=== PATIENT | female | born 1945 | race Caucasian/White ===

== ENCOUNTER → 2016-11-30 | Outpatient (REF) | payer MEDICARE, BC ==
[~2016-11-30] MED LIST: /WARF25TA PO; AMITIZA PO; CHLORPROMAZINE PO; COLA50CA3 PO; FLUPHENAZINE PO; FOLI1TAB86 PO; MULTTAB4 PO; OMEP40CA2 PO; PERC7.5T12 PO; PRAVASTATIN PO; REST15CA PO; THIA50CA PO; [UNRECOGNIZED DRUG - OTHER] PO
== END ==
LOC: M LAB REF 12:44
PROVIDERS: ATTEND Internal Medicine Medical Oncology
DX: C50.919 Malignant neoplasm of unspecified site of unspecified female breast (principal)

== ENCOUNTER → 2017-02-20 | Day surgery (SDC) | payer MEDICARE, BC ==
[~2017-02-20] VITALS: Ht 182.9 cm; Wt 59.0 kg
[~2017-02-20] MED LIST changes: +ACETAMINOPHEN 325 MG TAB PO PRN; +ASPI81CH32 PO; +AZIT500T2; +AcetaZOLAMIDE 500 MG ER CAP PO ONE; +BSS with VANC/TOB/EPI for EYE CASES IR ONE; +CALCTAB7 PO; +CYCLOPENTOLATE 2% OPHTH SOLN 2ML BTL As Ordered ONE; +CYCLOPENTOLATE 2% OPHTH SOLN 2ML BTL OD ONE; +D5W/0.2% SODIUM CHLORIDE 1,000 ML ONE; +D5W/0.2% SODIUM CHLORIDE 250 ML IV ONE; +FISH1000 PO; +FOSA70TA PO; +HEALON DUET (HEALON 10MG/ML 0.55ML & HEALON ENDOCOAT 30MG/ML 0.85ML) As Ordered ONE; +KETOROLAC 0.5% OPHTH SOLN OD ONE; +LIDOCAINE 1% SDV 5 ML VIAL As Ordered ONE; +LIDOCAINE 4% INJ 5 ML AMP OU ONE; +LISI10TA4; +LOVA20TA2; +MIDAZOLAM INJ 2 MG/2 ML VIAL (J2250) As Ordered ONE; +MOXIFLOXACIN IN BSS 0.25MG/0.25ML INTRACAMERAL INJ (OR EYE ONLY)(J2280) As Ordered ONE; +MULTCAP9 PO; +OFLOXACIN 0.3 % (OCUFLOX) OPTH SOL 5ML As Ordered ONE; +OFLOXACIN 0.3 % (OCUFLOX) OPTH SOL 5ML OD ONE; +PHENYLEPHRINE 2.5% OPHTH SOL 2ML As Ordered ONE; +PHENYLEPHRINE 2.5% OPHTH SOL 2ML OD ONE; +POVIDONE-IODINE 5% OPHTH PREP SOL 30ML As Ordered ONE; +PROPARACAINE 0.5% OPHTH SOL 15ML OD PRN; +RISP1TAB3 PO; +RISP1TAB41; +RISP2TAB3 PO; +RISP4TAB2; +RISP4TAB33; +TAMO20TA4; +TAMO20TA4 PO; +TRIAMCINOLONE PRES FR 40 MG/ML 1ML(TRIESENCE)(OR EYE ONLY)(J3300 PER 1MG) As Ordered ONE; +TRIMETHOBENZAMIDE 300 MG CAP PO PRN; +TROPICAMIDE 1% OPHTH SOLN 2ML As Ordered ONE; +TROPICAMIDE 1% OPHTH SOLN 2ML OD ONE; +VITA-130 PO; +VITA100066 PO; +VITMTA PO; +fentaNYL 100 MCG/2 ML INJECTION (J3010) As Ordered ONE
[2017-02-20 10:35] VITALS: BP 160/74
== END | disposition home or self-care (01) ==
LOC: M SDC 06:57
PROVIDERS: ATTEND Ophthalmology
DX: H26.9 Unspecified cataract (principal); I10 Essential (primary) hypertension; J44.9 Chronic obstructive pulmonary disease, unspecified; E78.5 Hyperlipidemia, unspecified; F33.1 Major depressive disorder, recurrent, moderate; F20.9 Schizophrenia, unspecified; M81.0 Age-related osteoporosis without current pathological fracture; L40.9 Psoriasis, unspecified; K58.9 Irritable bowel syndrome, unspecified; R01.1 Cardiac murmur, unspecified; K59.00 Constipation, unspecified; Z79.899 Other long term (current) drug therapy; Z85.3 Personal history of malignant neoplasm of breast; Z92.21 Personal history of antineoplastic chemotherapy; Z92.3 Personal history of irradiation
CPT/HCPCS: 66984; J2250; J2280; J3010; J3300; V2632

== ENCOUNTER → 2017-03-12 | Day surgery (SDC) | payer MEDICARE, BC ==
[~2017-03-12] VITALS: Ht 182.9 cm; Wt 59.0 kg
[~2017-03-12] MED LIST changes: -CYCLOPENTOLATE 2% OPHTH SOLN 2ML BTL As Ordered ONE; -CYCLOPENTOLATE 2% OPHTH SOLN 2ML BTL OD ONE; +CYCLOPENTOLATE 2% OPHTH SOLN 2ML BTL OS ONE; -D5W/0.2% SODIUM CHLORIDE 1,000 ML ONE; -D5W/0.2% SODIUM CHLORIDE 250 ML IV ONE; -KETOROLAC 0.5% OPHTH SOLN OD ONE; +KETOROLAC 0.5% OPHTH SOLN OS ONE; +LR 1,000 ML IV SCH; -OFLOXACIN 0.3 % (OCUFLOX) OPTH SOL 5ML As Ordered ONE; -OFLOXACIN 0.3 % (OCUFLOX) OPTH SOL 5ML OD ONE; +OFLOXACIN 0.3 % (OCUFLOX) OPTH SOL 5ML OS ONE; -PHENYLEPHRINE 2.5% OPHTH SOL 2ML As Ordered ONE; -PHENYLEPHRINE 2.5% OPHTH SOL 2ML OD ONE; +PHENYLEPHRINE 2.5% OPHTH SOL 2ML OS ONE; -PROPARACAINE 0.5% OPHTH SOL 15ML OD PRN; +PROPARACAINE 0.5% OPHTH SOL 15ML OS PRN; -TROPICAMIDE 1% OPHTH SOLN 2ML As Ordered ONE; -TROPICAMIDE 1% OPHTH SOLN 2ML OD ONE; +TROPICAMIDE 1% OPHTH SOLN 2ML OS ONE
[2017-03-12 13:35] VITALS: BP 169/77
== END | disposition home or self-care (01) ==
LOC: M SDC 10:14
PROVIDERS: ATTEND Ophthalmology
DX: H26.9 Unspecified cataract (principal); I10 Essential (primary) hypertension; F20.9 Schizophrenia, unspecified; F32.9 Major depressive disorder, single episode, unspecified; R01.1 Cardiac murmur, unspecified; E83.51 Hypocalcemia; D72.819 Decreased white blood cell count, unspecified; K59.00 Constipation, unspecified; K58.9 Irritable bowel syndrome, unspecified; L40.9 Psoriasis, unspecified; M81.8 Other osteoporosis without current pathological fracture; E78.5 Hyperlipidemia, unspecified; J44.9 Chronic obstructive pulmonary disease, unspecified; Z79.899 Other long term (current) drug therapy; Z92.21 Personal history of antineoplastic chemotherapy; Z92.3 Personal history of irradiation; Z96.641 Presence of right artificial hip joint; Z87.891 Personal history of nicotine dependence; Z85.3 Personal history of malignant neoplasm of breast
CPT/HCPCS: 66984; J2250; J2280; J3010; J3300; V2632

== ENCOUNTER → 2017-04-16 | Outpatient (CLI) | payer MEDICARE, BC ==
[~2017-04-16] MED LIST changes: -ACETAMINOPHEN 325 MG TAB PO PRN; -AcetaZOLAMIDE 500 MG ER CAP PO ONE; -BSS with VANC/TOB/EPI for EYE CASES IR ONE; -CYCLOPENTOLATE 2% OPHTH SOLN 2ML BTL OS ONE; -HEALON DUET (HEALON 10MG/ML 0.55ML & HEALON ENDOCOAT 30MG/ML 0.85ML) As Ordered ONE; -KETOROLAC 0.5% OPHTH SOLN OS ONE; -LIDOCAINE 1% SDV 5 ML VIAL As Ordered ONE; -LIDOCAINE 4% INJ 5 ML AMP OU ONE; -LR 1,000 ML IV SCH; -MIDAZOLAM INJ 2 MG/2 ML VIAL (J2250) As Ordered ONE; -MOXIFLOXACIN IN BSS 0.25MG/0.25ML INTRACAMERAL INJ (OR EYE ONLY)(J2280) As Ordered ONE; -OFLOXACIN 0.3 % (OCUFLOX) OPTH SOL 5ML OS ONE; -PHENYLEPHRINE 2.5% OPHTH SOL 2ML OS ONE; -POVIDONE-IODINE 5% OPHTH PREP SOL 30ML As Ordered ONE; -PROPARACAINE 0.5% OPHTH SOL 15ML OS PRN; -RISP1TAB41; +RISP1TAB42; -TRIAMCINOLONE PRES FR 40 MG/ML 1ML(TRIESENCE)(OR EYE ONLY)(J3300 PER 1MG) As Ordered ONE; -TRIMETHOBENZAMIDE 300 MG CAP PO PRN; -TROPICAMIDE 1% OPHTH SOLN 2ML OS ONE; -VITA-130 PO; +VITA500T PO; -fentaNYL 100 MCG/2 ML INJECTION (J3010) As Ordered ONE
--- NOTE | 2017-04-16 16:19 | REPMRS ---
Patient History The patient states she had a clinical breast exam in 11/2016. Patient is postmenopausal, has history of cancer in the left breast at age 64, and is nulliparous. Family history of breast cancer in mother at age 62, breast cancer in maternal aunt at age 60, breast cancer in maternal cousin at age 40, and prostate cancer in brother at age 50 or over. Radiation therapy of the left breast. Took hormonal contraceptives for 2 years. Taking tamoxifen for 5 years 6 months. Digital Woman Screen Mammo: April 16, 2017 - Exam #: [id number] Bilateral CC and MLO view(s) were taken. Technologist: Lorena Scherer Technologist Prior study comparison: April 12, 2016, digital woman screen mammo performed at [facility]. March 23, 2015, digital woman screen mammo performed at [facility]. FINDINGS: There are scattered fibroglandular densities. There is a fairly symmetric fibroglandular pattern in both breasts. There has been no interval development of masses, areas of architectural distortion or clusters of microcalcifications typical of malignancy. ASSESSMENT: BI-RADS/ACR category 2 mammogram. Benign finding(s). Recommendation Routine screening mammogram of both breasts in 1 year (for women over age 40). This mammogram was interpreted with the aid of an FDA-approved computer-aided dectection system. Electronically Signed By: Shaheen Keith MD 04/16/17 1105
== END ==
LOC: M WHC 14:12
PROVIDERS: ATTEND Nurse Practitioner Family
DX: Z12.31 Encounter for screening mammogram for malignant neoplasm of breast (principal); Z85.3 Personal history of malignant neoplasm of breast

== ENCOUNTER → 2017-06-04 | Outpatient (REF) | payer MEDICARE, BC ==
[2017-06-04 15:18] LABS: PERCENT SATURATION 37.3 % (13.2-45.0)
== END ==
LOC: M LAB REF 12:48
PROVIDERS: ATTEND Internal Medicine Medical Oncology
DX: C50.412 Malignant neoplasm of upper-outer quadrant of left female breast (principal); D64.9 Anemia, unspecified; Z79.810 Long term (current) use of selective estrogen receptor modulators (SERMs)

== ENCOUNTER → 2017-08-07 | Outpatient (REF) | payer MEDICARE, BC ==
[2017-08-07 16:05] LABS: RETIC HEMOGLOBIN EQUIVALENT 35.9 pg (24-36); RETICULOCYTE % 1.2 % (0.5-1.5)
[2017-08-07 16:32] LABS: PERCENT SATURATION 27.6 % (13.2-45.0)
== END ==
LOC: M LAB REF 15:54
PROVIDERS: ATTEND Internal Medicine Medical Oncology
DX: C50.919 Malignant neoplasm of unspecified site of unspecified female breast (principal)

== ENCOUNTER → 2017-12-12 | Outpatient (REF) | payer MEDICARE, BC ==
[2017-12-12 13:41] LABS: FERRITIN 40 NG/ML (8-252); IRON (FE) 127 UG/DL (50-170); PERCENT SATURATION 39.9 % (13.2-45.0); TOTAL IRON BINDING CAPACITY 318 UG/DL (250-450)
== END ==
LOC: M LAB REF 13:04
DX: C50.412 Malignant neoplasm of upper-outer quadrant of left female breast (principal); Z17.0 Estrogen receptor positive status [ER+]; Z79.810 Long term (current) use of selective estrogen receptor modulators (SERMs); D50.0 Iron deficiency anemia secondary to blood loss (chronic)
CPT/HCPCS: 83550

== ENCOUNTER 2018-01-09 07:05 | Emergency (ER) | payer MEDICARE, BC ==
[2018-01-09] MEDS ORDERED: LISINOPRIL 10 MG TAB PO ×2 (09:00)
[2018-01-09] MEDS ORDERED: SIMVASTATIN 20 MG TAB PO ×2 (09:00)
[2018-01-09] MEDS ORDERED: OMEGA-3 1050MG CAPSULE PO ×2 (09:00)
[2018-01-09] MEDS ORDERED: ASCORBIC ACID 500 MG TAB PO ×2 (09:00)
[2018-01-09] MEDS ORDERED: TAMOXIFEN CITRATE 10 MG TAB PO ×2 (09:00)
[2018-01-09] MEDS ORDERED: MULTIVITAMINS/MINERALS THERAP 1 TAB PO ×2 (09:00)
[2018-01-09] MEDS ORDERED: VITAMIN D 1,000 INTERNATIONAL UNITS TABLET PO ×2 (09:00)
[2018-01-09 11:30] LABS: HEMATOCRIT 34.6 % (36.0-47.0); HEMOGLOBIN 11.5 g/dl (12.0-15.5); MEAN CORPUSCULAR HEMOGLOBIN 29.8 pg (27.0-33.0); MEAN CORPUSCULAR HGB CONC 33.2 g/dl (32.0-36.5); MEAN CORPUSCULAR VOLUME 89.6 fl (80.0-96.0); PLATELET COUNT, AUTOMATED 131 10^3/uL (150-450); RED BLOOD COUNT 3.86 10^6/uL (4.00-5.40); RED CELL DISTRIBUTION WIDTH 13.8 % (11.5-14.5); WHITE BLOOD COUNT 4.4 10^3/uL (4.0-10.0)
[2018-01-09] MEDS: NORCO, ANEXSIA 5/325MG TABLET (HYDROcodone/ACETAMINOPHEN) PO ×2 (11:44)
[2018-01-09 11:51] LABS: ANION GAP 8 MEQ/L (8-16); BLOOD UREA NITROGEN 7 MG/DL (7-18); CARBON DIOXIDE LEVEL 24 MEQ/L (21-32); CHLORIDE LEVEL 110 MEQ/L (98-107); CREATININE FOR GFR 0.48 MG/DL (0.55-1.30); GLOMERULAR FILTRATION RATE > 60.0 (>39); GLUCOSE, FASTING 96 MG/DL (70-100); POTASSIUM SERUM 3.7 MEQ/L (3.5-5.1); SODIUM LEVEL 142 MEQ/L (136-145)
[2018-01-09] MEDS ORDERED: ACETAMINOPHEN TAB 650MG DOSE (2X325MG) PO ×2 (13:30)
[2018-01-09] MEDS ORDERED: ONDANSETRON 4MG/2ML VIAL (J2405) IV ×2 (13:30)
[2018-01-09] MEDS ORDERED: PERCOCET 5MG/325MG TAB PO ×2 (13:30)
[2018-01-09] MEDS ORDERED: HEPARIN SOD (PORCINE) 5000 UNITS/ML VIAL SC ×2 (14:00)
[2018-01-09] MEDS ORDERED: ASPIRIN 81 MG CHEW TABLET PO ×2 (21:00)
[2018-01-09] MEDS ORDERED: SENOKOT S TAB PO ×2 (21:00)
[2018-01-09] MEDS ORDERED: risperiDONE 3 MG TAB PO ×2 (21:00)
[2018-01-12] MEDS ORDERED: ALENDRONATE 35MG TABLET PO ×2 (07:00)
== END 2018-01-09 15:20 | disposition home or self-care (01) ==
LOC: M ED 07:05
DX: M17.12 Unilateral primary osteoarthritis, left knee (principal); F20.9 Schizophrenia, unspecified; J44.9 Chronic obstructive pulmonary disease, unspecified; K58.9 Irritable bowel syndrome, unspecified; I10 Essential (primary) hypertension; M19.90 Unspecified osteoarthritis, unspecified site; Z85.3 Personal history of malignant neoplasm of breast; Z87.891 Personal history of nicotine dependence; Z79.82 Long term (current) use of aspirin; Z79.899 Other long term (current) drug therapy
CPT/HCPCS: 73564

== ENCOUNTER 2018-01-15 10:12 | Inpatient (IN) | payer MEDICARE, BC ==
[2018-01-15 11:33] LABS: BASO % 0.1 % (0.0-1.0); HEMATOCRIT 31.5 % (36.0-47.0); HEMOGLOBIN 10.3 g/dl (12.0-15.5); IMMATURE GRANULOCYTE % 0.5 % (0-3.0); LYMPH # 0.6 10^3/uL (1.5-4.5); MEAN CORPUSCULAR HEMOGLOBIN 28.9 pg (27.0-33.0); MEAN CORPUSCULAR HGB CONC 32.7 g/dl (32.0-36.5); MEAN CORPUSCULAR VOLUME 88.2 fl (80.0-96.0); MONO # 0.6 10^3/uL (0.0-0.8); MONO % 6.8 % (0.0-5.0); NEUTROPHILS # 6.8 10^3/uL (1.8-7.7); NEUTROPHILS % 84.6 % (36.0-66.0); PLATELET COUNT, AUTOMATED 272 10^3/uL (150-450); RED BLOOD COUNT 3.57 10^6/uL (4.00-5.40); RED CELL DISTRIBUTION WIDTH 13.9 % (11.5-14.5); WHITE BLOOD COUNT 8.1 10^3/uL (4.0-10.0)
[2018-01-15 12:00] LABS: ANION GAP 5 MEQ/L (8-16); BLOOD UREA NITROGEN 26 MG/DL (7-18); CALCIUM LEVEL 9.4 MG/DL (8.8-10.2); CARBON DIOXIDE LEVEL 30 MEQ/L (21-32); CHLORIDE LEVEL 108 MEQ/L (98-107); CREATININE FOR GFR 0.61 MG/DL (0.55-1.30); GLOMERULAR FILTRATION RATE > 60.0 (>39); GLUCOSE, FASTING 127 MG/DL (70-100); POTASSIUM SERUM 3.7 MEQ/L (3.5-5.1); SODIUM LEVEL 143 MEQ/L (136-145); URIC ACID 4.1 MG/DL (2.6-6.0)
[2018-01-15 12:05] LABS: ERYTHROCYTE SEDIMENTATION RATE 81 mm/hr (0-30)
[2018-01-15] MEDS ORDERED: LIDOCAINE 1% MDV 20ML VIAL As Ordered (14:51)
[2018-01-15] MEDS: LIDOCAINE 1% MDV 20ML VIAL SC (15:07)
[2018-01-15] MEDS: NS 1,000 ML IV (15:45)
[2018-01-15 16:04] LABS: SOURCE, BODY FLUID LFT KNEE
[2018-01-15 16:05] LABS: APPEARANCE, BODY FLUID TURBID (CLEAR)
[2018-01-15 16:06] LABS: RBC BODY FLUID 172 10^3/uL (<2); WBC BODY FLUID 251232 /uL (0-10)
[2018-01-15 16:07] LABS: BF MONONUCLEAR CELL % 31.6 % (0-0); BF POLYMORPHONUCLEAR CELL % 68.4 % (0-0)
[2018-01-15 16:18] LABS: BF DIFF IF INDICATED? YES (NO); CRYSTALS, BODY FLUID NONE SEEN (NONE SEEN); SOURCE, BODY FLUID CRYSTALS LFT KNEE
[2018-01-15] MEDS: VANCOMYCIN HCL 1,000 MG, VIAL MATE ADAPTER 1 EACH in D5W 250 ML IV (17:00)
[2018-01-15] MEDS: ACETAMINOPHEN 650 MG SUPP PR (18:00)
[2018-01-15] MEDS: PIPERACILLIN/TAZOBACTAM SOD 3.375 GM in D5W MINI-BAG PLUS 50 ML IV (18:42)
[2018-01-15] MEDS ORDERED: MORPHINE 4 MG/ML 1ML VIAL/SYRINGE (J2270) IV (20:15)
[2018-01-15] MEDS ORDERED: NORCO, ANEXSIA 5/325MG TABLET (HYDROcodone/ACETAMINOPHEN) PO (20:15)
[2018-01-15] MEDS: PIPERACILLIN/TAZOBACTAM SOD 2.25 GM in D5W MINI-BAG PLUS 50 ML IV (22:36)
[2018-01-15] MEDS: SENOKOT S TAB PO (22:36)
[2018-01-15] MEDS ORDERED: LIDOCAINE 2% INJ 100 MG/5 ML SDV (FOR ANES.) As Ordered (22:52)
[2018-01-15] MEDS ORDERED: ONDANSETRON 4MG/2ML VIAL (J2405) As Ordered (22:52)
[2018-01-15] MEDS ORDERED: MIDAZOLAM INJ 2 MG/2 ML VIAL (J2250) As Ordered (22:52)
[2018-01-15] MEDS ORDERED: PROPOFOL 200 MG/20 ML VIAL As Ordered (22:52)
[2018-01-15] MEDS ORDERED: fentaNYL 100 MCG/2 ML INJECTION (J3010) As Ordered (22:52)
[2018-01-15] MEDS ORDERED: dexameTHASONE 4 MG/ML 1ML VIAL (J1100) As Ordered (22:52)
[2018-01-16] MEDS ORDERED: PROPOFOL 200 MG/20 ML VIAL As Ordered (00:13)
[2018-01-16] MEDS ORDERED: fentaNYL 100 MCG/2 ML INJECTION (J3010) IV (01:00)
[2018-01-16] MEDS ORDERED: ONDANSETRON 4MG/2ML VIAL (J2405) IV (01:00)
[2018-01-16] MEDS: PIPERACILLIN/TAZOBACTAM SOD 2.25 GM in D5W MINI-BAG PLUS 50 ML IV ×4 (03:18→21:24)
[2018-01-16] MEDS: VANCOMYCIN HCL 1,000 MG, VIAL MATE ADAPTER 1 EACH in D5W 250 ML IV ×2 (06:27→18:23)
[2018-01-16] MEDS: NS 1,000 ML IV ×2 (06:28→18:22)
[2018-01-16] MEDS: HEPARIN SOD (PORCINE) 5000 UNITS/ML VIAL SC ×3 (06:29→21:24)
[2018-01-16 07:33] LABS: HEMATOCRIT 29.4 % (36.0-47.0); HEMOGLOBIN 9.6 g/dl (12.0-15.5); MEAN CORPUSCULAR HEMOGLOBIN 28.7 pg (27.0-33.0); MEAN CORPUSCULAR HGB CONC 32.7 g/dl (32.0-36.5); MEAN CORPUSCULAR VOLUME 87.8 fl (80.0-96.0); PLATELET COUNT, AUTOMATED 274 10^3/uL (150-450); RED BLOOD COUNT 3.35 10^6/uL (4.00-5.40); RED CELL DISTRIBUTION WIDTH 13.9 % (11.5-14.5); WHITE BLOOD COUNT 7.7 10^3/uL (4.0-10.0)
[2018-01-16 07:44] LABS: INR 1.44; PROTHROMBIN TIME 17.9 SECONDS (12.4-14.5)
[2018-01-16 08:03] LABS: ALBUMIN 1.8 GM/DL (3.2-5.2); ALBUMIN/GLOBULIN RATIO 0.47 (1.00-1.93); ALKALINE PHOSPHATASE 51 U/L (45-117); ALT/SGPT 29 U/L (12-78); ANION GAP 8 MEQ/L (8-16); AST/SGOT 23 U/L (7-37); BILIRUBIN,TOTAL 0.3 MG/DL (0.2-1.0); BLOOD UREA NITROGEN 22 MG/DL (7-18); CALCIUM LEVEL 8.2 MG/DL (8.8-10.2); CARBON DIOXIDE LEVEL 25 MEQ/L (21-32); CHLORIDE LEVEL 112 MEQ/L (98-107); CREATININE FOR GFR 0.44 MG/DL (0.55-1.30); GLOMERULAR FILTRATION RATE > 60.0 (>39); GLUCOSE, FASTING 156 MG/DL (70-100); MAGNESIUM LEVEL 2.2 MG/DL (1.8-2.4); POTASSIUM SERUM 3.4 MEQ/L (3.5-5.1); SODIUM LEVEL 145 MEQ/L (136-145); TOTAL PROTEIN 5.6 GM/DL (6.4-8.2)
[2018-01-16] MEDS: MULTIVITAMINS/MINERALS THERAP 1 TAB PO (08:22)
[2018-01-16] MEDS: ASCORBIC ACID 500 MG TAB PO (08:23)
[2018-01-16] MEDS: SENOKOT S TAB PO ×2 (08:23→21:24)
[2018-01-16] MEDS: SIMVASTATIN 20 MG TAB PO (08:23)
[2018-01-16] MEDS: PERCOCET 5MG/325MG TAB PO ×2 (08:23→15:32)
[2018-01-16] MEDS: VITAMIN D 1,000 INTERNATIONAL UNITS TABLET PO (08:23)
[2018-01-16] MEDS: LISINOPRIL 10 MG TAB PO (08:23)
[2018-01-16] MEDS: LR 1,000 ML IV (08:24)
[2018-01-16] MEDS ORDERED: SENOKOT S TAB PO (09:00)
[2018-01-16] MEDS: risperiDONE 3 MG TAB PO ×2 (11:47→21:24)
[2018-01-16] MEDS: MOM 30ML SUSPENSION UDC PO (11:47)
[2018-01-16] MEDS: TAMOXIFEN CITRATE 10 MG TAB PO (11:47)
[2018-01-16] MEDS: MIRALAX *UNIT DOSE* 17GM PACKET PO (11:47)
[2018-01-16] MEDS: POTASSIUM CHLORIDE 10 MEQ SR TABLET PO (15:31)
[2018-01-16 17:27] LABS: VANCOMYCIN LEVEL TROUGH 9.1 UG/ML (10.0-20.0)
[2018-01-17] MEDS: VANCOMYCIN HCL 1,000 MG, VIAL MATE ADAPTER 1 EACH in D5W 250 ML IV ×2 (00:58→12:42)
[2018-01-17] MEDS: PERCOCET 5MG/325MG TAB PO ×3 (00:59→14:40)
[2018-01-17] MEDS: NS 1,000 ML IV ×2 (01:01→18:57)
[2018-01-17] MEDS: PIPERACILLIN/TAZOBACTAM SOD 2.25 GM in D5W MINI-BAG PLUS 50 ML IV ×4 (03:26→20:16)
[2018-01-17] MEDS: HEPARIN SOD (PORCINE) 5000 UNITS/ML VIAL SC ×3 (05:54→20:16)
[2018-01-17 06:21] LABS: HEMATOCRIT 28.9 % (36.0-47.0); HEMOGLOBIN 9.4 g/dl (12.0-15.5); MEAN CORPUSCULAR HGB CONC 32.5 g/dl (32.0-36.5); MEAN CORPUSCULAR VOLUME 89.2 fl (80.0-96.0); PLATELET COUNT, AUTOMATED 296 10^3/uL (150-450); RED BLOOD COUNT 3.24 10^6/uL (4.00-5.40); WHITE BLOOD COUNT 7.2 10^3/uL (4.0-10.0)
[2018-01-17 06:32] LABS: ESTIMATED AVERAGE GLUCOSE 88 MG/DL (60-110); HEMOGLOBIN A1c 4.7 %
[2018-01-17 06:47] LABS: ALBUMIN 1.6 GM/DL (3.2-5.2); ALBUMIN/GLOBULIN RATIO 0.43 (1.00-1.93); ALKALINE PHOSPHATASE 46 U/L (45-117); ALT/SGPT 33 U/L (12-78); ANION GAP 8 MEQ/L (8-16); AST/SGOT 30 U/L (7-37); BILIRUBIN,TOTAL 0.2 MG/DL (0.2-1.0); BLOOD UREA NITROGEN 18 MG/DL (7-18); CALCIUM LEVEL 7.3 MG/DL (8.8-10.2); CARBON DIOXIDE LEVEL 24 MEQ/L (21-32); CHLORIDE LEVEL 107 MEQ/L (98-107); CREATININE FOR GFR 0.49 MG/DL (0.55-1.30); GLOMERULAR FILTRATION RATE > 60.0 (>39); GLUCOSE, FASTING 113 MG/DL (70-100); POTASSIUM SERUM 3.3 MEQ/L (3.5-5.1); SODIUM LEVEL 139 MEQ/L (136-145); TOTAL PROTEIN 5.3 GM/DL (6.4-8.2)
[2018-01-17] MEDS: risperiDONE 3 MG TAB PO ×2 (08:12→20:15)
[2018-01-17] MEDS: SIMVASTATIN 20 MG TAB PO (08:12)
[2018-01-17] MEDS: MULTIVITAMINS/MINERALS THERAP 1 TAB PO (08:12)
[2018-01-17] MEDS: VITAMIN D 1,000 INTERNATIONAL UNITS TABLET PO (08:13)
[2018-01-17] MEDS: ASCORBIC ACID 500 MG TAB PO (08:13)
[2018-01-17] MEDS: TAMOXIFEN CITRATE 10 MG TAB PO (08:13)
[2018-01-17] MEDS: MIRALAX *UNIT DOSE* 17GM PACKET PO (08:14)
[2018-01-17] MEDS: MOM 30ML SUSPENSION UDC PO (08:14)
[2018-01-17] MEDS: SENOKOT S TAB PO ×2 (08:15→20:15)
[2018-01-17] MEDS: LISINOPRIL 10 MG TAB PO (10:48)
[2018-01-17] MEDS: POTASSIUM CHLORIDE 10 MEQ SR TABLET PO (12:42)
[2018-01-18] MEDS: VANCOMYCIN HCL 1,000 MG, VIAL MATE ADAPTER 1 EACH in D5W 250 ML IV (00:34)
[2018-01-18] MEDS: PIPERACILLIN/TAZOBACTAM SOD 2.25 GM in D5W MINI-BAG PLUS 50 ML IV (04:08)
[2018-01-18] MEDS: HEPARIN SOD (PORCINE) 5000 UNITS/ML VIAL SC ×3 (05:18→21:52)
[2018-01-18 06:03] LABS: HEMOGLOBIN 8.9 g/dl (12.0-15.5); MEAN CORPUSCULAR VOLUME 87.9 fl (80.0-96.0); PLATELET COUNT, AUTOMATED 301 10^3/uL (150-450); RED BLOOD COUNT 3.07 10^6/uL (4.00-5.40); WHITE BLOOD COUNT 6.7 10^3/uL (4.0-10.0)
[2018-01-18 06:26] LABS: ALBUMIN 1.5 GM/DL (3.2-5.2); ALBUMIN/GLOBULIN RATIO 0.44 (1.00-1.93); ALKALINE PHOSPHATASE 44 U/L (45-117); ALT/SGPT 34 U/L (12-78); ANION GAP 6 MEQ/L (8-16); AST/SGOT 34 U/L (7-37); BILIRUBIN,TOTAL 0.3 MG/DL (0.2-1.0); BLOOD UREA NITROGEN 13 MG/DL (7-18); C REACTIVE PROTEIN QUANTITATIV 6.21 MG/DL (0.00-0.30); CALCIUM LEVEL 7.5 MG/DL (8.8-10.2); CARBON DIOXIDE LEVEL 26 MEQ/L (21-32); CHLORIDE LEVEL 108 MEQ/L (98-107); CREATININE FOR GFR 0.42 MG/DL (0.55-1.30); GLOMERULAR FILTRATION RATE > 60.0 (>39); GLUCOSE, FASTING 109 MG/DL (70-100); POTASSIUM SERUM 3.2 MEQ/L (3.5-5.1); SODIUM LEVEL 140 MEQ/L (136-145); TOTAL PROTEIN 4.9 GM/DL (6.4-8.2)
[2018-01-18] MEDS ORDERED: CEFTAROLINE FOSAMIL 600 MG in D5W MINI-BAG PLUS 50 ML IV (09:00)
[2018-01-18] MEDS: NS 1,000 ML IV (09:43)
[2018-01-18] MEDS: KCL 10MEQ/100ML SWI (KRUN) 10 MEQ in APPROPRIATE DILUENT 1 EA IV (10:08)
[2018-01-18] MEDS: POTASSIUM CHLORIDE 10 MEQ SR TABLET PO (10:08)
[2018-01-18] MEDS: MOM 30ML SUSPENSION UDC PO (10:09)
[2018-01-18] MEDS: MIRALAX *UNIT DOSE* 17GM PACKET PO (10:09)
[2018-01-18] MEDS: ASCORBIC ACID 500 MG TAB PO (10:10)
[2018-01-18] MEDS: PERCOCET 5MG/325MG TAB PO ×2 (10:10→16:36)
[2018-01-18] MEDS: TAMOXIFEN CITRATE 10 MG TAB PO (10:11)
[2018-01-18] MEDS: MULTIVITAMINS/MINERALS THERAP 1 TAB PO (10:11)
[2018-01-18] MEDS: risperiDONE 3 MG TAB PO ×2 (10:11→21:52)
[2018-01-18] MEDS: VITAMIN D 1,000 INTERNATIONAL UNITS TABLET PO (10:11)
[2018-01-18] MEDS: SIMVASTATIN 20 MG TAB PO (10:12)
[2018-01-18] MEDS: SENOKOT S TAB PO ×2 (10:12→21:00)
[2018-01-18] MEDS: LISINOPRIL 10 MG TAB PO (10:12)
[2018-01-18] MEDS: cefTRIAXone SOD 2 GM in D5W MINI-BAG PLUS 50 ML IV (11:20)
[2018-01-18] MEDS ORDERED: FUROSEMIDE 40 MG/4 ML VIAL (J1940) IV ×2 (16:30→19:30)
[2018-01-18] MEDS: SODIUM CHLORIDE 0.9% INJ 10 ML SYR IV (18:15)
[2018-01-18] MEDS ORDERED: HEPARIN SOD (PORCINE) 5000 UNITS/ML VIAL As Ordered (21:48)
[2018-01-19] MEDS: SODIUM CHLORIDE 0.9% INJ 10 ML SYR IV ×3 (05:21→17:36)
[2018-01-19] MEDS: HEPARIN SOD (PORCINE) 5000 UNITS/ML VIAL SC ×3 (05:22→21:07)
[2018-01-19 05:35] LABS: HEMATOCRIT 26.4 % (36.0-47.0); HEMOGLOBIN 8.7 g/dl (12.0-15.5); MEAN CORPUSCULAR HEMOGLOBIN 29.1 pg (27.0-33.0); MEAN CORPUSCULAR VOLUME 88.3 fl (80.0-96.0); PLATELET COUNT, AUTOMATED 309 10^3/uL (150-450); RED BLOOD COUNT 2.99 10^6/uL (4.00-5.40); RED CELL DISTRIBUTION WIDTH 13.8 % (11.5-14.5); WHITE BLOOD COUNT 6.7 10^3/uL (4.0-10.0)
[2018-01-19 05:57] LABS: POTASSIUM SERUM 3.8 MEQ/L (3.5-5.1)
[2018-01-19 06:34] LABS: ALBUMIN 1.6 GM/DL (3.2-5.2); ALBUMIN/GLOBULIN RATIO 0.55 (1.00-1.93); ALKALINE PHOSPHATASE 50 U/L (45-117); ALT/SGPT 45 U/L (12-78); ANION GAP 7 MEQ/L (8-16); AST/SGOT 42 U/L (7-37); BILIRUBIN,TOTAL 0.2 MG/DL (0.2-1.0); BLOOD UREA NITROGEN 12 MG/DL (7-18); CALCIUM LEVEL 7.2 MG/DL (8.8-10.2); CARBON DIOXIDE LEVEL 26 MEQ/L (21-32); CHLORIDE LEVEL 110 MEQ/L (98-107); GLOMERULAR FILTRATION RATE > 60.0 (>39); GLUCOSE, FASTING 105 MG/DL (70-100); SODIUM LEVEL 143 MEQ/L (136-145); TOTAL PROTEIN 4.5 GM/DL (6.4-8.2)
[2018-01-19] MEDS ORDERED: CEFAZOLIN SOD 2 GM in APPROPRIATE DILUENT 1 EA IV (07:45)
[2018-01-19] MEDS: MULTIVITAMINS/MINERALS THERAP 1 TAB PO (08:45)
[2018-01-19] MEDS: VITAMIN D 1,000 INTERNATIONAL UNITS TABLET PO (08:45)
[2018-01-19] MEDS: ASCORBIC ACID 500 MG TAB PO (08:46)
[2018-01-19] MEDS: SIMVASTATIN 20 MG TAB PO (08:46)
[2018-01-19] MEDS: risperiDONE 3 MG TAB PO ×2 (08:46→21:08)
[2018-01-19] MEDS: TAMOXIFEN CITRATE 10 MG TAB PO (08:47)
[2018-01-19] MEDS: LISINOPRIL 10 MG TAB PO (08:48)
[2018-01-19] MEDS: PERCOCET 5MG/325MG TAB PO ×2 (08:56→21:08)
[2018-01-19] MEDS: SENOKOT S TAB PO ×2 (09:00→21:00)
[2018-01-19] MEDS: MOM 30ML SUSPENSION UDC PO (09:00)
[2018-01-19] MEDS: MIRALAX *UNIT DOSE* 17GM PACKET PO (09:00)
[2018-01-20] MEDS: SODIUM CHLORIDE 0.9% INJ 10 ML SYR IV ×4 (00:27→17:30)
[2018-01-20] MEDS: HEPARIN SOD (PORCINE) 5000 UNITS/ML VIAL SC ×3 (05:02→21:08)
[2018-01-20 05:20] LABS: HEMATOCRIT 26.8 % (36.0-47.0); HEMOGLOBIN 8.8 g/dl (12.0-15.5); MEAN CORPUSCULAR HEMOGLOBIN 28.9 pg (27.0-33.0); MEAN CORPUSCULAR HGB CONC 32.8 g/dl (32.0-36.5); MEAN CORPUSCULAR VOLUME 87.9 fl (80.0-96.0); PLATELET COUNT, AUTOMATED 348 10^3/uL (150-450); RED BLOOD COUNT 3.05 10^6/uL (4.00-5.40); RED CELL DISTRIBUTION WIDTH 13.9 % (11.5-14.5); WHITE BLOOD COUNT 6.6 10^3/uL (4.0-10.0)
[2018-01-20 05:51] LABS: ALBUMIN 1.6 GM/DL (3.2-5.2); ALBUMIN/GLOBULIN RATIO 0.53 (1.00-1.93); ALKALINE PHOSPHATASE 50 U/L (45-117); ALT/SGPT 53 U/L (12-78); ANION GAP 5 MEQ/L (8-16); AST/SGOT 53 U/L (7-37); BILIRUBIN,TOTAL 0.2 MG/DL (0.2-1.0); BLOOD UREA NITROGEN 13 MG/DL (7-18); CALCIUM LEVEL 7.3 MG/DL (8.8-10.2); CARBON DIOXIDE LEVEL 27 MEQ/L (21-32); CHLORIDE LEVEL 108 MEQ/L (98-107); CREATININE FOR GFR 0.41 MG/DL (0.55-1.30); GLOMERULAR FILTRATION RATE > 60.0 (>39); GLUCOSE, FASTING 111 MG/DL (70-100); POTASSIUM SERUM 3.7 MEQ/L (3.5-5.1); SODIUM LEVEL 140 MEQ/L (136-145); TOTAL PROTEIN 4.6 GM/DL (6.4-8.2)
[2018-01-20] MEDS: risperiDONE 3 MG TAB PO ×2 (08:41→21:07)
[2018-01-20] MEDS: TAMOXIFEN CITRATE 10 MG TAB PO (08:42)
[2018-01-20] MEDS: VITAMIN D 1,000 INTERNATIONAL UNITS TABLET PO (08:43)
[2018-01-20] MEDS: PERCOCET 5MG/325MG TAB PO ×2 (08:43→21:08)
[2018-01-20] MEDS: ASCORBIC ACID 500 MG TAB PO (08:43)
[2018-01-20] MEDS: SIMVASTATIN 20 MG TAB PO (08:44)
[2018-01-20] MEDS: MULTIVITAMINS/MINERALS THERAP 1 TAB PO (08:44)
[2018-01-20] MEDS: LISINOPRIL 10 MG TAB PO (08:45)
[2018-01-20] MEDS: MIRALAX *UNIT DOSE* 17GM PACKET PO (09:00)
[2018-01-20] MEDS: SENOKOT S TAB PO ×2 (09:00→21:00)
[2018-01-20] MEDS: MOM 30ML SUSPENSION UDC PO (09:00)
[2018-01-20] MEDS: LACTOBACILLUS ACIDOPHILUS CAP (BACID) PO ×2 (12:56→17:30)
[2018-01-20] MEDS ORDERED: HEPARIN SOD (PORCINE) 5000 UNITS/ML VIAL As Ordered (20:57)
[2018-01-21] MEDS: SODIUM CHLORIDE 0.9% INJ 10 ML SYR IV ×2 (00:02→18:18)
[2018-01-21] MEDS: HEPARIN SOD (PORCINE) 5000 UNITS/ML VIAL SC ×3 (05:06→20:18)
[2018-01-21 05:14] LABS: HEMATOCRIT 25.7 % (36.0-47.0); HEMOGLOBIN 8.6 g/dl (12.0-15.5); MEAN CORPUSCULAR HEMOGLOBIN 29.4 pg (27.0-33.0); MEAN CORPUSCULAR HGB CONC 33.5 g/dl (32.0-36.5); MEAN CORPUSCULAR VOLUME 87.7 fl (80.0-96.0); PLATELET COUNT, AUTOMATED 343 10^3/uL (150-450); RED BLOOD COUNT 2.93 10^6/uL (4.00-5.40); RED CELL DISTRIBUTION WIDTH 13.8 % (11.5-14.5); WHITE BLOOD COUNT 6.2 10^3/uL (4.0-10.0)
[2018-01-21 05:45] LABS: ALBUMIN 1.7 GM/DL (3.2-5.2); ALBUMIN/GLOBULIN RATIO 0.59 (1.00-1.93); ALKALINE PHOSPHATASE 51 U/L (45-117); ALT/SGPT 57 U/L (12-78); ANION GAP 6 MEQ/L (8-16); AST/SGOT 59 U/L (7-37); BILIRUBIN,TOTAL 0.3 MG/DL (0.2-1.0); BLOOD UREA NITROGEN 10 MG/DL (7-18); CALCIUM LEVEL 7.3 MG/DL (8.8-10.2); CARBON DIOXIDE LEVEL 27 MEQ/L (21-32); CHLORIDE LEVEL 107 MEQ/L (98-107); CREATININE FOR GFR 0.39 MG/DL (0.55-1.30); GLOMERULAR FILTRATION RATE > 60.0 (>39); GLUCOSE, FASTING 102 MG/DL (70-100); MAGNESIUM LEVEL 2.1 MG/DL (1.8-2.4); POTASSIUM SERUM 3.7 MEQ/L (3.5-5.1); SODIUM LEVEL 140 MEQ/L (136-145); TOTAL PROTEIN 4.6 GM/DL (6.4-8.2)
[2018-01-21] MEDS: risperiDONE 3 MG TAB PO ×2 (08:09→20:18)
[2018-01-21] MEDS: MOM 30ML SUSPENSION UDC PO (08:10)
[2018-01-21] MEDS: MIRALAX *UNIT DOSE* 17GM PACKET PO (08:10)
[2018-01-21] MEDS: LACTOBACILLUS ACIDOPHILUS CAP (BACID) PO ×3 (08:10→18:18)
[2018-01-21] MEDS: TAMOXIFEN CITRATE 10 MG TAB PO (08:10)
[2018-01-21] MEDS: SENOKOT S TAB PO ×2 (08:10→20:25)
[2018-01-21] MEDS: SIMVASTATIN 20 MG TAB PO (08:11)
[2018-01-21] MEDS: VITAMIN D 1,000 INTERNATIONAL UNITS TABLET PO (08:11)
[2018-01-21] MEDS: MULTIVITAMINS/MINERALS THERAP 1 TAB PO (08:11)
[2018-01-21] MEDS: ASCORBIC ACID 500 MG TAB PO (08:11)
[2018-01-21] MEDS: LISINOPRIL 10 MG TAB PO (08:11)
[2018-01-21] MEDS: PERCOCET 5MG/325MG TAB PO (08:12)
[2018-01-22] MEDS: SODIUM CHLORIDE 0.9% INJ 10 ML SYR IV ×2 (06:09→17:41)
[2018-01-22] MEDS: HEPARIN SOD (PORCINE) 5000 UNITS/ML VIAL SC ×3 (06:10→20:09)
[2018-01-22 06:25] LABS: HEMATOCRIT 25.2 % (36.0-47.0); HEMOGLOBIN 8.4 g/dl (12.0-15.5); MEAN CORPUSCULAR HEMOGLOBIN 29.1 pg (27.0-33.0); MEAN CORPUSCULAR HGB CONC 33.3 g/dl (32.0-36.5); MEAN CORPUSCULAR VOLUME 87.2 fl (80.0-96.0); PLATELET COUNT, AUTOMATED 354 10^3/uL (150-450); RED BLOOD COUNT 2.89 10^6/uL (4.00-5.40); RED CELL DISTRIBUTION WIDTH 13.7 % (11.5-14.5)
[2018-01-22 06:43] LABS: ALBUMIN 1.6 GM/DL (3.2-5.2); ALBUMIN/GLOBULIN RATIO 0.57 (1.00-1.93); ALKALINE PHOSPHATASE 50 U/L (45-117); ALT/SGPT 43 U/L (12-78); ANION GAP 8 MEQ/L (8-16); AST/SGOT 43 U/L (7-37); BILIRUBIN,TOTAL 0.3 MG/DL (0.2-1.0); BLOOD UREA NITROGEN 8 MG/DL (7-18); CALCIUM LEVEL 7.2 MG/DL (8.8-10.2); CARBON DIOXIDE LEVEL 25 MEQ/L (21-32); CHLORIDE LEVEL 106 MEQ/L (98-107); CREATININE FOR GFR 0.36 MG/DL (0.55-1.30); GLOMERULAR FILTRATION RATE > 60.0 (>39); GLUCOSE, FASTING 103 MG/DL (70-100); MAGNESIUM LEVEL 2.2 MG/DL (1.8-2.4); POTASSIUM SERUM 3.5 MEQ/L (3.5-5.1); SODIUM LEVEL 139 MEQ/L (136-145); TOTAL PROTEIN 4.4 GM/DL (6.4-8.2)
[2018-01-22 07:01] LABS: ERYTHROCYTE SEDIMENTATION RATE 73 mm/hr (0-30)
[2018-01-22] MEDS: VITAMIN D 1,000 INTERNATIONAL UNITS TABLET PO (08:43)
[2018-01-22] MEDS: LACTOBACILLUS ACIDOPHILUS CAP (BACID) PO ×3 (08:43→17:41)
[2018-01-22] MEDS: PERCOCET 5MG/325MG TAB PO ×3 (08:43→20:09)
[2018-01-22] MEDS: MULTIVITAMINS/MINERALS THERAP 1 TAB PO (08:49)
[2018-01-22] MEDS: TAMOXIFEN CITRATE 10 MG TAB PO (08:49)
[2018-01-22] MEDS: SIMVASTATIN 20 MG TAB PO (08:50)
[2018-01-22] MEDS: LISINOPRIL 10 MG TAB PO (08:50)
[2018-01-22] MEDS: ASCORBIC ACID 500 MG TAB PO (08:50)
[2018-01-22] MEDS: SENOKOT S TAB PO ×2 (08:51→21:00)
[2018-01-22] MEDS: risperiDONE 3 MG TAB PO ×2 (08:51→20:08)
[2018-01-23] MEDS: SODIUM CHLORIDE 0.9% INJ 10 ML SYR IV (05:11)
[2018-01-23] MEDS: HEPARIN SOD (PORCINE) 5000 UNITS/ML VIAL SC (05:11)
[2018-01-23 05:46] LABS: ERYTHROCYTE SEDIMENTATION RATE 75 mm/hr (0-30)
[2018-01-23 05:53] LABS: C REACTIVE PROTEIN QUANTITATIV 3.53 MG/DL (0.00-0.30)
[2018-01-23] MEDS: ASCORBIC ACID 500 MG TAB PO (08:25)
[2018-01-23] MEDS: MULTIVITAMINS/MINERALS THERAP 1 TAB PO (08:25)
[2018-01-23] MEDS: SIMVASTATIN 20 MG TAB PO (08:25)
[2018-01-23] MEDS: LACTOBACILLUS ACIDOPHILUS CAP (BACID) PO (08:25)
[2018-01-23] MEDS: VITAMIN D 1,000 INTERNATIONAL UNITS TABLET PO (08:25)
[2018-01-23] MEDS: LISINOPRIL 10 MG TAB PO (08:25)
[2018-01-23] MEDS: risperiDONE 3 MG TAB PO (08:25)
[2018-01-23] MEDS: PERCOCET 5MG/325MG TAB PO (08:26)
[2018-01-23] MEDS: SENOKOT S TAB PO (08:26)
[2018-01-23] MEDS: TAMOXIFEN CITRATE 10 MG TAB PO (08:26)
== END 2018-01-23 11:05 | DRG 550 ==
LOC: M MS5PR 01-17 18:47 → M ED 10:12 → M ED INP 17:10 → M MSPAV 21:17
PROC: 0S9D30Z Drainage of Left Knee Joint with Drainage Device, Percutaneous Approach (ICD-10-PCS; 2018-01-15 15:58)
PROC: 0S9D3ZZ Drainage of Left Knee Joint, Percutaneous Approach (ICD-10-PCS; principal; 2018-01-15 23:52)
PROC: 02HV33Z Insertion of Infusion Device into Superior Vena Cava, Percutaneous Approach (ICD-10-PCS; 2018-01-15 23:52)
DX: M00.862 Arthritis due to other bacteria, left knee (principal); F20.9 Schizophrenia, unspecified; E78.5 Hyperlipidemia, unspecified; M71.22 Synovial cyst of popliteal space [Baker], left knee; M25.462 Effusion, left knee; B95.61 Methicillin susceptible Staphylococcus aureus infection as the cause of diseases classified elsewhere; M17.0 Bilateral primary osteoarthritis of knee; D64.9 Anemia, unspecified; G24.01 Drug induced subacute dyskinesia; Z79.82 Long term (current) use of aspirin; Z85.3 Personal history of malignant neoplasm of breast; Z92.21 Personal history of antineoplastic chemotherapy; Z92.3 Personal history of irradiation; Z79.899 Other long term (current) drug therapy; Z96.641 Presence of right artificial hip joint

== ENCOUNTER → 2018-01-25 | Outpatient (REF) ==
[2018-01-25 10:06] LABS: HEMATOCRIT 24.1 % (36.0-47.0); HEMOGLOBIN 7.8 g/dl (12.0-15.5); MEAN CORPUSCULAR HEMOGLOBIN 28.8 pg (27.0-33.0); MEAN CORPUSCULAR HGB CONC 32.4 g/dl (32.0-36.5); MEAN CORPUSCULAR VOLUME 88.9 fl (80.0-96.0); PLATELET COUNT, AUTOMATED 336 10^3/uL (150-450); RED BLOOD COUNT 2.71 10^6/uL (4.00-5.40); RED CELL DISTRIBUTION WIDTH 14.1 % (11.5-14.5); RETIC HEMOGLOBIN EQUIVALENT 28.9 pg (24-36); RETICULOCYTE # 51.5 10^9/L (17-77); RETICULOCYTE % 1.9 % (0.5-1.5)
[2018-01-25 10:22] LABS: C REACTIVE PROTEIN QUANTITATIV 3.05 MG/DL (0.00-0.30); ERYTHROCYTE SEDIMENTATION RATE 69 mm/hr (0-30); FERRITIN 210 NG/ML (8-252); IRON (FE) 11 UG/DL (50-170); PERCENT SATURATION 7.2 % (13.2-45.0); TOTAL IRON BINDING CAPACITY 152 UG/DL (250-450); TOTAL PROTEIN 4.4 GM/DL (6.4-8.2)
[2018-01-25 10:26] LABS: VITAMIN B12 LEVEL 673 PG/ML (247-911)
[2018-01-25 10:27] LABS: FOLATE 13.5 NG/ML (>5.4)
[2018-01-28 13:01] LABS: ALPHA-1-GLOBULIN % 14.3 % (2.9-4.9); ALPHA-2-GLOBULINS % 20.2 % (7.1-11.8); BETA-1-GLOBULINS % 6.7 % (4.7-7.2); BETA-2-GLOBULINS % 6.6 % (3.2-6.5); GAMMA GLOBULIN % 10.2 % (11.1-18.8)
[2018-01-28 13:02] LABS: ALBUMIN 1.85 GM/DL (3.29-5.55); ALPHA-1-GLOBULINS 0.63 GM/DL (0.17-0.41); ALPHA-2-GLOBULINS 0.89 GM/DL (0.42-0.99); BETA-1-GLOBULINS 0.29 GM/DL (0.28-0.60); BETA-2-GLOBULINS 0.29 GM/DL (0.19-0.55); GAMMA GLOBULINS 0.45 GM/DL (0.65-1.58)
== END ==
DX: D64.9 Anemia, unspecified (principal)

== ENCOUNTER → 2018-01-25 | Outpatient (CLI) | payer BC, MEDICARE | LOC: M RAD 09:55 | DX: M79.89 Other specified soft tissue disorders (principal); M25.462 Effusion, left knee | CPT/HCPCS: 93971 ==

== ENCOUNTER → 2018-01-25 | Outpatient (REF) | DX: M00.869 Arthritis due to other bacteria, unspecified knee (principal) ==

== ENCOUNTER → 2018-01-29 | Outpatient (REF) ==
[2018-01-29 06:39] LABS: HEMATOCRIT 23.9 % (36.0-47.0); HEMOGLOBIN 7.8 g/dl (12.0-15.5); MEAN CORPUSCULAR HEMOGLOBIN 28.9 pg (27.0-33.0); MEAN CORPUSCULAR HGB CONC 32.6 g/dl (32.0-36.5); MEAN CORPUSCULAR VOLUME 88.5 fl (80.0-96.0); PLATELET COUNT, AUTOMATED 282 10^3/uL (150-450); RED CELL DISTRIBUTION WIDTH 14.2 % (11.5-14.5); WHITE BLOOD COUNT 3.9 10^3/uL (4.0-10.0)
[2018-01-29 06:56] LABS: ANION GAP 4 MEQ/L (8-16); BLOOD UREA NITROGEN 8 MG/DL (7-18); CALCIUM LEVEL 7.5 MG/DL (8.8-10.2); CARBON DIOXIDE LEVEL 30 MEQ/L (21-32); CHLORIDE LEVEL 107 MEQ/L (98-107); CREATININE FOR GFR 0.33 MG/DL (0.55-1.30); GLOMERULAR FILTRATION RATE > 60.0 (>39); GLUCOSE, FASTING 88 MG/DL (70-100); POTASSIUM SERUM 3.6 MEQ/L (3.5-5.1); SODIUM LEVEL 141 MEQ/L (136-145)
[2018-01-29 07:11] LABS: ERYTHROCYTE SEDIMENTATION RATE 75 mm/hr (0-30)
== END ==
DX: D64.9 Anemia, unspecified (principal); B95.61 Methicillin susceptible Staphylococcus aureus infection as the cause of diseases classified elsewhere

== ENCOUNTER 2018-02-01 10:48 | Outpatient (CLI) | payer SELFPAY, MEDICARE ==
[2018-02-01] MEDS: ACETAMINOPHEN TAB 650MG DOSE (2X325MG) PO (12:36)
[2018-02-01] MEDS: diphenhydrAMINE 25 MG CAP PO (12:36)
== END 2018-02-01 18:39 ==
LOC: M OPCLI4PV 10:48 → M MSPAV 10:48 → M OPCLI4PV 18:39
DX: D64.9 Anemia, unspecified (principal)

== ENCOUNTER → 2018-02-05 | Outpatient (REF) ==
[2018-02-05 08:12] LABS: HEMATOCRIT 29.6 % (36.0-47.0); HEMOGLOBIN 9.5 g/dl (12.0-15.5); MEAN CORPUSCULAR HEMOGLOBIN 28.4 pg (27.0-33.0); MEAN CORPUSCULAR HGB CONC 32.1 g/dl (32.0-36.5); MEAN CORPUSCULAR VOLUME 88.4 fl (80.0-96.0); PLATELET COUNT, AUTOMATED 262 10^3/uL (150-450); RED BLOOD COUNT 3.35 10^6/uL (4.00-5.40); RED CELL DISTRIBUTION WIDTH 14.4 % (11.5-14.5); WHITE BLOOD COUNT 4.7 10^3/uL (4.0-10.0)
[2018-02-05 08:31] LABS: ANION GAP 4 MEQ/L (8-16); BLOOD UREA NITROGEN 8 MG/DL (7-18); C REACTIVE PROTEIN QUANTITATIV 1.57 MG/DL (0.00-0.30); CALCIUM LEVEL 7.6 MG/DL (8.8-10.2); CARBON DIOXIDE LEVEL 29 MEQ/L (21-32); CHLORIDE LEVEL 106 MEQ/L (98-107); CREATININE FOR GFR 0.28 MG/DL (0.55-1.30); GLOMERULAR FILTRATION RATE > 60.0 (>39); GLUCOSE, FASTING 90 MG/DL (70-100); SODIUM LEVEL 139 MEQ/L (136-145)
[2018-02-05 08:32] LABS: ERYTHROCYTE SEDIMENTATION RATE 63 mm/hr (0-30)
== END ==
DX: D64.9 Anemia, unspecified (principal)

== ENCOUNTER → 2018-02-12 | Outpatient (REF) ==
[2018-02-12 05:50] LABS: HEMATOCRIT 31.2 % (36.0-47.0); HEMOGLOBIN 9.9 g/dl (12.0-15.5); MEAN CORPUSCULAR HEMOGLOBIN 27.7 pg (27.0-33.0); MEAN CORPUSCULAR HGB CONC 31.7 g/dl (32.0-36.5); MEAN CORPUSCULAR VOLUME 87.4 fl (80.0-96.0); PLATELET COUNT, AUTOMATED 290 10^3/uL (150-450); RED BLOOD COUNT 3.57 10^6/uL (4.00-5.40); RED CELL DISTRIBUTION WIDTH 14.4 % (11.5-14.5); WHITE BLOOD COUNT 6.6 10^3/uL (4.0-10.0)
[2018-02-12 12:11] LABS: ERYTHROCYTE SEDIMENTATION RATE 54 mm/hr (0-30)
[2018-02-12 12:30] LABS: ANION GAP 9 MEQ/L (8-16); BLOOD UREA NITROGEN 11 MG/DL (7-18); C REACTIVE PROTEIN QUANTITATIV 2.56 MG/DL (0.00-0.30); CALCIUM LEVEL 7.5 MG/DL (8.8-10.2); CARBON DIOXIDE LEVEL 27 MEQ/L (21-32); CHLORIDE LEVEL 100 MEQ/L (98-107); CREATININE FOR GFR 0.48 MG/DL (0.55-1.30); GLOMERULAR FILTRATION RATE > 60.0 (>39); GLUCOSE, FASTING 145 MG/DL (70-100); POTASSIUM SERUM 3.8 MEQ/L (3.5-5.1); SODIUM LEVEL 136 MEQ/L (136-145)
== END ==
DX: D64.9 Anemia, unspecified (principal)

== ENCOUNTER → 2018-02-12 | Outpatient (REF) | payer MEDICARE | DX: D64.9 Anemia, unspecified (principal) ==

== ENCOUNTER → 2018-02-15 | Outpatient (REF) | payer MEDICARE | LOC: M LAB REF 16:50 | DX: M25.462 Effusion, left knee (principal) | CPT/HCPCS: 87205 ==

== ENCOUNTER → 2018-02-19 | Outpatient (REF) ==
[2018-02-19 10:22] LABS: HEMATOCRIT 30.5 % (36.0-47.0); HEMOGLOBIN 9.7 g/dl (12.0-15.5); MEAN CORPUSCULAR HEMOGLOBIN 27.7 pg (27.0-33.0); MEAN CORPUSCULAR HGB CONC 31.8 g/dl (32.0-36.5); MEAN CORPUSCULAR VOLUME 87.1 fl (80.0-96.0); PLATELET COUNT, AUTOMATED 241 10^3/uL (150-450); RED CELL DISTRIBUTION WIDTH 14.6 % (11.5-14.5); WHITE BLOOD COUNT 3.6 10^3/uL (4.0-10.0)
[2018-02-19 10:50] LABS: ANION GAP 8 MEQ/L (8-16); BLOOD UREA NITROGEN 16 MG/DL (7-18); CARBON DIOXIDE LEVEL 26 MEQ/L (21-32); CHLORIDE LEVEL 98 MEQ/L (98-107); CREATININE FOR GFR 0.54 MG/DL (0.55-1.30); GLOMERULAR FILTRATION RATE > 60.0 (>39); GLUCOSE, FASTING 123 MG/DL (70-100); POTASSIUM SERUM 4.5 MEQ/L (3.5-5.1); SODIUM LEVEL 132 MEQ/L (136-145)
[2018-02-19 11:05] LABS: ERYTHROCYTE SEDIMENTATION RATE 52 mm/hr (0-30)
== END ==
DX: A49.01 Methicillin susceptible Staphylococcus aureus infection, unspecified site (principal)

== ENCOUNTER → 2018-02-20 | Outpatient (CLI) | payer MEDICARE | LOC: M RAD 12:24 | DX: R33.9 Retention of urine, unspecified (principal) | CPT/HCPCS: 76775 ==

== ENCOUNTER → 2018-02-26 | Outpatient (REF) ==
[2018-02-26 10:24] LABS: HEMATOCRIT 30.9 % (36.0-47.0); HEMOGLOBIN 9.8 g/dl (12.0-15.5); MEAN CORPUSCULAR HEMOGLOBIN 27.8 pg (27.0-33.0); MEAN CORPUSCULAR HGB CONC 31.7 g/dl (32.0-36.5); MEAN CORPUSCULAR VOLUME 87.8 fl (80.0-96.0); PLATELET COUNT, AUTOMATED 246 10^3/uL (150-450); RED BLOOD COUNT 3.52 10^6/uL (4.00-5.40); RED CELL DISTRIBUTION WIDTH 15.4 % (11.5-14.5)
[2018-02-26 10:55] LABS: ANION GAP 9 MEQ/L (8-16); BLOOD UREA NITROGEN 13 MG/DL (7-18); C REACTIVE PROTEIN QUANTITATIV 0.79 MG/DL (0.00-0.30); CARBON DIOXIDE LEVEL 28 MEQ/L (21-32); CHLORIDE LEVEL 103 MEQ/L (98-107); GLOMERULAR FILTRATION RATE > 60.0 (>39); GLUCOSE, FASTING 124 MG/DL (70-100); POTASSIUM SERUM 3.6 MEQ/L (3.5-5.1); SODIUM LEVEL 140 MEQ/L (136-145)
[2018-02-26 10:58] LABS: ERYTHROCYTE SEDIMENTATION RATE 50 mm/hr (0-30)
== END ==
DX: Z11.2 Encounter for screening for other bacterial diseases (principal)

== ENCOUNTER → 2018-03-05 | Outpatient (REF) ==
[2018-03-05 09:46] LABS: HEMATOCRIT 30.1 % (36.0-47.0); HEMOGLOBIN 9.4 g/dl (12.0-15.5); MEAN CORPUSCULAR HGB CONC 31.2 g/dl (32.0-36.5); MEAN CORPUSCULAR VOLUME 86.5 fl (80.0-96.0); PLATELET COUNT, AUTOMATED 266 10^3/uL (150-450); RED BLOOD COUNT 3.48 10^6/uL (4.00-5.40); RED CELL DISTRIBUTION WIDTH 14.8 % (11.5-14.5)
[2018-03-05 10:11] LABS: ANION GAP 9 MEQ/L (8-16); BLOOD UREA NITROGEN 16 MG/DL (7-18); C REACTIVE PROTEIN QUANTITATIV 4.14 MG/DL (0.00-0.30); CALCIUM LEVEL 7.8 MG/DL (8.8-10.2); CARBON DIOXIDE LEVEL 27 MEQ/L (21-32); CHLORIDE LEVEL 100 MEQ/L (98-107); CHOLESTEROL LEVEL 123 MG/DL (<200); CHOLESTEROL RISK RATIO 1.708 (<5); CREATININE FOR GFR 0.45 MG/DL (0.55-1.30); GLOMERULAR FILTRATION RATE > 60.0 (>39); GLUCOSE, FASTING 131 MG/DL (70-100); HDL CHOLESTEROL 72 MG/DL (>40); LDL CHOLESTEROL 36.4 MG/DL (<100); NON-HDL-C 51 MG/DL; POTASSIUM SERUM 3.5 MEQ/L (3.5-5.1); SODIUM LEVEL 136 MEQ/L (136-145); TRIGLYCERIDES LEVEL 73 MG/DL (<150)
[2018-03-05 10:41] LABS: ERYTHROCYTE SEDIMENTATION RATE 56 mm/hr (0-30)
== END ==
DX: M17.12 Unilateral primary osteoarthritis, left knee (principal); D64.9 Anemia, unspecified

== ENCOUNTER → 2018-03-06 | Outpatient (REF) | payer MEDICARE, BC ==
[2018-03-06 20:52] LABS: APPEARANCE, BODY FLUID TURBID (CLEAR); CRYSTALS, BODY FLUID CA PYROPHOSPHATE (NONE SEEN); SOURCE, BODY FLUID OTHER; SYNOVIAL FLUID COLOR RED (YELLOW)
[2018-03-06 21:14] LABS: WBC BODY FLUID 52860 /uL (0-10)
[2018-03-06 21:15] LABS: BF DIFF IF INDICATED? YES (NO); RBC BODY FLUID 440 10^3/uL (<2); URIC ACID, BODY FLUID 3.3 MG/DL (NOT ESTABLISHED)
[2018-03-07 09:01] LABS: BODY FLUID RHEUMATOID SCREEN NEGATIVE (NEGATIVE)
[2018-03-07 09:02] LABS: MUCIN CLOT TEST 4+ (4+)
== END ==
LOC: M LAB REF 17:36
DX: Z11.2 Encounter for screening for other bacterial diseases (principal)
CPT/HCPCS: 82945

== ENCOUNTER 2018-03-08 14:41 | Inpatient (IN) | payer MEDICARE, BC ==
[2018-03-08] MEDS ORDERED: ACETAMINOPHEN TAB 650MG DOSE (2X325MG) PO (15:45)
[2018-03-08 15:55] LABS: BASO % 0.2 % (0.0-1.0); EOS % 0.8 % (0.0-3.0); HEMATOCRIT 29.1 % (36.0-47.0); HEMOGLOBIN 9.1 g/dl (12.0-15.5); IMMATURE GRANULOCYTE % 0.2 % (0-3.0); LYMPH # 0.7 10^3/uL (1.5-4.5); LYMPH % 15.4 % (24.0-44.0); MEAN CORPUSCULAR HEMOGLOBIN 27.3 pg (27.0-33.0); MEAN CORPUSCULAR HGB CONC 31.3 g/dl (32.0-36.5); MEAN CORPUSCULAR VOLUME 87.4 fl (80.0-96.0); MONO # 0.4 10^3/uL (0.0-0.8); MONO % 8.9 % (0.0-5.0); NEUTROPHILS # 3.6 10^3/uL (1.8-7.7); NEUTROPHILS % 74.5 % (36.0-66.0); PLATELET COUNT, AUTOMATED 285 10^3/uL (150-450); RED BLOOD COUNT 3.33 10^6/uL (4.00-5.40); RED CELL DISTRIBUTION WIDTH 14.7 % (11.5-14.5); WHITE BLOOD COUNT 4.8 10^3/uL (4.0-10.0)
[2018-03-08] MEDS ORDERED: NORCO, ANEXSIA 5/325MG TABLET (HYDROcodone/ACETAMINOPHEN) PO (16:00)
[2018-03-08 16:16] LABS: ALBUMIN 2.4 GM/DL (3.2-5.2); ALBUMIN/GLOBULIN RATIO 0.77 (1.00-1.93); ALKALINE PHOSPHATASE 41 U/L (45-117); ALT/SGPT 15 U/L (12-78); ANION GAP 6 MEQ/L (8-16); AST/SGOT 13 U/L (7-37); BILIRUBIN,TOTAL 0.2 MG/DL (0.2-1.0); BLOOD UREA NITROGEN 17 MG/DL (7-18); C REACTIVE PROTEIN QUANTITATIV 2.51 MG/DL (0.00-0.30); CALCIUM LEVEL 8.1 MG/DL (8.8-10.2); CARBON DIOXIDE LEVEL 30 MEQ/L (21-32); CHLORIDE LEVEL 103 MEQ/L (98-107); CREATININE FOR GFR 0.43 MG/DL (0.55-1.30); GLOMERULAR FILTRATION RATE > 60.0 (>39); GLUCOSE, FASTING 98 MG/DL (70-100); POTASSIUM SERUM 3.9 MEQ/L (3.5-5.1); SODIUM LEVEL 139 MEQ/L (136-145); TOTAL PROTEIN 5.5 GM/DL (6.4-8.2)
[2018-03-08 16:29] LABS: ERYTHROCYTE SEDIMENTATION RATE 54 mm/hr (0-30)
[2018-03-08] MEDS: VANCOMYCIN HCL 1,000 MG, VIAL MATE ADAPTER 1 EACH in D5W 250 ML IV ×2 (16:32→17:44)
[2018-03-08] MEDS: LACTOBACILLUS ACIDOPHILUS CAP (BACID) PO (17:49)
[2018-03-08 18:36] LABS: INR 1.23; PROTHROMBIN TIME 15.7 SECONDS (12.4-14.5)
[2018-03-08 18:37] LABS: PARTIAL THROMBOPLASTIN TIME 38.4 SECONDS (26.8-37.9)
[2018-03-08] MEDS: SIMVASTATIN 20 MG TAB PO (21:34)
[2018-03-08] MEDS: risperiDONE 3 MG TAB PO (21:34)
[2018-03-09 04:36] LABS: HEMATOCRIT 26.2 % (36.0-47.0); HEMOGLOBIN 8.4 g/dl (12.0-15.5); MEAN CORPUSCULAR HGB CONC 32.1 g/dl (32.0-36.5); MEAN CORPUSCULAR VOLUME 84.2 fl (80.0-96.0); PLATELET COUNT, AUTOMATED 262 10^3/uL (150-450); RED BLOOD COUNT 3.11 10^6/uL (4.00-5.40); RED CELL DISTRIBUTION WIDTH 14.8 % (11.5-14.5); WHITE BLOOD COUNT 3.5 10^3/uL (4.0-10.0)
[2018-03-09 04:55] LABS: ALBUMIN 2.2 GM/DL (3.2-5.2); ALBUMIN/GLOBULIN RATIO 0.65 (1.00-1.93); ALKALINE PHOSPHATASE 36 U/L (45-117); ALT/SGPT 15 U/L (12-78); ANION GAP 8 MEQ/L (8-16); AST/SGOT 11 U/L (7-37); BILIRUBIN,TOTAL 0.3 MG/DL (0.2-1.0); BLOOD UREA NITROGEN 12 MG/DL (7-18); C REACTIVE PROTEIN QUANTITATIV 2.18 MG/DL (0.00-0.30); CALCIUM LEVEL 7.7 MG/DL (8.8-10.2); CARBON DIOXIDE LEVEL 26 MEQ/L (21-32); CHLORIDE LEVEL 104 MEQ/L (98-107); CREATININE FOR GFR 0.32 MG/DL (0.55-1.30); GLOMERULAR FILTRATION RATE > 60.0 (>39); GLUCOSE, FASTING 100 MG/DL (70-100); MAGNESIUM LEVEL 1.7 MG/DL (1.8-2.4); POTASSIUM SERUM 3.3 MEQ/L (3.5-5.1); SODIUM LEVEL 138 MEQ/L (136-145); TOTAL PROTEIN 5.6 GM/DL (6.4-8.2)
[2018-03-09] MEDS: VANCOMYCIN HCL 1,000 MG, VIAL MATE ADAPTER 1 EACH in D5W 250 ML IV ×2 (05:23→17:50)
[2018-03-09] MEDS ORDERED: PROPOFOL 200 MG/20 ML VIAL As Ordered (08:36)
[2018-03-09] MEDS ORDERED: LIDOCAINE 2% INJ 100 MG/5 ML SDV (FOR ANES.) As Ordered (08:36)
[2018-03-09] MEDS ORDERED: METOCLOPRAMIDE INJ 10MG/2ML VIAL (J2765) As Ordered (08:36)
[2018-03-09] MEDS ORDERED: fentaNYL 100 MCG/2 ML INJECTION (J3010) As Ordered ×2 (08:36→10:25)
[2018-03-09] MEDS ORDERED: MIDAZOLAM INJ 2 MG/2 ML VIAL (J2250) As Ordered (08:36)
[2018-03-09] MEDS ORDERED: ONDANSETRON 4MG/2ML VIAL (J2405) As Ordered (08:37)
[2018-03-09] MEDS ORDERED: LACTOBACILLUS RHAMNOSUS POWDER PACKET(CULTURELLE) PO (09:00)
[2018-03-09] MEDS ORDERED: KETOROLAC 60 MG/2 ML VIAL (J1885) As Ordered (09:33)
[2018-03-09 10:31] LABS: CRYSTALS, BODY FLUID URIC ACID (NONE SEEN); SOURCE, BODY FLUID CRYSTALS LFT KNEE
[2018-03-09] MEDS ORDERED: HYDROMORPHONE HCL 0.5 MG/ 0.5 ML SYRINGE (J1170 PER 1) IV (10:45)
[2018-03-09] MEDS ORDERED: ONDANSETRON 4MG/2ML VIAL (J2405) IV (10:45)
[2018-03-09] MEDS ORDERED: PERCOCET 5MG/325MG TAB PO (10:45)
[2018-03-09] MEDS ORDERED: fentaNYL 100 MCG/2 ML INJECTION (J3010) IV (10:45)
[2018-03-09 10:48] LABS: SOURCE, BODY FLUID GLUCOSE LFT KNEE; SOURCE, BODY FLUID URIC ACID LFT KNEE; URIC ACID, BODY FLUID 3.2 MG/DL (NOT ESTABLISHED)
[2018-03-09 10:56] LABS: BODY FLUID RHEUMATOID SCREEN NEGATIVE (NEGATIVE)
[2018-03-09] MEDS ORDERED: MORPHINE 4 MG/ML 1ML VIAL/SYRINGE (J2270) IV (11:00)
[2018-03-09 11:04] LABS: MUCIN CLOT TEST 4+ (4+)
[2018-03-09] MEDS: MAG SULF 1GM/100ML (MAG RUN) 1 GM in APPROPRIATE DILUENT 1 EA IV (11:05)
[2018-03-09] MEDS: ONDANSETRON 4MG/2ML VIAL (J2405) IV (11:05)
[2018-03-09] MEDS: VITAMIN D 1,000 INTERNATIONAL UNITS TABLET PO (11:06)
[2018-03-09] MEDS: risperiDONE 3 MG TAB PO ×2 (11:06→21:25)
[2018-03-09] MEDS: MULTIVITAMINS/MINERALS THERAP 1 TAB PO (11:06)
[2018-03-09] MEDS: LACTOBACILLUS ACIDOPHILUS CAP (BACID) PO (11:06)
[2018-03-09] MEDS: ASCORBIC ACID 500 MG TAB PO (11:06)
[2018-03-09] MEDS: POTASSIUM CHLORIDE 10 MEQ SR TABLET PO (11:06)
[2018-03-09] MEDS: LR 1,000 ML IV (11:07)
[2018-03-09 11:25] LABS: APPEARANCE, BODY FLUID CLOUDY (CLEAR); SOURCE, BODY FLUID LFT KNEE; SYNOVIAL FLUID COLOR RED (YELLOW); WBC BODY FLUID 36280 /uL (0-10)
[2018-03-09 11:26] LABS: BF DIFF IF INDICATED? YES (NO); RBC BODY FLUID 80 10^3/uL (<2)
[2018-03-09] MEDS: SIMVASTATIN 20 MG TAB PO (21:25)
[2018-03-10 05:13] LABS: HEMATOCRIT 24.2 % (36.0-47.0); HEMOGLOBIN 7.7 g/dl (12.0-15.5); MEAN CORPUSCULAR HGB CONC 31.8 g/dl (32.0-36.5); MEAN CORPUSCULAR VOLUME 84.9 fl (80.0-96.0); PLATELET COUNT, AUTOMATED 247 10^3/uL (150-450); RED BLOOD COUNT 2.85 10^6/uL (4.00-5.40); RED CELL DISTRIBUTION WIDTH 14.7 % (11.5-14.5); WHITE BLOOD COUNT 2.8 10^3/uL (4.0-10.0)
[2018-03-10 05:31] LABS: ALBUMIN 2.1 GM/DL (3.2-5.2); ALBUMIN/GLOBULIN RATIO 0.68 (1.00-1.93); ALKALINE PHOSPHATASE 32 U/L (45-117); ALT/SGPT 12 U/L (12-78); ANION GAP 8 MEQ/L (8-16); AST/SGOT 10 U/L (7-37); BILIRUBIN,TOTAL 0.2 MG/DL (0.2-1.0); BLOOD UREA NITROGEN 10 MG/DL (7-18); C REACTIVE PROTEIN QUANTITATIV 1.42 MG/DL (0.00-0.30); CALCIUM LEVEL 7.4 MG/DL (8.8-10.2); CARBON DIOXIDE LEVEL 26 MEQ/L (21-32); CHLORIDE LEVEL 106 MEQ/L (98-107); CREATININE FOR GFR 0.23 MG/DL (0.55-1.30); GLOMERULAR FILTRATION RATE > 60.0 (>39); GLUCOSE, FASTING 100 MG/DL (70-100); MAGNESIUM LEVEL 1.9 MG/DL (1.8-2.4); POTASSIUM SERUM 3.7 MEQ/L (3.5-5.1); SODIUM LEVEL 140 MEQ/L (136-145); TOTAL PROTEIN 5.2 GM/DL (6.4-8.2)
[2018-03-10 05:35] LABS: VANCOMYCIN LEVEL TROUGH 9.3 UG/ML (10.0-20.0)
[2018-03-10] MEDS: VANCOMYCIN HCL 1,000 MG, VIAL MATE ADAPTER 1 EACH in D5W 250 ML IV ×3 (06:12→21:25)
[2018-03-10] MEDS: LACTOBACILLUS ACIDOPHILUS CAP (BACID) PO (09:28)
[2018-03-10] MEDS: risperiDONE 3 MG TAB PO ×2 (09:28→21:24)
[2018-03-10] MEDS: FERROUS GLUCONATE 324 MG TAB PO ×2 (09:28→21:24)
[2018-03-10] MEDS: MULTIVITAMINS/MINERALS THERAP 1 TAB PO (09:28)
[2018-03-10] MEDS: ASCORBIC ACID 500 MG TAB PO (09:28)
[2018-03-10] MEDS: TAMOXIFEN CITRATE 10 MG TAB PO (09:28)
[2018-03-10] MEDS: VITAMIN D 1,000 INTERNATIONAL UNITS TABLET PO (09:28)
[2018-03-10] MEDS: FUROSEMIDE 20 MG/2 ML VIAL (J1940) IV (09:29)
[2018-03-10] MEDS: SIMVASTATIN 20 MG TAB PO (21:24)
[2018-03-11 04:58] LABS: HEMATOCRIT 24.7 % (36.0-47.0); HEMOGLOBIN 7.7 g/dl (12.0-15.5); MEAN CORPUSCULAR HEMOGLOBIN 26.5 pg (27.0-33.0); MEAN CORPUSCULAR HGB CONC 31.2 g/dl (32.0-36.5); MEAN CORPUSCULAR VOLUME 84.9 fl (80.0-96.0); PLATELET COUNT, AUTOMATED 256 10^3/uL (150-450); RED BLOOD COUNT 2.91 10^6/uL (4.00-5.40); RED CELL DISTRIBUTION WIDTH 14.8 % (11.5-14.5); WHITE BLOOD COUNT 3.2 10^3/uL (4.0-10.0)
[2018-03-11 05:18] LABS: ALBUMIN 2.1 GM/DL (3.2-5.2); ALBUMIN/GLOBULIN RATIO 0.66 (1.00-1.93); ALKALINE PHOSPHATASE 34 U/L (45-117); ALT/SGPT 12 U/L (12-78); ANION GAP 5 MEQ/L (8-16); AST/SGOT 9 U/L (7-37); BILIRUBIN,TOTAL 0.2 MG/DL (0.2-1.0); BLOOD UREA NITROGEN 10 MG/DL (7-18); C REACTIVE PROTEIN QUANTITATIV 0.86 MG/DL (0.00-0.30); CALCIUM LEVEL 7.6 MG/DL (8.8-10.2); CARBON DIOXIDE LEVEL 28 MEQ/L (21-32); CHLORIDE LEVEL 106 MEQ/L (98-107); CREATININE FOR GFR 0.25 MG/DL (0.55-1.30); GLOMERULAR FILTRATION RATE > 60.0 (>39); GLUCOSE, FASTING 99 MG/DL (70-100); MAGNESIUM LEVEL 1.8 MG/DL (1.8-2.4); POTASSIUM SERUM 3.1 MEQ/L (3.5-5.1); SODIUM LEVEL 139 MEQ/L (136-145); TOTAL PROTEIN 5.3 GM/DL (6.4-8.2)
[2018-03-11] MEDS: VANCOMYCIN HCL 1,000 MG, VIAL MATE ADAPTER 1 EACH in D5W 250 ML IV ×2 (05:29→14:35)
[2018-03-11] MEDS: MULTIVITAMINS/MINERALS THERAP 1 TAB PO (08:29)
[2018-03-11] MEDS: VITAMIN D 1,000 INTERNATIONAL UNITS TABLET PO (08:29)
[2018-03-11] MEDS: ASCORBIC ACID 500 MG TAB PO (08:29)
[2018-03-11] MEDS: risperiDONE 3 MG TAB PO (08:29)
[2018-03-11] MEDS: LACTOBACILLUS ACIDOPHILUS CAP (BACID) PO (08:29)
[2018-03-11] MEDS: POTASSIUM CHLORIDE 10 MEQ SR TABLET PO (08:29)
[2018-03-11] MEDS: TAMOXIFEN CITRATE 10 MG TAB PO (08:29)
[2018-03-11] MEDS: FERROUS GLUCONATE 324 MG TAB PO (08:29)
[2018-03-11] MEDS: FUROSEMIDE 20 MG/2 ML VIAL (J1940) IV ×2 (08:30→13:00)
[2018-03-11 10:00] LABS: IMMEDIATE SPIN CROSSMATCH 1 1
[2018-03-11 13:50] LABS: HEMATOCRIT 28.6 % (36.0-47.0)
[2018-03-11 14:11] LABS: VANCOMYCIN LEVEL TROUGH 11.5 UG/ML (10.0-20.0)
[2018-03-11] MEDS ORDERED: SODIUM CHLORIDE 0.9% INJ 10 ML SYR IV (14:15)
[2018-03-11] MEDS: SODIUM CHLORIDE 0.9% INJ 10 ML SYR IV (17:13)
== END 2018-03-11 19:11 | DRG 486 ==
LOC: M PCU 03-10 20:26 → M ED 14:41 → M ED INP 15:31 → M PCU 17:12
PROC: 0SB Lower Joints, Excision (ICD-10-PCS; principal; 2018-03-09 08:28)
PROC: 0S9D30Z Drainage of Left Knee Joint with Drainage Device, Percutaneous Approach (ICD-10-PCS; 2018-03-09 08:28)
PROC: 30233N1 Transfusion of Nonautologous Red Blood Cells into Peripheral Vein, Percutaneous Approach (ICD-10-PCS; 2018-03-09 08:28)
PROC: 02HV33Z Insertion of Infusion Device into Superior Vena Cava, Percutaneous Approach (ICD-10-PCS; 2018-03-09 08:28)
DX: M00.062 Staphylococcal arthritis, left knee (principal); I50.32 Chronic diastolic (congestive) heart failure; I11.0 Hypertensive heart disease with heart failure; E78.5 Hyperlipidemia, unspecified; F20.9 Schizophrenia, unspecified; M17.0 Bilateral primary osteoarthritis of knee; R33.9 Retention of urine, unspecified; R19.7 Diarrhea, unspecified; R01.1 Cardiac murmur, unspecified; L97.529 Non-pressure chronic ulcer of other part of left foot with unspecified severity; M94.262 Chondromalacia, left knee; D63.8 Anemia in other chronic diseases classified elsewhere; Z85.3 Personal history of malignant neoplasm of breast; Z92.21 Personal history of antineoplastic chemotherapy; Z92.3 Personal history of irradiation; Z79.899 Other long term (current) drug therapy

== ENCOUNTER → 2018-03-12 | Outpatient (REF) ==
[2018-03-12 10:28] LABS: VANCOMYCIN LEVEL TROUGH 13.8 UG/ML (10.0-20.0)
== END ==
DX: Z51.81 Encounter for therapeutic drug level monitoring (principal); Z79.899 Other long term (current) drug therapy

== ENCOUNTER → 2018-03-13 | Outpatient (REF) ==
[2018-03-13 10:19] LABS: VANCOMYCIN LEVEL TROUGH 15.7 UG/ML (10.0-20.0)
== END ==
DX: Z51.81 Encounter for therapeutic drug level monitoring (principal); Z79.899 Other long term (current) drug therapy

== ENCOUNTER 2018-03-15 13:56 | Outpatient (REF) | payer BC, MEDICARE ==
[2018-03-18 08:47] LABS: HEMATOCRIT 28.8 % (36.0-47.0); HEMOGLOBIN 9.3 g/dl (12.0-15.5); MEAN CORPUSCULAR HEMOGLOBIN 27.6 pg (27.0-33.0); MEAN CORPUSCULAR HGB CONC 32.3 g/dl (32.0-36.5); MEAN CORPUSCULAR VOLUME 85.5 fl (80.0-96.0); PLATELET COUNT, AUTOMATED 234 10^3/uL (150-450); RED BLOOD COUNT 3.37 10^6/uL (4.00-5.40); RED CELL DISTRIBUTION WIDTH 15.9 % (11.5-14.5); WHITE BLOOD COUNT 3.9 10^3/uL (4.0-10.0)
[2018-03-18 10:02] LABS: ERYTHROCYTE SEDIMENTATION RATE 18 mm/hr (0-30)
[2018-03-18 15:38] LABS: ANION GAP 7 MEQ/L (8-16); BLOOD UREA NITROGEN 11 MG/DL (7-18); C REACTIVE PROTEIN QUANTITATIV 0.34 MG/DL (0.00-0.30); CALCIUM LEVEL 8.1 MG/DL (8.8-10.2); CARBON DIOXIDE LEVEL 30 MEQ/L (21-32); CHLORIDE LEVEL 104 MEQ/L (98-107); CREATININE FOR GFR 0.35 MG/DL (0.55-1.30); GLOMERULAR FILTRATION RATE > 60.0 (>39); GLUCOSE, FASTING 99 MG/DL (70-100); POTASSIUM SERUM 3.2 MEQ/L (3.5-5.1); SODIUM LEVEL 141 MEQ/L (136-145)
== END 2018-03-18 ==
DX: M00.80 Arthritis due to other bacteria, unspecified joint (principal)

== ENCOUNTER → 2018-03-21 | Outpatient (REF) ==
[2018-03-21 11:18] LABS: ANION GAP 8 MEQ/L (8-16); BLOOD UREA NITROGEN 9 MG/DL (7-18); CALCIUM LEVEL 7.6 MG/DL (8.8-10.2); CARBON DIOXIDE LEVEL 29 MEQ/L (21-32); CHLORIDE LEVEL 106 MEQ/L (98-107); CREATININE FOR GFR 0.36 MG/DL (0.55-1.30); GLOMERULAR FILTRATION RATE > 60.0 (>39); GLUCOSE, FASTING 138 MG/DL (70-100); POTASSIUM SERUM 3.3 MEQ/L (3.5-5.1); SODIUM LEVEL 143 MEQ/L (136-145)
== END ==
DX: E87.6 Hypokalemia (principal)

== ENCOUNTER → 2018-03-25 | Outpatient (REF) ==
[2018-03-25 06:26] LABS: MEAN CORPUSCULAR HEMOGLOBIN 27.2 pg (27.0-33.0); MEAN CORPUSCULAR VOLUME 87.6 fl (80.0-96.0); PLATELET COUNT, AUTOMATED 184 10^3/uL (150-450); RED BLOOD COUNT 3.31 10^6/uL (4.00-5.40); RED CELL DISTRIBUTION WIDTH 16.1 % (11.5-14.5); WHITE BLOOD COUNT 3.3 10^3/uL (4.0-10.0)
[2018-03-25 06:43] LABS: ANION GAP 6 MEQ/L (8-16); BLOOD UREA NITROGEN 9 MG/DL (7-18); C REACTIVE PROTEIN QUANTITATIV < 0.30 MG/DL (0.00-0.30); CALCIUM LEVEL 7.9 MG/DL (8.8-10.2); CARBON DIOXIDE LEVEL 31 MEQ/L (21-32); CHLORIDE LEVEL 109 MEQ/L (98-107); CREATININE FOR GFR 0.31 MG/DL (0.55-1.30); GLOMERULAR FILTRATION RATE > 60.0 (>39); GLUCOSE, FASTING 80 MG/DL (70-100); POTASSIUM SERUM 3.6 MEQ/L (3.5-5.1); SODIUM LEVEL 146 MEQ/L (136-145); VANCOMYCIN LEVEL TROUGH 11.7 UG/ML (10.0-20.0)
[2018-03-25 07:14] LABS: ERYTHROCYTE SEDIMENTATION RATE 17 mm/hr (0-30)
== END ==
DX: M00.80 Arthritis due to other bacteria, unspecified joint (principal)

== ENCOUNTER → 2018-03-28 | Outpatient (REF) ==
[2018-03-28 12:45] LABS: ANION GAP 7 MEQ/L (8-16); BLOOD UREA NITROGEN 13 MG/DL (7-18); CALCIUM LEVEL 8.2 MG/DL (8.8-10.2); CARBON DIOXIDE LEVEL 29 MEQ/L (21-32); CHLORIDE LEVEL 104 MEQ/L (98-107); CREATININE FOR GFR 0.33 MG/DL (0.55-1.30); GLOMERULAR FILTRATION RATE > 60.0 (>39); GLUCOSE, FASTING 87 MG/DL (70-100); POTASSIUM SERUM 4.1 MEQ/L (3.5-5.1); SODIUM LEVEL 140 MEQ/L (136-145)
== END ==
DX: E87.1 Hypo-osmolality and hyponatremia (principal)

== ENCOUNTER → 2018-04-01 | Outpatient (REF) ==
[2018-04-01 06:59] LABS: HEMOGLOBIN 9.2 g/dl (12.0-15.5); MEAN CORPUSCULAR HEMOGLOBIN 26.7 pg (27.0-33.0); MEAN CORPUSCULAR HGB CONC 30.7 g/dl (32.0-36.5); MEAN CORPUSCULAR VOLUME 87.2 fl (80.0-96.0); PLATELET COUNT, AUTOMATED 178 10^3/uL (150-450); RED BLOOD COUNT 3.44 10^6/uL (4.00-5.40); RED CELL DISTRIBUTION WIDTH 16.3 % (11.5-14.5); WHITE BLOOD COUNT 2.9 10^3/uL (4.0-10.0)
[2018-04-01 07:31] LABS: ERYTHROCYTE SEDIMENTATION RATE 22 mm/hr (0-30)
[2018-04-01 07:33] LABS: VANCOMYCIN LEVEL TROUGH 11.5 UG/ML (10.0-20.0)
[2018-04-01 07:33] LABS: C REACTIVE PROTEIN QUANTITATIV < 0.30 MG/DL (0.00-0.30)
== END ==
DX: M00.80 Arthritis due to other bacteria, unspecified joint (principal)

== ENCOUNTER → 2018-04-03 | Outpatient (REF) | DX: M25.551 Pain in right hip (principal); Z96.641 Presence of right artificial hip joint ==

== ENCOUNTER → 2018-04-08 | Outpatient (REF) ==
[2018-04-08 17:27] LABS: AMMONIA 25 uMOL/L (<32)
[2018-04-08 17:32] LABS: ALBUMIN 2.9 GM/DL (3.2-5.2); ALBUMIN/GLOBULIN RATIO 0.94 (1.00-1.93); ALKALINE PHOSPHATASE 38 U/L (45-117); ALT/SGPT 14 U/L (12-78); ANION GAP 9 MEQ/L (8-16); AST/SGOT 6 U/L (7-37); BILIRUBIN,TOTAL 0.3 MG/DL (0.2-1.0); BLOOD UREA NITROGEN 25 MG/DL (7-18); C REACTIVE PROTEIN QUANTITATIV 1.71 MG/DL (0.00-0.30); CALCIUM LEVEL 8.6 MG/DL (8.8-10.2); CARBON DIOXIDE LEVEL 28 MEQ/L (21-32); CHLORIDE LEVEL 100 MEQ/L (98-107); CREATININE FOR GFR 0.77 MG/DL (0.55-1.30); GLOMERULAR FILTRATION RATE > 60.0 (>39); GLUCOSE, FASTING 123 MG/DL (70-100); POTASSIUM SERUM 4.8 MEQ/L (3.5-5.1); SODIUM LEVEL 137 MEQ/L (136-145)
[2018-04-08 17:37] LABS: HEMATOCRIT 30.6 % (36.0-47.0); HEMOGLOBIN 9.5 g/dl (12.0-15.5); MEAN CORPUSCULAR HEMOGLOBIN 26.8 pg (27.0-33.0); MEAN CORPUSCULAR VOLUME 86.2 fl (80.0-96.0); PLATELET COUNT, AUTOMATED 216 10^3/uL (150-450); RED BLOOD COUNT 3.55 10^6/uL (4.00-5.40); RED CELL DISTRIBUTION WIDTH 15.9 % (11.5-14.5); WHITE BLOOD COUNT 6.8 10^3/uL (4.0-10.0)
[2018-04-08 18:03] LABS: ERYTHROCYTE SEDIMENTATION RATE 43 mm/hr (0-30)
== END ==
DX: M25.551 Pain in right hip (principal)

== ENCOUNTER → 2018-04-11 | Outpatient (REF) ==
[2018-04-11 13:43] LABS: HEMATOCRIT 30.8 % (36.0-47.0); HEMOGLOBIN 9.5 g/dl (12.0-15.5); MEAN CORPUSCULAR HEMOGLOBIN 26.9 pg (27.0-33.0); MEAN CORPUSCULAR HGB CONC 30.8 g/dl (32.0-36.5); MEAN CORPUSCULAR VOLUME 87.3 fl (80.0-96.0); PLATELET COUNT, AUTOMATED 202 10^3/uL (150-450); RED BLOOD COUNT 3.53 10^6/uL (4.00-5.40); RED CELL DISTRIBUTION WIDTH 15.5 % (11.5-14.5)
[2018-04-11 14:02] LABS: ANION GAP 10 MEQ/L (8-16); BLOOD UREA NITROGEN 16 MG/DL (7-18); C REACTIVE PROTEIN QUANTITATIV 1.11 MG/DL (0.00-0.30); CALCIUM LEVEL 8.2 MG/DL (8.8-10.2); CARBON DIOXIDE LEVEL 25 MEQ/L (21-32); CHLORIDE LEVEL 104 MEQ/L (98-107); CREATININE FOR GFR 0.53 MG/DL (0.55-1.30); GLOMERULAR FILTRATION RATE > 60.0 (>39); GLUCOSE, FASTING 152 MG/DL (70-100); POTASSIUM SERUM 3.9 MEQ/L (3.5-5.1); SODIUM LEVEL 139 MEQ/L (136-145)
[2018-04-11 14:07] LABS: ERYTHROCYTE SEDIMENTATION RATE 37 mm/hr (0-30)
== END ==
DX: M00.9 Pyogenic arthritis, unspecified (principal)

== ENCOUNTER → 2018-04-16 | Outpatient (REF) ==
[2018-04-16 11:14] LABS: HEMATOCRIT 33.8 % (36.0-47.0); HEMOGLOBIN 10.2 g/dl (12.0-15.5); MEAN CORPUSCULAR HEMOGLOBIN 26.3 pg (27.0-33.0); MEAN CORPUSCULAR HGB CONC 30.2 g/dl (32.0-36.5); MEAN CORPUSCULAR VOLUME 87.1 fl (80.0-96.0); PLATELET COUNT, AUTOMATED 220 10^3/uL (150-450); RED BLOOD COUNT 3.88 10^6/uL (4.00-5.40); WHITE BLOOD COUNT 4.1 10^3/uL (4.0-10.0)
[2018-04-16 11:44] LABS: ANION GAP 8 MEQ/L (8-16); BLOOD UREA NITROGEN 20 MG/DL (7-18); CALCIUM LEVEL 8.8 MG/DL (8.8-10.2); CARBON DIOXIDE LEVEL 28 MEQ/L (21-32); CHLORIDE LEVEL 102 MEQ/L (98-107); GLOMERULAR FILTRATION RATE > 60.0 (>39); GLUCOSE, FASTING 149 MG/DL (70-100); POTASSIUM SERUM 3.8 MEQ/L (3.5-5.1); SODIUM LEVEL 138 MEQ/L (136-145)
[2018-04-16 11:56] LABS: ERYTHROCYTE SEDIMENTATION RATE 43 mm/hr (0-30)
== END ==
DX: M00.9 Pyogenic arthritis, unspecified (principal)

== ENCOUNTER → 2018-04-23 | Outpatient (REF) ==
[2018-04-23 10:11] LABS: HEMATOCRIT 34.6 % (36.0-47.0); HEMOGLOBIN 10.8 g/dl (12.0-15.5); MEAN CORPUSCULAR HEMOGLOBIN 26.5 pg (27.0-33.0); MEAN CORPUSCULAR HGB CONC 31.2 g/dl (32.0-36.5); PLATELET COUNT, AUTOMATED 244 10^3/uL (150-450); RED BLOOD COUNT 4.07 10^6/uL (4.00-5.40); RED CELL DISTRIBUTION WIDTH 14.8 % (11.5-14.5)
[2018-04-23 10:33] LABS: ANION GAP 8 MEQ/L (8-16); BLOOD UREA NITROGEN 21 MG/DL (7-18); C REACTIVE PROTEIN QUANTITATIV 0.42 MG/DL (0.00-0.30); CALCIUM LEVEL 8.7 MG/DL (8.8-10.2); CARBON DIOXIDE LEVEL 29 MEQ/L (21-32); CHLORIDE LEVEL 100 MEQ/L (98-107); GLOMERULAR FILTRATION RATE > 60.0 (>39); GLUCOSE, FASTING 133 MG/DL (70-100); POTASSIUM SERUM 4.4 MEQ/L (3.5-5.1); SODIUM LEVEL 137 MEQ/L (136-145)
[2018-04-23 10:35] LABS: ERYTHROCYTE SEDIMENTATION RATE 44 mm/hr (0-30)
== END ==
DX: I10 Essential (primary) hypertension (principal)

== ENCOUNTER 2018-04-30 18:46 | Inpatient (IN) | payer MEDICARE, BC ==
[2018-04-30] MEDS ORDERED: NS 250 ML IV (21:30)
[2018-04-30] MEDS: SODIUM CHLORIDE 0.9% 1000 ML IV (21:30)
[2018-04-30] MEDS ORDERED: MOM 30ML SUSPENSION UDC PO (22:00)
[2018-04-30] MEDS ORDERED: BISACODYL 10 MG SUPP PR (22:00)
[2018-04-30] MEDS: LACTOBACILLUS ACIDOPHILUS CAP (BACID) PO (22:44)
[2018-04-30] MEDS: FERROUS GLUCONATE 324 MG TAB PO (22:44)
[2018-04-30] MEDS: SIMVASTATIN 20 MG TAB PO (22:44)
[2018-04-30] MEDS: risperiDONE 3 MG TAB PO (22:45)
[2018-04-30] MEDS: NORCO, ANEXSIA 5/325MG TABLET (HYDROcodone/ACETAMINOPHEN) PO (22:45)
[2018-04-30] MEDS: D5W/0.45% SODIUM CHLORIDE 1,000 ML IV (23:56)
[2018-05-01] MEDS: VANCOMYCIN HCL 1,000 MG, VIAL MATE ADAPTER 1 EACH in D5W 250 ML IV ×3 (00:52→20:00)
[2018-05-01] MEDS: VANCOMYCIN HCL 500 MG in D5W MINI-BAG PLUS 100 ML IV (02:15)
[2018-05-01] MEDS: risperiDONE 3 MG TAB PO ×2 (08:39→21:28)
[2018-05-01] MEDS: VITAMIN D 1,000 INTERNATIONAL UNITS TABLET PO (08:39)
[2018-05-01] MEDS: TAMOXIFEN CITRATE 10 MG TAB PO (08:39)
[2018-05-01] MEDS: FERROUS GLUCONATE 324 MG TAB PO ×2 (08:39→23:12)
[2018-05-01] MEDS: LACTOBACILLUS ACIDOPHILUS CAP (BACID) PO ×2 (08:39→23:12)
[2018-05-01] MEDS: POTASSIUM CHLORIDE 10 MEQ SR TABLET PO (08:39)
[2018-05-01] MEDS: ASCORBIC ACID 500 MG TAB PO (08:40)
[2018-05-01] MEDS: MULTIVITAMINS/MINERALS THERAP 1 TAB PO (08:40)
[2018-05-01] MEDS: LISINOPRIL 10 MG TAB PO (08:41)
[2018-05-01] MEDS: NORCO, ANEXSIA 5/325MG TABLET (HYDROcodone/ACETAMINOPHEN) PO ×2 (08:44→23:12)
[2018-05-01] MEDS: FUROSEMIDE 20 MG TAB PO (13:55)
[2018-05-01] MEDS: D5W/0.45% SODIUM CHLORIDE 1,000 ML IV ×2 (16:34→21:33)
[2018-05-01] MEDS ORDERED: PROPOFOL 200 MG/20 ML VIAL As Ordered (17:54)
[2018-05-01] MEDS ORDERED: KETOROLAC 60 MG/2 ML VIAL (J1885) As Ordered (17:54)
[2018-05-01] MEDS ORDERED: ONDANSETRON 4MG/2ML VIAL (J2405) As Ordered (17:54)
[2018-05-01] MEDS ORDERED: dexameTHASONE 4 MG/ML 1ML VIAL (J1100) As Ordered (17:54)
[2018-05-01] MEDS ORDERED: LIDOCAINE 2% INJ 100 MG/5 ML SDV (FOR ANES.) As Ordered (17:54)
[2018-05-01] MEDS ORDERED: MIDAZOLAM INJ 2 MG/2 ML VIAL (J2250) As Ordered (17:55)
[2018-05-01] MEDS ORDERED: fentaNYL 100 MCG/2 ML INJECTION (J3010) As Ordered ×2 (17:55→19:22)
[2018-05-01] MEDS: VANCOMYCIN 1000 MG/20 ML VIAL (J3370) As Ordered (19:09)
[2018-05-01] MEDS ORDERED: ePHEDrine SULFATE 25 MG/5 ML(5MG/ML) SYRINGE As Ordered (19:09)
[2018-05-01] MEDS: TOBRAMYCIN SULF 1.2 GM VIAL As Ordered (19:09)
[2018-05-01] MEDS ORDERED: fentaNYL 100 MCG/2 ML INJECTION (J3010) IV (21:45)
[2018-05-01] MEDS ORDERED: ONDANSETRON 4MG/2ML VIAL (J2405) IV (21:45)
[2018-05-01] MEDS ORDERED: MORPHINE 4 MG/ML 1ML VIAL/SYRINGE (J2270) IV (21:45)
[2018-05-01] MEDS ORDERED: NORCO, ANEXSIA 5/325MG TABLET (HYDROcodone/ACETAMINOPHEN) PO ×2 (21:45)
[2018-05-01] MEDS: SIMVASTATIN 20 MG TAB PO (23:12)
[2018-05-02 06:22] LABS: HEMATOCRIT 28.2 % (36.0-47.0); HEMOGLOBIN 9.1 g/dl (12.0-15.5); MEAN CORPUSCULAR HEMOGLOBIN 27.2 pg (27.0-33.0); MEAN CORPUSCULAR HGB CONC 32.3 g/dl (32.0-36.5); MEAN CORPUSCULAR VOLUME 84.2 fl (80.0-96.0); PLATELET COUNT, AUTOMATED 190 10^3/uL (150-450); RED BLOOD COUNT 3.35 10^6/uL (4.00-5.40); RED CELL DISTRIBUTION WIDTH 14.1 % (11.5-14.5); WHITE BLOOD COUNT 3.1 10^3/uL (4.0-10.0)
[2018-05-02 06:44] LABS: ERYTHROCYTE SEDIMENTATION RATE 67 mm/hr (0-30)
[2018-05-02 06:48] LABS: ANION GAP 7 MEQ/L (8-16); BLOOD UREA NITROGEN 15 MG/DL (7-18); CALCIUM LEVEL 8.3 MG/DL (8.8-10.2); CARBON DIOXIDE LEVEL 26 MEQ/L (21-32); CHLORIDE LEVEL 102 MEQ/L (98-107); CREATININE FOR GFR 0.47 MG/DL (0.55-1.30); GLOMERULAR FILTRATION RATE > 60.0 (>39); GLUCOSE, FASTING 158 MG/DL (70-100); POTASSIUM SERUM 4.8 MEQ/L (3.5-5.1); SODIUM LEVEL 135 MEQ/L (136-145); VANCOMYCIN LEVEL TROUGH 9.1 UG/ML (10.0-20.0)
[2018-05-02] MEDS: LACTOBACILLUS ACIDOPHILUS CAP (BACID) PO ×2 (08:18→20:14)
[2018-05-02] MEDS: VANCOMYCIN HCL 1,000 MG, VIAL MATE ADAPTER 1 EACH in D5W 250 ML IV ×3 (08:18→20:13)
[2018-05-02] MEDS: POTASSIUM CHLORIDE 10 MEQ SR TABLET PO (08:19)
[2018-05-02] MEDS: FERROUS GLUCONATE 324 MG TAB PO ×2 (08:19→20:14)
[2018-05-02] MEDS: ASCORBIC ACID 500 MG TAB PO (08:19)
[2018-05-02] MEDS: TAMOXIFEN CITRATE 10 MG TAB PO (08:19)
[2018-05-02] MEDS: LISINOPRIL 10 MG TAB PO (08:20)
[2018-05-02] MEDS: MULTIVITAMINS/MINERALS THERAP 1 TAB PO (08:20)
[2018-05-02] MEDS: risperiDONE 3 MG TAB PO ×2 (08:20→20:14)
[2018-05-02] MEDS: NORCO, ANEXSIA 5/325MG TABLET (HYDROcodone/ACETAMINOPHEN) PO ×2 (08:21→20:14)
[2018-05-02] MEDS: MIRALAX *UNIT DOSE* 17GM PACKET PO (08:21)
[2018-05-02] MEDS: VITAMIN D 1,000 INTERNATIONAL UNITS TABLET PO (08:30)
[2018-05-02] MEDS: VANCOMYCIN HCL 500 MG in D5W MINI-BAG PLUS 100 ML IV (10:01)
[2018-05-02] MEDS: FUROSEMIDE 20 MG TAB PO (14:56)
[2018-05-02] MEDS ORDERED: SODIUM CHLORIDE 0.9% INJ 10 ML SYR IV (16:45)
[2018-05-02] MEDS: SODIUM CHLORIDE 0.9% INJ 10 ML SYR IV (16:53)
[2018-05-02] MEDS: SIMVASTATIN 20 MG TAB PO (20:14)
[2018-05-03] MEDS: SODIUM CHLORIDE 0.9% INJ 10 ML SYR IV (05:41)
[2018-05-03 05:50] LABS: HEMATOCRIT 26.5 % (36.0-47.0); HEMOGLOBIN 8.4 g/dl (12.0-15.5); MEAN CORPUSCULAR HGB CONC 31.7 g/dl (32.0-36.5); MEAN CORPUSCULAR VOLUME 85.2 fl (80.0-96.0); PLATELET COUNT, AUTOMATED 204 10^3/uL (150-450); RED BLOOD COUNT 3.11 10^6/uL (4.00-5.40); RED CELL DISTRIBUTION WIDTH 14.3 % (11.5-14.5); WHITE BLOOD COUNT 3.8 10^3/uL (4.0-10.0)
[2018-05-03 06:12] LABS: ANION GAP 7 MEQ/L (8-16); BLOOD UREA NITROGEN 21 MG/DL (7-18); C REACTIVE PROTEIN QUANTITATIV 1.18 MG/DL (0.00-0.30); CALCIUM LEVEL 8.6 MG/DL (8.8-10.2); CARBON DIOXIDE LEVEL 29 MEQ/L (21-32); CHLORIDE LEVEL 103 MEQ/L (98-107); CREATININE FOR GFR 0.51 MG/DL (0.55-1.30); GLOMERULAR FILTRATION RATE > 60.0 (>39); GLUCOSE, FASTING 95 MG/DL (70-100); POTASSIUM SERUM 4.6 MEQ/L (3.5-5.1); SODIUM LEVEL 139 MEQ/L (136-145)
[2018-05-03 06:19] LABS: ERYTHROCYTE SEDIMENTATION RATE 68 mm/hr (0-30)
[2018-05-03] MEDS: VITAMIN D 1,000 INTERNATIONAL UNITS TABLET PO (09:10)
[2018-05-03] MEDS: MIRALAX *UNIT DOSE* 17GM PACKET PO (09:10)
[2018-05-03] MEDS: VANCOMYCIN HCL 1,000 MG, VIAL MATE ADAPTER 1 EACH in D5W 250 ML IV (09:10)
[2018-05-03] MEDS: MULTIVITAMINS/MINERALS THERAP 1 TAB PO (09:11)
[2018-05-03] MEDS: TAMOXIFEN CITRATE 10 MG TAB PO (09:11)
[2018-05-03] MEDS: FERROUS GLUCONATE 324 MG TAB PO (09:11)
[2018-05-03] MEDS: LACTOBACILLUS ACIDOPHILUS CAP (BACID) PO (09:11)
[2018-05-03] MEDS: ASCORBIC ACID 500 MG TAB PO (09:11)
[2018-05-03] MEDS: POTASSIUM CHLORIDE 10 MEQ SR TABLET PO (09:11)
[2018-05-03] MEDS: LISINOPRIL 10 MG TAB PO (09:12)
[2018-05-03] MEDS: NORCO, ANEXSIA 5/325MG TABLET (HYDROcodone/ACETAMINOPHEN) PO (09:12)
[2018-05-03] MEDS: risperiDONE 3 MG TAB PO (09:12)
== END 2018-05-03 13:38 | DRG 486 ==
LOC: M PCU 05-02 13:58 → M MSPAV 18:46 → M ICU 05-01 21:58
PROC: 0SBD4ZZ Excision of Left Knee Joint, Percutaneous Endoscopic Approach (ICD-10-PCS; principal; 2018-05-01 17:00)
PROC: 0S9D0ZZ Drainage of Left Knee Joint, Open Approach (ICD-10-PCS; 2018-05-01 17:00)
PROC: 3E0U33Z Introduction of Anti-inflammatory into Joints, Percutaneous Approach (ICD-10-PCS; 2018-05-01 17:00)
DX: M00.062 Staphylococcal arthritis, left knee (principal); I50.32 Chronic diastolic (congestive) heart failure; M65.162 Other infective (teno)synovitis, left knee; I11.0 Hypertensive heart disease with heart failure; M81.0 Age-related osteoporosis without current pathological fracture; M17.12 Unilateral primary osteoarthritis, left knee; Z85.3 Personal history of malignant neoplasm of breast; D50.9 Iron deficiency anemia, unspecified; R32 Unspecified urinary incontinence; Z79.891 Long term (current) use of opiate analgesic; Z79.899 Other long term (current) drug therapy

== ENCOUNTER → 2018-04-30 | Outpatient (REF) | payer MEDICARE, BC ==
[2018-04-30 13:09] LABS: CRYSTALS, BODY FLUID NONE SEEN (NONE SEEN)
[2018-04-30 14:17] LABS: APPEARANCE, BODY FLUID CLOUDY (CLEAR); RBC BODY FLUID 160 10^3/uL (<2); SOURCE, BODY FLUID OTHER; SYNOVIAL FLUID COLOR RED (YELLOW); WBC BODY FLUID 85070 /uL (0-10)
[2018-04-30 14:50] LABS: BODY FLUID RHEUMATOID SCREEN NEGATIVE (NEGATIVE); MUCIN CLOT TEST 4+ (4+)
[2018-04-30 15:20] LABS: BF DIFF IF INDICATED? YES (NO); BF MONONUCLEAR CELL % 3.2 % (0-0); BF POLYMORPHONUCLEAR CELL % 96.8 % (0-0)
== END ==
LOC: M LAB REF 12:36
DX: M00.862 Arthritis due to other bacteria, left knee (principal)

== ENCOUNTER → 2018-04-30 | Outpatient (REF) ==
[2018-04-30 18:59] LABS: ANION GAP 6 MEQ/L (8-16); BLOOD UREA NITROGEN 31 MG/DL (7-18); C REACTIVE PROTEIN QUANTITATIV 4.61 MG/DL (0.00-0.30); CALCIUM LEVEL 9.1 MG/DL (8.8-10.2); CARBON DIOXIDE LEVEL 31 MEQ/L (21-32); CHLORIDE LEVEL 95 MEQ/L (98-107); CREATININE FOR GFR 0.93 MG/DL (0.55-1.30); GLOMERULAR FILTRATION RATE > 60.0 (>39); GLUCOSE, FASTING 104 MG/DL (70-100); POTASSIUM SERUM 4.8 MEQ/L (3.5-5.1); SODIUM LEVEL 132 MEQ/L (136-145)
[2018-04-30 19:09] LABS: BASO % 0.2 % (0.0-1.0); EOS % 0.5 % (0.0-3.0); HEMATOCRIT 33.4 % (36.0-47.0); HEMOGLOBIN 10.4 g/dl (12.0-15.5); IMMATURE GRANULOCYTE % 0.2 % (0-3.0); LYMPH # 1.1 10^3/uL (1.5-4.5); LYMPH % 17.1 % (24.0-44.0); MEAN CORPUSCULAR HEMOGLOBIN 26.7 pg (27.0-33.0); MEAN CORPUSCULAR HGB CONC 31.1 g/dl (32.0-36.5); MEAN CORPUSCULAR VOLUME 85.6 fl (80.0-96.0); MONO # 0.5 10^3/uL (0.0-0.8); MONO % 6.8 % (0.0-5.0); NEUTROPHILS % 75.2 % (36.0-66.0); PLATELET COUNT, AUTOMATED 267 10^3/uL (150-450); RED CELL DISTRIBUTION WIDTH 14.6 % (11.5-14.5); WHITE BLOOD COUNT 6.7 10^3/uL (4.0-10.0)
[2018-04-30 20:19] LABS: ERYTHROCYTE SEDIMENTATION RATE 77 mm/hr (0-30)
== END ==
DX: I10 Essential (primary) hypertension (principal)

== ENCOUNTER → 2018-05-04 | Outpatient (REF) | payer MEDICARE, BC, MEDICAID ==
[2018-05-04 13:30] LABS: HEMOGLOBIN 8.2 g/dl (12.0-15.5); MEAN CORPUSCULAR HEMOGLOBIN 26.6 pg (27.0-33.0); MEAN CORPUSCULAR HGB CONC 31.5 g/dl (32.0-36.5); MEAN CORPUSCULAR VOLUME 84.4 fl (80.0-96.0); PLATELET COUNT, AUTOMATED 223 10^3/uL (150-450); RED BLOOD COUNT 3.08 10^6/uL (4.00-5.40); RED CELL DISTRIBUTION WIDTH 14.6 % (11.5-14.5); WHITE BLOOD COUNT 4.5 10^3/uL (4.0-10.0)
[2018-05-04 13:39] LABS: ANION GAP 11 MEQ/L (8-16); BLOOD UREA NITROGEN 16 MG/DL (7-18); CALCIUM LEVEL 9.2 MG/DL (8.8-10.2); CARBON DIOXIDE LEVEL 26 MEQ/L (21-32); CHLORIDE LEVEL 102 MEQ/L (98-107); CREATININE FOR GFR 0.53 MG/DL (0.55-1.30); GLOMERULAR FILTRATION RATE > 60.0 (>39); GLUCOSE, FASTING 169 MG/DL (70-100); POTASSIUM SERUM 4.1 MEQ/L (3.5-5.1); SODIUM LEVEL 139 MEQ/L (136-145)
[2018-05-04 14:41] LABS: VANCOMYCIN LEVEL TROUGH 14.6 UG/ML (10.0-20.0)
== END ==
LOC: M LAB REF 11:14
DX: M00.80 Arthritis due to other bacteria, unspecified joint (principal); Z79.899 Other long term (current) drug therapy; Z51.81 Encounter for therapeutic drug level monitoring
CPT/HCPCS: 80202

== ENCOUNTER → 2018-05-05 | Outpatient (REF) | payer MEDICARE, BC ==
[2018-05-05 06:53] LABS: HEMATOCRIT 26.6 % (36.0-47.0); HEMOGLOBIN 8.3 g/dl (12.0-15.5); MEAN CORPUSCULAR HEMOGLOBIN 26.3 pg (27.0-33.0); MEAN CORPUSCULAR HGB CONC 31.2 g/dl (32.0-36.5); MEAN CORPUSCULAR VOLUME 84.2 fl (80.0-96.0); PLATELET COUNT, AUTOMATED 211 10^3/uL (150-450); RED BLOOD COUNT 3.16 10^6/uL (4.00-5.40); RED CELL DISTRIBUTION WIDTH 14.2 % (11.5-14.5); WHITE BLOOD COUNT 3.7 10^3/uL (4.0-10.0)
[2018-05-05 07:13] LABS: ANION GAP 8 MEQ/L (8-16); BLOOD UREA NITROGEN 14 MG/DL (7-18); CALCIUM LEVEL 9.5 MG/DL (8.8-10.2); CARBON DIOXIDE LEVEL 28 MEQ/L (21-32); CHLORIDE LEVEL 104 MEQ/L (98-107); CREATININE FOR GFR 0.36 MG/DL (0.55-1.30); GLOMERULAR FILTRATION RATE > 60.0 (>39); GLUCOSE, FASTING 90 MG/DL (70-100); SODIUM LEVEL 140 MEQ/L (136-145)
== END ==
DX: D64.9 Anemia, unspecified (principal)
CPT/HCPCS: 80048

== ENCOUNTER 2018-05-06 14:05 | Outpatient (CLI) | payer MEDICARE, BC ==
[2018-05-06] MEDS ORDERED: SODIUM CHLORIDE 0.9% INJ 10 ML SYR IV (14:45)
[2018-05-06] MEDS: diphenhydrAMINE 25 MG CAP PO (16:18)
[2018-05-06] MEDS: ACETAMINOPHEN TAB 650MG DOSE (2X325MG) PO (16:18)
[2018-05-06] MEDS: VANCOMYCIN HCL 1,000 MG, VIAL MATE ADAPTER 1 EACH in D5W 250 ML IV (19:07)
[2018-05-06 20:38] LABS: IMMEDIATE SPIN CROSSMATCH 1 2
== END 2018-05-07 00:15 ==
LOC: M OPCLI4PV 05-07 00:15 → M MSPAV 14:27
DX: D64.9 Anemia, unspecified (principal); M00.80 Arthritis due to other bacteria, unspecified joint; Z79.899 Other long term (current) drug therapy
CPT/HCPCS: 36430

== ENCOUNTER → 2018-05-06 | Outpatient (REF) | payer MEDICARE, BC ==
[2018-05-06 09:37] LABS: HEMATOCRIT 25.2 % (36.0-47.0); MEAN CORPUSCULAR HEMOGLOBIN 26.1 pg (27.0-33.0); MEAN CORPUSCULAR HGB CONC 31.7 g/dl (32.0-36.5); MEAN CORPUSCULAR VOLUME 82.4 fl (80.0-96.0); PLATELET COUNT, AUTOMATED 206 10^3/uL (150-450); RED BLOOD COUNT 3.06 10^6/uL (4.00-5.40); RED CELL DISTRIBUTION WIDTH 14.3 % (11.5-14.5); WHITE BLOOD COUNT 3.9 10^3/uL (4.0-10.0)
[2018-05-06 09:55] LABS: ERYTHROCYTE SEDIMENTATION RATE 82 mm/hr (0-30)
[2018-05-06 10:00] LABS: ANION GAP 7 MEQ/L (8-16); BLOOD UREA NITROGEN 12 MG/DL (7-18); C REACTIVE PROTEIN QUANTITATIV 1.75 MG/DL (0.00-0.30); CALCIUM LEVEL 9.5 MG/DL (8.8-10.2); CARBON DIOXIDE LEVEL 30 MEQ/L (21-32); CHLORIDE LEVEL 104 MEQ/L (98-107); CREATININE FOR GFR 0.37 MG/DL (0.55-1.30); GLOMERULAR FILTRATION RATE > 60.0 (>39); GLUCOSE, FASTING 96 MG/DL (70-100); POTASSIUM SERUM 4.1 MEQ/L (3.5-5.1); SODIUM LEVEL 141 MEQ/L (136-145)
[2018-05-06 12:41] LABS: VANCOMYCIN LEVEL TROUGH 16.9 UG/ML (10.0-20.0)
== END ==
DX: M00.80 Arthritis due to other bacteria, unspecified joint (principal)

== ENCOUNTER → 2018-05-07 | Outpatient (REF) | payer MEDICARE, BC, MEDICAID ==
[2018-05-07 09:54] LABS: HEMATOCRIT 33.1 % (36.0-47.0); HEMOGLOBIN 10.8 g/dl (12.0-15.5); MEAN CORPUSCULAR HEMOGLOBIN 27.2 pg (27.0-33.0); MEAN CORPUSCULAR HGB CONC 32.6 g/dl (32.0-36.5); MEAN CORPUSCULAR VOLUME 83.4 fl (80.0-96.0); PLATELET COUNT, AUTOMATED 213 10^3/uL (150-450); RED BLOOD COUNT 3.97 10^6/uL (4.00-5.40); RED CELL DISTRIBUTION WIDTH 14.4 % (11.5-14.5); WHITE BLOOD COUNT 3.6 10^3/uL (4.0-10.0)
[2018-05-07 10:19] LABS: ANION GAP 11 MEQ/L (8-16); BLOOD UREA NITROGEN 15 MG/DL (7-18); CARBON DIOXIDE LEVEL 26 MEQ/L (21-32); CHLORIDE LEVEL 103 MEQ/L (98-107); GLOMERULAR FILTRATION RATE > 60.0 (>39); GLUCOSE, FASTING 90 MG/DL (70-100); SODIUM LEVEL 140 MEQ/L (136-145)
== END ==
DX: M00.80 Arthritis due to other bacteria, unspecified joint (principal)
CPT/HCPCS: 80048

== ENCOUNTER → 2018-05-08 | Outpatient (REF) | payer MEDICARE, BC ==
[2018-05-08 09:44] LABS: HEMATOCRIT 29.9 % (36.0-47.0); HEMOGLOBIN 9.6 g/dl (12.0-15.5); MEAN CORPUSCULAR HEMOGLOBIN 27.7 pg (27.0-33.0); MEAN CORPUSCULAR HGB CONC 32.1 g/dl (32.0-36.5); MEAN CORPUSCULAR VOLUME 86.2 fl (80.0-96.0); PLATELET COUNT, AUTOMATED 204 10^3/uL (150-450); RED BLOOD COUNT 3.47 10^6/uL (4.00-5.40); RED CELL DISTRIBUTION WIDTH 14.8 % (11.5-14.5); WHITE BLOOD COUNT 3.5 10^3/uL (4.0-10.0)
[2018-05-08 10:07] LABS: ANION GAP 9 MEQ/L (8-16); BLOOD UREA NITROGEN 16 MG/DL (7-18); C REACTIVE PROTEIN QUANTITATIV 0.96 MG/DL (0.00-0.30); CALCIUM LEVEL 8.4 MG/DL (8.8-10.2); CARBON DIOXIDE LEVEL 26 MEQ/L (21-32); CHLORIDE LEVEL 107 MEQ/L (98-107); CREATININE FOR GFR 0.43 MG/DL (0.55-1.30); GLOMERULAR FILTRATION RATE > 60.0 (>39); GLUCOSE, FASTING 79 MG/DL (70-100); POTASSIUM SERUM 4.3 MEQ/L (3.5-5.1); SODIUM LEVEL 142 MEQ/L (136-145)
[2018-05-08 10:19] LABS: ERYTHROCYTE SEDIMENTATION RATE 37 mm/hr (0-30)
[2018-05-08 13:30] LABS: VANCOMYCIN LEVEL TROUGH 17.6 UG/ML (10.0-20.0)
== END ==
DX: D64.9 Anemia, unspecified (principal); M19.90 Unspecified osteoarthritis, unspecified site
CPT/HCPCS: 80202

== ENCOUNTER → 2018-05-09 | Outpatient (REF) ==
[2018-05-09 10:59] LABS: HEMATOCRIT 32.9 % (36.0-47.0); HEMOGLOBIN 10.5 g/dl (12.0-15.5); MEAN CORPUSCULAR HEMOGLOBIN 27.3 pg (27.0-33.0); MEAN CORPUSCULAR HGB CONC 31.9 g/dl (32.0-36.5); MEAN CORPUSCULAR VOLUME 85.7 fl (80.0-96.0); PLATELET COUNT, AUTOMATED 214 10^3/uL (150-450); RED BLOOD COUNT 3.84 10^6/uL (4.00-5.40); RED CELL DISTRIBUTION WIDTH 15.1 % (11.5-14.5)
== END ==
DX: D64.9 Anemia, unspecified (principal)

== ENCOUNTER → 2018-05-10 | Outpatient (REF) ==
[2018-05-10 05:56] LABS: HEMATOCRIT 29.6 % (36.0-47.0); HEMOGLOBIN 9.5 g/dl (12.0-15.5); MEAN CORPUSCULAR HEMOGLOBIN 27.8 pg (27.0-33.0); MEAN CORPUSCULAR HGB CONC 32.1 g/dl (32.0-36.5); MEAN CORPUSCULAR VOLUME 86.5 fl (80.0-96.0); PLATELET COUNT, AUTOMATED 195 10^3/uL (150-450); RED BLOOD COUNT 3.42 10^6/uL (4.00-5.40); RED CELL DISTRIBUTION WIDTH 15.4 % (11.5-14.5); WHITE BLOOD COUNT 3.7 10^3/uL (4.0-10.0)
== END ==
DX: D64.9 Anemia, unspecified (principal)

== ENCOUNTER → 2018-05-14 | Outpatient (REF) ==
[2018-05-14 06:42] LABS: HEMATOCRIT 29.9 % (36.0-47.0); HEMOGLOBIN 9.6 g/dl (12.0-15.5); MEAN CORPUSCULAR HEMOGLOBIN 27.8 pg (27.0-33.0); MEAN CORPUSCULAR HGB CONC 32.1 g/dl (32.0-36.5); MEAN CORPUSCULAR VOLUME 86.7 fl (80.0-96.0); PLATELET COUNT, AUTOMATED 187 10^3/uL (150-450); RED BLOOD COUNT 3.45 10^6/uL (4.00-5.40); WHITE BLOOD COUNT 3.9 10^3/uL (4.0-10.0)
[2018-05-14 07:00] LABS: ERYTHROCYTE SEDIMENTATION RATE 39 mm/hr (0-30)
[2018-05-14 07:02] LABS: C REACTIVE PROTEIN QUANTITATIV 0.43 MG/DL (0.00-0.30)
[2018-05-14 10:08] LABS: VANCOMYCIN LEVEL TROUGH 16.1 UG/ML (10.0-20.0)
== END ==
DX: M00.862 Arthritis due to other bacteria, left knee (principal)

== ENCOUNTER → 2018-05-21 | Outpatient (REF) | payer MEDICARE, BC ==
[2018-05-21 06:27] LABS: HEMATOCRIT 29.4 % (36.0-47.0); HEMOGLOBIN 9.4 g/dl (12.0-15.5); MEAN CORPUSCULAR VOLUME 87.5 fl (80.0-96.0); PLATELET COUNT, AUTOMATED 175 10^3/uL (150-450); RED BLOOD COUNT 3.36 10^6/uL (4.00-5.40); RED CELL DISTRIBUTION WIDTH 16.3 % (11.5-14.5)
[2018-05-21 06:50] LABS: C REACTIVE PROTEIN QUANTITATIV < 0.30 MG/DL (0.00-0.30); ERYTHROCYTE SEDIMENTATION RATE 45 mm/hr (0-30)
[2018-05-21 06:50] LABS: VANCOMYCIN LEVEL TROUGH 19.9 UG/ML (10.0-20.0)
== END ==
DX: M00.80 Arthritis due to other bacteria, unspecified joint (principal)
CPT/HCPCS: 80202

== ENCOUNTER → 2018-05-22 | Outpatient (REF) | payer MEDICARE, BC | DX: K62.5 Hemorrhage of anus and rectum (principal) | CPT/HCPCS: 82270 ==

== ENCOUNTER 2018-05-27 06:30 | Outpatient (REF) | payer MEDICARE, BC ==
[2018-05-28 11:12] LABS: HEMOGLOBIN 10.6 g/dl (12.0-15.5); MEAN CORPUSCULAR HEMOGLOBIN 27.5 pg (27.0-33.0); MEAN CORPUSCULAR HGB CONC 31.2 g/dl (32.0-36.5); MEAN CORPUSCULAR VOLUME 88.3 fl (80.0-96.0); PLATELET COUNT, AUTOMATED 211 10^3/uL (150-450); RED BLOOD COUNT 3.85 10^6/uL (4.00-5.40); RED CELL DISTRIBUTION WIDTH 16.4 % (11.5-14.5); WHITE BLOOD COUNT 3.4 10^3/uL (4.0-10.0)
[2018-05-28 11:53] LABS: ERYTHROCYTE SEDIMENTATION RATE 39 mm/hr (0-30)
[2018-05-28 14:10] LABS: C REACTIVE PROTEIN QUANTITATIV < 0.30 MG/DL (0.00-0.30); LDH LACTATE DEHYDROGENASE 154 U/L (84-246); VANCOMYCIN LEVEL TROUGH 23.3 UG/ML (10.0-20.0)
[2018-05-28 14:43] LABS: ANION GAP 10 MEQ/L (8-16); BLOOD UREA NITROGEN 16 MG/DL (7-18); CALCIUM LEVEL 8.7 MG/DL (8.8-10.2); CARBON DIOXIDE LEVEL 26 MEQ/L (21-32); CHLORIDE LEVEL 105 MEQ/L (98-107); CREATININE FOR GFR 0.49 MG/DL (0.55-1.30); GLOMERULAR FILTRATION RATE > 60.0 (>39); GLUCOSE, FASTING 108 MG/DL (70-100); POTASSIUM SERUM 4.3 MEQ/L (3.5-5.1); SODIUM LEVEL 141 MEQ/L (136-145)
[2018-05-29 08:07] LABS: HAPTOGLOBIN 186 mg/dL (34-200)
== END 2018-05-28 ==
DX: M00.80 Arthritis due to other bacteria, unspecified joint (principal)
CPT/HCPCS: 83010

== ENCOUNTER → 2018-05-27 | Outpatient (REF) | payer MEDICARE, BC | DX: M00.062 Staphylococcal arthritis, left knee (principal); A49.01 Methicillin susceptible Staphylococcus aureus infection, unspecified site; K92.1 Melena | CPT/HCPCS: 82270 ==

== ENCOUNTER → 2018-05-30 | Outpatient (REF) | payer MEDICARE, BC ==
[2018-05-30 06:47] LABS: VANCOMYCIN LEVEL TROUGH 11.5 UG/ML (10.0-20.0)
== END ==
DX: M00.80 Arthritis due to other bacteria, unspecified joint (principal); Z51.81 Encounter for therapeutic drug level monitoring
CPT/HCPCS: 80202

== ENCOUNTER → 2018-06-11 | Outpatient (REF) | payer MEDICARE, BC ==
[2018-06-11 11:01] LABS: HEMOGLOBIN 10.3 g/dl (12.0-15.5); MEAN CORPUSCULAR HEMOGLOBIN 27.8 pg (27.0-33.0); MEAN CORPUSCULAR HGB CONC 31.2 g/dl (32.0-36.5); MEAN CORPUSCULAR VOLUME 89.2 fl (80.0-96.0); PLATELET COUNT, AUTOMATED 192 10^3/uL (150-450); RED CELL DISTRIBUTION WIDTH 16.3 % (11.5-14.5); WHITE BLOOD COUNT 4.6 10^3/uL (4.0-10.0)
[2018-06-11 11:17] LABS: ANION GAP 9 MEQ/L (8-16); BLOOD UREA NITROGEN 28 MG/DL (7-18); C REACTIVE PROTEIN QUANTITATIV < 0.30 MG/DL (0.00-0.30); CALCIUM LEVEL 8.7 MG/DL (8.8-10.2); CARBON DIOXIDE LEVEL 26 MEQ/L (21-32); CHLORIDE LEVEL 105 MEQ/L (98-107); CREATININE FOR GFR 0.66 MG/DL (0.55-1.30); GLOMERULAR FILTRATION RATE > 60.0 (>39); GLUCOSE, FASTING 111 MG/DL (70-100); SODIUM LEVEL 140 MEQ/L (136-145)
[2018-06-11 11:29] LABS: ERYTHROCYTE SEDIMENTATION RATE 25 mm/hr (0-30)
== END ==
DX: M00.062 Staphylococcal arthritis, left knee (principal); A49.01 Methicillin susceptible Staphylococcus aureus infection, unspecified site; F43.23 Adjustment disorder with mixed anxiety and depressed mood; F41.1 Generalized anxiety disorder; F39 Unspecified mood [affective] disorder
CPT/HCPCS: 80048

== ENCOUNTER → 2018-06-25 | Outpatient (REF) | payer MEDICARE, BC, MEDICAID ==
[2018-06-25 10:24] LABS: HEMATOCRIT 27.4 % (36.0-47.0); HEMOGLOBIN 8.7 g/dl (12.0-15.5); MEAN CORPUSCULAR HEMOGLOBIN 28.2 pg (27.0-33.0); MEAN CORPUSCULAR HGB CONC 31.8 g/dl (32.0-36.5); PLATELET COUNT, AUTOMATED 174 10^3/uL (150-450); RED BLOOD COUNT 3.08 10^6/uL (4.00-5.40); RED CELL DISTRIBUTION WIDTH 15.5 % (11.5-14.5); WHITE BLOOD COUNT 3.6 10^3/uL (4.0-10.0)
[2018-06-25 11:16] LABS: ANION GAP 13 MEQ/L (8-16); BLOOD UREA NITROGEN 24 MG/DL (7-18); C REACTIVE PROTEIN QUANTITATIV < 0.30 MG/DL (0.00-0.30); CALCIUM LEVEL 8.1 MG/DL (8.8-10.2); CARBON DIOXIDE LEVEL 21 MEQ/L (21-32); CHLORIDE LEVEL 101 MEQ/L (98-107); CREATININE FOR GFR 0.86 MG/DL (0.55-1.30); GLOMERULAR FILTRATION RATE > 60.0 (>39); GLUCOSE, FASTING 131 MG/DL (70-100); POTASSIUM SERUM 4.3 MEQ/L (3.5-5.1); SODIUM LEVEL 135 MEQ/L (136-145)
[2018-06-25 11:39] LABS: ERYTHROCYTE SEDIMENTATION RATE 34 mm/hr (0-30)
== END ==
DX: M00.80 Arthritis due to other bacteria, unspecified joint (principal)
CPT/HCPCS: 80048

== ENCOUNTER → 2018-07-02 | Outpatient (REF) | payer MEDICARE, BC, MEDICAID ==
[2018-07-02 10:33] LABS: HEMATOCRIT 29.1 % (36.0-47.0); HEMOGLOBIN 9.2 g/dl (12.0-15.5); MEAN CORPUSCULAR HEMOGLOBIN 27.8 pg (27.0-33.0); MEAN CORPUSCULAR HGB CONC 31.6 g/dl (32.0-36.5); MEAN CORPUSCULAR VOLUME 87.9 fl (80.0-96.0); PLATELET COUNT, AUTOMATED 186 10^3/uL (150-450); RED BLOOD COUNT 3.31 10^6/uL (4.00-5.40); RED CELL DISTRIBUTION WIDTH 15.1 % (11.5-14.5); WHITE BLOOD COUNT 4.2 10^3/uL (4.0-10.0)
== END ==
DX: D50.9 Iron deficiency anemia, unspecified (principal)
CPT/HCPCS: 85027

== ENCOUNTER → 2018-07-09 | Outpatient (REF) | payer MEDICARE, BC, MEDICAID ==
[2018-07-09 09:58] LABS: HEMATOCRIT 30.7 % (36.0-47.0); HEMOGLOBIN 9.6 g/dl (12.0-15.5); MEAN CORPUSCULAR HEMOGLOBIN 28.4 pg (27.0-33.0); MEAN CORPUSCULAR HGB CONC 31.3 g/dl (32.0-36.5); MEAN CORPUSCULAR VOLUME 90.8 fl (80.0-96.0); PLATELET COUNT, AUTOMATED 194 10^3/uL (150-450); RED BLOOD COUNT 3.38 10^6/uL (4.00-5.40); WHITE BLOOD COUNT 3.5 10^3/uL (4.0-10.0)
[2018-07-09 10:21] LABS: ERYTHROCYTE SEDIMENTATION RATE 45 mm/hr (0-30)
[2018-07-09 10:23] LABS: ANION GAP 6 MEQ/L (8-16); BLOOD UREA NITROGEN 12 MG/DL (7-18); C REACTIVE PROTEIN QUANTITATIV 0.32 MG/DL (0.00-0.30); CALCIUM LEVEL 9.1 MG/DL (8.8-10.2); CARBON DIOXIDE LEVEL 26 MEQ/L (21-32); CHLORIDE LEVEL 105 MEQ/L (98-107); CREATININE FOR GFR 0.69 MG/DL (0.55-1.30); GLOMERULAR FILTRATION RATE > 60.0 (>39); GLUCOSE, FASTING 108 MG/DL (70-100); POTASSIUM SERUM 3.8 MEQ/L (3.5-5.1); SODIUM LEVEL 137 MEQ/L (136-145)
== END ==
DX: M00.80 Arthritis due to other bacteria, unspecified joint (principal)
CPT/HCPCS: 80048

== ENCOUNTER → 2018-07-16 | Outpatient (REF) | payer MEDICARE, BC, MEDICAID ==
[2018-07-16 10:23] LABS: HEMATOCRIT 27.8 % (36.0-47.0); HEMOGLOBIN 8.9 g/dl (12.0-15.5); MEAN CORPUSCULAR HEMOGLOBIN 28.7 pg (27.0-33.0); MEAN CORPUSCULAR VOLUME 89.7 fl (80.0-96.0); PLATELET COUNT, AUTOMATED 212 10^3/uL (150-450); RED CELL DISTRIBUTION WIDTH 15.2 % (11.5-14.5)
[2018-07-16 10:43] LABS: C REACTIVE PROTEIN QUANTITATIV < 0.30 MG/DL (0.00-0.30)
[2018-07-16 10:45] LABS: ANION GAP 9 MEQ/L (8-16); BLOOD UREA NITROGEN 13 MG/DL (7-18); CALCIUM LEVEL 8.6 MG/DL (8.8-10.2); CARBON DIOXIDE LEVEL 26 MEQ/L (21-32); CHLORIDE LEVEL 104 MEQ/L (98-107); CREATININE FOR GFR 0.75 MG/DL (0.55-1.30); GLOMERULAR FILTRATION RATE > 60.0 (>39); GLUCOSE, FASTING 107 MG/DL (70-100); POTASSIUM SERUM 4.4 MEQ/L (3.5-5.1); SODIUM LEVEL 139 MEQ/L (136-145)
[2018-07-16 11:12] LABS: ERYTHROCYTE SEDIMENTATION RATE 43 mm/hr (0-30)
== END ==
DX: M00.80 Arthritis due to other bacteria, unspecified joint (principal)
CPT/HCPCS: 80048

== ENCOUNTER → 2018-07-18 | Outpatient (REF) | payer MEDICARE, BC, MEDICAID ==
[2018-07-18 09:30] LABS: HEMATOCRIT 25.7 % (36.0-47.0); HEMOGLOBIN 8.1 g/dl (12.0-15.5); MEAN CORPUSCULAR HEMOGLOBIN 28.6 pg (27.0-33.0); MEAN CORPUSCULAR HGB CONC 31.5 g/dl (32.0-36.5); MEAN CORPUSCULAR VOLUME 90.8 fl (80.0-96.0); PLATELET COUNT, AUTOMATED 202 10^3/uL (150-450); RED BLOOD COUNT 2.83 10^6/uL (4.00-5.40); RED CELL DISTRIBUTION WIDTH 15.1 % (11.5-14.5); WHITE BLOOD COUNT 2.9 10^3/uL (4.0-10.0)
[2018-07-18 09:46] LABS: TOTAL PROTEIN 5.5 GM/DL (6.4-8.2)
[2018-07-18 11:25] LABS: ALBUMIN 3.16 GM/DL (3.29-5.55); ALBUMIN % 57.5 % (55.8-66.1); ALPHA-1-GLOBULIN % 7.1 % (2.9-4.9); ALPHA-1-GLOBULINS 0.39 GM/DL (0.17-0.41); ALPHA-2-GLOBULINS 0.68 GM/DL (0.42-0.99); ALPHA-2-GLOBULINS % 12.3 % (7.1-11.8); BETA-1-GLOBULINS 0.32 GM/DL (0.28-0.60); BETA-1-GLOBULINS % 5.9 % (4.7-7.2); BETA-2-GLOBULINS 0.31 GM/DL (0.19-0.55); BETA-2-GLOBULINS % 5.6 % (3.2-6.5); GAMMA GLOBULIN % 11.6 % (11.1-18.8); GAMMA GLOBULINS 0.64 GM/DL (0.65-1.58)
[2018-07-19 09:44] LABS: IMMEDIATE SPIN CROSSMATCH 1 2
== END ==
DX: D64.9 Anemia, unspecified (principal)
CPT/HCPCS: 84165

== ENCOUNTER 2018-07-19 08:51 | Outpatient (CLI) | payer MEDICARE, BC, MEDICAID ==
[2018-07-19] MEDS: ACETAMINOPHEN TAB 650MG DOSE (2X325MG) PO (08:45)
[2018-07-19] MEDS: diphenhydrAMINE 25 MG CAP PO (09:15)
== END 2018-07-19 14:00 | disposition home or self-care (01) ==
LOC: M INFU 08:51
DX: D64.9 Anemia, unspecified (principal); Z79.891 Long term (current) use of opiate analgesic; Z79.899 Other long term (current) drug therapy
CPT/HCPCS: 36430

== ENCOUNTER → 2018-07-20 | Outpatient (REF) | payer MEDICARE, BC, MEDICAID ==
[2018-07-20 13:08] LABS: HEMATOCRIT 33.5 % (36.0-47.0); HEMOGLOBIN 10.7 g/dl (12.0-15.5); MEAN CORPUSCULAR HEMOGLOBIN 28.8 pg (27.0-33.0); MEAN CORPUSCULAR HGB CONC 31.9 g/dl (32.0-36.5); MEAN CORPUSCULAR VOLUME 90.3 fl (80.0-96.0); PLATELET COUNT, AUTOMATED 209 10^3/uL (150-450); RED BLOOD COUNT 3.71 10^6/uL (4.00-5.40); RED CELL DISTRIBUTION WIDTH 15.4 % (11.5-14.5); WHITE BLOOD COUNT 4.4 10^3/uL (4.0-10.0)
== END ==
DX: D64.9 Anemia, unspecified (principal)
CPT/HCPCS: 85027

== ENCOUNTER → 2018-07-23 | Outpatient (REF) | payer MEDICARE, BC, MEDICAID ==
[2018-07-23 10:44] LABS: HEMATOCRIT 35.6 % (36.0-47.0); MEAN CORPUSCULAR HEMOGLOBIN 28.6 pg (27.0-33.0); MEAN CORPUSCULAR HGB CONC 30.9 g/dl (32.0-36.5); MEAN CORPUSCULAR VOLUME 92.5 fl (80.0-96.0); PLATELET COUNT, AUTOMATED 215 10^3/uL (150-450); RED BLOOD COUNT 3.85 10^6/uL (4.00-5.40); RED CELL DISTRIBUTION WIDTH 14.7 % (11.5-14.5); WHITE BLOOD COUNT 4.2 10^3/uL (4.0-10.0)
[2018-07-23 11:02] LABS: ANION GAP 8 MEQ/L (8-16); BLOOD UREA NITROGEN 20 MG/DL (7-18); C REACTIVE PROTEIN QUANTITATIV < 0.30 MG/DL (0.00-0.30); CALCIUM LEVEL 9.2 MG/DL (8.8-10.2); CARBON DIOXIDE LEVEL 26 MEQ/L (21-32); CHLORIDE LEVEL 103 MEQ/L (98-107); CREATININE FOR GFR 0.92 MG/DL (0.55-1.30); GLOMERULAR FILTRATION RATE > 60.0 (>39); GLUCOSE, FASTING 109 MG/DL (70-100); POTASSIUM SERUM 4.1 MEQ/L (3.5-5.1); SODIUM LEVEL 137 MEQ/L (136-145)
[2018-07-23 11:41] LABS: ERYTHROCYTE SEDIMENTATION RATE 24 mm/hr (0-30)
== END ==
DX: D64.9 Anemia, unspecified (principal)
CPT/HCPCS: 80048

== ENCOUNTER → 2018-08-13 | Outpatient (REF) | payer MEDICARE, BC, MEDICAID ==
[2018-08-13 10:52] LABS: HEMATOCRIT 33.1 % (36.0-47.0); HEMOGLOBIN 10.2 g/dl (12.0-15.5); MEAN CORPUSCULAR HEMOGLOBIN 28.8 pg (27.0-33.0); MEAN CORPUSCULAR HGB CONC 30.8 g/dl (32.0-36.5); MEAN CORPUSCULAR VOLUME 93.5 fl (80.0-96.0); PLATELET COUNT, AUTOMATED 233 10^3/uL (150-450); RED BLOOD COUNT 3.54 10^6/uL (4.00-5.40); RED CELL DISTRIBUTION WIDTH 13.3 % (11.5-14.5); WHITE BLOOD COUNT 4.4 10^3/uL (4.0-10.0)
[2018-08-13 10:58] LABS: ANION GAP 6 MEQ/L (8-16); BLOOD UREA NITROGEN 28 MG/DL (7-18); C REACTIVE PROTEIN QUANTITATIV < 0.30 MG/DL (0.00-0.30); CALCIUM LEVEL 9.1 MG/DL (8.8-10.2); CARBON DIOXIDE LEVEL 26 MEQ/L (21-32); CHLORIDE LEVEL 107 MEQ/L (98-107); CREATININE FOR GFR 0.86 MG/DL (0.55-1.30); GLOMERULAR FILTRATION RATE > 60.0 (>39); GLUCOSE, FASTING 119 MG/DL (70-100); POTASSIUM SERUM 4.8 MEQ/L (3.5-5.1); SODIUM LEVEL 139 MEQ/L (136-145)
[2018-08-13 11:12] LABS: ERYTHROCYTE SEDIMENTATION RATE 39 mm/hr (0-30)
== END ==
DX: M00.80 Arthritis due to other bacteria, unspecified joint (principal)
CPT/HCPCS: 80048

== ENCOUNTER → 2018-08-20 | Outpatient (REF) | payer MEDICARE, BC, MEDICAID ==
[2018-08-20 09:40] LABS: HEMATOCRIT 30.9 % (36.0-47.0); HEMOGLOBIN 9.7 g/dl (12.0-15.5); MEAN CORPUSCULAR HEMOGLOBIN 28.7 pg (27.0-33.0); MEAN CORPUSCULAR HGB CONC 31.4 g/dl (32.0-36.5); MEAN CORPUSCULAR VOLUME 91.4 fl (80.0-96.0); PLATELET COUNT, AUTOMATED 213 10^3/uL (150-450); RED BLOOD COUNT 3.38 10^6/uL (4.00-5.40); RED CELL DISTRIBUTION WIDTH 13.5 % (11.5-14.5); WHITE BLOOD COUNT 4.2 10^3/uL (4.0-10.0)
[2018-08-20 09:58] LABS: ANION GAP 7 MEQ/L (8-16); BLOOD UREA NITROGEN 22 MG/DL (7-18); C REACTIVE PROTEIN QUANTITATIV < 0.30 MG/DL (0.00-0.30); CALCIUM LEVEL 8.6 MG/DL (8.8-10.2); CARBON DIOXIDE LEVEL 26 MEQ/L (21-32); CHLORIDE LEVEL 106 MEQ/L (98-107); GLOMERULAR FILTRATION RATE > 60.0 (>39); GLUCOSE, FASTING 151 MG/DL (70-100); POTASSIUM SERUM 4.2 MEQ/L (3.5-5.1); SODIUM LEVEL 139 MEQ/L (136-145)
[2018-08-20 10:19] LABS: ERYTHROCYTE SEDIMENTATION RATE 35 mm/hr (0-30)
== END ==
DX: M08.00 Unspecified juvenile rheumatoid arthritis of unspecified site (principal)
CPT/HCPCS: 80048

== ENCOUNTER → 2018-08-27 | Outpatient (REF) | payer MEDICARE, BC, MEDICAID ==
[2018-08-27 13:48] LABS: HEMATOCRIT 32.8 % (36.0-47.0); HEMOGLOBIN 10.2 g/dl (12.0-15.5); MEAN CORPUSCULAR HEMOGLOBIN 28.8 pg (27.0-33.0); MEAN CORPUSCULAR HGB CONC 31.1 g/dl (32.0-36.5); MEAN CORPUSCULAR VOLUME 92.7 fl (80.0-96.0); PLATELET COUNT, AUTOMATED 190 10^3/uL (150-450); RED BLOOD COUNT 3.54 10^6/uL (4.00-5.40); RED CELL DISTRIBUTION WIDTH 13.3 % (11.5-14.5); WHITE BLOOD COUNT 4.1 10^3/uL (4.0-10.0)
[2018-08-27 14:14] LABS: ANION GAP 10 MEQ/L (8-16); BLOOD UREA NITROGEN 19 MG/DL (7-18); CALCIUM LEVEL 8.3 MG/DL (8.8-10.2); CARBON DIOXIDE LEVEL 25 MEQ/L (21-32); CHLORIDE LEVEL 104 MEQ/L (98-107); CREATININE FOR GFR 0.76 MG/DL (0.55-1.30); GLOMERULAR FILTRATION RATE > 60.0 (>39); GLUCOSE, FASTING 111 MG/DL (70-100); SODIUM LEVEL 139 MEQ/L (136-145)
== END ==
DX: D64.9 Anemia, unspecified (principal)
CPT/HCPCS: 80048

== ENCOUNTER 2018-09-01 08:40 | Inpatient (IN) | payer MEDICARE, BC, MEDICAID ==
[2018-09-01 09:48] LABS: BASO % 0.2 % (0.0-1.0); EOS % 0.9 % (0.0-3.0); HEMATOCRIT 27.7 % (36.0-47.0); HEMOGLOBIN 8.7 g/dl (12.0-15.5); IMMATURE GRANULOCYTE % 0.2 % (0-3.0); LYMPH # 1.1 10^3/uL (1.5-4.5); MEAN CORPUSCULAR HEMOGLOBIN 28.7 pg (27.0-33.0); MEAN CORPUSCULAR HGB CONC 31.4 g/dl (32.0-36.5); MEAN CORPUSCULAR VOLUME 91.4 fl (80.0-96.0); MONO # 0.4 10^3/uL (0.0-0.8); NEUTROPHILS # 3.1 10^3/uL (1.8-7.7); NEUTROPHILS % 66.7 % (36.0-66.0); PLATELET COUNT, AUTOMATED 175 10^3/uL (150-450); RED BLOOD COUNT 3.03 10^6/uL (4.00-5.40); RED CELL DISTRIBUTION WIDTH 13.7 % (11.5-14.5); WHITE BLOOD COUNT 4.7 10^3/uL (4.0-10.0)
[2018-09-01 09:59] LABS: INR 1.22; PROTHROMBIN TIME 15.6 SECONDS (12.1-14.4)
[2018-09-01 10:10] LABS: LACTIC ACID SEPSIS PROTOCOL 0.8 MMOL/L (0.4-2.0)
[2018-09-01 10:11] LABS: ALBUMIN 3.1 GM/DL (3.2-5.2); ALBUMIN/GLOBULIN RATIO 1.03 (1.00-1.93); ALKALINE PHOSPHATASE 38 U/L (45-117); ALT/SGPT 13 U/L (12-78); ANION GAP 7 MEQ/L (8-16); AST/SGOT 13 U/L (7-37); BILIRUBIN,DIRECT < 0.1 MG/DL (0.0-0.2); BILIRUBIN,TOTAL 0.2 MG/DL (0.2-1.0); BLOOD UREA NITROGEN 30 MG/DL (7-18); C REACTIVE PROTEIN QUANTITATIV < 0.30 MG/DL (0.00-0.30); CARBON DIOXIDE LEVEL 23 MEQ/L (21-32); CHLORIDE LEVEL 118 MEQ/L (98-107); CREATININE FOR GFR 1.28 MG/DL (0.55-1.30); ERYTHROCYTE SEDIMENTATION RATE 33 mm/hr (0-30); GLOMERULAR FILTRATION RATE 43.4 (>39); GLUCOSE, FASTING 95 MG/DL (70-100); POTASSIUM SERUM 3.9 MEQ/L (3.5-5.1); SODIUM LEVEL 148 MEQ/L (136-145); TOTAL PROTEIN 6.1 GM/DL (6.4-8.2)
[2018-09-01 11:06] LABS: PARTIAL THROMBOPLASTIN TIME 35.9 SECONDS (25.4-37.6)
[2018-09-01 11:15] LABS: NT-PRO BNP 382 PG/ML (<125); TROPONIN I < 0.02 NG/ML (< 0.10)
[2018-09-01] MEDS ORDERED: ACETAMINOPHEN TAB 650MG DOSE (2X325MG) PO (12:30)
[2018-09-01 12:38] LABS: FERRITIN 404 NG/ML (8-252); IRON (FE) 45 UG/DL (50-170); PERCENT SATURATION 20.9 % (13.2-45.0); TOTAL IRON BINDING CAPACITY 215 UG/DL (250-450)
[2018-09-01 13:13] LABS: RETIC HEMOGLOBIN EQUIVALENT 32.2 pg (24-36)
[2018-09-01] MEDS: SIMVASTATIN 20 MG TAB PO (18:35)
[2018-09-01] MEDS: FERROUS GLUCONATE 324 MG TAB PO (18:35)
[2018-09-01] MEDS: LISINOPRIL 10 MG TAB PO (18:35)
[2018-09-01] MEDS: FUROSEMIDE 20 MG TAB PO (18:35)
[2018-09-01] MEDS: BACTRIM 160MG/800MG DS TAB PO (20:22)
[2018-09-01] MEDS: SENOKOT S TAB PO (20:22)
[2018-09-01] MEDS: risperiDONE 3 MG TAB PO (20:22)
[2018-09-01] MEDS: traMADol 50 MG TAB PO (22:38)
[2018-09-02 05:24] LABS: HEMATOCRIT 27.8 % (36.0-47.0); HEMOGLOBIN 8.6 g/dl (12.0-15.5); MEAN CORPUSCULAR HEMOGLOBIN 28.3 pg (27.0-33.0); MEAN CORPUSCULAR HGB CONC 30.9 g/dl (32.0-36.5); MEAN CORPUSCULAR VOLUME 91.4 fl (80.0-96.0); PLATELET COUNT, AUTOMATED 147 10^3/uL (150-450); RED BLOOD COUNT 3.04 10^6/uL (4.00-5.40); RED CELL DISTRIBUTION WIDTH 13.8 % (11.5-14.5); WHITE BLOOD COUNT 3.4 10^3/uL (4.0-10.0)
[2018-09-02 05:54] LABS: ALBUMIN 2.9 GM/DL (3.2-5.2); ALKALINE PHOSPHATASE 29 U/L (45-117); ALT/SGPT 11 U/L (12-78); ANION GAP 7 MEQ/L (8-16); AST/SGOT 10 U/L (7-37); BILIRUBIN,TOTAL 0.2 MG/DL (0.2-1.0); BLOOD UREA NITROGEN 19 MG/DL (7-18); C REACTIVE PROTEIN QUANTITATIV < 0.30 MG/DL (0.00-0.30); CALCIUM LEVEL 7.8 MG/DL (8.8-10.2); CARBON DIOXIDE LEVEL 23 MEQ/L (21-32); CHLORIDE LEVEL 113 MEQ/L (98-107); CREATININE FOR GFR 0.63 MG/DL (0.55-1.30); GLOMERULAR FILTRATION RATE > 60.0 (>39); GLUCOSE, FASTING 103 MG/DL (70-100); MAGNESIUM LEVEL 1.7 MG/DL (1.8-2.4); POTASSIUM SERUM 3.6 MEQ/L (3.5-5.1); SODIUM LEVEL 143 MEQ/L (136-145); TOTAL PROTEIN 5.8 GM/DL (6.4-8.2)
[2018-09-02] MEDS: FERROUS GLUCONATE 324 MG TAB PO ×2 (08:00→15:02)
[2018-09-02] MEDS ORDERED: LIDOCAINE 2% MDV 20 ML VIAL As Ordered (09:37)
[2018-09-02] MEDS ORDERED: ISOVUE-300 61% 50ML VIAL (Q9967) As Ordered (09:37)
[2018-09-02 10:25] LABS: FOLATE 13.2 NG/ML (>5.4); VITAMIN B12 LEVEL 429 PG/ML (247-911)
[2018-09-02] MEDS: LISINOPRIL 10 MG TAB PO (12:00)
[2018-09-02] MEDS: TAMOXIFEN CITRATE 10 MG TAB PO (12:05)
[2018-09-02] MEDS: BACTRIM 160MG/800MG DS TAB PO ×2 (12:05→20:58)
[2018-09-02] MEDS: SIMVASTATIN 20 MG TAB PO (12:05)
[2018-09-02] MEDS: SENOKOT S TAB PO ×2 (12:05→20:58)
[2018-09-02] MEDS: ASCORBIC ACID 500 MG TAB PO (12:06)
[2018-09-02] MEDS: MULTIVITAMINS/MINERALS THERAP 1 TAB PO (12:06)
[2018-09-02] MEDS: VITAMIN D 1,000 INTERNATIONAL UNITS TABLET PO (12:07)
[2018-09-02] MEDS: PREVNAR 13 VACCINE SYRINGE (CPT CODE:90670) IM (12:08)
[2018-09-02] MEDS ORDERED: PILL CRUSHER/CUTTER 1 EACH XX (12:15)
[2018-09-02] MEDS: risperiDONE 3 MG TAB PO ×2 (12:17→20:58)
[2018-09-02] MEDS: ACETAMINOPHEN 650MG ER TAB (TYLENOL ARTHRITIS) PO ×2 (14:00→21:00)
[2018-09-02] MEDS: FUROSEMIDE 20 MG TAB PO (15:02)
[2018-09-02] MEDS: traMADol 50 MG TAB PO (21:00)
[2018-09-03] MEDS: ACETAMINOPHEN 650MG ER TAB (TYLENOL ARTHRITIS) PO ×3 (05:30→21:18)
[2018-09-03 05:34] LABS: HEMATOCRIT 28.3 % (36.0-47.0); HEMOGLOBIN 8.8 g/dl (12.0-15.5); MEAN CORPUSCULAR HEMOGLOBIN 28.3 pg (27.0-33.0); MEAN CORPUSCULAR HGB CONC 31.1 g/dl (32.0-36.5); PLATELET COUNT, AUTOMATED 148 10^3/uL (150-450); RED BLOOD COUNT 3.11 10^6/uL (4.00-5.40); RED CELL DISTRIBUTION WIDTH 13.4 % (11.5-14.5); WHITE BLOOD COUNT 3.6 10^3/uL (4.0-10.0)
[2018-09-03 05:56] LABS: ALBUMIN 2.7 GM/DL (3.2-5.2); ALBUMIN/GLOBULIN RATIO 0.96 (1.00-1.93); ALKALINE PHOSPHATASE 31 U/L (45-117); ALT/SGPT 14 U/L (12-78); ANION GAP 6 MEQ/L (8-16); AST/SGOT 8 U/L (7-37); BILIRUBIN,TOTAL 0.2 MG/DL (0.2-1.0); BLOOD UREA NITROGEN 12 MG/DL (7-18); C REACTIVE PROTEIN QUANTITATIV < 0.30 MG/DL (0.00-0.30); CALCIUM LEVEL 7.8 MG/DL (8.8-10.2); CARBON DIOXIDE LEVEL 24 MEQ/L (21-32); CHLORIDE LEVEL 110 MEQ/L (98-107); CREATININE FOR GFR 0.55 MG/DL (0.55-1.30); GLOMERULAR FILTRATION RATE > 60.0 (>39); GLUCOSE, FASTING 97 MG/DL (70-100); MAGNESIUM LEVEL 1.6 MG/DL (1.8-2.4); POTASSIUM SERUM 3.9 MEQ/L (3.5-5.1); SODIUM LEVEL 140 MEQ/L (136-145); TOTAL PROTEIN 5.5 GM/DL (6.4-8.2)
[2018-09-03] MEDS: MAG SULF 1GM/100ML (MAG RUN) 1 GM in APPROPRIATE DILUENT 1 EA IV (06:42)
[2018-09-03] MEDS: MULTIVITAMINS/MINERALS THERAP 1 TAB PO (08:52)
[2018-09-03] MEDS: ASCORBIC ACID 500 MG TAB PO (08:52)
[2018-09-03] MEDS: traMADol 50 MG TAB PO ×2 (08:52→21:22)
[2018-09-03] MEDS: risperiDONE 3 MG TAB PO ×2 (08:52→21:16)
[2018-09-03] MEDS: FERROUS GLUCONATE 324 MG TAB PO ×2 (08:52→14:23)
[2018-09-03] MEDS: MAGNESIUM OXIDE 400 MG TAB (MAG-OX) PO ×2 (08:53→21:16)
[2018-09-03] MEDS: SENOKOT S TAB PO ×2 (08:53→21:16)
[2018-09-03] MEDS: VITAMIN D 1,000 INTERNATIONAL UNITS TABLET PO (08:53)
[2018-09-03] MEDS: GOLYTELY SOLN 4000 ML BTL PO (10:04)
[2018-09-03 11:47] LABS: PTT LUPUS TYPE ANTICOAG SCREEN 1.3 (0-1.2)
[2018-09-03 11:57] LABS: DRVV CONFIRM 38.2 SEC
[2018-09-03] MEDS: LISINOPRIL 10 MG TAB PO (12:00)
[2018-09-03] MEDS: BACTRIM 160MG/800MG DS TAB PO ×2 (12:54→21:16)
[2018-09-03] MEDS: SIMVASTATIN 20 MG TAB PO (12:54)
[2018-09-03] MEDS: TAMOXIFEN CITRATE 10 MG TAB PO (12:54)
[2018-09-03] MEDS: FUROSEMIDE 20 MG TAB PO (14:23)
[2018-09-04 05:25] LABS: HEMATOCRIT 25.9 % (36.0-47.0); HEMOGLOBIN 8.3 g/dl (12.0-15.5); MEAN CORPUSCULAR HEMOGLOBIN 28.5 pg (27.0-33.0); PLATELET COUNT, AUTOMATED 155 10^3/uL (150-450); RED BLOOD COUNT 2.91 10^6/uL (4.00-5.40); RED CELL DISTRIBUTION WIDTH 13.2 % (11.5-14.5); WHITE BLOOD COUNT 3.1 10^3/uL (4.0-10.0)
[2018-09-04] MEDS: ACETAMINOPHEN 650MG ER TAB (TYLENOL ARTHRITIS) PO ×3 (05:28→22:00)
[2018-09-04] MEDS: ONDANSETRON 4MG/2ML VIAL (J2405) IV (05:38)
[2018-09-04 05:49] LABS: ALBUMIN 2.6 GM/DL (3.2-5.2); ALBUMIN/GLOBULIN RATIO 0.96 (1.00-1.93); ALKALINE PHOSPHATASE 30 U/L (45-117); ALT/SGPT 10 U/L (12-78); ANION GAP 5 MEQ/L (8-16); AST/SGOT 11 U/L (7-37); BILIRUBIN,TOTAL 0.2 MG/DL (0.2-1.0); BLOOD UREA NITROGEN 6 MG/DL (7-18); C REACTIVE PROTEIN QUANTITATIV < 0.30 MG/DL (0.00-0.30); CALCIUM LEVEL 7.4 MG/DL (8.8-10.2); CARBON DIOXIDE LEVEL 27 MEQ/L (21-32); CHLORIDE LEVEL 109 MEQ/L (98-107); CREATININE FOR GFR 0.43 MG/DL (0.55-1.30); GLOMERULAR FILTRATION RATE > 60.0 (>39); GLUCOSE, FASTING 98 MG/DL (70-100); MAGNESIUM LEVEL 1.9 MG/DL (1.8-2.4); POTASSIUM SERUM 3.5 MEQ/L (3.5-5.1); SODIUM LEVEL 141 MEQ/L (136-145); TOTAL PROTEIN 5.3 GM/DL (6.4-8.2)
[2018-09-04] MEDS: MULTIVITAMINS/MINERALS THERAP 1 TAB PO (10:22)
[2018-09-04] MEDS: ASCORBIC ACID 500 MG TAB PO (10:22)
[2018-09-04] MEDS: MAGNESIUM OXIDE 400 MG TAB (MAG-OX) PO ×2 (10:23→20:00)
[2018-09-04] MEDS: FERROUS GLUCONATE 324 MG TAB PO ×2 (10:23→13:31)
[2018-09-04] MEDS: risperiDONE 3 MG TAB PO ×2 (10:23→20:00)
[2018-09-04] MEDS: VITAMIN D 1,000 INTERNATIONAL UNITS TABLET PO (10:23)
[2018-09-04] MEDS: SENOKOT S TAB PO ×2 (10:23→19:59)
[2018-09-04] MEDS: traMADol 50 MG TAB PO ×2 (10:24→22:54)
[2018-09-04] MEDS ORDERED: SLF 3 ML SYR IV (11:45)
[2018-09-04] MEDS: BACTRIM 160MG/800MG DS TAB PO ×2 (12:33→20:01)
[2018-09-04] MEDS: TAMOXIFEN CITRATE 10 MG TAB PO (12:33)
[2018-09-04] MEDS: SIMVASTATIN 20 MG TAB PO (12:33)
[2018-09-04] MEDS: LISINOPRIL 10 MG TAB PO (12:34)
[2018-09-04] MEDS: SLF 3 ML SYR IV ×2 (13:31→22:00)
[2018-09-04] MEDS: FUROSEMIDE 20 MG TAB PO (13:31)
[2018-09-05] MEDS: ONDANSETRON 4MG/2ML VIAL (J2405) IV (05:20)
[2018-09-05] MEDS: ACETAMINOPHEN 650MG ER TAB (TYLENOL ARTHRITIS) PO ×3 (05:24→19:52)
[2018-09-05] MEDS: SLF 3 ML SYR IV ×3 (05:24→19:53)
[2018-09-05 05:32] LABS: HEMATOCRIT 28.1 % (36.0-47.0); HEMOGLOBIN 8.8 g/dl (12.0-15.5); MEAN CORPUSCULAR HEMOGLOBIN 28.8 pg (27.0-33.0); MEAN CORPUSCULAR HGB CONC 31.3 g/dl (32.0-36.5); MEAN CORPUSCULAR VOLUME 91.8 fl (80.0-96.0); PLATELET COUNT, AUTOMATED 144 10^3/uL (150-450); RED BLOOD COUNT 3.06 10^6/uL (4.00-5.40); RED CELL DISTRIBUTION WIDTH 13.5 % (11.5-14.5); WHITE BLOOD COUNT 2.9 10^3/uL (4.0-10.0)
[2018-09-05 05:54] LABS: ALBUMIN 2.6 GM/DL (3.2-5.2); ALBUMIN/GLOBULIN RATIO 0.96 (1.00-1.93); ALKALINE PHOSPHATASE 33 U/L (45-117); ALT/SGPT 12 U/L (12-78); ANION GAP 4 MEQ/L (8-16); AST/SGOT 10 U/L (7-37); BILIRUBIN,TOTAL 0.2 MG/DL (0.2-1.0); BLOOD UREA NITROGEN 4 MG/DL (7-18); CALCIUM LEVEL 7.6 MG/DL (8.8-10.2); CARBON DIOXIDE LEVEL 28 MEQ/L (21-32); CHLORIDE LEVEL 107 MEQ/L (98-107); CREATININE FOR GFR 0.43 MG/DL (0.55-1.30); GLOMERULAR FILTRATION RATE > 60.0 (>39); GLUCOSE, FASTING 101 MG/DL (70-100); MAGNESIUM LEVEL 2.1 MG/DL (1.8-2.4); SODIUM LEVEL 139 MEQ/L (136-145); TOTAL PROTEIN 5.3 GM/DL (6.4-8.2)
[2018-09-05] MEDS: FERROUS GLUCONATE 324 MG TAB PO ×2 (08:54→13:25)
[2018-09-05] MEDS: VITAMIN D 1,000 INTERNATIONAL UNITS TABLET PO (08:54)
[2018-09-05] MEDS: MULTIVITAMINS/MINERALS THERAP 1 TAB PO (08:54)
[2018-09-05] MEDS: SENOKOT S TAB PO ×2 (08:54→19:50)
[2018-09-05] MEDS: risperiDONE 3 MG TAB PO ×2 (08:54→19:52)
[2018-09-05] MEDS: ASCORBIC ACID 500 MG TAB PO (08:54)
[2018-09-05] MEDS: MAGNESIUM OXIDE 400 MG TAB (MAG-OX) PO ×2 (08:55→19:51)
[2018-09-05] MEDS: GOLYTELY SOLN 4000 ML BTL PO (10:30)
[2018-09-05] MEDS: traMADol 50 MG TAB PO (10:31)
[2018-09-05] MEDS: FUROSEMIDE 20 MG TAB PO (13:22)
[2018-09-05] MEDS: BACTRIM 160MG/800MG DS TAB PO ×2 (13:22→19:51)
[2018-09-05] MEDS: SIMVASTATIN 20 MG TAB PO (13:22)
[2018-09-05] MEDS: TAMOXIFEN CITRATE 10 MG TAB PO (13:22)
[2018-09-05] MEDS: LISINOPRIL 10 MG TAB PO (13:23)
[2018-09-06 05:20] LABS: HEMATOCRIT 27.1 % (36.0-47.0); HEMOGLOBIN 8.6 g/dl (12.0-15.5); MEAN CORPUSCULAR HEMOGLOBIN 28.6 pg (27.0-33.0); MEAN CORPUSCULAR HGB CONC 31.7 g/dl (32.0-36.5); PLATELET COUNT, AUTOMATED 149 10^3/uL (150-450); RED BLOOD COUNT 3.01 10^6/uL (4.00-5.40); RED CELL DISTRIBUTION WIDTH 13.5 % (11.5-14.5); WHITE BLOOD COUNT 2.6 10^3/uL (4.0-10.0)
[2018-09-06] MEDS: ACETAMINOPHEN 650MG ER TAB (TYLENOL ARTHRITIS) PO ×3 (05:36→21:01)
[2018-09-06] MEDS: SLF 3 ML SYR IV ×3 (05:36→21:01)
[2018-09-06 05:45] LABS: ALBUMIN 2.7 GM/DL (3.2-5.2); ALKALINE PHOSPHATASE 34 U/L (45-117); ALT/SGPT 13 U/L (12-78); ANION GAP 5 MEQ/L (8-16); AST/SGOT 13 U/L (7-37); BILIRUBIN,TOTAL 0.2 MG/DL (0.2-1.0); BLOOD UREA NITROGEN 3 MG/DL (7-18); CARBON DIOXIDE LEVEL 30 MEQ/L (21-32); CHLORIDE LEVEL 104 MEQ/L (98-107); CREATININE FOR GFR 0.43 MG/DL (0.55-1.30); GLOMERULAR FILTRATION RATE > 60.0 (>39); GLUCOSE, FASTING 100 MG/DL (70-100); MAGNESIUM LEVEL 2.2 MG/DL (1.8-2.4); POTASSIUM SERUM 3.8 MEQ/L (3.5-5.1); SODIUM LEVEL 139 MEQ/L (136-145); TOTAL PROTEIN 5.4 GM/DL (6.4-8.2)
[2018-09-06 08:06] LABS: HEXAGONAL PHASE PHOSPHOLIPID 42 sec (0-11)
[2018-09-06] MEDS: FERROUS GLUCONATE 324 MG TAB PO ×2 (08:24→14:43)
[2018-09-06] MEDS: risperiDONE 3 MG TAB PO ×2 (08:24→20:11)
[2018-09-06] MEDS: VITAMIN D 1,000 INTERNATIONAL UNITS TABLET PO (08:24)
[2018-09-06] MEDS: SENOKOT S TAB PO ×2 (08:24→20:11)
[2018-09-06] MEDS: MAGNESIUM OXIDE 400 MG TAB (MAG-OX) PO ×2 (08:24→20:12)
[2018-09-06] MEDS: MULTIVITAMINS/MINERALS THERAP 1 TAB PO (08:24)
[2018-09-06] MEDS: ASCORBIC ACID 500 MG TAB PO (08:24)
[2018-09-06] MEDS: BACTRIM 160MG/800MG DS TAB PO ×2 (14:42→20:11)
[2018-09-06] MEDS: TAMOXIFEN CITRATE 10 MG TAB PO (14:42)
[2018-09-06] MEDS: FUROSEMIDE 20 MG TAB PO (14:43)
[2018-09-06] MEDS: LISINOPRIL 10 MG TAB PO (14:43)
[2018-09-06] MEDS: SIMVASTATIN 20 MG TAB PO (14:43)
[2018-09-06] MEDS: traMADol 50 MG TAB PO (20:11)
[2018-09-06] MEDS: ENOXAPARIN 80 MG/0.8 ML SYRINGE (J1650) SC (20:12)
[2018-09-07 05:22] LABS: HEMATOCRIT 26.3 % (36.0-47.0); HEMOGLOBIN 8.4 g/dl (12.0-15.5); MEAN CORPUSCULAR HEMOGLOBIN 28.6 pg (27.0-33.0); MEAN CORPUSCULAR HGB CONC 31.9 g/dl (32.0-36.5); MEAN CORPUSCULAR VOLUME 89.5 fl (80.0-96.0); PLATELET COUNT, AUTOMATED 158 10^3/uL (150-450); RED BLOOD COUNT 2.94 10^6/uL (4.00-5.40); RED CELL DISTRIBUTION WIDTH 13.5 % (11.5-14.5); WHITE BLOOD COUNT 3.2 10^3/uL (4.0-10.0)
[2018-09-07] MEDS: SLF 3 ML SYR IV ×4 (05:31→20:36)
[2018-09-07] MEDS: ACETAMINOPHEN 650MG ER TAB (TYLENOL ARTHRITIS) PO ×3 (05:31→20:36)
[2018-09-07 05:49] LABS: ALBUMIN 2.5 GM/DL (3.2-5.2); ALBUMIN/GLOBULIN RATIO 0.89 (1.00-1.93); ALKALINE PHOSPHATASE 34 U/L (45-117); ALT/SGPT 13 U/L (12-78); ANION GAP 6 MEQ/L (8-16); AST/SGOT 11 U/L (7-37); BILIRUBIN,TOTAL 0.2 MG/DL (0.2-1.0); BLOOD UREA NITROGEN 7 MG/DL (7-18); CALCIUM LEVEL 7.6 MG/DL (8.8-10.2); CARBON DIOXIDE LEVEL 28 MEQ/L (21-32); CHLORIDE LEVEL 104 MEQ/L (98-107); CREATININE FOR GFR 0.51 MG/DL (0.55-1.30); GLOMERULAR FILTRATION RATE > 60.0 (>39); GLUCOSE, FASTING 109 MG/DL (70-100); MAGNESIUM LEVEL 2.2 MG/DL (1.8-2.4); SODIUM LEVEL 138 MEQ/L (136-145); TOTAL PROTEIN 5.3 GM/DL (6.4-8.2)
[2018-09-07] MEDS: ENOXAPARIN 80 MG/0.8 ML SYRINGE (J1650) SC ×2 (08:13→20:36)
[2018-09-07] MEDS: MAGNESIUM OXIDE 400 MG TAB (MAG-OX) PO ×2 (08:14→20:35)
[2018-09-07] MEDS: FERROUS GLUCONATE 324 MG TAB PO ×2 (08:14→14:27)
[2018-09-07] MEDS: VITAMIN D 1,000 INTERNATIONAL UNITS TABLET PO (08:14)
[2018-09-07] MEDS: ASCORBIC ACID 500 MG TAB PO (08:14)
[2018-09-07] MEDS: MULTIVITAMINS/MINERALS THERAP 1 TAB PO (08:15)
[2018-09-07] MEDS: risperiDONE 3 MG TAB PO ×2 (08:15→20:38)
[2018-09-07] MEDS: SENOKOT S TAB PO ×2 (08:16→20:35)
[2018-09-07] MEDS: traMADol 50 MG TAB PO ×2 (08:16→20:37)
[2018-09-07] MEDS: TAMOXIFEN CITRATE 10 MG TAB PO (12:09)
[2018-09-07] MEDS: LISINOPRIL 10 MG TAB PO (12:10)
[2018-09-07] MEDS: SIMVASTATIN 20 MG TAB PO (12:10)
[2018-09-07] MEDS: BACTRIM 160MG/800MG DS TAB PO ×2 (12:10→20:35)
[2018-09-07] MEDS: FUROSEMIDE 20 MG TAB PO (14:27)
[2018-09-07] MEDS ORDERED: WARFARIN SOD 5 MG TAB PO (17:00)
[2018-09-08] MEDS: SLF 3 ML SYR IV ×3 (05:00→21:09)
[2018-09-08] MEDS: ACETAMINOPHEN 650MG ER TAB (TYLENOL ARTHRITIS) PO ×3 (05:00→21:10)
[2018-09-08 06:19] LABS: HEMATOCRIT 26.6 % (36.0-47.0); HEMOGLOBIN 8.5 g/dl (12.0-15.5); MEAN CORPUSCULAR HEMOGLOBIN 28.6 pg (27.0-33.0); MEAN CORPUSCULAR VOLUME 89.6 fl (80.0-96.0); PLATELET COUNT, AUTOMATED 160 10^3/uL (150-450); RED BLOOD COUNT 2.97 10^6/uL (4.00-5.40); RED CELL DISTRIBUTION WIDTH 13.8 % (11.5-14.5); WHITE BLOOD COUNT 2.8 10^3/uL (4.0-10.0)
[2018-09-08 06:51] LABS: ALBUMIN 2.5 GM/DL (3.2-5.2); ALBUMIN/GLOBULIN RATIO 0.93 (1.00-1.93); ALKALINE PHOSPHATASE 32 U/L (45-117); ALT/SGPT 14 U/L (12-78); ANION GAP 8 MEQ/L (8-16); AST/SGOT 12 U/L (7-37); BILIRUBIN,TOTAL 0.3 MG/DL (0.2-1.0); BLOOD UREA NITROGEN 7 MG/DL (7-18); CALCIUM LEVEL 7.9 MG/DL (8.8-10.2); CARBON DIOXIDE LEVEL 27 MEQ/L (21-32); CHLORIDE LEVEL 107 MEQ/L (98-107); CREATININE FOR GFR 0.52 MG/DL (0.55-1.30); GLOMERULAR FILTRATION RATE > 60.0 (>39); GLUCOSE, FASTING 95 MG/DL (70-100); MAGNESIUM LEVEL 2.1 MG/DL (1.8-2.4); POTASSIUM SERUM 3.9 MEQ/L (3.5-5.1); SODIUM LEVEL 142 MEQ/L (136-145); TOTAL PROTEIN 5.2 GM/DL (6.4-8.2)
[2018-09-08] MEDS: ENOXAPARIN 80 MG/0.8 ML SYRINGE (J1650) SC (08:07)
[2018-09-08] MEDS: FERROUS GLUCONATE 324 MG TAB PO ×2 (08:08→14:33)
[2018-09-08] MEDS: VITAMIN D 1,000 INTERNATIONAL UNITS TABLET PO (08:08)
[2018-09-08] MEDS: MULTIVITAMINS/MINERALS THERAP 1 TAB PO (08:08)
[2018-09-08] MEDS: risperiDONE 3 MG TAB PO ×2 (08:08→21:10)
[2018-09-08] MEDS: SENOKOT S TAB PO ×2 (08:08→21:10)
[2018-09-08] MEDS: ASCORBIC ACID 500 MG TAB PO (08:08)
[2018-09-08] MEDS: traMADol 50 MG TAB PO ×2 (08:44→21:10)
[2018-09-08] MEDS: SIMVASTATIN 20 MG TAB PO (12:01)
[2018-09-08] MEDS: LISINOPRIL 10 MG TAB PO (12:01)
[2018-09-08] MEDS: BACTRIM 160MG/800MG DS TAB PO ×2 (12:01→21:10)
[2018-09-08] MEDS: FUROSEMIDE 20 MG TAB PO (14:33)
[2018-09-08] MEDS: APIXABAN 5 MG TAB (ELIQUIS) PO (21:10)
[2018-09-09] MEDS: ACETAMINOPHEN 650MG ER TAB (TYLENOL ARTHRITIS) PO (05:35)
[2018-09-09] MEDS: SLF 3 ML SYR IV (05:35)
[2018-09-09 08:32] LABS: HEMATOCRIT 28.4 % (36.0-47.0); HEMOGLOBIN 8.9 g/dl (12.0-15.5); MEAN CORPUSCULAR HEMOGLOBIN 28.2 pg (27.0-33.0); MEAN CORPUSCULAR HGB CONC 31.3 g/dl (32.0-36.5); MEAN CORPUSCULAR VOLUME 89.9 fl (80.0-96.0); PLATELET COUNT, AUTOMATED 164 10^3/uL (150-450); RED BLOOD COUNT 3.16 10^6/uL (4.00-5.40); RED CELL DISTRIBUTION WIDTH 13.9 % (11.5-14.5); WHITE BLOOD COUNT 2.4 10^3/uL (4.0-10.0)
[2018-09-09] MEDS: ASCORBIC ACID 500 MG TAB PO (09:40)
[2018-09-09] MEDS: FERROUS GLUCONATE 324 MG TAB PO (09:40)
[2018-09-09] MEDS: APIXABAN 5 MG TAB (ELIQUIS) PO (09:40)
[2018-09-09] MEDS: risperiDONE 3 MG TAB PO (09:40)
[2018-09-09] MEDS: MULTIVITAMINS/MINERALS THERAP 1 TAB PO (09:40)
[2018-09-09] MEDS: VITAMIN D 1,000 INTERNATIONAL UNITS TABLET PO (09:40)
[2018-09-09] MEDS: SENOKOT S TAB PO (09:40)
[2018-09-09] MEDS: traMADol 50 MG TAB PO (09:40)
[2018-09-09] MEDS: LISINOPRIL 10 MG TAB PO (12:14)
[2018-09-09] MEDS: SIMVASTATIN 20 MG TAB PO (12:14)
[2018-09-09] MEDS: BACTRIM 160MG/800MG DS TAB PO (12:14)
[2018-09-09 14:12] LABS: PHOSPHOLIPIDS LEVEL 210 mg/dL (150-250)
[2018-09-09 14:12] LABS: ANTI THROMBIN 3 ANTIGEN IMMUNO 80 % (72-124); ANTI THROMBIN 3 FUNCT ACTIVITY 97 % (75-135); CARDIOLIPIN IGA ANTIBODY <9 APL U/mL (0-11); CARDIOLIPIN IGG ANTIBODY <9 GPL U/mL (0-14); CARDIOLIPIN IGM ANTIBODY 13 MPL U/mL (0-12); PROTEIN C FUNCTIONAL ACTIVITY 110 % (73-180); PROTEIN S FUNCTIONAL ACTIVITY 74 % (63-140)
== END 2018-09-09 12:52 | disposition home or self-care (01) | DRG 253 ==
LOC: M MSPAV 09-07 19:07 → M ED 08:40 → M ED INP 12:19 → M PCU 14:20
PROC: 0DJ08ZZ Inspection of Upper Intestinal Tract, Via Natural or Artificial Opening Endoscopic (ICD-10-PCS; principal; 2018-09-06 11:33)
PROC: 0DJD8ZZ Inspection of Lower Intestinal Tract, Via Natural or Artificial Opening Endoscopic (ICD-10-PCS; 2018-09-06 11:33)
PROC: 06H04DZ Insertion of Intraluminal Device into Inferior Vena Cava, Percutaneous Endoscopic Approach (ICD-10-PCS; 2018-09-06 11:33)
DX: I82.412 Acute embolism and thrombosis of left femoral vein (principal); I50.32 Chronic diastolic (congestive) heart failure; D68.62 Lupus anticoagulant syndrome; E78.5 Hyperlipidemia, unspecified; I11.0 Hypertensive heart disease with heart failure; D50.9 Iron deficiency anemia, unspecified; M17.12 Unilateral primary osteoarthritis, left knee; F20.9 Schizophrenia, unspecified; K29.70 Gastritis, unspecified, without bleeding; K64.0 First degree hemorrhoids; D72.819 Decreased white blood cell count, unspecified; Z85.3 Personal history of malignant neoplasm of breast; Z92.21 Personal history of antineoplastic chemotherapy; Z92.3 Personal history of irradiation; Z79.899 Other long term (current) drug therapy

== ENCOUNTER 2018-09-14 12:16 | Inpatient (IN) | payer MEDICARE, BC, MEDICAID ==
[~2018-09-14] VITALS: Ht 182.9 cm; Wt 59.5 kg
[~2018-09-14 12:16] MED LIST changes: +ALEN35TA37 PO; +ALEV220C2 PO; +BACI1CAP PO; +BACITAB PO; +BACT800T5 PO; +BISA10SU4 PR; +CALC600T31 PO; +CALC600T60 PO; +CEFA2IV2 IV; +CLEO300C2 PO; +ELIQ5TAB PO; +ENEMENE16 PR; +FERR325T16 PO; +HEPA50VL SC; +HYDR-3713 PO; +ICY1CRE TOP; +ICY2.5GE TOP; +LASI20TA PO; -LISI10TA4; +LISI10TA4 PO; -LOVA20TA2; +LOVA20TA2 PO; +MELA5TAB17 PO; +MILK12002 PO; +NORCOTAB PO; +POTA20TA6 PO; +RISATAB3 PO; +RISP3TAB3 PO; +SENN8.6T54 PO; -TAMO20TA4; -TAMO20TA4 PO; +TAMO20TA8; +TAMO20TA8 PO; +TRAM50TA2 PO; +TYLE325T5 PO; +TYLE650T35 PO
[2018-09-14] MEDS ORDERED: MORPHINE 2 MG/ML 1ML SYRINGE (J2270) IV ONE (12:45)
[2018-09-14 13:14] LABS: BASO % 0.3 % (0.0-1.0); EOS % 0.9 % (0.0-3.0); HEMATOCRIT 29.1 % (36.0-47.0); HEMOGLOBIN 9.3 g/dl (12.0-15.5); LYMPH # 0.9 10^3/uL (1.5-4.5); MEAN CORPUSCULAR HEMOGLOBIN 29.1 pg (27.0-33.0); MEAN CORPUSCULAR VOLUME 90.9 fl (80.0-96.0); MONO # 0.3 10^3/uL (0.0-0.8); MONO % 8.6 % (0.0-5.0); NEUTROPHILS # 2.2 10^3/uL (1.8-7.7); NEUTROPHILS % 63.2 % (36.0-66.0); PLATELET COUNT, AUTOMATED 196 10^3/uL (150-450); WHITE BLOOD COUNT 3.5 10^3/uL (4.0-10.0)
[2018-09-14 13:28] LABS: INR 1.35; PROTHROMBIN TIME 16.9 SECONDS (12.1-14.4)
[2018-09-14 13:29] LABS: PARTIAL THROMBOPLASTIN TIME 31.7 SECONDS (25.4-37.6)
--- NOTE | 2018-09-14 13:42 | REP ---
Clinical: Bilateral knee pain. Technique: AP, lateral, bilateral oblique views of the right and left knee. Findings: Advanced tricompartmental osteoarthritic degenerative changes are noted bilaterally which significantly limit evaluation for subtle injury. Right suprapatellar effusion identified. Impression: Advanced tricompartmental osteoarthritic degenerative changes to the bilateral knees with right knee swelling and suprapatellar effusion. Correlation is recommended as subtle injuries cannot be excluded. Electronically Signed by Eliecer Mcwilliams MD 09/14/2018 01:33 P
--- NOTE | 2018-09-14 13:43 | REP ---
Clinical: Right hip pain. Technique: Frontal view of the pelvis with neutral and frog lateral views of the right hip. Findings: Age-related osteopenia and degenerative changes are appreciated. Evidence for prior right hip arthroplasty. No acute fracture or dislocation. Impression: Osteopenia and degenerative changes. No acute fracture or dislocation. Electronically Signed by Eliecer Mcwilliams MD 09/14/2018 01:34 P
[2018-09-14 13:48] LABS: BLOOD UREA NITROGEN 14 MG/DL (7-18); CALCIUM LEVEL 8.8 MG/DL (8.8-10.2); CARBON DIOXIDE LEVEL 27 MEQ/L (21-32); CHLORIDE LEVEL 106 MEQ/L (98-107); CREATININE FOR GFR 0.83 MG/DL (0.55-1.30); GLOMERULAR FILTRATION RATE > 60.0 (>39); GLUCOSE, FASTING 111 MG/DL (70-100); POTASSIUM SERUM 4.2 MEQ/L (3.5-5.1); SODIUM LEVEL 140 MEQ/L (136-145); TROPONIN I < 0.02 NG/ML (< 0.10)
[2018-09-14] MEDS ORDERED: ELIQ5TAB PO (14:44)
[2018-09-14] MEDS ORDERED: AMIT8CAP4 PO (14:44)
[2018-09-14] MEDS ORDERED: TRAM50TA2 PO (14:44)
[2018-09-14] MEDS ORDERED: ACETAMINOPHEN TAB 650MG DOSE (2X325MG) PO PRN (14:45)
[2018-09-14] MEDS ORDERED: ONDANSETRON 4 MG TAB (S0181) PO PRN (14:45)
--- NOTE | 2018-09-14 15:53 | HPEPDOC ---
[facility] Medical History & Physical Date of Admission Sep 14, 2018 Primary Care Physician: PHONG LOYA CRNA Attending Physician: ROSE HARDY MD History and Physical CHIEF COMPLAINT: Bilateral knee pain and right hip pain HISTORY OF PRESENT ILLNESS: Patient is a 74-year-old elderly female with a past medical history of hypertension, hyperlipidemia, diastolic heart failure, breast cancer status post right sided lumpectomy, iron deficiency anemia, osteoarthritis and chronic left knee pain, complicated by recurrent septic arthritis, MRSA, status post treatment. She was recently hospitalized on and discharged on September 04 for GI bleed, and DVT. During Previous hospital stay she had an IVC filter placed by vascular surgery. She was also evaluated with an EGD and colonoscopy, both of which were normal. She was also found to lupus anticoagulant body positive during hypercoagulable workup, as well as evaluated by her virtual reality specialist/oncologist Dr. Mina for leukopenia and anemia possibly related to myelodysplasia. Dr. Mina had planned an outpatient bone marrow biopsy in 2-4 weeks. Patient also requested physical therapy and was discharged home on eliqu. Today patient presents with extreme bilateral knee and right hip pain. She states that the pain is limiting her ability to move around. She is unable to perform her activities of daily living. And she states that her cannot take care of her. Patient would like to be admitted and transferred to the [facility]. Her pain is 10 out of 10. Moving exacerbates it. . She states that taking her home. Tramadol helps the pain a little bit. In the ED, patient received morphine. Lab work unremarkable, imaging of the showed advanced tricompartmental osteal arthritic degenerative changes to Bilateral knee, with right knee swelling and suprapatellar effusion. Hip x-ray showed osteopenia and degenerative changes. No acute fractures Hospitalist team was consulted for admission. Based on extreme bilateral knee, hip pain and difficulty walking. PAST MEDICAL HISTORY: Hypertension Dyslipidemia. Diastolic congestive heart failure. Breast cancer, status post lobectomy. Chemotherapy Radiation Iron deficiency anemia. Osteoarthritic with chronic knee pain, complicated by septic arthritis. MRSA s/p treatment and currently on suppressive therapy with Bactrim Per ID. Dr. Cooper DVT PAST SURGICAL HISTORY: IVC filter , status post remote ARTHROSCOPIC LUMPECTOMY 2009 LEFT KNEE I AND D 02/2018 LEFT KNEE ARTHROSCOPIC COMPLETE SYNOVECTOMY IRRIGATION DEBRIDEMENT PLACEMENT OF ANTIBIOTIC BEADS AND J-VAC DRAIN LEFT KNEE, drainage FOR SEPTIC ARTHRITIS JOINT FLUID SOCIAL HISTORY: Lives at home with , who reports he can no longer take her. Denies smoking, denies alcohol. Denies IV drug use FAMILY HISTORY: Noncontributory ALLERGIES: Please see below. HOME MEDICATIONS: Please see below. ROS CONSTITUTIONAL: No fevers, denies chills, denies weight loss, denies lethargy HEENT: No rhinorrhea, no itchy eyes, no congesion, No tonsilor exudates CARDIOVASCULAR: No murmurs no palpitations and arrhythmias RESPIRATORY: Not cough, No SOB, no issues to report GASTROINTESTINAL: No nausea, no vomiting, no difficulty swallowing, no pain with eating, no diarrhea HEMATOLOGICAL: No bleeding MUSCULOSKELETAL: Admits to bilateral knee pain, admits to hip pain denies pain anywhere. GENITOURINARY:No Issues HEMATOLOGIC/LYMPHATIC: No swelling NEURO: Admits to weakness, admits to walking difficulty PE GENERAL APPEARANCE: Alert female, thin in appearance, SKIN: Warm, well perfused. ENT: Palate intact, masterson tympanic membrane no bulging, no erythema, Neck supple, no thyromegaly THORAX: Symmetrical. LUNGS: Clear to auscultation bilaterally. HEART: Normal S1, S2. No murmurs, no rubs, no gallops ABDOMEN: Soft. No masses. Bowel sounds are present. TRUNK/SPINE:Straight. EXTREMITIES: Patient complains of pain from moving bilateral lower extremity, strength testing could not be elicited due to lack of effort on patient's part. Both knees are tender to palpate. Left knee is slightly edematous, no bruising, surgical scar noted on left knee. No patellar laxity PULSES: 2+ upper and lower extremity . LABORATORY DATA: See below. IMAGING: Hip and pelvis x-ray: Osteopenia and degenerative changes. No acute fracture or dislocation. Bilateral knee x-ray: Advanced tricompartmental osteoarthritic degenerative thurston ges to the bilateral knees with right knee swelling and suprapatellar effusion. Correlation is recommended as subtle injuries cannot be excluded. MICROBIOLOGY: Please see below. ASSESSMENT: 73-year-old female with multiple comorbidities, as listed above in HPI. Presenting with extreme hip and bilateral knee pain. PLAN: Bilateral knee pain: Secondary to osteoarthritis, patient will be admitted for pain control. Physical therapy on board. Knee unlikely to be septic, base of physical examination. Last also unremarkable. Social service on board for placement counseling. --Pain control with home medication of tramadol Hip pain . Osteoarthritis, no fractures detected, no signs of septic joint based on labs and physical examination. Physical therapy on board, pain control with Tramadol. Hypertension --Continue home meds Dyslipidemia --Continue home med Diastolic congestive heart failure --Continue home meds, monitor for fluid overload status MRSA s/p treatment and currently on suppressive therapy with Bactrim Per ID. Dr. Cooper --Continue Bactrim Iron deficiency anemia --Today currently stable, continue to monitor DVT --Continue Eliquis Further management will be per patient's clinical course. Vital Signs Vital Signs Date Time Temp Pulse Resp B/P (MAP) Pulse Ox O2 Delivery O2 Flow Rate FiO2 09/14/18 13:29 16 09/14/18 12:38 108/60 (76) 09/14/18 12:29 97.9 89 100 Room Air Laboratory Data Labs 24H Laboratory Tests 2 09/14/18 13:01: Immature Granulocyte % (Auto) 0.0, White Blood Count 3.5L, Red Blood Count 3.20L, Hemoglobin 9.3L, Hematocrit 29.1L, Mean Corpuscular Volume 90.9, Mean Corpuscular Hemoglobin 29.1, Mean Corpuscular Hemoglobin Concent 32.0, Red Cell Distribution Width 14.0, Platelet Count 196, Neutrophils (%) (Auto) 63.2, Lymphocytes (%) (Auto) 27.0, Monocytes (%) (Auto) 8.6H, Eosinophils (%) (Auto) 0.9, Basophils (%) (Auto) 0.3, Neutrophils # (Auto) 2.2, Lymphocytes # (Auto) 0.9L, Monocytes # (Auto) 0.3, Eosinophils # (Auto) 0.0, Basophils # (Auto) 0.0, Nucleated Red Blood Cells % (auto) 0.0, Prothrombin Time 16.9H, Prothromb Time International Ratio 1.35, Activated Partial Thromboplast Time 31.7, Anion Gap 7L, Glomerular Filtration Rate > 60.0, Blood Urea Nitrogen 14, Creatinine 0.83, Sodium Level 140, Potassium Level 4.2, Chloride Level 106, Carbon Dioxide Level 27, Calcium Level 8.8, Troponin I < 0.02 CBC/BMP Laboratory Tests 09/14/18 13:01 Red Blood Count 3.20 L, Mean Corpuscular Volume 90.9, Mean Corpuscular Hemoglobin 29.1, Mean Corpuscular Hemoglobin Concent 32.0, Red Cell Distribution Width 14.0, Neutrophils (%) (Auto) 63.2, Lymphocytes (%) (Auto) 27.0, Monocytes (%) (Auto) 8.6 H, Eosinophils (%) (Auto) 0.9, Basophils (%) (Auto) 0.3, Neutrophils # (Auto) 2.2, Lymphocytes # (Auto) 0.9 L, Monocytes # (Auto) 0.3, Eosinophils # (Auto) 0.0, Basophils # (Auto) 0.0, Calcium Level 8.8 Home Medications Scheduled (Risperidone) 3 Mg Tab, 3 MG PO BID TAKES AT 0800/2000 (Icy Hot Advanced Relief 16-11 %) 1 Cre Cre, 1 DOSE TOP TID APPLY TO LEFT KNEES Alendronate Sodium (Alendronate Sodium) 35 Mg Tab, 35 MG PO QWEEK SATURDAYS Apixaban Base (Eliquis) 5 Mg Tab, 10 MG PO BID X 2 DAYS THEN 5MG BID. Ascorbic Acid (Vitamin C) 500 Mg Tab, 500 MG PO DAILY Bacillus Coagulans (Bacid) 1 Cap Cap, 1 CAP PO BID Calcium Carbonate (Calcium) 600 Mg Tab, 1 TAB PO DAILY Cholecalciferol (Vitamin D) 1,000 Unit Tab, 1,000 UNIT PO DAILY Docusate Sod/Senna (Senna-Plus 8.6-50 mg) 1 Tab Tab, 2 TAB PO BID Ferrous Gluconate (Ferrous Gluconate) 324 Mg Tab, 324 MG PO BID TAKES 0800/1400 Furosemide (Lasix) 20 Mg Tab, 20 MG PO DAILY TAKES AT 1400 Lisinopril (Lisinopril) 10 Mg Tab, 10 MG PO DAILY TAKES AT NOON Lovastatin (Lovastatin) 20 Mg Tab, 20 MG PO DAILY TAKES AT NOON Lubiprostone (Amitiza) 8 Mcg Cap, 8 MCG PO BID Melatonin (Melatonin) 5 Mg Tab, 5 MG PO QHS Multivitamins *[facility] STOCKED* (Thera M Plus *[facility] STOCKED*) 1 Tab Tab, 1 TAB PO DAILY Trimethoprim/Sulfamethoxazole (Bactrim Ds 800-160 mg) 1 Tab Tab, 1 TAB PO BID TAKES AT NOON/2000 Scheduled PRN Acetaminophen (Tylenol 8 Hour Arthritis) 650 Mg Tab, 650 MG PO Q8H PRN for PAIN Tramadol HCl (Tramadol HCl) 50 Mg Tab, 50 MG PO BID PRN for PAIN Allergies Coded Allergies: No Known Drug Allergy (Verified Allergy, Unknown, 02/20/17) GME ATTESTATION GME ATTESTATION My faculty preceptor for this patient encounter was physically present during the encounter and was fully available. All aspects of the patient interview, examination, medical decision making process, and medical care plan development were reviewed and approved by the faculty preceptor. The faculty preceptor is aware and concurs with the plan as stated in the body of this note and will attest to such by his/her cosignature. ATTENDING NOTE Attestation: I have supervised the medical records library professor and discussed patients evaluation and medical management. I agree with the outlined management plan as documented in the residents note. MINERVA FLEMING DO Sep 14, 2018 15:53 ROSE HARDY MD Sep 14, 2018 21:33
[2018-09-14 16:00] VITALS: BP 118/57
[2018-09-14] MEDS ORDERED: ACETAMINOPHEN 650MG ER TAB (TYLENOL ARTHRITIS) PO PRN (16:00)
[2018-09-14] MEDS: FERROUS GLUCONATE 324 MG TAB PO SCH (18:25)
[2018-09-14] MEDS: FUROSEMIDE 20 MG TAB PO SCH (18:26)
[2018-09-14] MEDS: SENOKOT S TAB PO SCH (20:28)
[2018-09-14] MEDS: risperiDONE 3 MG TAB PO SCH (20:28)
[2018-09-14] MEDS: APIXABAN 5 MG TAB (ELIQUIS) PO SCH (20:29)
[2018-09-14] MEDS: BACTRIM 160MG/800MG DS TAB PO SCH (20:29)
[2018-09-14] MEDS: traMADol 50 MG TAB PO PRN (20:30)
[2018-09-14 22:00] VITALS: BP 96/50
[2018-09-14] MEDS: PERCOCET 5MG/325MG TAB PO PRN (22:30)
[2018-09-15 06:00] VITALS: BP 117/57
[2018-09-15] MEDS: PERCOCET 5MG/325MG TAB PO PRN ×2 (06:14→13:19)
--- NOTE | 2018-09-15 07:47 | ECGEPIP ---
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
[2018-09-15] MEDS: APIXABAN 5 MG TAB (ELIQUIS) PO SCH ×2 (09:01→20:41)
[2018-09-15] MEDS: MULTIVITAMINS/MINERALS THERAP 1 TAB PO SCH (09:01)
[2018-09-15] MEDS: SENOKOT S TAB PO SCH ×2 (09:01→20:42)
[2018-09-15] MEDS: LISINOPRIL 10 MG TAB PO SCH (09:01)
[2018-09-15] MEDS: traMADol 50 MG TAB PO PRN ×2 (09:01→20:41)
[2018-09-15] MEDS: ASCORBIC ACID 500 MG TAB PO SCH (09:01)
[2018-09-15] MEDS: SIMVASTATIN 20 MG TAB PO SCH (09:01)
[2018-09-15] MEDS: FERROUS GLUCONATE 324 MG TAB PO SCH ×2 (09:01→13:18)
[2018-09-15] MEDS: VITAMIN D 1,000 INTERNATIONAL UNITS TABLET PO SCH (09:02)
[2018-09-15] MEDS: risperiDONE 3 MG TAB PO SCH ×2 (09:02→20:41)
--- NOTE | 2018-09-15 10:41 | IPNPDOC ---
Text Note Date of Service The patient was seen on 09/15/18. NOTE SUBJECTIVE: Continues to have bilateral knee and hip pain. No fever or chills, no chest pain or SOB , no abdominal pain, nausea or vomiting. She was discharged from [facility] 2 weeks ago but she says she cannot manage at home any more. PHYSICAL EXAM: VITALS: below. GENERAL APPEARANCE: Alert female, thin in appearance, SKIN: Warm, well perfused. HEENT: Normocephalic, atraumatic, moist mucus membranes, anicteric eyes. Neck supple, no thyromegaly THORAX: Symmetrical. LUNGS: Clear to auscultation bilaterally. HEART: Normal S1, S2. No murmurs, no rubs, no gallops ABDOMEN: Soft. No masses. Bowel sounds are present. TRUNK/SPINE:Straight. EXTREMITIES: Patient complains of pain from moving bilateral lower extremity, strength testing could not be elicited due to lack of effort on patient's part. Both knees are tender to palpate. Left knee is slightly edematous, no bruising, surgical scar noted on left knee. No patellar laxity, No edema. PULSES: 2+ upper and lower extremity . ASSESSMENT AND PLAN: Patient is a 74-year-old elderly female with a past medical history of hypertension, hyperlipidemia, diastolic heart failure, breast cancer status post right sided lumpectomy, CT and RT, iron deficiency anemia, osteoarthritis and chronic left knee pain, complicated by recurrent MRSA septic arthritis with multiple surgical interventions now on chronic suppressive treatm ent with bactrim , DVT s/p IVC filter in aug 2018, GIB in aug 2018 with normal EGD and colonoscopy, chronic anemia and leucopenia ? MDS being worked up by hem/onc, presents to the ED with extreme bilateral knee and right hip pain. She states that the pain is limiting her ability to move around. She is unable to perform her activities of daily living. And she states that her cannot take care of her. Patient would like to be admitted and transferred to the [facility]. Her pain is 10 out of 10. Moving exacerbates it. . She states that taking her home. Tramadol helps the pain a little bit. In the ED, patient received morphine. Lab work unremarkable, imaging of the showed advanced tricompartmental osteal arthritic degenerative changes to Bilateral knee, with right knee swelling and suprapatellar effusion. Hip x-ray showed osteopenia and degenerative changes. No acute fractures. Hospitalist team was consulted for admission. Based on extreme bilateral knee, hip pain and difficulty walking. Bilateral knee pain: Secondary to osteoarthritis, patient will be admitted for pain control. Physical therapy on board. Knee unlikely to be septic, base of physical examination. Labs also unremarkable. Social service on board for placement counseling. Pain control with home medication of tramadol Hip pain . Osteoarthritis, no fractures detected, no signs of septic joint based on labs and physical examination. Physical therapy on board, pain control with Tramadol. Hypertension Continue home meds Dyslipidemia Continue home med Diastolic congestive heart failure Continue home meds, monitor for fluid overload status Recurrent MRSA infection of left knee s/p treatment and currently on suppr essive therapy with Bactrim Per ID. Dr. Cooper Continue Bactrim Iron deficiency anemia Today currently stable, continue to monitor DVT Continue Eliquis VS,Fishbone, I+O VS, Fishbone, I+O Laboratory Tests 09/14/18 13:01 Red Blood Count 3.20 L, Mean Corpuscular Volume 90.9, Mean Corpuscular Hemoglobin 29.1, Mean Corpuscular Hemoglobin Concent 32.0, Red Cell Distribution Width 14.0, Neutrophils (%) (Auto) 63.2, Lymphocytes (%) (Auto) 27.0, Monocytes (%) (Auto) 8.6 H, Eosinophils (%) (Auto) 0.9, Basophils (%) (Auto) 0.3, Neutrophils # (Auto) 2.2, Lymphocytes # (Auto) 0.9 L, Monocytes # (Auto) 0.3, Eosinophils # (Auto) 0.0, Basophils # (Auto) 0.0, Calcium Level 8.8 Vital Signs Date Time Temp Pulse Resp B/P (MAP) Pulse Ox O2 Delivery O2 Flow Rate FiO2 09/15/18 06:14 17 Room Air 09/15/18 06:00 98.6 79 117/57 (35) 96 I&O- Last 24 Hours up to 6 AM 09/15/18 06:00 Intake Total 540 ml Output Total 400 ml Balance 140 ml ASHLI SHAH MD Sep 15, 2018 07:00
[2018-09-15] MEDS: BACTRIM 160MG/800MG DS TAB PO SCH ×2 (13:18→20:40)
[2018-09-15] MEDS: FUROSEMIDE 20 MG TAB PO SCH (13:18)
[2018-09-15 14:00] VITALS: BP 110/53
[2018-09-15] MEDS: BISACODYL 5 MG TAB PO PRN (20:42)
[2018-09-15] MEDS ORDERED: NS 500 ML IV ONE (20:45)
[2018-09-15 22:00] VITALS: BP 82/42
[2018-09-16 06:00] VITALS: BP 121/56
[2018-09-16] MEDS: ASCORBIC ACID 500 MG TAB PO SCH (08:08)
[2018-09-16] MEDS: risperiDONE 3 MG TAB PO SCH ×2 (08:08→20:24)
[2018-09-16] MEDS: FERROUS GLUCONATE 324 MG TAB PO SCH ×2 (08:08→13:55)
[2018-09-16] MEDS: SIMVASTATIN 20 MG TAB PO SCH (08:08)
[2018-09-16] MEDS: SENOKOT S TAB PO SCH ×2 (08:08→20:23)
[2018-09-16] MEDS: LISINOPRIL 10 MG TAB PO SCH (08:08)
[2018-09-16] MEDS: APIXABAN 5 MG TAB (ELIQUIS) PO SCH ×2 (08:08→20:24)
[2018-09-16] MEDS: VITAMIN D 1,000 INTERNATIONAL UNITS TABLET PO SCH (08:08)
[2018-09-16] MEDS: PERCOCET 5MG/325MG TAB PO PRN ×3 (08:08→21:53)
[2018-09-16] MEDS: MULTIVITAMINS/MINERALS THERAP 1 TAB PO SCH (08:09)
--- NOTE | 2018-09-16 11:02 | IPNPDOC ---
Text Note Date of Service The patient was seen on 09/16/18. NOTE SUBJECTIVE: Continues to have bilateral knee and hip pain. No fever or chills, no chest pain or SOB , no abdominal pain, nausea or vomiting. She was discharged from [facility] 2 weeks ago but she says she cannot manage at home any more. PHYSICAL EXAM: VITALS: below. GENERAL APPEARANCE: Alert female, thin in appearance, SKIN: Warm, well perfused. HEENT: Normocephalic, atraumatic, moist mucus membranes, anicteric eyes. Neck supple, no thyromegaly THORAX: Symmetrical. LUNGS: Clear to auscultation bilaterally. HEART: Normal S1, S2. No murmurs, no rubs, no gallops ABDOMEN: Soft. No masses. Bowel sounds are present. TRUNK/SPINE:Straight. EXTREMITIES: Patient complains of pain from moving bilateral lower extremity, strength testing could not be elicited due to lack of effort on patient's part. Both knees are tender to palpate. Left knee is slightly edematous, no bruising, surgical scar noted on left knee. No patellar laxity, No edema. PULSES: 2+ upper and lower extremity . ASSESSMENT AND PLAN: Patient is a 74-year-old elderly female with a past medical history of hypertension, hyperlipidemia, diastolic heart failure, breast cancer status post right sided lumpectomy, CT and RT, iron deficiency anemia, osteoarthritis and chronic left knee pain, complicated by recurrent MRSA septic arthritis with multiple surgical interventions now on chronic suppressive treatment with bactrim , DVT s/p IVC filter in aug 2018, GIB in aug 2018 with normal EGD and colonoscopy, chronic anemia and leucopenia ? MDS being worked up by hem/onc, presents to the ED with extreme bilateral knee and right hip pain. She states that the pain is limiting her ability to move around. She is unable to perform her activities of daily living. And she states that her cannot take care of her. Patient would like to be admitted and transferred to the [facility]. Her pain is 10 out of 10. Moving exacerbates it. . She states that taking her home. Tramadol helps the pain a little bit. In the ED, patient received morphine. Lab work unremarkable, imaging of the showed advanced tricompartmental osteal arthritic degenerative changes to Bilateral knee, with right knee swelling and suprapatellar effusion. Hip x-ray showed osteopenia and degenerative changes. No acute fractures. Hospitalist team was consulted for admission. Based on extreme bilateral knee, hip pain and difficulty walking. Bilateral knee pain: Secondary to osteoarthritis, patient will be admitted for pain control. Physical therapy on board. Knee unlikely to be septic, base of physical examination. Labs also unremarkable. Social service on board for placement counseling. Pain control with home medication of tramadol Hip pain . Osteoarthritis, no fractures detected, no signs of septic joint based on labs and physical examination. Physical therapy on board, pain control with Tramadol. Hypertension Continue home meds Dyslipidemia Continue home med Diastolic congestive heart failure Continue home meds, monitor for fluid overload status Recurrent MRSA infection of left knee s/p treatment and currently on suppr essive therapy with Bactrim Per ID. Dr. Cooper Continue Bactrim Iron deficiency anemia Today currently stable, continue to monitor DVT Continue Eliquis VS,Fishbone, I+O VS, Fishbone, I+O Vital Signs Date Time Temp Pulse Resp B/P (MAP) Pulse Ox O2 Delivery O2 Flow Rate FiO2 09/16/18 09:14 5 09/16/18 08:08 121/56 09/16/18 06:00 98.7 78 97 09/15/18 22:00 Room Air I&O- Last 24 Hours up to 6 AM 09/16/18 06:00 Intake Total 1980 ml Output Total 900 ml Balance 1080 ml ASHLI SHAH MD Sep 16, 2018 11:02
[2018-09-16] MEDS: BACTRIM 160MG/800MG DS TAB PO SCH ×2 (11:38→20:23)
[2018-09-16] MEDS: FUROSEMIDE 20 MG TAB PO SCH (13:55)
[2018-09-16 14:00] VITALS: BP 107/51
[2018-09-16] MEDS: traMADol 50 MG TAB PO PRN (20:23)
[2018-09-16] MEDS: BISACODYL 5 MG TAB PO PRN (20:24)
[2018-09-16 22:00] VITALS: BP 99/55
[2018-09-17 06:00] VITALS: BP 128/59
[2018-09-17] MEDS: PERCOCET 5MG/325MG TAB PO PRN (06:31)
[2018-09-17] MEDS: FERROUS GLUCONATE 324 MG TAB PO SCH ×2 (08:16→13:06)
[2018-09-17] MEDS: SIMVASTATIN 20 MG TAB PO SCH (08:17)
[2018-09-17] MEDS: SENOKOT S TAB PO SCH ×2 (08:17→20:19)
[2018-09-17] MEDS: risperiDONE 3 MG TAB PO SCH ×2 (08:17→20:19)
[2018-09-17] MEDS: traMADol 50 MG TAB PO PRN ×2 (08:17→20:19)
[2018-09-17] MEDS: VITAMIN D 1,000 INTERNATIONAL UNITS TABLET PO SCH (08:17)
[2018-09-17] MEDS: LISINOPRIL 10 MG TAB PO SCH (08:17)
[2018-09-17] MEDS: APIXABAN 5 MG TAB (ELIQUIS) PO SCH ×2 (08:17→20:19)
[2018-09-17] MEDS: ASCORBIC ACID 500 MG TAB PO SCH (08:17)
[2018-09-17] MEDS: MULTIVITAMINS/MINERALS THERAP 1 TAB PO SCH (08:17)
[2018-09-17 08:40] LABS: HEMATOCRIT 27.9 % (36.0-47.0); HEMOGLOBIN 8.7 g/dl (12.0-15.5); MEAN CORPUSCULAR HEMOGLOBIN 28.5 pg (27.0-33.0); MEAN CORPUSCULAR HGB CONC 31.2 g/dl (32.0-36.5); MEAN CORPUSCULAR VOLUME 91.5 fl (80.0-96.0); PLATELET COUNT, AUTOMATED 190 10^3/uL (150-450); RED BLOOD COUNT 3.05 10^6/uL (4.00-5.40); WHITE BLOOD COUNT 2.8 10^3/uL (4.0-10.0)
[2018-09-17 09:04] LABS: ALBUMIN 2.9 GM/DL (3.2-5.2); ALT/SGPT 13 U/L (12-78); BILIRUBIN,TOTAL 0.2 MG/DL (0.2-1.0); BLOOD UREA NITROGEN 12 MG/DL (7-18); CALCIUM LEVEL 8.2 MG/DL (8.8-10.2); CARBON DIOXIDE LEVEL 27 MEQ/L (21-32); CHLORIDE LEVEL 106 MEQ/L (98-107); CREATININE FOR GFR 0.76 MG/DL (0.55-1.30); GLOMERULAR FILTRATION RATE > 60.0 (>39); GLUCOSE, FASTING 127 MG/DL (70-100); POTASSIUM SERUM 4.1 MEQ/L (3.5-5.1); SODIUM LEVEL 139 MEQ/L (136-145)
[2018-09-17] MEDS: BACTRIM 160MG/800MG DS TAB PO SCH ×2 (11:07→20:19)
[2018-09-17] MEDS: FUROSEMIDE 20 MG TAB PO SCH (13:06)
[2018-09-17 14:00] VITALS: BP 105/49
--- NOTE | 2018-09-17 14:15 | IPNPDOC ---
Text Note Date of Service The patient was seen on 09/17/18. NOTE Subjective: Patient states her knee pain significantly improved and she is w orking with physical therapy. She is excited that her pain is better controlled, and she is more mobile. Physical therapy has evaluated the patient yesterday and recommends rehabilitation. Objective: Vitals: (see below) General: No acute distress, laying comfortably in bed HEENT: Moist mucous membranes Neck: No JVD or lymphadenopathy Cardiac: RRR, No murmurs Pulm: Clear to auscultation bilaterally. No wheezing, rhonchi Abd: NT. + BS. Abdomen mildly distended however nontender. Ext: No edema or cyanosis. b/l knees - no significant warmth, erythema, pain. Full range of motion noted. Distal pulses intact. Labs (See below) Hip/pelvic x-ray on 09/14/18 Impression: Osteopenia and degenerative changes. No acute fracture or dislocation. Bilateral knee x-ray on 09/14/18 Impression: Advanced tricompartmental osteoarthritic degenerative changes to the bilateral knees with right knee swelling and suprapatellar effusion. Correlation is recommended as subtle injuries cannot be excluded. A/P 1. Bilateral knee pain secondary to osteoarthritis. Pain is better controlled, and patient is participating with physical therapy.. No alarming signs for septic arthritis on physical exam. Patient is afebrile. Continue physical therapy. Will likely need rehabilitation. 2. Hypertension controlled continue current meds 3. History of diastolic heart failure compensated. 4. History of MRSA infection of the left knee status post treatment and currently on suppressive therapy on Bactrim per Dr. Amanda [email or web address]. Follow-up close outpatient. 5. History of deficiency anemia - will need outpatient follow-up. 6. Chronic anemia and leukopenia- outpatient follow-up with hematology. 7. History of DVT status post IVC filter in August 2018. History of GI bleed in August 2018. On eliquis DVT prophy: On eliquis VS,Fishbone, I+O VS, Fishbone, I+O Laboratory Tests 09/17/18 08:25 Red Blood Count 3.05 L, Mean Corpuscular Volume 91.5, Mean Corpuscular Hemogl obin 28.5, Mean Corpuscular Hemoglobin Concent 31.2 L, Red Cell Distribution Width 13.4, Calcium Level 8.2 L, Aspartate Amino Transf (AST/SGOT) 15, Alanine Aminotransferase (ALT/SGPT) 13, Alkaline Phosphatase 35 L, Total Bilirubin 0.2, Total Protein 6.0 L, Albumin 2.9 L Vital Signs Date Time Temp Pulse Resp B/P (MAP) Pulse Ox O2 Delivery O2 Flow Rate FiO2 09/17/18 09:16 16 09/17/18 08:17 128/59 09/17/18 06:31 Room Air 09/17/18 06:00 98.9 75 98 I&O- Last 24 Hours up to 6 AM 09/17/18 06:00 Intake Total 840 ml Output Total 1750 ml Balance -910 ml NICKIE POTTS MD Sep 17, 2018 14:15
[2018-09-17 22:00] VITALS: BP 98/48
[2018-09-18 06:00] VITALS: BP 100/54
[2018-09-18 06:34] LABS: HEMATOCRIT 27.2 % (36.0-47.0); HEMOGLOBIN 8.6 g/dl (12.0-15.5); MEAN CORPUSCULAR HEMOGLOBIN 28.4 pg (27.0-33.0); MEAN CORPUSCULAR HGB CONC 31.6 g/dl (32.0-36.5); MEAN CORPUSCULAR VOLUME 89.8 fl (80.0-96.0); PLATELET COUNT, AUTOMATED 195 10^3/uL (150-450); RED BLOOD COUNT 3.03 10^6/uL (4.00-5.40); WHITE BLOOD COUNT 2.5 10^3/uL (4.0-10.0)
[2018-09-18 06:51] LABS: BLOOD UREA NITROGEN 15 MG/DL (7-18); CALCIUM LEVEL 8.3 MG/DL (8.8-10.2); CARBON DIOXIDE LEVEL 26 MEQ/L (21-32); CHLORIDE LEVEL 106 MEQ/L (98-107); CREATININE FOR GFR 0.87 MG/DL (0.55-1.30); GLOMERULAR FILTRATION RATE > 60.0 (>39); GLUCOSE, FASTING 100 MG/DL (70-100); MAGNESIUM LEVEL 1.9 MG/DL (1.8-2.4); POTASSIUM SERUM 4.1 MEQ/L (3.5-5.1); SODIUM LEVEL 138 MEQ/L (136-145)
[2018-09-18] MEDS: FERROUS GLUCONATE 324 MG TAB PO SCH ×2 (08:10→13:09)
[2018-09-18] MEDS: VITAMIN D 1,000 INTERNATIONAL UNITS TABLET PO SCH (08:11)
[2018-09-18] MEDS: SENOKOT S TAB PO SCH ×2 (08:11→20:41)
[2018-09-18 08:13] VITALS: BP 97/48
[2018-09-18] MEDS: LISINOPRIL 10 MG TAB PO SCH (08:13)
[2018-09-18] MEDS: APIXABAN 5 MG TAB (ELIQUIS) PO SCH ×2 (08:14→20:42)
[2018-09-18] MEDS: MULTIVITAMINS/MINERALS THERAP 1 TAB PO SCH (08:14)
[2018-09-18] MEDS: ASCORBIC ACID 500 MG TAB PO SCH (08:14)
[2018-09-18] MEDS: risperiDONE 3 MG TAB PO SCH ×2 (08:14→20:42)
[2018-09-18] MEDS: SIMVASTATIN 20 MG TAB PO SCH (08:14)
[2018-09-18] MEDS: traMADol 50 MG TAB PO PRN ×2 (08:17→20:42)
--- NOTE | 2018-09-18 10:50 | IPNPDOC ---
Text Note Date of Service The patient was seen on 09/18/18. NOTE Subjective: States she is feeling well. Looking forward to subacute rehab. D enies any knee/hip pain. Objective: Vitals: (see below) General: No acute distress, laying comfortably in bed HEENT: Moist mucous membranes Neck: No JVD or lymphadenopathy Cardiac: RRR, No murmurs Pulm: Clear to auscultation bilaterally. No wheezing, rhonchi Abd: NT + BS. Abdomen mildly distended however nontender. Ext: No edema or cyanosis. b/l knees - no significant warmth, erythema, pain. F ull range of motion noted. Distal pulses intact. Labs (See below) Hip/pelvic x-ray on 09/14/18 Impression: Osteopenia and degenerative changes. No acute fracture or dislocation. Bilateral knee x-ray on 09/14/18 Impression: Advanced tricompartmental osteoarthritic degenerative changes to the bilateral knees with right knee swelling and suprapatellar effusion. Correlation is recommended as subtle injuries cannot be excluded. A/P 1. Bilateral knee pain secondary to osteoarthritis. Pain is better controlled, and patient is participating with physical therapy.. No alarming signs for septic arthritis on physical exam. Patient is afebrile. Continue physical therapy. Will likely need rehabilitation. 2. Hypertension controlled continue current meds 3. History of diastolic heart failure compensated. 4. History of MRSA infection of the left knee status post treatment and currently on suppressive therapy on Bactrim per Dr. Amanda fitch. Follow-up close outpatient. 5. History of deficiency anemia - will need outpatient follow-up. 6. Chronic anemia and leukopenia- outpatient follow-up with hematology. Peripheral smear sent. 7. History of DVT status post IVC filter in August 2018. History of GI bleed in August 2018. On eliquis DVT prophy: On eliquis Will need subacute rehab as per PT. CM on board. VS,Fishbone, I+O VS, Fishbone, I+O Laboratory Tests 09/18/18 06:16 Red Blood Count 3.03 L, Mean Corpuscular Volume 89.8, Mean Corpuscular Hemoglobin 28.4, Mean Corpuscular Hemoglobin Concent 31.6 L, Red Cell Distribution Width 13.2, Calcium Level 8.3 L Vital Signs Date Time Temp Pulse Resp B/P (MAP) Pulse Ox O2 Delivery O2 Flow Rate FiO2 09/18/18 08:47 18 09/18/18 08:13 97/48 09/18/18 06:00 97.9 78 92 Room Air I&O- Last 24 Hours up to 6 AM 09/18/18 06:00 Intake Total 1040 ml Output Total 1020 ml Balance 20 ml NICKIE POTTS MD Sep 18, 2018 10:50
[2018-09-18] MEDS: BACTRIM 160MG/800MG DS TAB PO SCH ×2 (13:08→20:42)
[2018-09-18] MEDS: FUROSEMIDE 20 MG TAB PO SCH (13:09)
[2018-09-18 14:00] VITALS: BP 108/54
[2018-09-18 22:00] VITALS: BP 104/56
[2018-09-19 06:00] VITALS: BP 108/51
[2018-09-19 06:51] LABS: HEMATOCRIT 27.8 % (36.0-47.0); HEMOGLOBIN 8.7 g/dl (12.0-15.5); MEAN CORPUSCULAR HEMOGLOBIN 28.7 pg (27.0-33.0); MEAN CORPUSCULAR HGB CONC 31.3 g/dl (32.0-36.5); MEAN CORPUSCULAR VOLUME 91.7 fl (80.0-96.0); PLATELET COUNT, AUTOMATED 192 10^3/uL (150-450); RED BLOOD COUNT 3.03 10^6/uL (4.00-5.40); WHITE BLOOD COUNT 2.6 10^3/uL (4.0-10.0)
[2018-09-19 07:26] LABS: BLOOD UREA NITROGEN 12 MG/DL (7-18); CARBON DIOXIDE LEVEL 25 MEQ/L (21-32); CHLORIDE LEVEL 107 MEQ/L (98-107); CREATININE FOR GFR 0.54 MG/DL (0.55-1.30); GLOMERULAR FILTRATION RATE > 60.0 (>39); GLUCOSE, FASTING 93 MG/DL (70-100); MAGNESIUM LEVEL 1.9 MG/DL (1.8-2.4); POTASSIUM SERUM 3.8 MEQ/L (3.5-5.1); SODIUM LEVEL 138 MEQ/L (136-145)
[2018-09-19] MEDS: traMADol 50 MG TAB PO PRN ×2 (08:36→20:45)
[2018-09-19] MEDS: ASCORBIC ACID 500 MG TAB PO SCH (08:36)
[2018-09-19] MEDS: risperiDONE 3 MG TAB PO SCH ×2 (08:36→20:44)
[2018-09-19] MEDS: FERROUS GLUCONATE 324 MG TAB PO SCH ×2 (08:36→13:02)
[2018-09-19] MEDS: VITAMIN D 1,000 INTERNATIONAL UNITS TABLET PO SCH (08:36)
[2018-09-19] MEDS: MULTIVITAMINS/MINERALS THERAP 1 TAB PO SCH (08:36)
[2018-09-19] MEDS: APIXABAN 5 MG TAB (ELIQUIS) PO SCH ×2 (08:36→20:45)
[2018-09-19] MEDS: SIMVASTATIN 20 MG TAB PO SCH (08:36)
[2018-09-19] MEDS: SENOKOT S TAB PO SCH ×2 (08:36→20:45)
[2018-09-19] MEDS: LISINOPRIL 10 MG TAB PO SCH (12:26)
[2018-09-19] MEDS ORDERED: ISOVUE-370 76% 100ML VIAL (Q9967) As Ordered ONE (12:30)
[2018-09-19] MEDS: FUROSEMIDE 20 MG TAB PO SCH (13:01)
[2018-09-19] MEDS: BACTRIM 160MG/800MG DS TAB PO SCH ×2 (13:02→20:44)
--- NOTE | 2018-09-19 13:03 | REP ---
Clinical: Abdominal distension. History of breast cancer. Technique: Axial contrast enhanced images from the lung bases to the pubic symphysis using 100 ml Isovue 370 intravenous contrast material with coronal and sagittal re-formations. Findings: Diffuse distension of large bowel with air and fecal material along with relatively normal appearance to the small bowel suggests ileus. No free air. No free fluid or drainable collection. Liver, spleen, pancreas, gallbladder, bilateral adrenal glands and kidneys are relatively normal. IVC filter identified. Pelvis is limited due to metallic streak artifact from right hip prosthesis. However, the uterus is significantly enlarged with distended endometrial canal containing heterogeneous material as well as irregular appearance to the cervical region. These findings are concerning for the possibility of hematometrocolpos and possible underlying pathology. No ascites. No free air. No obvious adenopathy. Atherosclerotic changes to the aorta and vasculature noted without aneurysm. Skeletal structures demonstrate extensive degenerative changes without focal osseous abnormality. Lung bases are clear. Impression: 1. Distended colon with air and fecal material most likely representing ileus. 2. Irregular enlarged uterus with heterogeneous material distending the endocervical canal suspicious for hematometrocolpos and possible underlying pathology. Pelvic ultrasound is recommended. 3. No ascites. No free air. No obvious adenopathy. Electronically Signed by Eliecer Mcwilliams MD 09/19/2018 12:54 P
[2018-09-19 14:00] VITALS: BP 106/57
--- NOTE | 2018-09-19 15:37 | REP ---
Pelvic sonography: History: Question uterine mass. Comparison is made with today's CT study. Findings: Transabdominal scanning is performed. Visualized bladder cheatham are smooth. The uterus is less than optimally seen but appears to be enlarged. Its dimensions overall are 11.6 x 5.4 x 6.1 cm. Endometrial echo is thickened at 3.0 cm with multiple tiny cysts distributed throughout the thickened endometrium. No free fluid is seen. Neither ovary could be identified transabdominally or transvaginally. Impression: Enlarged uterus with 3.0 cm thickened endometrium. Endometrial tissue contains multiple tiny cystic spaces. Endometrial hyperplasia versus neoplasia must be suspected. Neither ovary could be directly visualized. No free fluid. Electronically Signed by Gabriel Lopez MD 09/19/2018 06:19 P
--- NOTE | 2018-09-19 16:12 | IPNPDOC ---
Text Note Date of Service The patient was seen on 09/19/18. NOTE Subjective: States she is feeling well. Denies any knee/hip pain. No abdominal pain. Objective: Vitals: (see below) General: No acute distress, laying comfortably in bed HEENT: Moist mucous membranes Neck: No JVD or lymphadenopathy Cardiac: RRR, No murmurs Pulm: Clear to auscultation bilaterally. No wheezing, rhonchi Abd: NT + BS. Abdomen mildly distended however nontender. Ext: No edema or cyanosis. b/l knees - no significant warmth, erythema, pain. Full range of motion noted. Distal pulses intact. Labs (See below) Hip/pelvic x-ray on 09/14/18 Impression: Osteopenia and degenerative changes. No acute fracture or dislocation. Bilateral knee x-ray on 09/14/18 Impression: Advanced tricompartmental osteoarthritic degenerative changes to the bilateral knees with right knee swelling and suprapatellar effusion. Correlation is recommended as subtle injuries cannot be excluded. CT abdomen and pelvis on 09/19/18 Impression: 1. Distended colon with air and fecal material most likely representing ileus. 2. Irregular enlarged uterus with heterogeneous material distending the endocervical canal suspicious for hematometrocolpos and possible underlying pathology. Pelvic ultrasound is recommended. 3. No ascites. No free air. No obvious adenopathy. Pelvic ultrasound 09/19/18 Impression: Enlarged uterus with 3.0 cm thickened endometrium. Endometrial tissue contains multiple tiny cystic spaces. Endometrial hyperplasia versus neoplasia must be suspected. Neither ovary could be directly visualized. No free fluid. A/P 1. Bilateral knee pain secondary to osteoarthritis. Pain is better controlled, and patient is participating with physical therapy.. No alarming signs for septic arthritis on physical exam. Patient is afebrile. Continue physical t herapy. Will likely need rehabilitation. 2. Hypertension controlled continue current meds 3. History of diastolic heart failure compensated. 4. History of MRSA infection of the left knee status post treatment and currently on suppressive therapy on Bactrim per Dr. Amanda fitch. Follow-up close outpatient. 5. History of deficiency anemia - will need outpatient follow-up. 6. Chronic anemia and leukopenia- outpatient follow-up with hematology. Peripheral smear sent. 7. History of DVT status post IVC filter in August 2018. History of GI bleed in August 2018. On eliquis 8. Given abdominal distention patient had a CT of the abdomen and pelvis, with abnormal thickening of her uterus. A subsequent pelvic ultrasound, noted thickening endometrium 3 cm. Have discussed with the patient as well as the , who notes that the patient had endometrial biopsy in 2013 which was negative. The patient will need to follow-up with oncology, as well as gynecology for further workup, of a possible repeat biopsy. Patient understand and agree. 9. Constipation - bowel regimen optimized. No N/V/Abd pain. Tolerating meals. DVT prophy: On qu Will need subacute rehab as per PT. CM on board. VS,Fishbone, I+O VS, Fishbone, I+O Laboratory Tests 09/19/18 06:26 Red Blood Count 3.03 L, Mean Corpuscular Volume 91.7, Mean Corpuscular Hemoglobin 28.7, Mean Corpuscular Hemoglobin Concent 31.3 L, Red Cell Distribution Width 13.2, Calcium Level 8.0 L Vital Signs Date Time Temp Pulse Resp B/P (MAP) Pulse Ox O2 Delivery O2 Flow Rate FiO2 09/19/18 09:06 16 09/19/18 06:00 98.1 69 108/51 (70) 94 Room Air 09/18/18 22:00 95 I&O- Last 24 Hours up to 6 AM 09/19/18 05:59 Intake Total 1080 ml Output Total 800 ml Balance 280 ml NICKIE POTTS MD Sep 19, 2018 16:12
[2018-09-19] MEDS ORDERED: MOM 30ML SUSPENSION UDC PO ONE (16:15)
[2018-09-19] MEDS: MIRALAX *UNIT DOSE* 17GM PACKET PO SCH (20:45)
[2018-09-19 22:00] VITALS: BP 120/56
[2018-09-20 06:00] VITALS: BP 102/52
[2018-09-20 06:31] LABS: HEMATOCRIT 28.3 % (36.0-47.0); MEAN CORPUSCULAR HEMOGLOBIN 28.5 pg (27.0-33.0); MEAN CORPUSCULAR HGB CONC 31.8 g/dl (32.0-36.5); MEAN CORPUSCULAR VOLUME 89.6 fl (80.0-96.0); PLATELET COUNT, AUTOMATED 200 10^3/uL (150-450); RED BLOOD COUNT 3.16 10^6/uL (4.00-5.40); WHITE BLOOD COUNT 2.5 10^3/uL (4.0-10.0)
[2018-09-20 06:51] LABS: BLOOD UREA NITROGEN 10 MG/DL (7-18); CALCIUM LEVEL 8.3 MG/DL (8.8-10.2); CARBON DIOXIDE LEVEL 24 MEQ/L (21-32); CHLORIDE LEVEL 105 MEQ/L (98-107); CREATININE FOR GFR 0.49 MG/DL (0.55-1.30); GLOMERULAR FILTRATION RATE > 60.0 (>39); GLUCOSE, FASTING 96 MG/DL (70-100); MAGNESIUM LEVEL 2.1 MG/DL (1.8-2.4); POTASSIUM SERUM 3.9 MEQ/L (3.5-5.1); SODIUM LEVEL 139 MEQ/L (136-145)
[2018-09-20] MEDS: VITAMIN D 1,000 INTERNATIONAL UNITS TABLET PO SCH (08:13)
[2018-09-20] MEDS: MULTIVITAMINS/MINERALS THERAP 1 TAB PO SCH (08:13)
[2018-09-20] MEDS: ASCORBIC ACID 500 MG TAB PO SCH (08:13)
[2018-09-20] MEDS: SENOKOT S TAB PO SCH ×2 (08:13→20:25)
[2018-09-20] MEDS: APIXABAN 5 MG TAB (ELIQUIS) PO SCH ×2 (08:13→20:24)
[2018-09-20] MEDS: SIMVASTATIN 20 MG TAB PO SCH (08:13)
[2018-09-20] MEDS: FERROUS GLUCONATE 324 MG TAB PO SCH ×2 (08:13→14:41)
[2018-09-20] MEDS: risperiDONE 3 MG TAB PO SCH ×2 (08:13→20:24)
[2018-09-20] MEDS: MIRALAX *UNIT DOSE* 17GM PACKET PO SCH ×2 (08:13→20:24)
[2018-09-20] MEDS: traMADol 50 MG TAB PO PRN ×2 (08:15→20:26)
--- NOTE | 2018-09-20 11:21 | IPNPDOC ---
Text Note Date of Service The patient was seen on 09/20/18. NOTE Subjective: Denies any complaints at this time. No chest pain shortness of b reath or palpitations. No nausea or vomiting or abdominal pain. Objective: Vitals: (see below) General: No acute distress, laying comfortably in bed HEENT: Moist mucous membranes Neck: No JVD or lymphadenopathy Cardiac: RRR, No murmurs Pulm: Clear to auscultation bilaterally. No wheezing, rhonchi Abd: NT + BS. Abdomen mildly distended however nontender. Ext: No edema or cyanosis. b/l knees - no significant warmth, erythema, pain. Full range of motion noted. Distal pulses intact. Labs (See below) Hip/pelvic x-ray on 09/14/18 Impression: Osteopenia and degenerative changes. No acute fracture or dislocation. Bilateral knee x-ray on 09/14/18 Impression: Advanced tricompartmental osteoarthritic degenerative changes to the bilateral knees with right knee swelling and suprapatellar effusion. Correlation is recommended as subtle injuries cannot be excluded. CT abdomen and pelvis on 09/19/18 Impression: 1. Distended colon with air and fecal material most likely representing ileus. 2. Irregular enlarged uterus with heterogeneous material distending the endocervical canal suspicious for hematometrocolpos and possible underlying pathology. Pelvic ultrasound is recommended. 3. No ascites. No free air. No obvious adenopathy. Pelvic ultrasound 09/19/18 Impression: Enlarged uterus with 3.0 cm thickened endometrium. Endometrial tissue contains multiple tiny cystic spaces. Endometrial hyperplasia versus neoplasia must be suspected. Neither ovary could be directly visualized. No free fluid. A/P 1. Bilateral knee pain secondary to osteoarthritis. Pain is better controlled, and patient is participating with physical therapy.. No alarming signs for septic arthritis on physical exam. Patient is afebrile. Continue physical therapy. Will likely need rehabilitation. 2. Hypertension controlled continue current meds 3. History of diastolic heart failure compensated. 4. History of MRSA infection of the left knee status post treatment and currently on suppressive therapy on Bactrim per Dr. Amanda fitch. Follow-up close outpatient. 5. History of deficiency anemia - will need outpatient follow-up. 6. Chronic anemia and leukopenia- outpatient follow-up with hematology. Pe ripheral smear sent. 7. History of DVT status post IVC filter in August 2018. History of GI bleed in August 2018. On eliquis 8. Given abdominal distention patient had a CT of the abdomen and pelvis, with abnormal thickening of her uterus. A subsequent pelvic ultrasound, noted thickening endometrium 3 cm. Have discussed with the patient as well as the , who notes that the patient had endometrial biopsy in 2013 which was negative. The patient will need to follow-up with oncology, as well as gynecology for further workup, of a possible repeat biopsy. Patient understand and agree. 9. Constipation - bowel regimen optimized. No N/V/Abd pain. Tolerating meals. DVT prophy: On eliqu Will need subacute rehab as per PT. CM on board. Pending bed placement. VS,Fishbone, I+O VS, Fishbone, I+O Laboratory Tests 09/20/18 05:52 Red Blood Count 3.16 L, Mean Corpuscular Volume 89.6, Mean Corpuscular Hemoglobin 28.5, Mean Corpuscular Hemoglobin Concent 31.8 L, Red Cell Distribution Width 13.0, Calcium Level 8.3 L Vital Signs Date Time Temp Pulse Resp B/P (MAP) Pulse Ox O2 Delivery O2 Flow Rate FiO2 09/20/18 08:45 16 09/20/18 08:15 Room Air 09/20/18 06:00 98.3 72 102/52 (69) 99 09/18/18 22:00 95 I&O- Last 24 Hours up to 6 AM 09/20/18 05:59 Intake Total 0 ml Output Total 575 ml Balance -575 ml NICKIE POTTS MD Sep 20, 2018 11:21
[2018-09-20] MEDS: BACTRIM 160MG/800MG DS TAB PO SCH ×2 (12:21→20:24)
[2018-09-20 14:00] VITALS: BP 103/58
[2018-09-20] MEDS: FUROSEMIDE 20 MG TAB PO SCH (14:41)
[2018-09-20 22:00] VITALS: BP 97/55
[2018-09-21 05:47] LABS: HEMATOCRIT 27.3 % (36.0-47.0); HEMOGLOBIN 8.8 g/dl (12.0-15.5); MEAN CORPUSCULAR HEMOGLOBIN 28.9 pg (27.0-33.0); MEAN CORPUSCULAR HGB CONC 32.2 g/dl (32.0-36.5); MEAN CORPUSCULAR VOLUME 89.8 fl (80.0-96.0); PLATELET COUNT, AUTOMATED 188 10^3/uL (150-450); RED BLOOD COUNT 3.04 10^6/uL (4.00-5.40); WHITE BLOOD COUNT 2.7 10^3/uL (4.0-10.0)
[2018-09-21 06:00] VITALS: BP 107/50
[2018-09-21 07:00] LABS: BLOOD UREA NITROGEN 9 MG/DL (7-18); CARBON DIOXIDE LEVEL 26 MEQ/L (21-32); CHLORIDE LEVEL 106 MEQ/L (98-107); CREATININE FOR GFR 0.42 MG/DL (0.55-1.30); GLOMERULAR FILTRATION RATE > 60.0 (>39); GLUCOSE, FASTING 89 MG/DL (70-100); MAGNESIUM LEVEL 1.9 MG/DL (1.8-2.4); SODIUM LEVEL 136 MEQ/L (136-145)
[2018-09-21] MEDS: VITAMIN D 1,000 INTERNATIONAL UNITS TABLET PO SCH (08:13)
[2018-09-21] MEDS: risperiDONE 3 MG TAB PO SCH ×2 (08:13→20:08)
[2018-09-21] MEDS: FERROUS GLUCONATE 324 MG TAB PO SCH ×2 (08:13→14:47)
[2018-09-21] MEDS: MULTIVITAMINS/MINERALS THERAP 1 TAB PO SCH (08:13)
[2018-09-21] MEDS: ASCORBIC ACID 500 MG TAB PO SCH (08:13)
[2018-09-21] MEDS: SIMVASTATIN 20 MG TAB PO SCH (08:13)
[2018-09-21] MEDS: SENOKOT S TAB PO SCH ×2 (08:13→20:08)
[2018-09-21] MEDS: traMADol 50 MG TAB PO PRN ×2 (08:13→20:09)
[2018-09-21] MEDS: MIRALAX *UNIT DOSE* 17GM PACKET PO SCH ×2 (08:13→20:08)
[2018-09-21] MEDS: APIXABAN 5 MG TAB (ELIQUIS) PO SCH ×2 (08:13→20:08)
[2018-09-21] MEDS ORDERED: MAGNESIUM CITRATE 300 ML BTL PO ONE (12:00)
[2018-09-21] MEDS: BACTRIM 160MG/800MG DS TAB PO SCH ×2 (12:22→20:08)
[2018-09-21 14:00] VITALS: BP 103/58
[2018-09-21] MEDS: FUROSEMIDE 20 MG TAB PO SCH (14:47)
--- NOTE | 2018-09-21 15:36 | IPNPDOC ---
Text Note Date of Service The patient was seen on 09/21/18. NOTE Subjective: No acute changes overnight. Objective: Vitals: (see below) General: No acute distress, laying comfortably in bed HEENT: Moist mucous membranes Neck: No JVD or lymphadenopathy Cardiac: RRR, No murmurs Pulm: Clear to auscultation bilaterally. No wheezing, rhonchi Abd: NT + BS. Abdomen mildly distended however nontender. Ext: No edema or cyanosis. b/l knees - no significant warmth, erythema, pain. Full range of motion noted. Distal pulses intact. Labs (See below) Hip/pelvic x-ray on 09/14/18 Impression: Osteopenia and degenerative changes. No acute fracture or dislocation. Bilateral knee x-ray on 09/14/18 Impression: Advanced tricompartmental osteoarthritic degenerative changes to the bilateral knees with right knee swelling and suprapatellar effusion. Correlation is recommended as subtle injuries cannot be excluded. CT abdomen and pelvis on 09/19/18 Impression: 1. Distended colon with air and fecal material most likely representing ileus. 2. Irregular enlarged uterus with heterogeneous material distending the endocervical canal suspicious for hematometrocolpos and possible underlying pathology. Pelvic ultrasound is recommended. 3. No ascites. No free air. No obvious adenopathy. Pelvic ultrasound 09/19/18 Impression: Enlarged uterus with 3.0 cm thickened endometrium. Endometrial tissue contains multiple tiny cystic spaces. Endometrial hyperplasia versus neoplasia must be suspected. Neither ovary could be directly visualized. No free fluid. A/P 1. Bilateral knee pain secondary to osteoarthritis. Pain is better controlled, and patient is participating with physical therapy.. No alarming signs for septic arthritis on physical exam. Patient is afebrile. Continue physical therapy. Will likely need rehabilitation. 2. Hypertension controlled continue current meds 3. History of diastolic heart failure compensated. 4. History of MRSA infection of the left knee status post treatment and currently on suppressive therapy on Bactrim per Dr. Amanda fitch. Follow-up close outpatient. 5. History of deficiency anemia - will need outpatient follow-up. 6. Chronic anemia and leukopenia- outpatient follow-up with hematology. P eripheral smear sent. 7. History of DVT status post IVC filter in August 2018. History of GI bleed in August 2018. On eliquis 8. Given abdominal distention patient had a CT of the abdomen and pelvis, with abnormal thickening of her uterus. A subsequent pelvic ultrasound, noted thickening endometrium 3 cm. Have discussed with the patient as well as the , who notes that the patient had endometrial biopsy in 2013 which was negative. The patient will need to follow-up with oncology, as well as gynecology for further workup, of a possible repeat biopsy. Patient understand and agree. 9. Constipation - bowel regimen optimized. No N/V/Abd pain. Tolerating meals. DVT prophy: On eliquis Will need subacute rehab as per PT. CM on board. Pending bed placement. VS,Fishbone, I+O VS, Fishbone, I+O Laboratory Tests 09/21/18 05:29 Red Blood Count 3.04 L, Mean Corpuscular Volume 89.8, Mean Corpuscular Hemoglobin 28.9, Mean Corpuscular Hemoglobin Concent 32.2, Red Cell Distribution Width 13.2, Calcium Level 8.0 L Vital Signs Date Time Temp Pulse Resp B/P (MAP) Pulse Ox O2 Delivery O2 Flow Rate FiO2 09/21/18 14:00 98.4 73 18 103/58 (73) 95 Room Air 09/18/18 22:00 95 I&O- Last 24 Hours up to 6 AM 09/21/18 06:00 Intake Total 720 ml Output Total 0 ml Balance 720 ml NICKIE POTTS MD Sep 21, 2018 15:36
[2018-09-21] MEDS: BISACODYL 5 MG TAB PO PRN (18:34)
[2018-09-21 22:00] VITALS: BP 99/50
[2018-09-22 05:49] LABS: HEMATOCRIT 27.1 % (36.0-47.0); HEMOGLOBIN 8.6 g/dl (12.0-15.5); MEAN CORPUSCULAR HEMOGLOBIN 28.4 pg (27.0-33.0); MEAN CORPUSCULAR HGB CONC 31.7 g/dl (32.0-36.5); MEAN CORPUSCULAR VOLUME 89.4 fl (80.0-96.0); PLATELET COUNT, AUTOMATED 199 10^3/uL (150-450); RED BLOOD COUNT 3.03 10^6/uL (4.00-5.40); WHITE BLOOD COUNT 3.6 10^3/uL (4.0-10.0)
[2018-09-22 06:00] VITALS: BP 118/64
[2018-09-22 06:16] LABS: BLOOD UREA NITROGEN 12 MG/DL (7-18); CALCIUM LEVEL 8.2 MG/DL (8.8-10.2); CARBON DIOXIDE LEVEL 25 MEQ/L (21-32); CHLORIDE LEVEL 104 MEQ/L (98-107); CREATININE FOR GFR 0.45 MG/DL (0.55-1.30); GLOMERULAR FILTRATION RATE > 60.0 (>39); GLUCOSE, FASTING 95 MG/DL (70-100); MAGNESIUM LEVEL 2.1 MG/DL (1.8-2.4); POTASSIUM SERUM 4.6 MEQ/L (3.5-5.1); SODIUM LEVEL 136 MEQ/L (136-145)
[2018-09-22] MEDS: APIXABAN 5 MG TAB (ELIQUIS) PO SCH ×2 (08:09→21:12)
[2018-09-22] MEDS: MIRALAX *UNIT DOSE* 17GM PACKET PO SCH ×2 (08:09→21:00)
[2018-09-22] MEDS: risperiDONE 3 MG TAB PO SCH ×2 (08:09→21:12)
[2018-09-22] MEDS: SENOKOT S TAB PO SCH ×2 (08:10→21:00)
[2018-09-22] MEDS: traMADol 50 MG TAB PO PRN ×2 (08:10→21:13)
[2018-09-22] MEDS: FERROUS GLUCONATE 324 MG TAB PO SCH ×2 (08:10→14:52)
[2018-09-22] MEDS: SIMVASTATIN 20 MG TAB PO SCH (08:10)
[2018-09-22] MEDS: MULTIVITAMINS/MINERALS THERAP 1 TAB PO SCH (08:10)
[2018-09-22] MEDS: VITAMIN D 1,000 INTERNATIONAL UNITS TABLET PO SCH (08:10)
[2018-09-22] MEDS: ASCORBIC ACID 500 MG TAB PO SCH (08:10)
--- NOTE | 2018-09-22 11:45 | IPNPDOC ---
Text Note Date of Service The patient was seen on 09/22/18. NOTE Subjective: No acute changes overnight. feels well. Had a BM. Objective: Vitals: (see below) General: No acute distress, laying comfortably in bed HEENT: Moist mucous membranes Neck: No JVD or lymphadenopathy Cardiac: RRR, No murmurs Pulm: Clear to auscultation bilaterally. No wheezing, rhonchi Abd: NT + BS. Abdomen mildly distended however nontender. Ext: No edema or cyanosis. b/l knees - no significant warmth, erythema, pain. Full range of motion noted. Distal pulses intact. Labs (See below) Hip/pelvic x-ray on 09/14/18 Impression: Osteopenia and degenerative changes. No acute fracture or dislocation. Bilateral knee x-ray on 09/14/18 Impression: Advanced tricompartmental osteoarthritic degenerative changes to the bilateral knees with right knee swelling and suprapatellar effusion. Correlation is recommended as subtle injuries cannot be excluded. CT abdomen and pelvis on 09/19/18 Impression: 1. Distended colon with air and fecal material most likely representing ileus. 2. Irregular enlarged uterus with heterogeneous material distending the endocervical canal suspicious for hematometrocolpos and possible underlying pathology. Pelvic ultrasound is recommended. 3. No ascites. No free air. No obvious adenopathy. Pelvic ultrasound 09/19/18 Impression: Enlarged uterus with 3.0 cm thickened endometrium. Endometrial tissue contains multiple tiny cystic spaces. Endometrial hyperplasia versus neoplasia must be suspected. Neither ovary could be directly visualized. No free fluid. A/P 1. Bilateral knee pain secondary to osteoarthritis. Pain is better controlled, and patient is participating with physical therapy.. No alarming signs for septic arthritis on physical exam. Patient is afebrile. Continue physical therapy. Will likely need rehabilitation. 2. Hypertension controlled continue current meds 3. History of diastolic heart failure compensated. 4. History of MRSA infection of the left knee status post treatment and currently on suppressive therapy on Bactrim per Dr. Amanda fitch. Follow-up close outpatient. 5. History of deficiency anemia - will need outpatient follow-up. 6. Chronic anemia and leukopenia- outpatient follow-up with hematology. Peripheral smear sent. 7. History of DVT status post IVC filter in August 2018. History of GI bleed in August 2018. On eliquis 8. Given abdominal distention patient had a CT of the abdomen and pelvis, with abnormal thickening of her uterus. A subsequent pelvic ultrasound, noted thickening endometrium 3 cm. Have discussed with the patient as well as the , who notes that the patient had endometrial biopsy in 2013 which was negative. The patient will need to follow-up with oncology, as well as gynecology for further workup, of a possible repeat biopsy. Patient understand and agree. 9. Constipation - bowel regimen optimized. No N/V/Abd pain. Tolerating meals. DVT prophy: On eliquis Will need subacute rehab as per PT. CM on board. Pending bed placement. VS,Fishbone, I+O VS, Fishbone, I+O Laboratory Tests 09/22/18 05:24 Red Blood Count 3.03 L, Mean Corpuscular Volume 89.4, Mean Corpuscular Hemoglobin 28.4, Mean Corpuscular Hemoglobin Concent 31.7 L, Red Cell Distribution Width 13.2, Calcium Level 8.2 L Vital Signs Date Time Temp Pulse Resp B/P (MAP) Pulse Ox O2 Delivery O2 Flow Rate FiO2 09/22/18 08:40 18 Room Air 09/22/18 06:00 99.0 76 118/64 (82) 94 09/18/18 22:00 95 I&O- Last 24 Hours up to 6 AM 09/22/18 06:00 Intake Total 1340 ml Output Total 650 ml Balance 690 ml NICKIE POTTS MD Sep 22, 2018 11:45
[2018-09-22] MEDS: BACTRIM 160MG/800MG DS TAB PO SCH ×2 (11:50→21:12)
[2018-09-22 14:00] VITALS: BP 106/55
[2018-09-22] MEDS: FUROSEMIDE 20 MG TAB PO SCH (14:52)
[2018-09-22 22:00] VITALS: BP 104/59
[2018-09-23 06:00] VITALS: BP 128/69
[2018-09-23 06:00] LABS: HEMATOCRIT 30.5 % (36.0-47.0); HEMOGLOBIN 9.4 g/dl (12.0-15.5); MEAN CORPUSCULAR HEMOGLOBIN 28.1 pg (27.0-33.0); MEAN CORPUSCULAR HGB CONC 30.8 g/dl (32.0-36.5); MEAN CORPUSCULAR VOLUME 91.3 fl (80.0-96.0); PLATELET COUNT, AUTOMATED 196 10^3/uL (150-450); RED BLOOD COUNT 3.34 10^6/uL (4.00-5.40); WHITE BLOOD COUNT 2.7 10^3/uL (4.0-10.0)
[2018-09-23 06:18] LABS: BLOOD UREA NITROGEN 8 MG/DL (7-18); CALCIUM LEVEL 8.4 MG/DL (8.8-10.2); CARBON DIOXIDE LEVEL 26 MEQ/L (21-32); CHLORIDE LEVEL 103 MEQ/L (98-107); CREATININE FOR GFR 0.52 MG/DL (0.55-1.30); GLOMERULAR FILTRATION RATE > 60.0 (>39); GLUCOSE, FASTING 95 MG/DL (70-100); MAGNESIUM LEVEL 2.2 MG/DL (1.8-2.4); POTASSIUM SERUM 4.6 MEQ/L (3.5-5.1); SODIUM LEVEL 135 MEQ/L (136-145)
[2018-09-23] MEDS: risperiDONE 3 MG TAB PO SCH (08:53)
[2018-09-23] MEDS: MULTIVITAMINS/MINERALS THERAP 1 TAB PO SCH (08:53)
[2018-09-23] MEDS: SIMVASTATIN 20 MG TAB PO SCH (08:53)
[2018-09-23] MEDS: ASCORBIC ACID 500 MG TAB PO SCH (08:53)
[2018-09-23] MEDS: MIRALAX *UNIT DOSE* 17GM PACKET PO SCH (08:54)
[2018-09-23] MEDS: SENOKOT S TAB PO SCH (08:54)
[2018-09-23] MEDS: VITAMIN D 1,000 INTERNATIONAL UNITS TABLET PO SCH (08:54)
[2018-09-23] MEDS: APIXABAN 5 MG TAB (ELIQUIS) PO SCH (08:54)
[2018-09-23] MEDS: FERROUS GLUCONATE 324 MG TAB PO SCH (08:54)
[2018-09-23] MEDS: traMADol 50 MG TAB PO PRN (08:54)
[2018-09-23] MEDS ORDERED: ELIQ5TAB PO (10:12)
--- NOTE | 2018-09-23 11:02 | DS.PDOC ---
Discharge Summary General Date of Admission Sep 16, 2018 at 18:39 Date of Discharge 09/23/18 Attending Physician: NICKIE POTTS MD Discharge Summary PROCEDURES PERFORMED DURING STAY: None. ADMITTING/DISCHARGE DIAGNOSES: 1. Bilateral knee pain secondary to osteoarthritis 2. Hypertension 3. History of diastolic heart failure 4. History of MRSA infection of the left knee status post treatment and currently on suppressive therapy on Bactrim per Dr. Amanda mcneilpt. Follow-up close outpatient. 5. Chronic anemia and leukopenia- outpatient follow-up with hematology. 6. History of DVT status post IVC filter in August 2018. History of GI bleed in August 2018. On eliquis 7. Endometrial thickening follow-up outpatient with gynecology. COMPLICATIONS/CHIEF COMPLAINT: Knee pain HISTORY OF PRESENT ILLNESS/HOSPITAL COURSE: This is a 73-year-old female past medical history of left knee septic arthritis on Bactrim, dorsal heart failure, hypertension who presents with significant bilateral knee pain and inability to ambulate. Patient's pain has been controlled, patient has been participating with physical therapy with recommendations for rehabilitation. Over the course of hospitalization, patient was also noted to have a distended abdomen although no pain. Given abdominal distention patient had a CT of the abdomen and pelvis, with abnormal thickening of her uterus. A subsequent pelvic ultrasound, noted thickening endometrium 3 cm. Have discussed with the patient as well as the , who notes that the patient had endometrial biopsy in 2013 which was negative. The patient will need to follow-up with oncology, as well as gynecology for further workup, of a possible repeat biopsy. Patient understand and agree. Patient is hemodynamically stable and we'll be discharged to [place] for rehabilitation. DISCHARGE MEDICATIONS: Please see below. ALLERGIES: Please see below. PHYSICAL EXAMINATION ON DISCHARGE: Vitals: (see below) General: No acute distress, laying comfortably in bed HEENT: Moist mucous membranes Neck: No JVD or lymphadenopathy Cardiac: RRR, No murmurs Pulm: Clear to auscultation bilaterally. No wheezing, rhonchi Abd: NT + BS. Abdomen mildly distended however nontender. Ext: No edema or cyanosis. b/l knees - no significant warmth, erythema, pain. Full range of motion noted. Distal pulses intact. LABORATORY DATA: Please see below. IMAGING: Hip/pelvic x-ray on 09/14/18 Impression: Osteopenia and degenerative changes. No acute fracture or dislocation. Bilateral knee x-ray on 09/14/18 Impression: Advanced tricompartmental osteoarthritic degenerative changes to the bilateral knees with right knee swelling and suprapatellar effusion. Correlation is recommended as subtle injuries cannot be excluded. CT abdomen and pelvis on 09/19/18 Impression: 1. Distended colon with air and fecal material most likely representing ileus. 2. Irregular enlarged uterus with heterogeneous material distending the endocervical canal suspicious for hematometrocolpos and possible underlying pathology. Pelvic ultrasound is recommended. 3. No ascites. No free air. No obvious adenopathy. Pelvic ultrasound 09/19/18 Impression: Enlarged uterus with 3.0 cm thickened endometrium. Endometrial tissue contains multiple tiny cystic spaces. Endometrial hyperplasia versus neoplasia must be suspected. Neither ovary could be directly visualized. No free fluid. PROGNOSIS: Fair ACTIVITY: As tolerated. DIET: Low-sodium DISCHARGE PLAN/DISPOSITION: [facility] DISCHARGE INSTRUCTIONS: 1. Follow-up with PCP in 1-2 weeks. Follow up with gynecology and oncology in 1-2 weeks. Return to the ED symptoms worsen. DISCHARGE CONDITION: Stable. TIME SPENT ON DISCHARGE: Greater than 30 minutes. Vital Signs/I&Os Vital Signs Date Time Temp Pulse Resp B/P (MAP) Pulse Ox O2 Delivery O2 Flow Rate FiO2 09/23/18 09:24 18 09/23/18 06:00 98.4 84 128/69 (88) 93 Room Air 09/18/18 22:00 95 I&O- Last 24 Hours up to 6 AM 09/23/18 06:00 Intake Total 2460 ml Output Total 0 ml Balance 2460 ml Laboratory Data Labs 24H Laboratory Tests 2 09/23/18 05:33: Nucleated Red Blood Cells % (auto) 0.0, Anion Gap 6L, Glomerular Filtration Rate > 60.0, Blood Urea Nitrogen 8, Creatinine 0.52L, Sodium Level 135L, Potassium Level 4.6, Chloride Level 103, Carbon Dioxide Level 26, Calcium Level 8.4L, Magnesium Level 2.2 CBC/BMP Laboratory Tests 09/23/18 05:33 Red Blood Count 3.34 L, Mean Corpuscular Volume 91.3, Mean Corpuscular Hemoglobin 28.1, Mean Corpuscular Hemoglobin Concent 30.8 L, Red Cell Distribution Width 13.3, Calcium Level 8.4 L Microbiology Microbiology 09/17/18 Blood Culture - Final, Complete NO GROWTH AFTER 5 DAYS 09/17/18 Blood Culture - Final, Complete NO GROWTH AFTER 5 DAYS Discharge Medications Scheduled (Risperidone) 3 Mg Tab, 3 MG PO BID, (Reported) TAKES AT 0800/2000 (Icy Hot Advanced Relief 16-11 %) 1 Cre Cre, 1 DOSE TOP TID, (Reported) APPLY TO LEFT KNEES Alendronate Sodium (Alendronate Sodium) 35 Mg Tab, 35 MG PO QWEEK, (Reported) SATURDAYS Apixaban Base (Eliquis) 5 Mg Tab, 5 MG PO BID Ascorbic Acid (Vitamin C) 500 Mg Tab, 500 MG PO DAILY, (Reported) Bacillus Coagulans (Bacid) 1 Cap Cap, 1 CAP PO BID, (Reported) Calcium Carbonate (Calcium) 600 Mg Tab, 1 TAB PO DAILY, (Reported) Cholecalciferol (Vitamin D) 1,000 Unit Tab, 1,000 UNIT PO DAILY, (Reported) Docusate Sod/Senna (Senna-Plus 8.6-50 mg) 1 Tab Tab, 2 TAB PO BID, (Reported) Ferrous Gluconate (Ferrous Gluconate) 324 Mg Tab, 324 MG PO BID, (Reported) TAKES 0800/1400 Furosemide (Lasix) 20 Mg Tab, 20 MG PO DAILY, (Reported) TAKES AT 1400 Lovastatin (Lovastatin) 20 Mg Tab, 20 MG PO DAILY, (Reported) TAKES AT NOON Lubiprostone (Amitiza) 8 Mcg Cap, 8 MCG PO BID, (Reported) Melatonin (Melatonin) 5 Mg Tab, 5 MG PO QHS, (Reported) Multivitamins *[place] STOCKED* (Thera M Plus *[place] STOCKED*) 1 Tab Tab, 1 TAB PO DAILY, (Reported) Trimethoprim/Sulfamethoxazole (Bactrim Ds 800-160 mg) 1 Tab Tab, 1 TAB PO BID, (Reported) TAKES AT NOON/2000 Scheduled PRN Acetaminophen (Tylenol 8 Hour Arthritis) 650 Mg Tab, 650 MG PO Q8H PRN for PAIN, (Reported) Tramadol HCl (Tramadol HCl) 50 Mg Tab, 50 MG PO BID PRN for PAIN, (Reported) Allergies Coded Allergies: No Known Drug Allergy (Verified Allergy, Unknown, 02/20/17) NICKIE POTTS MD Sep 23, 2018 11:02
== END 2018-09-23 11:00 | DRG 554 ==
LOC: M ED 12:16 → EDBD 12:16 → M ED INP 14:34 → M MS5PR 15:50 → OBSVTOIN 09-16 18:39 → M MS5PR 09-19 16:54
PROVIDERS: ADMIT Hospitalist; ATTEND Internal Medicine
DX: M17.0 Bilateral primary osteoarthritis of knee (principal); I50.32 Chronic diastolic (congestive) heart failure; M25.551 Pain in right hip; I11.0 Hypertensive heart disease with heart failure; E78.5 Hyperlipidemia, unspecified; D50.9 Iron deficiency anemia, unspecified; R14.0 Abdominal distension (gaseous); K59.00 Constipation, unspecified; R76.0 Raised antibody titer; M25.461 Effusion, right knee; R93.89 Abnormal findings on diagnostic imaging of other specified body structures; Z86.718 Personal history of other venous thrombosis and embolism; Z79.01 Long term (current) use of anticoagulants; Z86.14 Personal history of Methicillin resistant Staphylococcus aureus infection; Z85.3 Personal history of malignant neoplasm of breast; Z92.21 Personal history of antineoplastic chemotherapy; Z92.3 Personal history of irradiation; Z95.828 Presence of other vascular implants and grafts; Z79.899 Other long term (current) drug therapy

== ENCOUNTER → 2018-09-25 | Outpatient (REF) ==
[~2018-09-25] MED LIST changes: +AMIT8CAP4 PO
[2018-09-25 11:33] LABS: HEMATOCRIT 33.9 % (36.0-47.0); HEMOGLOBIN 10.6 g/dl (12.0-15.5); MEAN CORPUSCULAR HEMOGLOBIN 28.5 pg (27.0-33.0); MEAN CORPUSCULAR HGB CONC 31.3 g/dl (32.0-36.5); MEAN CORPUSCULAR VOLUME 91.1 fl (80.0-96.0); PLATELET COUNT, AUTOMATED 253 10^3/uL (150-450); RED BLOOD COUNT 3.72 10^6/uL (4.00-5.40); WHITE BLOOD COUNT 3.2 10^3/uL (4.0-10.0)
[2018-09-25 12:00] LABS: ERYTHROCYTE SEDIMENTATION RATE 39 mm/hr (0-30)
[2018-09-25 12:30] LABS: BLOOD UREA NITROGEN 11 MG/DL (7-18); C REACTIVE PROTEIN QUANTITATIV 0.48 MG/DL (0.00-0.30); CALCIUM LEVEL 8.5 MG/DL (8.8-10.2); CARBON DIOXIDE LEVEL 28 MEQ/L (21-32); CHLORIDE LEVEL 100 MEQ/L (98-107); CHOLESTEROL LEVEL 154 MG/DL (<200); CHOLESTEROL RISK RATIO 2.138 (<5); CREATININE FOR GFR 0.68 MG/DL (0.55-1.30); GLOMERULAR FILTRATION RATE > 60.0 (>39); GLUCOSE, FASTING 135 MG/DL (70-100); HDL CHOLESTEROL 72 MG/DL (>40); LDL CHOLESTEROL 54 MG/DL (<100); NON-HDL-C 82 MG/DL; POTASSIUM SERUM 3.9 MEQ/L (3.5-5.1); SODIUM LEVEL 137 MEQ/L (136-145); TRIGLYCERIDES LEVEL 138 MG/DL (<150)
== END ==
PROVIDERS: ATTEND Internal Medicine
DX: D64.9 Anemia, unspecified (principal)

== ENCOUNTER → 2018-10-08 | Outpatient (REF) | payer BC, MEDICAID, MEDICARE ==
[~2018-10-08] MED LIST changes: -ENEMENE16 PR; +ENEMENE4 PR; -LASI20TA PO; +LASI20TA3 PO; +MILK120011 PO; -MILK12002 PO
[2018-10-08 10:05] LABS: HEMATOCRIT 32.7 % (36.0-47.0); MEAN CORPUSCULAR HGB CONC 30.6 g/dl (32.0-36.5); MEAN CORPUSCULAR VOLUME 91.6 fl (80.0-96.0); PLATELET COUNT, AUTOMATED 245 10^3/uL (150-450); RED BLOOD COUNT 3.57 10^6/uL (4.00-5.40); WHITE BLOOD COUNT 3.1 10^3/uL (4.0-10.0)
[2018-10-08 10:31] LABS: BLOOD UREA NITROGEN 9 MG/DL (7-18); CALCIUM LEVEL 8.3 MG/DL (8.8-10.2); CARBON DIOXIDE LEVEL 27 MEQ/L (21-32); CHLORIDE LEVEL 103 MEQ/L (98-107); CHOLESTEROL LEVEL 142 MG/DL (<200); CHOLESTEROL RISK RATIO 2.057 (<5); CREATININE FOR GFR 0.54 MG/DL (0.55-1.30); GLOMERULAR FILTRATION RATE > 60.0 (>39); GLUCOSE, FASTING 138 MG/DL (70-100); HDL CHOLESTEROL 69 MG/DL (>40); LDL CHOLESTEROL 59 MG/DL (<100); NON-HDL-C 73 MG/DL; POTASSIUM SERUM 3.8 MEQ/L (3.5-5.1); SODIUM LEVEL 138 MEQ/L (136-145); TRIGLYCERIDES LEVEL 72 MG/DL (<150)
[2018-10-08 10:39] LABS: ERYTHROCYTE SEDIMENTATION RATE 47 mm/hr (0-30)
== END ==
PROVIDERS: ATTEND Physician Assistant
DX: D64.9 Anemia, unspecified (principal); Z79.899 Other long term (current) drug therapy

== ENCOUNTER → 2018-10-16 | Outpatient (REF) | payer BC, MEDICAID, MEDICARE ==
[2018-10-16 10:05] LABS: HEMATOCRIT 34.4 % (36.0-47.0); HEMOGLOBIN 10.7 g/dl (12.0-15.5); MEAN CORPUSCULAR HEMOGLOBIN 28.3 pg (27.0-33.0); MEAN CORPUSCULAR HGB CONC 31.1 g/dl (32.0-36.5); PLATELET COUNT, AUTOMATED 246 10^3/uL (150-450); RED BLOOD COUNT 3.78 10^6/uL (4.00-5.40); WHITE BLOOD COUNT 2.5 10^3/uL (4.0-10.0)
[2018-10-16 10:24] LABS: ERYTHROCYTE SEDIMENTATION RATE 47 mm/hr (0-30)
== END ==
PROVIDERS: ATTEND Internal Medicine
DX: M00.862 Arthritis due to other bacteria, left knee (principal)

== ENCOUNTER → 2018-10-22 | Outpatient (REF) | payer MEDICARE, BC, MEDICAID ==
[2018-10-22 12:29] LABS: HEMATOCRIT 32.7 % (36.0-47.0); MEAN CORPUSCULAR HEMOGLOBIN 27.8 pg (27.0-33.0); MEAN CORPUSCULAR HGB CONC 30.6 g/dl (32.0-36.5); MEAN CORPUSCULAR VOLUME 90.8 fl (80.0-96.0); PLATELET COUNT, AUTOMATED 222 10^3/uL (150-450); WHITE BLOOD COUNT 3.3 10^3/uL (4.0-10.0)
--- NOTE | 2018-10-22 12:32 | REP ---
Clinical: Right hip pain. Technique: Neutral and frog lateral views of the right hip. Findings: The patient is noted to be status post right hip replacement. Normal appearance to the orthopedic hardware noted. No evidence for loosening. The visualized osseous structures are intact and relatively stable when compared to 09/14/2018. Small amounts of chronic heterotopic ossification in the abductor muscles overlying the right hip consistent with postoperative changes. Impression: Normal stable appearance of the right hip and associated arthroplasty. No obvious acute findings. Electronically Signed by Eliecer Mcwilliams MD 10/22/2018 12:24 P
[2018-10-22 12:52] LABS: BLOOD UREA NITROGEN 11 MG/DL (7-18); CALCIUM LEVEL 8.5 MG/DL (8.8-10.2); CARBON DIOXIDE LEVEL 31 MEQ/L (21-32); CHLORIDE LEVEL 102 MEQ/L (98-107); CREATININE FOR GFR 0.52 MG/DL (0.55-1.30); GLOMERULAR FILTRATION RATE > 60.0 (>39); GLUCOSE, FASTING 92 MG/DL (70-100); POTASSIUM SERUM 3.9 MEQ/L (3.5-5.1); SODIUM LEVEL 138 MEQ/L (136-145)
[2018-10-22 13:06] LABS: ERYTHROCYTE SEDIMENTATION RATE 35 mm/hr (0-30)
== END ==
PROVIDERS: ATTEND Internal Medicine
DX: M25.551 Pain in right hip (principal); Z96.641 Presence of right artificial hip joint

== ENCOUNTER → 2018-10-23 | Outpatient (CLI) | payer MEDICARE, BC, MEDICAID ==
--- NOTE | 2018-10-23 14:40 | REP ---
TRIPLE PHASE BONE SCAN OF PELVIS AND HIPS WITH DELAYED IMAGING OF THE KNEES: Following the intravenous administration of 21.4 millicuries technetium 99M MDP, patient's pelvis and hips are imaged in the flow phase and in the anterior and posterior projections. There is mild increased blood flow to the region of the right hip. Immediate blood pool and 4.5 hour delayed images are performed of the pelvis and hips in multiple projections. There is a photopenic prosthesis as noted of the proximal right femur. There is diffuse increased blood pooling with more intense delayed increased uptake throughout the right acetabulum. There is increased blood pooling with intense delayed activity surrounding the proximal stem of the prosthesis in the intertrochanteric region of the proximal right femur. Findings may indicate prosthetic loosening or infection. Note is made of degenerative uptake in the lower lumbar spine. Delayed images of the knees are also performed in multiple projections. There is moderate diffuse increased uptake in the periarticular distribution in the left knee joint compatible with severe arthritic change. Mil arthritic uptake is seen in the lateral right knee joint. Superimposed joint injection in the left knee can not totally be excluded. IMPRESSION: Increased blood flow, blood pooling and delayed activity in the region of the acetabulum and surrounding the proximal right hip prosthesis in the intertrochanteric region of the proximal right femur. Findings could represent loosening or infection. Diffuse periarticular arthritic uptake left knee joint compatible with degenerative arthritis, with superimposed septic arthritis not totally excluded. Electronically Signed by Shaheen Keith MD 10/24/2018 10:45 A
== END ==
LOC: M RAD 08:05
PROVIDERS: ATTEND Physician Assistant
DX: M25.551 Pain in right hip (principal)
CPT/HCPCS: 78315; A9503

== ENCOUNTER → 2018-10-30 | Outpatient (REF) | payer MEDICARE, BC, MEDICAID ==
[2018-10-30 08:47] LABS: HEMATOCRIT 34.7 % (36.0-47.0); HEMOGLOBIN 10.9 g/dl (12.0-15.5); MEAN CORPUSCULAR HEMOGLOBIN 27.7 pg (27.0-33.0); MEAN CORPUSCULAR HGB CONC 31.4 g/dl (32.0-36.5); MEAN CORPUSCULAR VOLUME 88.1 fl (80.0-96.0); PLATELET COUNT, AUTOMATED 236 10^3/uL (150-450); RED BLOOD COUNT 3.94 10^6/uL (4.00-5.40); WHITE BLOOD COUNT 3.1 10^3/uL (4.0-10.0)
[2018-10-30 09:09] LABS: BLOOD UREA NITROGEN 11 MG/DL (7-18); C REACTIVE PROTEIN QUANTITATIV 0.39 MG/DL (0.00-0.30); CALCIUM LEVEL 8.4 MG/DL (8.8-10.2); CARBON DIOXIDE LEVEL 27 MEQ/L (21-32); CHLORIDE LEVEL 105 MEQ/L (98-107); CREATININE FOR GFR 0.53 MG/DL (0.55-1.30); GLOMERULAR FILTRATION RATE > 60.0 (>39); GLUCOSE, FASTING 99 MG/DL (70-100); POTASSIUM SERUM 3.8 MEQ/L (3.5-5.1); SODIUM LEVEL 139 MEQ/L (136-145)
[2018-10-30 09:26] LABS: ERYTHROCYTE SEDIMENTATION RATE 35 mm/hr (0-30)
== END ==
PROVIDERS: ATTEND Internal Medicine
DX: D64.9 Anemia, unspecified (principal)

== ENCOUNTER → 2018-11-05 | Outpatient (REF) | payer MEDICARE, BC, MEDICAID ==
[2018-11-05 09:57] LABS: HEMATOCRIT 35.4 % (36.0-47.0); MEAN CORPUSCULAR HEMOGLOBIN 27.4 pg (27.0-33.0); MEAN CORPUSCULAR HGB CONC 31.1 g/dl (32.0-36.5); MEAN CORPUSCULAR VOLUME 88.3 fl (80.0-96.0); PLATELET COUNT, AUTOMATED 245 10^3/uL (150-450); RED BLOOD COUNT 4.01 10^6/uL (4.00-5.40); WHITE BLOOD COUNT 3.1 10^3/uL (4.0-10.0)
[2018-11-05 10:26] LABS: ERYTHROCYTE SEDIMENTATION RATE 32 mm/hr (0-30)
[2018-11-05 10:29] LABS: BLOOD UREA NITROGEN 13 MG/DL (7-18); C REACTIVE PROTEIN QUANTITATIV < 0.30 MG/DL (0.00-0.30); CALCIUM LEVEL 8.6 MG/DL (8.8-10.2); CARBON DIOXIDE LEVEL 29 MEQ/L (21-32); CHLORIDE LEVEL 103 MEQ/L (98-107); CREATININE FOR GFR 0.63 MG/DL (0.55-1.30); GLOMERULAR FILTRATION RATE > 60.0 (>39); GLUCOSE, FASTING 152 MG/DL (70-100); POTASSIUM SERUM 3.8 MEQ/L (3.5-5.1); SODIUM LEVEL 139 MEQ/L (136-145)
== END ==
PROVIDERS: ATTEND Internal Medicine
DX: D64.9 Anemia, unspecified (principal)

== ENCOUNTER → 2018-11-12 | Outpatient (REF) | payer MEDICARE, BC, MEDICAID ==
[2018-11-12 09:43] LABS: HEMATOCRIT 36.4 % (36.0-47.0); HEMOGLOBIN 11.2 g/dl (12.0-15.5); MEAN CORPUSCULAR HEMOGLOBIN 27.1 pg (27.0-33.0); MEAN CORPUSCULAR HGB CONC 30.8 g/dl (32.0-36.5); MEAN CORPUSCULAR VOLUME 88.1 fl (80.0-96.0); PLATELET COUNT, AUTOMATED 243 10^3/uL (150-450); RED BLOOD COUNT 4.13 10^6/uL (4.00-5.40); WHITE BLOOD COUNT 3.4 10^3/uL (4.0-10.0)
[2018-11-12 09:57] LABS: BLOOD UREA NITROGEN 11 MG/DL (7-18); C REACTIVE PROTEIN QUANTITATIV < 0.30 MG/DL (0.00-0.30); CALCIUM LEVEL 8.7 MG/DL (8.8-10.2); CARBON DIOXIDE LEVEL 29 MEQ/L (21-32); CHLORIDE LEVEL 105 MEQ/L (98-107); CREATININE FOR GFR 0.47 MG/DL (0.55-1.30); GLOMERULAR FILTRATION RATE > 60.0 (>39); GLUCOSE, FASTING 87 MG/DL (70-100); POTASSIUM SERUM 4.3 MEQ/L (3.5-5.1); SODIUM LEVEL 140 MEQ/L (136-145)
[2018-11-12 10:21] LABS: ERYTHROCYTE SEDIMENTATION RATE 35 mm/hr (0-30)
== END ==
PROVIDERS: ATTEND Physician Assistant
DX: M25.559 Pain in unspecified hip (principal)

== ENCOUNTER → 2018-11-26 | Outpatient (REF) | payer MEDICARE, BC, MEDICAID ==
[2018-11-26 12:25] LABS: PERCENT SATURATION 29.4 % (13.2-45.0)
== END ==
PROVIDERS: ATTEND Physician Assistant
DX: D64.9 Anemia, unspecified (principal)

== ENCOUNTER → 2018-12-10 | Outpatient (REF) | payer MEDICARE, BC, MEDICAID ==
[2018-12-10 10:03] LABS: HEMATOCRIT 37.7 % (36.0-47.0); HEMOGLOBIN 11.7 g/dl (12.0-15.5); MEAN CORPUSCULAR HEMOGLOBIN 27.6 pg (27.0-33.0); MEAN CORPUSCULAR VOLUME 88.9 fl (80.0-96.0); PLATELET COUNT, AUTOMATED 228 10^3/uL (150-450); RED BLOOD COUNT 4.24 10^6/uL (4.00-5.40); WHITE BLOOD COUNT 3.3 10^3/uL (4.0-10.0)
[2018-12-10 10:25] LABS: BLOOD UREA NITROGEN 13 MG/DL (7-18); C REACTIVE PROTEIN QUANTITATIV 0.33 MG/DL (0.00-0.30); CALCIUM LEVEL 8.8 MG/DL (8.8-10.2); CARBON DIOXIDE LEVEL 30 MEQ/L (21-32); CHLORIDE LEVEL 104 MEQ/L (98-107); CREATININE FOR GFR 0.58 MG/DL (0.55-1.30); GLOMERULAR FILTRATION RATE > 60.0 (>39); GLUCOSE, FASTING 130 MG/DL (70-100); POTASSIUM SERUM 3.8 MEQ/L (3.5-5.1); SODIUM LEVEL 140 MEQ/L (136-145)
[2018-12-10 10:35] LABS: ERYTHROCYTE SEDIMENTATION RATE 33 mm/hr (0-30)
== END ==
PROVIDERS: ATTEND Internal Medicine
DX: Z22.322 Carrier or suspected carrier of Methicillin resistant Staphylococcus aureus (principal)

== ENCOUNTER → 2018-12-20 | Outpatient (REF) | payer MEDICARE, BC, MEDICAID ==
[~2018-12-20] MED LIST changes: -/WARF25TA PO; -ASPI81CH32 PO; +ASPI81CH33 PO; +COUM1TAB18 PO; +HEPA1INJ23 SC; -HEPA50VL SC; +HYDR-3715 PO; -NORCOTAB PO; +PERC5TAB12 PO; +SENN-50 PO; -SENN8.6T54 PO
[2018-12-20 08:10] LABS: HEMATOCRIT 34.3 % (36.0-47.0); HEMOGLOBIN 10.5 g/dl (12.0-15.5); MEAN CORPUSCULAR HEMOGLOBIN 27.1 pg (27.0-33.0); MEAN CORPUSCULAR HGB CONC 30.6 g/dl (32.0-36.5); MEAN CORPUSCULAR VOLUME 88.4 fl (80.0-96.0); PLATELET COUNT, AUTOMATED 210 10^3/uL (150-450); RED BLOOD COUNT 3.88 10^6/uL (4.00-5.40); WHITE BLOOD COUNT 2.9 10^3/uL (4.0-10.0)
[2018-12-20 08:20] LABS: INR 1.22; PROTHROMBIN TIME 15.6 SECONDS (12.1-14.4)
[2018-12-20 08:34] LABS: ALT/SGPT 10 U/L (12-78); BILIRUBIN,TOTAL 0.3 MG/DL (0.2-1.0); BLOOD UREA NITROGEN 14 MG/DL (7-18); CALCIUM LEVEL 8.3 MG/DL (8.8-10.2); CARBON DIOXIDE LEVEL 28 MEQ/L (21-32); CHLORIDE LEVEL 107 MEQ/L (98-107); CREATININE FOR GFR 0.43 MG/DL (0.55-1.30); GLOMERULAR FILTRATION RATE > 60.0 (>39); GLUCOSE, FASTING 85 MG/DL (70-100); POTASSIUM SERUM 4.2 MEQ/L (3.5-5.1); SODIUM LEVEL 142 MEQ/L (136-145); TOTAL PROTEIN 5.6 GM/DL (6.4-8.2)
[2018-12-20 08:46] LABS: ERYTHROCYTE SEDIMENTATION RATE 34 mm/hr (0-30)
--- NOTE | 2018-12-20 13:45 | REP ---
Clinical: Preoperative assessment . Comparison: 01/01/2018 . Technique: PA and lateral. Findings: The mediastinum and cardiac silhouette are normal. Airway is patent and midline. The lung gallo demonstrate diffuse chronic changes without acute consolidation, effusion, or pneumothorax. The skeletal structures are intact and normal. Evidence for left axillary node dissection. Impression: Chronic changes. No acute cardiopulmonary process. Electronically Signed by Elieecr Mcwilliams MD 12/20/2018 01:37 P
== END ==
PROVIDERS: ATTEND Physician Assistant
DX: Z96.641 Presence of right artificial hip joint (principal)

== ENCOUNTER → 2019-01-07 | Outpatient (REF) | payer MEDICARE, BC, MEDICAID ==
[2019-01-07 09:33] LABS: HEMATOCRIT 37.2 % (36.0-47.0); HEMOGLOBIN 11.4 g/dl (12.0-15.5); MEAN CORPUSCULAR HEMOGLOBIN 27.3 pg (27.0-33.0); MEAN CORPUSCULAR HGB CONC 30.6 g/dl (32.0-36.5); MEAN CORPUSCULAR VOLUME 89.2 fl (80.0-96.0); PLATELET COUNT, AUTOMATED 240 10^3/uL (150-450); RED BLOOD COUNT 4.17 10^6/uL (4.00-5.40); WHITE BLOOD COUNT 3.1 10^3/uL (4.0-10.0)
[2019-01-07 10:00] LABS: BLOOD UREA NITROGEN 10 MG/DL (7-18); C REACTIVE PROTEIN QUANTITATIV 0.63 MG/DL (0.00-0.30); CARBON DIOXIDE LEVEL 30 MEQ/L (21-32); CHLORIDE LEVEL 104 MEQ/L (98-107); CREATININE FOR GFR 0.46 MG/DL (0.55-1.30); GLOMERULAR FILTRATION RATE > 60.0 (>39); GLUCOSE, FASTING 91 MG/DL (70-100); POTASSIUM SERUM 4.3 MEQ/L (3.5-5.1); SODIUM LEVEL 138 MEQ/L (136-145)
[2019-01-07 10:17] LABS: ERYTHROCYTE SEDIMENTATION RATE 37 mm/hr (0-30)
--- NOTE | 2019-01-09 16:09 | ECGEPIP ---
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
== END ==
PROVIDERS: ATTEND Internal Medicine
DX: Z01.812 Encounter for preprocedural laboratory examination (principal); T84.84XA Pain due to internal orthopedic prosthetic devices, implants and grafts, initial encounter; Z86.14 Personal history of Methicillin resistant Staphylococcus aureus infection

== ENCOUNTER → 2019-01-08 | Outpatient (CLI) | payer MEDICARE, BC, MEDICAID | PROVIDERS: ATTEND Internal Medicine | DX: Z01.818 Encounter for other preprocedural examination (principal); T84.84XA Pain due to internal orthopedic prosthetic devices, implants and grafts, initial encounter; I44.0 Atrioventricular block, first degree ==

== ENCOUNTER 2019-01-20 12:30 | Inpatient (IN) | payer MEDICARE, BC, MEDICAID ==
--- NOTE | 2019-01-13 13:55 | HPE ---
DATE OF ADMISSION: 01/20/2019 HISTORY: This is a 73-year-old female with refractory right hip pain with history of right hip hemiarthroplasty secondary to a displaced femoral neck fracture which was completed 12/06/12. The patient consented for a right hip hemiarthroplasty revision conversion to a right total hip arthroplasty per Dr. Chava Gordillo. Medical optimization was achieved per Dr. Pike. Additionally, consultation per Dr. Patel. X-ray showed no gross evidence of loosening. Bone scan showed uptake in the periacetabular area and stem, which making it difficult to differentiate between loosening or infection. ALLERGIES: 1. She has a severe rash to CEPHAZOLIN and therefore Dr. Patel recommended IV vancomycin. CURRENT MEDICATIONS: Include: - ferrous gluconate 324 mg daily - Bactrim DS one b.i.d. - Tramadol 50 mg b.i.d. for pain - Risperdal 30 mg b.i.d. for schizophrenia - Melatonin 5 mg q.h.s. for insomnia - Senna S b.i.d. for bowel care - Amitiza 8 mcg b.i.d. for bowel care - Eliquis 5 mg b.i.d. because of recurrent deep vein thrombosis (DVT) - lovastatin 20 mg daily for hypercholesteremia - Lasix 20 mg daily for congestive heart failure (CHF) - Bacid b.i.d. for bowel health - Fosamax 35 mg every Sunday for osteoporosis - vitamin C 500 mg daily - vitamin D 1000 international units daily - calcium 600 mg daily - multivitamin with minerals one daily - She is also going to take Bactroban 2% ointment t.i.d. to each nostril starting 5 days prior to surgery. MEDICAL PROBLEM LIST: Includes: Symptomatic right hip hemiarthroplasty, question of loosening versus infection. History of left knee attempted knee replacement which ended up being septic knee requiring several surgical debridements that are finally under control. She is now under long-term antibiotic care per Dr. Patel. The patient developed an embolism and requires a green filter, on Eliquis for that. Essential hypertension. Hypertensive heart disease. Congestive heart failure (CHF) due to chronic diastolic dysfunction. Generalized osteoarthritis but primarily knees and right hip. Chronic anemia. Chronic leukopenia. History of recurrent deep vein thrombosis (DVT) with IVC filter. Long-term anticoagulation. Chronic insomnia. Chronic constipation. History of upper gastrointestinal (GI) bleed in 2018. Schizophrenia. History of pulmonary embolism. History of thickened endometrium. Negative endometrial biopsy 2013. CT scan of abdomen pelvis in 2018 showed thickened endometrium, however, the patient adamantly refused referral to gynecology and further workup. She had an upper GI bleed late 2017. At that time she had a colonoscopy and upper endoscopy both of which were unremarkable. Positive lupus anticoagulant. SOCIAL HISTORY: Lives with her . Primary care provider is Josias Quick. Denies cigarettes or alcohol. PAST SURGICAL HISTORY: Arthroscopic surgery 12/2017. Lumpectomy 2009. Left incision and drainage 02/2018. Left knee arthroscopic complete synovectomy, irrigation, debridement, placement of antibiotic beads and J-VAC drain in left knee, or septic arthritis, joint fluid analysis 85,000 white cells predominantly PNM 04/30/[address] Patel's note. Cataract surgery. FAMILY HISTORY: Mother and father . One brother. REVIEW OF SYSTEMS: She is denying chest pain, shortness of breath, dyspnea on exertion, fever, chills, malaise, upper respiratory or urinary tract symptoms. PHYSICAL EXAMINATION: Blood pressure 125/68, pulse 70, respirations 16, height 5 feet 11 inches, weight 135, temperature 96.9. She is a pleasant well-developed, well-nourished elderly female in no acute distress. Alert and orientated times three. Mood and affect are appropriate. Normocephalic. Negative jugular venous distention (JVD) or bruits. Lungs clear to auscultation. Chest rises symmetrically. Regular rate and rhythm. Bowel sounds are times three, soft, nontender times four. Lower extremities benign, noninfectious looking, well perfused. No evidence of infection. Labs were reviewed ProTime slightly elevated at 15.6. Creatinine blood 0.43, anion gap 8.3, ALT 4/SGPT 10, total protein 5.6, albumin 3.0. WBC 3.1, hemoglobin 11.4. MCHC 30.6. RDW 15.1. Sed rate 37. Creatinine blood 0.46. Anion gap 4, C-reactive protein 0.63. Otherwise, labs within normal limits. Chest x-ray per [facility] service date 11/23/2018 showing chronic changes. No acute cardiopulmonary process. Awaiting EKG results. IMPRESSION: 1. Right hip symptomatic hemiarthroplasty completed in 2012 with bone scan uptake at acetabulum and stem inconclusive for infection versus loosening, but continuing refractory pain. 2. Patient has consented for right hip hemiarthroplasty revision and conversion to right total hip arthroplasty. 3. Medical optimization per Dr. Pike. 4. 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 5. Sequential compression devices (SCD) and thromboembolic deterrent stockings (TEDS) in OR. MTDD
[~2019-01-20] VITALS: Ht 182.9 cm; Wt 61.2 kg
[~2019-01-20 12:30] MED LIST changes: +LIDOCAINE 1% MDV 20ML VIAL SQ PRN; -PERC5TAB12 PO
[2019-01-20] MEDS ORDERED: VANCOMYCIN HCL 1,000 MG, VIAL MATE ADAPTER 1 EACH in D5W 250 ML IV ONE (13:45)
[2019-01-20] MEDS ORDERED: LR 1,000 ML IV ONE (13:45)
[2019-01-20] MEDS ORDERED: ACETAMINOPHEN 500 MG TAB PO ONE (13:45)
[2019-01-20] MEDS ORDERED: CLINDAMYCIN INJ 900MG/6ML VIAL As Ordered ONE (14:16)
[2019-01-20] MEDS ORDERED: EPINEPHrine INJ 1 MG/ML 1ML AMP As Ordered ONE (14:16)
[2019-01-20] MEDS ORDERED: LIDOCAINE 2% INJ 100 MG/5 ML SDV (FOR ANES.) As Ordered ONE (17:27)
[2019-01-20] MEDS ORDERED: PROPOFOL 500 MG/50 ML VIAL As Ordered ONE (17:27)
[2019-01-20] MEDS ORDERED: PHENYLephrine HCL 500 MCG/5 ML (100MCG/ML) SYRINGE (J2370) As Ordered ONE ×2 (17:27→17:28)
[2019-01-20] MEDS ORDERED: MIDAZOLAM INJ 2 MG/2 ML VIAL (J2250) As Ordered ONE ×2 (17:27→18:11)
[2019-01-20] MEDS ORDERED: fentaNYL 100 MCG/2 ML INJECTION (J3010) As Ordered ONE (17:27)
[2019-01-20] MEDS ORDERED: ePHEDrine SULFATE 25 MG/5 ML(5MG/ML) SYRINGE As Ordered ONE (17:27)
[2019-01-20] MEDS ORDERED: BUPIVACAINE/DEXTROSE 0.75% 2 ML AMP As Ordered ONE (17:27)
[2019-01-20] MEDS ORDERED: ONDANSETRON 4MG/2ML VIAL (J2405) As Ordered ONE (17:32)
[2019-01-20] MEDS ORDERED: PHENYLEPHRINE INJ 10MG/ML VIAL (J2370) As Ordered ONE (17:33)
[2019-01-20] MEDS ORDERED: MORPHINE 1MG/ML IN 0.9% NACL 100ML IV BAG As Ordered ONE (19:00)
[2019-01-20] MEDS ORDERED: fentaNYL 100 MCG/2 ML INJECTION (J3010) IV PRN (19:00)
[2019-01-20] MEDS ORDERED: ONDANSETRON 4MG/2ML VIAL (J2405) IV PRN ×2 (19:00→19:30)
[2019-01-20] MEDS ORDERED: LR 1,000 ML IV SCH ×2 (19:00→19:30)
[2019-01-20] MEDS ORDERED: NORCO, ANEXSIA 5/325MG TABLET (HYDROcodone/ACETAMINOPHEN) PO PRN (19:00)
[2019-01-20] MEDS ORDERED: NALOXONE INJ 0.4 MG/1 ML VIAL (J2310) IV PRN (19:30)
[2019-01-20] MEDS ORDERED: NALBUPHINE HCL 10 MG/ML AMP (J2300) IV PRN (19:30)
[2019-01-20] MEDS ORDERED: EPIDURAL/PCA KEYS XX PRN (19:30)
[2019-01-20] MEDS ORDERED: FLEET ENEMA PR PRN (19:30)
[2019-01-20] MEDS ORDERED: ACETAMINOPHEN TAB 650MG DOSE (2X325MG) PO PRN (19:30)
[2019-01-20] MEDS ORDERED: MORPHINE 1MG/ML IN 0.9% NACL 100ML IV BAG IV PRN (19:30)
[2019-01-20] MEDS ORDERED: diphenhydrAMINE INJ 50MG/ML VIAL (J1200) IV PRN (19:30)
--- NOTE | 2019-01-20 19:53 | REP ---
REASON: Postop. There has been total hip prosthetic device placement. The femoral and acetabular components of which are well seated and well approximated. The alignment is near anatomic. Electronically Signed by Caleb Wolf DO 01/21/2019 04:23 P
--- NOTE | 2019-01-20 20:07 | CR ---
DATE OF CONSULTATION: 01/20/2019 CONSULTATION FOR: Dr. Chava Gordillo CONSULTANTS: Hospitalist group PRIMARY CARE PROVIDER: Dr. Clayton Pike M.D. This is a medical evaluation of Chrystal So who is seen postoperatively after undergoing right hip replacement. She had an uneventful surgery. She is seen in the postoperative area. She denies any chest pain, shortness of breath, or palpitations. PAST MEDICAL HISTORY: 1. Schizophrenia. 2. Hypertension. 3. Hypertensive heart disease. 4. History of recurrent deep vein thrombosis (DVT). 5. Inferior vena cava (IVC) filter in place. Was on Eliquis as an outpatient. 6. She had a methicillin-resistant Staphylococcus aureus (MRSA) infection in her left knee in the past. Is on suppressive doses of Bactrim. Followed by Dr. Patel from infectious disease. 7. History of mild anemia and leukopenia. Hematology follows her, and they think she might have an early myelodysplastic disorder, but she has declined a bone marrow biopsy. 8. She has further past history of an upper gastrointestinal (GI) bleed 2018. Had a colonoscopy and upper endoscopy that were unremarkable. 9. She has a thickened endometrial stripe on a CT of the abdomen and pelvis 2017. Had already had an endometrial biopsy 2013 that was negative. She is declining referral for further workup of this as well. 10. She gives a diagnosis of congestive heart failure (CHF) due to diastolic dysfunction and is on diuretic as outpatient. 11. She has had a lupus anticoagulant isolated previously. OUTPATIENT MEDICATIONS: - Bactrim DS tablets one twice a day - tramadol 50 mg twice a day as needed - Risperdal 30 mg twice a day - melatonin 5 mg at bedtime - senna twice a day - Amitiza 8 mcg twice a day for irritable bowel syndrome - Eliquis 5 mg twice a day - lovastatin 20 mg daily - Lasix 20 mg daily - ferrous gluconate 324 mg daily - Bacid twice a day - Fosamax 35 mg weekly - vitamin C, vitamin D, and calcium SOCIAL HISTORY: Lives with her . Is a smoker. Does not drink any alcohol. ADVANCE DIRECTIVES: DO NOT RESUSCITATE/DO NOT INTUBATE. No tube feeding but would request a trial of intravenous (IV) fluids, antibiotics, hospitalization. PHYSICAL EXAMINATION: VITAL SIGNS: Per flow sheet. She is alert, conversant in no distress. HEENT: Unremarkable. No jugular venous distention (JVD). LUNGS: Clear. HEART: Regular rate and rhythm. No murmur. ABDOMEN: Soft, nontender. No masses. No clubbing, cyanosis, or edema. IMPRESSION: 1. Status post right hip replacement. Treatment planned per orthopedics. 2. History of recurrent deep vein thrombosis (DVT) and pulmonary embolism. Would recommend restarting her Eliquis when okay with surgery, and will obviously also provide her with adequate postoperative DVT prophylaxis. Note she is status post IVC filter. 3. History of diastolic congestive heart failure. We will hold her furosemide for now until her volume status equilibrates postoperatively. 4. History of methicillin-resistant Staphylococcus aureus (MRSA) infection of her knee. She is on suppressive antibiotic therapy with Bactrim tablets twice a day, which she should continue. 5. History of schizophrenia. Continue her Risperdal 3 mg twice a day. 6. Irritable bowel syndrome (IBS). Hold her Amitiza for now. 7. Hyperlipidemia. Continue her statin therapy using simvastatin 20 mg daily. NOTE THE PATIENT'S ELIQUIS IS CURRENTLY ON HOLD UNTIL ORTHOPEDICS OKAYS THIS BEING RESTARTED. Her previous dose was 5 mg twice a day. This will need to be addressed on rounds tomorrow. Hospitalist group will be assuming her care tomorrow.
--- NOTE | 2019-01-20 20:12 | CR ---
DATE OF CONSULTATION: 01/20/2019 ADDENDUM: After dictating the consultation, I noted that the patient had been started on Xarelto 10 mg daily starting tomorrow by orthopedics. She is on Eliquis as an outpatient and tomorrow on rounds, a decision will have to be made about which anticoagulant to send her home on. She has previously taken Eliquis, and they should provide equivalent deep vein thrombosis (DVT) prophylaxis. Again, defer to discussions between rounding hospitalist and the orthopedic group tomorrow.
[2019-01-20 21:00] VITALS: BP 104/66
[2019-01-20 21:30] VITALS: BP 106/66
[2019-01-20] MEDS: BACTRIM 160MG/800MG DS TAB PO SCH (22:08)
[2019-01-20] MEDS: risperiDONE 3 MG TAB PO SCH (22:08)
[2019-01-20] MEDS: SENOKOT S TAB PO SCH (22:08)
[2019-01-20 22:30] VITALS: BP 104/62
[2019-01-20 23:30] VITALS: BP 105/66
[2019-01-21 02:00] VITALS: BP 98/62
[2019-01-21] MEDS ORDERED: VANCOMYCIN HCL 1,000 MG, VIAL MATE ADAPTER 1 EACH in D5W 250 ML IV SCH (03:00)
[2019-01-21 06:00] VITALS: BP 112/62
[2019-01-21] MEDS ORDERED: PERCOCET 5MG/325MG TAB PO PRN ×2 (06:15)
[2019-01-21] MEDS ORDERED: ONDANSETRON 4 MG TAB (S0181) PO PRN (06:15)
[2019-01-21 06:48] LABS: HEMOGLOBIN 9.3 g/dl (12.0-15.5); MEAN CORPUSCULAR HEMOGLOBIN 28.3 pg (27.0-33.0); MEAN CORPUSCULAR VOLUME 91.2 fl (80.0-96.0); PLATELET COUNT, AUTOMATED 180 10^3/uL (150-450); RED BLOOD COUNT 3.29 10^6/uL (4.00-5.40); WHITE BLOOD COUNT 3.4 10^3/uL (4.0-10.0)
[2019-01-21 07:14] LABS: BLOOD UREA NITROGEN 12 MG/DL (7-18); CALCIUM LEVEL 8.1 MG/DL (8.8-10.2); CARBON DIOXIDE LEVEL 28 MEQ/L (21-32); CHLORIDE LEVEL 104 MEQ/L (98-107); CREATININE FOR GFR 0.42 MG/DL (0.55-1.30); GLOMERULAR FILTRATION RATE > 60.0 (>39); GLUCOSE, FASTING 127 MG/DL (70-100); POTASSIUM SERUM 4.5 MEQ/L (3.5-5.1); SODIUM LEVEL 138 MEQ/L (136-145)
[2019-01-21] MEDS ORDERED: PERC5TAB12 PO (07:31)
[2019-01-21] MEDS: SENOKOT S TAB PO SCH (08:39)
[2019-01-21] MEDS: risperiDONE 3 MG TAB PO SCH (08:40)
[2019-01-21] MEDS: BACTRIM 160MG/800MG DS TAB PO SCH (08:40)
[2019-01-21] MEDS ORDERED: MULTIVITAMINS/MINERALS THERAP 1 TAB PO SCH (09:00)
[2019-01-21] MEDS ORDERED: MOM 30ML SUSPENSION UDC PO SCH (09:00)
[2019-01-21] MEDS ORDERED: MIRALAX *UNIT DOSE* 17GM PACKET PO SCH (09:00)
[2019-01-21] MEDS ORDERED: APIXABAN 5 MG TAB (ELIQUIS) PO SCH (09:00)
[2019-01-21] MEDS ORDERED: SIMVASTATIN 20 MG TAB PO SCH (09:00)
[2019-01-21] MEDS ORDERED: RIVAROXABAN 10 MG TAB (XARELTO) PO SCH (18:00)
--- NOTE | 2019-01-21 19:43 | RO ---
DATE OF PROCEDURE: 01/20/2019 PREPROCEDURE DIAGNOSIS: Painful right hip hemiarthroplasty. POSTPROCEDURE DIAGNOSIS: Painful right hip hemiarthroplasty. PROCEDURE: Revision right hip hemiarthroplasty to a total hip replacement using a size 56 Gription cup with a neutral 40 mm liner, and a 40 mm head with a 12.5 neck length. SURGEON: Dr. Bebeto Gordillo ASSISTANTS: Dr. Silver Brown as well as Mr. Vsau Wisdom ANESTHESIA: Spinal. COMPLICATIONS: None. ESTIMATED BLOOD LOSS: 300 mL. FINDINGS: She had no signs of any infection or purulence. There was some what appeared to be granulation tissue lining the depths of the acetabulum consistent with a painful hemiarthroplasty. DESCRIPTION OF PROCEDURE: Antibiotics were given intravenously preoperatively, vancomycin. She was then taken to the operating room where a spinal anesthetic was induced, and she was placed in the lateral decubitus position. The axillary roll was utilized, down leg well padded, especially the peroneal nerve. Ortega hip positioner device was utilized. Right hip area was then carefully prepped, draped in the usual sterile fashion, and then after appropriate time out, the previous scar was opened sharply with a scalpel blade and then Bovie cautery was used to coagulate the vessels down to the tensor fascia, which was then divided in line with the skin incision. We then reestablished the plane between the tensor fascia and the vastus lateralis. We then divided the gluteus medius in the anterior one-third, posterior two-third junction, carefully dissected off the proximal femur in a full-thickness fashion. The abductor muscles extending distally such that we could free up the proximal femur. The prosthesis was exposed and then we freed up the proximal femur as best as possible, then the hip was easily dislocatable and then the ball was removed. Synovectomy performed, labral excision performed, once we had adequate exposure of the acetabulum, which was done with the assistance of Dr. Silver Brown as well as Mr. Vasu Wisdom both. Without their assistance, I could not have done this operation because they needed to use a bone hook on the prosthesis to pull it posteriorly and superiorly such that I could get access to the acetabulum to ream around the proximal femur. Once I had adequate exposure, I then began reaming it with a 48 and advanced up to a 55. This was necessary in order to seat the cup adequately to have good bony rim. Once we had obtained good circumferential reaming of the acetabulum, the trial 56 fit nicely, thus I asked for the 56 Gription cup, that was placed using the extramedullary guide to be sure we had good reasonable estimate of the proper abduction and version. We copiously pulsatile lavage irrigated out the acetabulum and then placed the cup using the extramedullary alignment jig, then the central hole eliminator was placed, then the real plastic polyethylene liner was placed and seated properly. We then began a series of trials, beginning with a 1.5. The cup was in good position because she had good stability with flexion internal rotation and extension external rotation, that is there was no impingement. However, she had significant soft tissue telescoping, indicative that we needed length. I then trialed sequentially with a +5, with a +8.5 and then a 12.5 and that was felt to give her the best stability. Thus, we dried the trunnion and placed the 12.5 long neck with a 40 mm head for the largest head size to allow for the best stability. Again, this provided good stability with flexion internal rotation and extension external rotation with minimal soft tissue telescoping. We then copiously irrigated the hip joint once again. Then, we closed the deep soft tissue sleeve of the abductor muscles back anatomically with a series of interrupted #1 PDS sutures, irrigating between layers. We then closed the tensor fascia with a running Stratafix, irrigated between layers, closed the deep subdermal tissues with interrupted #2-0 PDS sutures, skin was closed with ally, covered by Adaptic and Optifoam dressing. Then, she was turned supine onto her bed and then transferred to the recovery room in stable condition. There were no intraoperative complications.
== END 2019-01-21 12:40 | DRG 467 ==
LOC: M OR 12:30 → M MS5PR 20:25
PROVIDERS: ADMIT Orthopaedic Surgery; ATTEND Orthopaedic Surgery
PROC: 0SPR0JZ Removal of Synthetic Substitute from Right Hip Joint, Femoral Surface, Open Approach (ICD-10-PCS; 2019-01-20)
PROC: 0SR902Z Replacement of Right Hip Joint with Metal on Polyethylene Synthetic Substitute, Open Approach (ICD-10-PCS; principal; 2019-01-20 15:45)
DX: T84.84XA Pain due to internal orthopedic prosthetic devices, implants and grafts, initial encounter (principal); I50.32 Chronic diastolic (congestive) heart failure; D68.62 Lupus anticoagulant syndrome; Y83.1 Surgical operation with implant of artificial internal device as the cause of abnormal reaction of the patient, or of later complication, without mention of misadventure at the time of the procedure; I11.0 Hypertensive heart disease with heart failure; M17.0 Bilateral primary osteoarthritis of knee; M16.11 Unilateral primary osteoarthritis, right hip; D64.9 Anemia, unspecified; Z66 Do not resuscitate; D72.819 Decreased white blood cell count, unspecified; G47.00 Insomnia, unspecified; K58.1 Irritable bowel syndrome with constipation; F20.9 Schizophrenia, unspecified; Z86.711 Personal history of pulmonary embolism; Z95.828 Presence of other vascular implants and grafts; Z86.14 Personal history of Methicillin resistant Staphylococcus aureus infection; Z79.891 Long term (current) use of opiate analgesic; Z79.01 Long term (current) use of anticoagulants; Z79.899 Other long term (current) drug therapy

== ENCOUNTER → 2019-01-23 | Outpatient (REF) | payer MEDICARE, BC, MEDICAID ==
[~2019-01-23] MED LIST changes: -LIDOCAINE 1% MDV 20ML VIAL SQ PRN; +PERC5TAB12 PO
[2019-01-23 13:43] LABS: HEMATOCRIT 24.2 % (36.0-47.0); HEMOGLOBIN 7.5 g/dl (12.0-15.5); MEAN CORPUSCULAR HEMOGLOBIN 27.8 pg (27.0-33.0); MEAN CORPUSCULAR VOLUME 89.6 fl (80.0-96.0); PLATELET COUNT, AUTOMATED 197 10^3/uL (150-450); WHITE BLOOD COUNT 4.6 10^3/uL (4.0-10.0)
[2019-01-23 13:58] LABS: BLOOD UREA NITROGEN 14 MG/DL (7-18); CALCIUM LEVEL 7.9 MG/DL (8.8-10.2); CARBON DIOXIDE LEVEL 27 MEQ/L (21-32); CHLORIDE LEVEL 103 MEQ/L (98-107); CREATININE FOR GFR 0.56 MG/DL (0.55-1.30); GLOMERULAR FILTRATION RATE > 60.0 (>39); GLUCOSE, FASTING 110 MG/DL (70-100); POTASSIUM SERUM 3.7 MEQ/L (3.5-5.1); SODIUM LEVEL 138 MEQ/L (136-145)
== END ==
PROVIDERS: ATTEND Internal Medicine
DX: D64.9 Anemia, unspecified (principal)

== ENCOUNTER 2019-01-28 13:15 | Outpatient (CLI) | payer MEDICARE, BC, MEDICAID ==
[~2019-01-28] VITALS: Ht 182.9 cm; Wt 65.0 kg
[~2019-01-28 13:15] MED LIST changes: +diphenhydrAMINE 25 MG CAP PO SCH
[2019-01-28 13:20] VITALS: BP 110/56
== END 2019-01-28 18:35 | disposition home or self-care (01) ==
LOC: M INFU 13:15
PROVIDERS: ATTEND Physician Assistant
DX: D64.89 Other specified anemias (principal); Z88.1 Allergy status to other antibiotic agents
CPT/HCPCS: 36430; P9016

== ENCOUNTER → 2019-01-29 | Outpatient (REF) | payer MEDICARE, BC, MEDICAID ==
[~2019-01-29] MED LIST changes: -diphenhydrAMINE 25 MG CAP PO SCH
[2019-01-29 09:22] LABS: HEMATOCRIT 31.4 % (36.0-47.0); HEMOGLOBIN 10.1 g/dl (12.0-15.5); MEAN CORPUSCULAR HEMOGLOBIN 28.8 pg (27.0-33.0); MEAN CORPUSCULAR HGB CONC 32.2 g/dl (32.0-36.5); MEAN CORPUSCULAR VOLUME 89.5 fl (80.0-96.0); PLATELET COUNT, AUTOMATED 274 10^3/uL (150-450); RED BLOOD COUNT 3.51 10^6/uL (4.00-5.40); WHITE BLOOD COUNT 4.8 10^3/uL (4.0-10.0)
[2019-01-29 09:36] LABS: BLOOD UREA NITROGEN 8 MG/DL (7-18); CALCIUM LEVEL 8.5 MG/DL (8.8-10.2); CARBON DIOXIDE LEVEL 26 MEQ/L (21-32); CHLORIDE LEVEL 109 MEQ/L (98-107); CREATININE FOR GFR 0.39 MG/DL (0.55-1.30); GLOMERULAR FILTRATION RATE > 60.0 (>39); GLUCOSE, FASTING 84 MG/DL (70-100); POTASSIUM SERUM 4.2 MEQ/L (3.5-5.1); SODIUM LEVEL 141 MEQ/L (136-145)
== END ==
PROVIDERS: ATTEND Internal Medicine
DX: D64.9 Anemia, unspecified (principal)

== ENCOUNTER → 2019-02-04 | Outpatient (REF) | payer MEDICARE, BC, MEDICAID ==
[2019-02-04 09:28] LABS: HEMATOCRIT 32.7 % (36.0-47.0); MEAN CORPUSCULAR HEMOGLOBIN 28.2 pg (27.0-33.0); MEAN CORPUSCULAR HGB CONC 30.6 g/dl (32.0-36.5); MEAN CORPUSCULAR VOLUME 92.4 fl (80.0-96.0); PLATELET COUNT, AUTOMATED 301 10^3/uL (150-450); RED BLOOD COUNT 3.54 10^6/uL (4.00-5.40); WHITE BLOOD COUNT 3.4 10^3/uL (4.0-10.0)
== END ==
PROVIDERS: ATTEND Internal Medicine
DX: D64.9 Anemia, unspecified (principal)

== ENCOUNTER → 2019-02-06 | Outpatient (REF) | payer MEDICARE, BC, MEDICAID ==
[2019-02-06 10:50] LABS: BLOOD UREA NITROGEN 10 MG/DL (7-18); CALCIUM LEVEL 8.2 MG/DL (8.8-10.2); CARBON DIOXIDE LEVEL 30 MEQ/L (21-32); CHLORIDE LEVEL 103 MEQ/L (98-107); CREATININE FOR GFR 0.47 MG/DL (0.55-1.30); GLOMERULAR FILTRATION RATE > 60.0 (>39); GLUCOSE, FASTING 90 MG/DL (70-100); POTASSIUM SERUM 3.9 MEQ/L (3.5-5.1); SODIUM LEVEL 140 MEQ/L (136-145)
== END ==
PROVIDERS: ATTEND Internal Medicine
DX: D64.9 Anemia, unspecified (principal)

== ENCOUNTER → 2019-02-11 | Outpatient (REF) | payer MEDICARE, BC, MEDICAID ==
[2019-02-11 08:46] LABS: HEMATOCRIT 35.4 % (36.0-47.0); HEMOGLOBIN 10.8 g/dl (12.0-15.5); MEAN CORPUSCULAR HEMOGLOBIN 28.2 pg (27.0-33.0); MEAN CORPUSCULAR HGB CONC 30.5 g/dl (32.0-36.5); MEAN CORPUSCULAR VOLUME 92.4 fl (80.0-96.0); PLATELET COUNT, AUTOMATED 283 10^3/uL (150-450); RED BLOOD COUNT 3.83 10^6/uL (4.00-5.40); WHITE BLOOD COUNT 3.3 10^3/uL (4.0-10.0)
[2019-02-11 09:09] LABS: BLOOD UREA NITROGEN 11 MG/DL (7-18); C REACTIVE PROTEIN QUANTITATIV 0.44 MG/DL (0.00-0.30); CALCIUM LEVEL 8.9 MG/DL (8.8-10.2); CARBON DIOXIDE LEVEL 28 MEQ/L (21-32); CHLORIDE LEVEL 105 MEQ/L (98-107); CREATININE FOR GFR 0.46 MG/DL (0.55-1.30); GLOMERULAR FILTRATION RATE > 60.0 (>39); GLUCOSE, FASTING 89 MG/DL (70-100); SODIUM LEVEL 141 MEQ/L (136-145)
[2019-02-11 09:23] LABS: ERYTHROCYTE SEDIMENTATION RATE 47 mm/hr (0-30)
== END ==
PROVIDERS: ATTEND Internal Medicine
DX: D64.9 Anemia, unspecified (principal)

== ENCOUNTER → 2019-04-24 | Outpatient (REF) | payer MEDICARE, BC, MEDICAID ==
[~2019-04-24] MED LIST changes: -MELA5TAB17 PO; +MELA5TAB31 PO
[2019-04-24 12:47] LABS: BLOOD UREA NITROGEN 13 MG/DL (7-18); C REACTIVE PROTEIN QUANTITATIV < 0.30 MG/DL (0.00-0.30); CALCIUM LEVEL 8.6 MG/DL (8.8-10.2); CARBON DIOXIDE LEVEL 27 MEQ/L (21-32); CHLORIDE LEVEL 107 MEQ/L (98-107); CREATININE FOR GFR 0.62 MG/DL (0.55-1.30); GLOMERULAR FILTRATION RATE > 60.0 (>39); GLUCOSE, FASTING 93 MG/DL (70-100); SODIUM LEVEL 141 MEQ/L (136-145)
[2019-04-24 15:46] LABS: BASO % 0.3 % (0.0-1.0); EOS % 0.6 % (0.0-3.0); HEMATOCRIT 36.9 % (36.0-47.0); HEMOGLOBIN 11.3 g/dl (12.0-15.5); MEAN CORPUSCULAR HEMOGLOBIN 27.8 pg (27.0-33.0); MEAN CORPUSCULAR HGB CONC 30.6 g/dl (32.0-36.5); MEAN CORPUSCULAR VOLUME 90.9 fl (80.0-96.0); MONO # 0.3 10^3/uL (0.0-0.8); MONO % 7.7 % (0.0-5.0); NEUTROPHILS # 1.9 10^3/uL (1.8-7.7); NEUTROPHILS % 59.1 % (36.0-66.0); PLATELET COUNT, AUTOMATED 218 10^3/uL (150-450); RED BLOOD COUNT 4.06 10^6/uL (4.00-5.40); WHITE BLOOD COUNT 3.3 10^3/uL (4.0-10.0)
[2019-04-24 16:10] LABS: ERYTHROCYTE SEDIMENTATION RATE 39 mm/hr (0-30)
== END ==
LOC: M LABDRAW1 09:49
PROVIDERS: ATTEND Internal Medicine Infectious Disease
DX: M00.062 Staphylococcal arthritis, left knee (principal)

== ENCOUNTER 2019-07-01 09:55 | Inpatient (IN) | payer MEDICARE, BC, MEDICAID ==
[~2019-07-01] VITALS: Ht 182.9 cm; Wt 60.2 kg
[2019-07-01 11:20] VITALS: BP 128/70
--- NOTE | 2019-07-01 12:17 | HPE ---
DATE OF ADMISSION: 07/01/2019 ATTENDING PHYSICIAN: Dr. Gordillo CHIEF COMPLAINT: Right hip pain status post right total hip arthroplasty 5 months ago. HISTORY: Chrystal as a 73-year-old female who presented to the [facility] for increase in her right-sided hip pain. The patient is 5 months status post right total hip arthroplasty conversion from a hemiarthroplasty. 2- 3 weeks ago she developed an increase in pain along the incision. States that that area started draining a couple of days ago and presented to have this looked after. CURRENT MEDICATIONS: - lovastatin 20 mg daily - Tylenol 325 mg every 4 hours as needed - bisacodyl suppositories 10 mg once daily - melatonin 5 mg every evening - lisinopril 10 mg daily - Lasix 20 mg daily - risperidone 3 mg twice daily - Bactrim DS 80/160 mg twice daily - Amitiza 8 mcg capsules twice daily - Eliquis 5 mg daily - tramadol 50 mg twice daily as needed for pain - senna laxative 25 mg as needed - vitamins C, D, calcium, multivitamin, and iron ALLERGIES: There are no known drug allergies. PAST MEDICAL HISTORY: Depression, osteoporosis, hypertension, hyperlipidemia, breast cancer, recurrent septic arthritis of the left knee, congestive heart failure due to diastolic dysfunction, chronic anemia, chronic leukopenia, history of recurrent deep venous thrombosis (DVT) with IVC filter, long-term anticoagulation, insomnia, constipation, history of upper GI bleed, schizophrenia, history of PE, history of thickened endometrial, positive lupus anticoagulant. PAST SURGICAL HISTORY: Arthroscopy left knee, incision and drainage (I D) with synovectomy, lumpectomy, right hip hemiarthroplasty and then subsequent conversion to total hip arthroplasty. SOCIAL HISTORY: The patient does not use tobacco or alcohol. She does live at home with her . REVIEW OF SYSTEMS: The patient denies fevers, chills, nausea, vomiting or diarrhea. She denies any current chest pain or shortness of breath. She does have quite a bit of the hip pain with ambulation. PHYSICAL EXAMINATION: General: Well-nourished, well-developed female who appears to be in no apparent distress. She is alert and oriented times three. Vital signs: Blood pressure 131/84, heart rate 62, respirations 10, height 68 inches, weight 131 pounds, temperature 97.9. Cardiovascular: Patient has 2+ reflexes in the bilateral radial and dorsalis pedis pulses. Pulmonary: Respirations are normal. Musculoskeletal: Right hip reveals an approximately 2 x 3 cm round purplish nodule along the mid surgical scar. There is surrounding tenderness to palpation without erythema or warmth. There is mild pain at the hip with range of motion testing. Otherwise extremity is warm and well perfused. She is neurovascularly intact distally. IMPRESSION: Right hip granuloma along the surgical scar with concern for hip infection in a patient status post total hip arthroplasty. PLAN: The patient will be admitted to hospitalist care. I did consult with Dr. Lawrence. A consult will be entered for infectious disease and Dr. Lawrence said that the hospitalist would take care of that consultation. A stat CBC, CRP and ESR will be ordered. We will also order a stat fluoroscope guided right hip joint aspiration with a stat joint fluid analysis, gram stain and culture. The patient will be nothing by mouth. Activity as tolerated. Routine vitals. Dressing changes as needed. Dr. Gordillo will see the patient later on today to discuss treatment plan after laboratory results obtained. EBONIE
[2019-07-01 14:00] VITALS: BP 110/52
--- NOTE | 2019-07-01 14:21 | CR.PDOC ---
General Date of Consultation: Jul 01, 2019 Referring Provider: Bebeto Gordillo Attending Physician: VAISHALI REY MD Consultation REASON FOR CONSULTATION/CHIEF COMPLAINT: Right hip drainage. HISTORY OF PRESENT ILLNESS: 73-year-old female with past medical history of schizophrenia, osteoporosis, hypertension, breast cancer, recurrent septic arthritis of the left knee, and DVT status post IVC filter (on Eliquis), who presents from her orthopedics office for suspected right hip infection. Medicine team consulted to manage medical comorbidities and possible infection. Patient underwent right total hip replacement back in December 2018. She was doing well up until about 3-4 weeks ago when she started noticing slight swelling and pain in her right hip joint; she started noticing fluid drainage from incision site recently and that's why she went to the orthopedics office. She denies any recent fever. She is weightbearing on the leg, but reports pain with ambulation. She has a history of schizophrenia, does not report any suicidal or homicidal ideation at this time. She has no other complaints at this time. She denies shortness of breath, chest pain, abdominal pain, nausea, vomiting, diarrhea or constipation. 10 point review of system was negative except for above ALLERGIES: Please see below. HOME MEDICATIONS: Please see below. PAST MEDICAL HISTORY: 1. Schizophrenia. 2. DVT. 3. Osteoporosis. 4. Hypertension. 5. Hyperlipidemia. 6. Septic arthritis of left knee. 7. GI bleed PAST SURGICAL HISTORY: 1. Right total hip arthroplasty 2. Left knee arthroscopy. 3. Lumpectomy FAMILY HISTORY: Family history positive for breast cancer in mother SOCIAL HISTORY: Marital status and/or living arrangements: Yes Tobacco use:Quit 40 years ago ETOH: Rarely PHYSICAL EXAMINATION: VITAL SIGNS: Please see below. GENERAL APPEARANCE: No distress. HEENT:. Atraumatic, normocephalic, moist mucous membranes. RESPIRATORY:, Clear to auscultation, no wheezing. CARDIOVASCULAR:. S1, S2, no murmurs appreciated. ABDOMEN:, Soft, nontender, nondistended, positive bowel sounds. EXTREMITIES: Right hip pain with movement. NEUROLOGICAL:, Alert and oriented 3, no focal deficits. PSYCHIATRIC: Calm, no suicidal or homicidal ideation at this time. LABORATORY DATA: Please see below. ASSESSMENT/PLAN: 1. Suspected right hip infection. Status post right total hip replacement in December 2018 Swelling and fluid drainage for the past few days, afebrile. Case discussed with IR and orthopedic surgeon. Ultrasound-guided IR drainage ordered. Blood cultures ordered, empiric antibiotics started, and ID consulted. 2. Schizophrenia. Stable. Continue home medication. 3. DVT. Status post IVC filter. Hold Eliquis 4. Hypertension. Continue home meds with hold parameters. 5. Hyperlipidemia. Continue home lovastatin. Recommend DVT prophylaxis when okay with primary team. Patient has no labs at present this time, stat labs are pending, will address when results are back. Vital Signs/I&O Vital Signs Date Time Temp Pulse Resp B/P (MAP) Pulse Ox O2 Delivery O2 Flow Rate FiO2 07/01/19 11:20 97.9 75 20 128/70 (89) 99 Allergies Coded Allergies: cefazolin (Verified Allergy, Intermediate, rash, 12/23/18) Home Medications Scheduled Alendronate Sodium (Alendronate Sodium) 35 Mg Tab, 35 MG PO QWEEK, (Reported) SATURDAYS Apixaban (Eliquis) 5 Mg Tab, 5 MG PO BID, #60 Ascorbic Acid (Vitamin C) 500 Mg Tab, 500 MG PO DAILY, (Reported) Bacillus Coagulans (Bacid with Lactospore) 1 Cap Cap, 1 CAP PO BID, (Reported) Calcium Carbonate (Calcium) 600 Mg Tab, 1 TAB PO DAILY, (Reported) Cholecalciferol (Vitamin D3) (Vitamin D3) 1,000 Unit Tab, 1,000 UNIT PO DAILY, (Reported) Ferrous Gluconate (Ferrous Gluconate) 324 Mg Tab, 324 MG PO BID, (Reported) TAKES 0800/1400 Furosemide (Lasix) 20 Mg Tab, 20 MG PO DAILY, (Reported) TAKES AT 1400 Lovastatin (Lovastatin) 20 Mg Tab, 20 MG PO DAILY, (Reported) TAKES AT NOON Lubiprostone (Amitiza) 8 Mcg Cap, 8 MCG PO BID, (Reported) Melatonin (Melatonin) 5 Mg Tab, 5 MG PO QHS, (Reported) Multivitamins (Thera M Plus Tablet) 1 Tab Tab, 1 TAB PO DAILY, (Reported) Risperidone (Risperidone) 3 Mg Tab, 3 MG PO BID, (Reported) TAKES AT 0800/2000 Sennosides/Docusate Sodium (Senna Plus Tablet) 1 Tab Tab, 2 TAB PO BID, (Reported) Sulfamethoxazole/Trimethoprim (Bactrim Ds Tablet) 1 Tab Tab, 1 TAB PO BID, (Reported) TAKES AT NOON/2000 Scheduled PRN Acetaminophen (Tylenol Arthritis) 650 Mg Tab, 650 MG PO Q8H PRN for PAIN, (Reported) Oxycodone HCl/Acetaminophen (Percocet 5-325 mg Tablet) 1 Each Tablet, 1 TAB PO Q4H PRN for PAIN, #30 VAISHALI REY MD Jul 01, 2019 14:21
[2019-07-01 14:48] LABS: HEMATOCRIT 35.5 % (36.0-47.0); HEMOGLOBIN 10.9 g/dl (12.0-15.5); MEAN CORPUSCULAR HEMOGLOBIN 26.8 pg (27.0-33.0); MEAN CORPUSCULAR HGB CONC 30.7 g/dl (32.0-36.5); MEAN CORPUSCULAR VOLUME 87.2 fl (80.0-96.0); PLATELET COUNT, AUTOMATED 204 10^3/uL (150-450); RED BLOOD COUNT 4.07 10^6/uL (4.00-5.40); WHITE BLOOD COUNT 4.7 10^3/uL (4.0-10.0)
[2019-07-01 15:01] LABS: INR 1.56; PROTHROMBIN TIME 18.4 SECONDS (11.8-14.0)
[2019-07-01 15:02] LABS: PARTIAL THROMBOPLASTIN TIME 51.6 SECONDS (25.0-38.4)
[2019-07-01 15:10] LABS: ALBUMIN 3.1 GM/DL (3.2-5.2); ALT/SGPT 16 U/L (12-78); BILIRUBIN,TOTAL 0.5 MG/DL (0.2-1.0); BLOOD UREA NITROGEN 14 MG/DL (7-18); C REACTIVE PROTEIN QUANTITATIV 2.41 MG/DL (0.00-0.30); CALCIUM LEVEL 9.2 MG/DL (8.8-10.2); CARBON DIOXIDE LEVEL 30 MEQ/L (21-32); CHLORIDE LEVEL 105 MEQ/L (98-107); CREATININE FOR GFR 0.45 MG/DL (0.55-1.30); GLOMERULAR FILTRATION RATE > 60.0 (>39); GLUCOSE, FASTING 87 MG/DL (70-100); POTASSIUM SERUM 3.7 MEQ/L (3.5-5.1); SODIUM LEVEL 140 MEQ/L (136-145); TOTAL PROTEIN 6.8 GM/DL (6.4-8.2)
[2019-07-01 15:14] LABS: ERYTHROCYTE SEDIMENTATION RATE 56 mm/hr (0-30)
[2019-07-01] MEDS ORDERED: LIDOCAINE 1% MDV 20ML VIAL As Ordered ONE (15:20)
[2019-07-01] MEDS ORDERED: metroNIDAZOLE 500 MG in IV 1 EA IV SCH (16:00)
[2019-07-01] MEDS: NS 1,000 ML IV SCH (16:53)
[2019-07-01] MEDS ORDERED: ROPI0.5T PO (17:01)
[2019-07-01] MEDS ORDERED: ELIQ5TAB PO (17:01)
--- NOTE | 2019-07-01 17:16 | REP ---
ULTRASOUND RIGHT HIP: Real-time sonographic evaluation of the right hip soft tissues performed. The patient has fluid draining from the skin. However, the soft tissues surrounding the hip demonstrate no definite fluid collection. No fluid is seen in the hip joint itself. There is surrounding heterogeneous echotexture throughout the anterior and lateral soft tissues adjacent to the hip joint. Etiology is uncertain. The areas was biopsied today under ultrasound guidance. Differential diagnosis would include postsurgical hematoma or fibrosis or fat necrosis. Electronically Signed by Shaheen Keith MD 07/02/2019 06:09 P
[2019-07-01] MEDS ORDERED: AZTREONAM 2 GM in D5W MINI-BAG PLUS 50 ML IV SCH (19:00)
[2019-07-01] MEDS ORDERED: HEPARIN SOD (PORCINE) 5000 UNITS/ML VIAL SQ SCH (21:00)
[2019-07-01 22:00] VITALS: BP 108/61
[2019-07-02] MEDS: NS 1,000 ML IV SCH ×2 (04:59→16:50)
[2019-07-02 06:00] VITALS: BP 110/60
--- NOTE | 2019-07-02 08:40 | CR ---
DATE OF CONSULTATION: 07/01/[address] MCPHERSON REASON FOR CONSULTATION: Evaluation of right hip infection status post right total hip arthroplasty in December 2018. HISTORY OF PRESENT ILLNESS: Chrystal is a 73-year-old female well known to me from previous hospitalization a year ago with chronic osteomyelitis of the left knee and recurrent septic arthritis. The patient had three separate episodes of methicillin-sensitive Staphylococcus aureus (MSSA) infection of the left knee in December, February and April 2018. The patient remained on intravenous (IV) antibiotics followed by oral antibiotics up until April 2019 with Bactrim double strength. The patient was adamant that she wanted to have a hip replacement done and she underwent a right total hip arthroplasty on 01/20/2019 because she could not walk without having the surgery done knowing well that she was at increased risk of infection due to recurrent infection of the left knee with MSSA. 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 She developed about 2 weeks prior to admission increasing pain with a large blister underneath the right hip incision. She went to see her primary care provider, Catracho Quick, who incised it and sent it for culture, the results are not available to us. They were sent to [facility]. She was sent to be evaluated by orthopedic surgery who had done the surgery and she was sent to interventional radiology where the hip was aspirated and sent for pathology and culture. PAST MEDICAL HISTORY: Significant for depressive disorder, osteoporosis, hypertension, hyperlipidemia, breast cancer, recurring septic arthritis of the left knee with MSSA, congestive heart failure due to diastolic dysfunction, anemia of chronic disease, leukopenia, history of recurrent deep vein thrombosis (DVT) with inferior vena cava (IVC) filter, insomnia, constipation, upper GI bleed, schizophrenia, thickened endometrium, history of pulmonary embolus (PE) with positive lupus anticoagulant. PAST SURGICAL HISTORY: Arthroscopy of the left knee, irrigation and debridement (I and D) and three different surgeries done for the left knee, lumpectomy, right hemiarthroplasty 12/27/2018. SOCIAL HISTORY: She denies alcohol or tobacco use. She lives with her at home. She was at the [facility] for at least 3-4 months last year for the left knee infection and refuses adamantly to go back there. REVIEW OF SYSTEMS: Denies any fever, chills. No nausea, vomiting or diarrhea. No abdominal pain. No fever. No chest pain or shortness of breath. Some pain in the right hip which has good range of motion. PHYSICAL EXAMINATION: Thin lady in no acute distress. Heart: Normal S1 and S2. No murmurs, rubs or gallops. Lungs: A few exterior wheezes with good air entry. No crackles. Abdomen: Soft, nontender. No visceromegaly. Extremities: No clubbing, cyanosis or edema. Left knee with well healed scar with no evidence of infection. Right hip wound measuring about 10 cm with granulation tissue sticking out of the wound with purplish discoloration. No purulent discharge, just bloody discharge. Hip range of motion with flexion about 90 degrees, abduction 30 degrees. IMPRESSION: 73-year-old female with a history of chronic osteomyelitis of the left knee with MSSA a year ago who is status post right hip arthroplasty who has developed a postoperative wound infection with a granuloma and probably a chronic sinus tract. Cultures sent by her primary care provider are not available to us. The patient will be taken to the operating room (OR) tomorrow for irrigation and debridement and intraoperative cultures. At this time, will hold off on giving her any antibiotics. She is not septic. PLAN Will discontinue Azactam and IV Flagyl these are not appropriate antibiotics for joint infection and wait for ATBX post op until cultures are obtained Please call [facility] and try to obtain cultures from primary care office, Catracho Quick. Postoperatively, the patient can be treated with IV vancomycin and meropenem while waiting for results of culture. The patient refuses to be on home IV antibiotic and therefore will discuss pros and cons of home IV antibiotics versus oral. The patient will probably need chronic suppressive therapy for life. EBONIE
[2019-07-02] MEDS: MULTIVITAMINS/MINERALS THERAP 1 TAB PO SCH (09:19)
[2019-07-02] MEDS: ASCORBIC ACID 500 MG TAB PO SCH (09:19)
[2019-07-02] MEDS: FERROUS GLUCONATE 324 MG TAB PO SCH ×2 (09:19→21:08)
[2019-07-02] MEDS: risperiDONE 3 MG TAB PO SCH ×2 (09:20→21:08)
[2019-07-02] MEDS: VITAMIN D 1,000 INTERNATIONAL UNITS TABLET PO SCH (09:20)
[2019-07-02] MEDS: rOPINIRole 0.25 MG TAB(REQUIP) PO SCH ×2 (12:31→21:07)
[2019-07-02] MEDS: SIMVASTATIN 20 MG TAB PO SCH (12:31)
[2019-07-02] MEDS ORDERED: CLINDAMYCIN INJ 900MG/6ML VIAL As Ordered ONE ×2 (13:57→13:58)
[2019-07-02 14:00] VITALS: BP 118/66
--- NOTE | 2019-07-02 16:05 | IPNPDOC ---
Date Seen The patient was seen on 07/02/19. Progress Note HISTORY OF PRESENT ILLNESS: 73-year-old female with past medical history of schizophrenia, osteoporosis, hypertension, breast cancer, recurrent septic a rthritis of the left knee, and DVT status post IVC filter (on Eliquis), who presents from her orthopedics office for suspected right hip infection. Medicine team consulted to manage medical comorbidities and possible infection. Patient underwent right total hip replacement back in December 2018. She was doing well up until about 3-4 weeks ago when she started noticing slight swelling and pain in her right hip joint; she started noticing fluid drainage from incision site recently and that's why she went to the orthopedics office. She denies any recent fever. She is weightbearing on the leg, but reports pain with ambulation. She has a history of schizophrenia, does not report any suicidal or homicidal ideation at this time. She has no other complaints at this time. She denies shortness of breath, chest pain, abdominal pain, nausea, vomiting, diarrhea or constipation. 07/02/19 No acute events overnight, status post IR drainage yesterday, currently comfortable, without complaints at this time, denies shortness of breath, chest pain, abdominal pain, nausea, vomiting, diarrhea, constipation. 10 point review of system was negative except for above ALLERGIES: Please see below. HOME MEDICATIONS: Please see below. PHYSICAL EXAMINATION: VITAL SIGNS: Please see below. GENERAL APPEARANCE: No distress. HEENT:. Atraumatic, normocephalic, moist mucous membranes. RESPIRATORY:, Clear to auscultation, no wheezing. CARDIOVASCULAR:. S1, S2, no murmurs appreciated. ABDOMEN:, Soft, nontender, nondistended, positive bowel sounds. EXTREMITIES: Right hip pain with movement. NEUROLOGICAL:, Alert and oriented 3, no focal deficits. PSYCHIATRIC: Calm, no suicidal or homicidal ideation at this time. LABORATORY DATA: Please see below. ASSESSMENT/PLAN: 1. Suspected right hip infection. Status post right total hip replacement in December 2018 Status post IR drainage yesterday Plan for surgery today Cultures and studies from IR drainage pending. Holding antibiotics until after surgery, ID following 2. Schizophrenia. Stable. Continue home medication. 3. DVT. Status post IVC filter. Hold Eliquis 4. Hypertension. Continue home meds with hold parameters. 5. Hyperlipidemia. Continue home lovastatin. Recommend DVT prophylaxis when okay with primary team. VS, I&O, 24H, Fishbone Vital Signs/I&O Vital Signs Date Time Temp Pulse Resp B/P (MAP) Pulse Ox O2 Delivery O2 Flow Rate FiO2 07/02/19 14:00 98.1 66 19 118/66 (83) 98 I&O- Last 24 Hours up to 6 AM 07/02/19 06:00 Intake Total 1520 ml Output Total 200 ml Balance 1320 ml Laboratory Data Microbiology Microbiology 07/01/19 Blood Culture, Received Pending 07/01/19 Anaerobic Culture, Received Pending 07/01/19 Gram Stain - Final, Resulted 07/01/19 Abscess Culture - Preliminary, Resulted Staphylococcus Aureus 07/01/19 Blood Culture - Preliminary, Resulted No growth after 24 hours . All specim... VAISHALI REY MD Jul 02, 2019 15:58
--- NOTE | 2019-07-02 16:14 | REP ---
ULTRASOUND-GUIDED RIGHT HIP ASPIRATION The procedure was performed under the direct supervision of Dr. Keith. The risks and benefits of the procedure were explained to the patient and informed consent was obtained. Preliminary sonography demonstrates what appeared to be fluid extending from the right hip prosthesis to the skin surface. The skin was prepped and draped in a sterile fashion. 1% lidocaine was used as a local anesthetic. Using ultrasound guidance a 5-Maori centesis catheter was inserted, however, no fluid was able to be withdrawn. The a 17/18 gauge coaxial needle biopsy system was then inserted into the collection. Again no fluid was able to be withdrawn. Nine core biopsy samples were obtained and sent to lab for analysis. The patient tolerated the procedure well and there were no immediate complications. After the appropriate amount of monitored convalescence the patient was discharged from the department. Electronically Signed by RJ Key 07/01/2019 04:49 P Electronically Signed by Shaheen Keith MD 07/02/2019 04:04 P
--- NOTE | 2019-07-02 17:27 | REP ---
RIGHT HIP, TWO VIEWS: Two views of the right hip are performed and compared to prior study of 01/20/2019. There is a total hip prosthesis in good position. Osseous structures are intact and well aligned and appear unchanged compared to the prior study. Mild soft-tissue calcification in the right gluteal region is also unchanged. No acute abnormalities are visualized. Electronically Signed by Shaheen Keith MD 07/02/2019 06:45 P
[2019-07-02] MEDS ORDERED: fentaNYL 250 MCG/5 ML INJECTION (J3010) As Ordered ONE (17:30)
[2019-07-02] MEDS ORDERED: PROPOFOL 500 MG/50 ML VIAL As Ordered ONE (17:30)
[2019-07-02] MEDS ORDERED: dexameTHASONE 4 MG/ML 1ML VIAL (J1100) As Ordered ONE (17:30)
[2019-07-02] MEDS ORDERED: ONDANSETRON 4MG/2ML VIAL (J2405) As Ordered ONE (17:30)
[2019-07-02] MEDS ORDERED: ROCURONIUM BROMIDE 50 MG/5 ML VIAL As Ordered ONE (17:30)
[2019-07-02] MEDS ORDERED: MIDAZOLAM INJ 2 MG/2 ML VIAL (J2250) As Ordered ONE (17:30)
[2019-07-02] MEDS ORDERED: PROPOFOL 200 MG/20 ML VIAL As Ordered ONE (17:39)
[2019-07-02] MEDS ORDERED: TOBRAMYCIN SULF 1.2 GM VIAL As Ordered ONE (18:12)
[2019-07-02] MEDS ORDERED: VANCOMYCIN 1000 MG/20 ML VIAL (J3370) As Ordered ONE ×2 (18:12→19:17)
[2019-07-02] MEDS ORDERED: ePHEDrine SULFATE 25 MG/5 ML(5MG/ML) SYRINGE As Ordered ONE ×2 (18:42→19:15)
[2019-07-02] MEDS ORDERED: SUGAMMADEX SODIUM 500 MG/5 ML VIAL (BRIDION) As Ordered ONE (19:17)
[2019-07-02] MEDS ORDERED: NORCO, ANEXSIA 5/325MG TABLET (HYDROcodone/ACETAMINOPHEN) PO PRN ×2 (19:45)
[2019-07-02] MEDS ORDERED: MORPHINE 4 MG/ML 1ML VIAL/SYRINGE (J2270) IV PRN (19:45)
[2019-07-02] MEDS ORDERED: fentaNYL 100 MCG/2 ML INJECTION (J3010) IV PRN (20:15)
[2019-07-02] MEDS ORDERED: LR 1,000 ML IV SCH (20:15)
[2019-07-02] MEDS ORDERED: ONDANSETRON 4MG/2ML VIAL (J2405) IV PRN (20:15)
[2019-07-02 20:45] VITALS: BP 156/80
[2019-07-02 21:15] VITALS: BP 156/93
[2019-07-02 21:45] VITALS: BP 138/75
[2019-07-02 23:00] VITALS: BP 121/61
[2019-07-03] VITALS (8 sets, daily range): BP systolic 98–141; BP diastolic 57–83
[2019-07-03] MEDS: NS 1,000 ML IV SCH ×2 (04:30→20:53)
[2019-07-03 06:35] LABS: HEMATOCRIT 32.7 % (36.0-47.0); HEMOGLOBIN 9.9 g/dl (12.0-15.5); MEAN CORPUSCULAR HEMOGLOBIN 26.6 pg (27.0-33.0); MEAN CORPUSCULAR HGB CONC 30.3 g/dl (32.0-36.5); MEAN CORPUSCULAR VOLUME 87.9 fl (80.0-96.0); PLATELET COUNT, AUTOMATED 165 10^3/uL (150-450); RED BLOOD COUNT 3.72 10^6/uL (4.00-5.40)
[2019-07-03 07:01] LABS: ALBUMIN 2.5 GM/DL (3.2-5.2); ALT/SGPT 12 U/L (12-78); BILIRUBIN,TOTAL 0.5 MG/DL (0.2-1.0); BLOOD UREA NITROGEN 9 MG/DL (7-18); C REACTIVE PROTEIN QUANTITATIV 1.24 MG/DL (0.00-0.30); CALCIUM LEVEL 8.2 MG/DL (8.8-10.2); CARBON DIOXIDE LEVEL 27 MEQ/L (21-32); CHLORIDE LEVEL 110 MEQ/L (98-107); CREATININE FOR GFR 0.38 MG/DL (0.55-1.30); GLOMERULAR FILTRATION RATE > 60.0 (>39); GLUCOSE, FASTING 99 MG/DL (70-100); POTASSIUM SERUM 3.8 MEQ/L (3.5-5.1); SODIUM LEVEL 142 MEQ/L (136-145); TOTAL PROTEIN 5.8 GM/DL (6.4-8.2)
[2019-07-03 07:05] LABS: ERYTHROCYTE SEDIMENTATION RATE 51 mm/hr (0-30)
[2019-07-03] MEDS ORDERED: MIRALAX *UNIT DOSE* 17GM PACKET PO SCH (09:00)
[2019-07-03] MEDS: MULTIVITAMINS/MINERALS THERAP 1 TAB PO SCH (09:21)
[2019-07-03] MEDS: VITAMIN D 1,000 INTERNATIONAL UNITS TABLET PO SCH (09:21)
[2019-07-03] MEDS: MOM 30ML SUSPENSION UDC PO SCH (09:21)
[2019-07-03] MEDS: risperiDONE 3 MG TAB PO SCH ×2 (09:21→20:53)
[2019-07-03] MEDS: SENOKOT S TAB PO SCH ×2 (09:21→20:52)
[2019-07-03] MEDS: FERROUS GLUCONATE 324 MG TAB PO SCH ×2 (09:21→20:53)
[2019-07-03] MEDS: VANCOMYCIN HCL 1,000 MG, VIAL MATE ADAPTER 1 EACH in D5W 250 ML IV SCH ×2 (09:21→20:53)
[2019-07-03] MEDS: ASCORBIC ACID 500 MG TAB PO SCH (09:21)
--- NOTE | 2019-07-03 09:55 | RO ---
DATE OF PROCEDURE: 07/02/2019 PREPROCEDURE DIAGNOSIS: Right hip wound infection. POSTPROCEDURE DIAGNOSIS: Right hip wound infection. PROCEDURE: 1. Right hip wound irrigation and debridement. 2. Right hip mass excision. 3. Right hip wound placement of antibiotic absorbable beads. 4. Right hip wound application of a wound Vac. SURGEON: Dr. Kyaw Gordillo SOLO TRUCK DRIVER: None. ANESTHESIA: General endotracheal tube. COMPLICATIONS: None. SPECIMENS: 1. Aerobic and anaerobic cultures and sensitivities. 2. Right hip mass sent for permanent pathologic specimen. 3. Right hip mass sent for culture and sensitivity. FINDINGS: She had granulation tissue emanating out from the wound and upon exploration it penetrated down deep to the iliotibial band and into the region of the gluteus medius and iliotibial band muscle plane. It did not seem to penetrate deep into the hip joint. It seemed to involve mainly muscle tissues, as if there was an abscess or mild necrosis that formed and then the abscess expanded superficially out through the skin as opposed to dissecting deep. This mass was excised, divided in two, one sent for formal culture and one sent for permanent pathologic specimen, in addition cultures were obtained. The wound was filled with antibiotic beads and then closed the portion of the IT band that we had surgically opened, as well as the skin, and then the wound Vac was used to cover. DESCRIPTION OF PROCEDURE: After a successful general endotracheal tube anesthetic was established, she was placed in lateral decubitus position, right hip up on a coelho bag. The right hip area was then carefully scrubbed, prepped and draped in the usual sterile fashion. Then after an appropriate time out, the area around the inflammatory granular mass was surgically opened distally and proximally down to the tensor fascia. I did excise the skin edges around this granulation tissue mass. I reestablished the dermal plane above the iliotibial band and then reestablished the plane beneath the iliotibial band at the layer of the deep fascia. This mass seemed to have a stalk that ended at the layer where there was muscular tissue, basically what appeared to be either the gluteus medius or the tensor fascia ramiro. With probing and finger dissection, I could not penetrate deep into the hip joint proper. This stalk was excised and then the specimen split in two, one was put on formalin and one was put in a specimen cup for microbiology and then swabs were taken in the depths of the wound. Copious amount of pulsatile lavage irrigant solution with Cleocin was instilled into the wound. 1 gram of vancomycin was then given at this point in the procedure. The antibiotic beads were mixed on the back table by the poultry field service technician, containing 1.2 grams of tobramycin and 2 grams of vancomycin. Then the beads were placed in the depths of the wound. The iliotibial band that I had opened surgically was closed proximally and distally. Then the central area where the mass emanated from was left open. Subdermal tissues were closed loosely with interrupted #2-0 PDS suture. Annabelle were used in the surgical skin incision, but the area where the mass had broken through the skin was left open and I covered the entire wound with a black wound Vac. This was placed on low suction. Then she was turned supine and then awakened from general endotracheal anesthesia after having tolerated the procedure well, and then was transferred to the recovery room in stable condition. There were no intraoperative complications. EBONIE
[2019-07-03] MEDS ORDERED: VANCOMYCIN HCL 500 MG in D5W MINI-BAG PLUS 100 ML IV ONE (10:00)
[2019-07-03] MEDS: SIMVASTATIN 20 MG TAB PO SCH (11:12)
[2019-07-03] MEDS: rOPINIRole 0.25 MG TAB(REQUIP) PO SCH ×2 (11:12→20:53)
[2019-07-03 11:28] LABS: VANCOMYCIN RANDOM 6.8 UG/ML
--- NOTE | 2019-07-03 19:11 | IPNPDOC ---
Date Seen The patient was seen on 07/03/19. 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 Medicine team consulted to manage medical comorbidities and possible infection. Patient underwent right total hip replacement back in December 2018. She was doing well up until about 3-4 weeks ago when she started noticing slight swelling and pain in her right hip joint; she started noticing fluid drainage from incision site recently and that's why she went to the orthopedics office. She denies any recent fever. She is weightbearing on the leg, but reports pain with ambulation. She has a history of schizophrenia, does not report any suicidal or homicidal ideation at this time. She has no other complaints at this time. She denies shortness of breath, chest pain, abdominal pain, nausea, vomiting, diarrhea or constipation. 07/02/19 No acute events overnight, status post IR drainage yesterday, currently comfortable, without complaints at this time, denies shortness of breath, chest pain, abdominal pain, nausea, vomiting, diarrhea, constipation. 07/03/19 Pt stated that her right hip area pain is controlled with current meds. No new complaint PHYSICAL EXAMINATION: VITAL SIGNS: Please see below. GENERAL APPEARANCE: No distress. HEENT:. Atraumatic, normocephalic, moist mucous membranes. RESPIRATORY:, Clear to auscultation, no wheezing. CARDIOVASCULAR:. S1, S2, no murmurs appreciated. ABDOMEN:, Soft, nontender, nondistended, positive bowel sounds. EXTREMITIES: Right hip pain with movement. NEUROLOGICAL:, Alert and oriented 3, no focal deficits. PSYCHIATRIC: Calm, no suicidal or homicidal ideation at this time. LABORATORY DATA: reviewed ASSESSMENT/PLAN: 1. Suspected right hip infection. Status post right total hip replacement in December 2018 Status post IR drainage and wound vac placement Cultures and studies from IR drainage pending. antibiotics as per ID 2. Schizophrenia. Stable. Continue home medication. 3. DVT. Status post IVC filter. - DVT ppx and resuming of home med eliquis as per primary ortho team. 4. Hypertension. Continue home meds with hold parameters. 5. Hyperlipidemia. Continue home lovastatin. VS, I&O, 24H, Fishbone Vital Signs/I&O Vital Signs Date Time Temp Pulse Resp B/P (MAP) Pulse Ox O2 Delivery O2 Flow Rate FiO2 07/03/19 18:00 98.9 86 18 123/79 (94) 100 I&O- Last 24 Hours up to 6 AM 07/03/19 06:00 Intake Total 3280 ml Output Total 1975 ml Balance 1305 ml Laboratory Data 24H LABS Laboratory Tests 2 07/03/19 06:22: Nucleated Red Blood Cells % (auto) 0.0, Erythrocyte Sedimentation Rate 51H, Anion Gap 5L, Glomerular Filtration Rate > 60.0, Blood Urea Nitrogen 9, Creatinine 0.38L, Sodium Level 142, Potassium Level 3.8, Chloride Level 110H, Carbon Dioxide Level 27, Calcium Level 8.2L, Aspartate Amino Transf (AST/SGOT) 10, Alanine Aminotransferase (ALT/SGPT) 12, Alkaline Phosphatase 58, Total Bilirubin 0.5, Total Protein 5.8L, Albumin 2.5L, C-Reactive Protein, Quantitative 1.24H, Albumin/Globulin Ratio 0.76L, Random Vancomycin Level 6.8 CBC/BMP Laboratory Tests 07/03/19 06:22 Red Blood Count 3.72 L, Mean Corpuscular Volume 87.9, Mean Corpuscular Hemoglobin 26.6 L, Mean Corpuscular Hemoglobin Concent 30.3 L, Red Cell Distribution Width 14.9 H, Calcium Level 8.2 L, Aspartate Amino Transf (AST/SGOT) 10, Alanine Aminotransferase (ALT/SGPT) 12, Alkaline Phosphatase 58, Total Bilirubin 0.5, Total Protein 5.8 L, Albumin 2.5 L Microbiology Microbiology 07/02/19 Gram Stain - Final, Resulted 07/02/19 Wound Culture, Resulted Pending 07/02/19 Anaerobic Culture, Resulted Pending 07/01/19 Blood Culture - Preliminary, Resulted No Growth after 48 hours. All Specime... 07/01/19 Anaerobic Culture - Final, Complete 07/01/19 Gram Stain - Final, Complete 07/01/19 Abscess Culture - Final, Complete Staphylococcus Aureus 07/01/19 Blood Culture - Preliminary, Resulted No Growth after 48 hours. All Specime... YG NEWMAN MD Jul 03, 2019 19:11
--- NOTE | 2019-07-03 22:34 | IPN ---
DATE: 07/03/2019 Chrystal is doing well postoperatively. She had an I and D of her right hip. A wound vac was placed. The patient does not want to go home with a wound vac and does not want home IV antibiotics. She wants to go home tomorrow. She denies any fever or chills. No nausea, vomiting or diarrhea. She has minimal pain with movement. PHYSICAL EXAMINATION Heart: Normal S1, S2. No murmurs, rubs or gallops. Lungs are clear. No wheezes, rales or rhonchi. Abdomen is soft, nontender. No hepatosplenomegaly. Extremities: Trace edema of the right side. Right hip as a wound vac in place. Mild erythema around the wound. LABORATORY DATA White count is 3, hemoglobin 9.9, hematocrit 32.7 platelets 165. ESR 51, sodium of 142, potassium 3.8, chloride 110, bicarb 27, BUN 9, creatinine 0.38, glucose 99, calcium 8.2, CRP 1.24 down from 2.41, total protein 5.8, albumin 2.5, AST 10, ALT 22. Wound culture on 07/01 was positive for MSSA. Anaerobic culture is negative. Blood culture is negative times two. IMPRESSION 1. 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 The patient allergic to CEFAZOLIN. 2. History of depression. The patient is refusing adamantly about doing home IV antibiotic while going to rehab. Her has refused to do home IV antibiotics as well. PLAN Case discussed with Dr. Gordillo who understands that the patient refuses wound vac and home IV antibiotic. She understands that the risk is much higher of worsening hip infection without IV antibiotic. The recommendation will be 6 weeks of IV with by mouth rifampin. If the patient refuses to be on IV antibiotic we could give her dalbavancin if authorized by her insurance two or three doses 1.5 grams every 10-14 days. Will also add rifampin.
[2019-07-03] MEDS: RAMELTEON 8 MG TAB (ROZEREM) PO PRN (22:51)
[2019-07-04 01:59] VITALS: BP 130/63
[2019-07-04] MEDS: NS 1,000 ML IV SCH ×2 (05:43→16:06)
[2019-07-04 06:51] VITALS: BP 132/65
[2019-07-04 08:09] LABS: HEMATOCRIT 29.4 % (36.0-47.0); HEMOGLOBIN 9.1 g/dl (12.0-15.5); MEAN CORPUSCULAR HEMOGLOBIN 26.9 pg (27.0-33.0); PLATELET COUNT, AUTOMATED 173 10^3/uL (150-450); RED BLOOD COUNT 3.38 10^6/uL (4.00-5.40); WHITE BLOOD COUNT 3.2 10^3/uL (4.0-10.0)
[2019-07-04 08:28] LABS: ERYTHROCYTE SEDIMENTATION RATE 43 mm/hr (0-30)
[2019-07-04 08:31] LABS: C REACTIVE PROTEIN QUANTITATIV 0.76 MG/DL (0.00-0.30); VANCOMYCIN LEVEL TROUGH 12.7 UG/ML (10.0-20.0)
[2019-07-04] MEDS: MOM 30ML SUSPENSION UDC PO SCH (09:00)
[2019-07-04 09:11] LABS: CREATININE FOR GFR 0.39 MG/DL (0.55-1.30); GLOMERULAR FILTRATION RATE > 60.0 (>39)
[2019-07-04] MEDS: risperiDONE 3 MG TAB PO SCH ×2 (09:16→20:54)
[2019-07-04] MEDS: SENOKOT S TAB PO SCH ×2 (09:16→20:54)
[2019-07-04] MEDS: ASCORBIC ACID 500 MG TAB PO SCH (09:16)
[2019-07-04] MEDS: MULTIVITAMINS/MINERALS THERAP 1 TAB PO SCH (09:16)
[2019-07-04] MEDS: FERROUS GLUCONATE 324 MG TAB PO SCH ×2 (09:17→20:54)
[2019-07-04] MEDS: VITAMIN D 1,000 INTERNATIONAL UNITS TABLET PO SCH (09:20)
[2019-07-04] MEDS: VANCOMYCIN HCL 500 MG in D5W MINI-BAG PLUS 100 ML IV SCH ×2 (09:34→20:53)
[2019-07-04 10:00] VITALS: BP 120/68
[2019-07-04] MEDS: VANCOMYCIN HCL 750 MG, VIAL MATE ADAPTER 1 EACH in D5W 250 ML IV SCH ×2 (10:55→22:02)
[2019-07-04] MEDS: rOPINIRole 0.25 MG TAB(REQUIP) PO SCH ×2 (11:00→20:54)
[2019-07-04] MEDS: SIMVASTATIN 20 MG TAB PO SCH (11:00)
[2019-07-04 14:00] VITALS: BP 125/65
--- NOTE | 2019-07-04 14:30 | IPN ---
DATE: 07/04/2019 Chrystal seems to be doing well. She will be going home on Sunday without a wound Vac per her wishes. I have discussed the case with Dr. Gordillo who did not feel that the wound tracked down to the prosthetic hip and this was a superficial infection. She has had no fever or chills. No nausea, vomiting or diarrhea. No significant pain in the hip area. LABORATORY DATA White count is 3.2, hemoglobin 9.1, hematocrit 29.4, platelets 173. ESR 43 down from 56, creatinine 0.39, GFR more than 60, CRP 0.76 down from 2.4. Wound culture had methicillin-sensitive Staphylococcus aureus (MSSA) on 07/01/2019. Blood cultures were negative. The wound culture was from the ultrasound guided biopsy done but the operative culture was negative. IMPRESSION: Right hip wound infection without involvement of the prosthesis, status post debridement, on IV vancomycin and rifampin. The patient refused to go with the wound Vac at home or home IV antibiotics and therefore she will be transitioned to oral antibiotics upon discharge. Currently on IV vancomycin and rifampin. PLAN: Switch to by mouth Bactrim and rifampin on Sunday upon discharge. The patient is refusing the wound Vac. Follow up in my office in 2 weeks post discharge. EBONIE
--- NOTE | 2019-07-04 16:33 | IPNPDOC ---
Date Seen The patient was seen on 07/04/19. 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 Medicine team consulted to manage medical comorbidities and possible infection. Patient underwent right total hip replacement back in December 2018. She was doing well up until about 3-4 weeks ago when she started noticing slight swelling and pain in her right hip joint; she started noticing fluid drainage from incision site recently and that's why she went to the orthopedics office. She denies any recent fever. She is weightbearing on the leg, but reports pain with ambulation. She has a history of schizophrenia, does not report any suicidal or homicidal ideation at this time. She has no other complaints at this time. She denies shortness of breath, chest pain, abdominal pain, nausea, vomiting, diarrhea or constipation. 07/02/19 No acute events overnight, status post IR drainage yesterday, currently comfortable, without complaints at this time, denies shortness of breath, chest pain, abdominal pain, nausea, vomiting, diarrhea, constipation. 07/04/2019 No acute events overnight, comfortable in bed at this time, tolerating by mouth, minimal pain/discomfort right hip, wound VAC draining bloody fluid. Patient is adamant that she will not be discharged on wound VAC or IV antibiotics, the importance of IV antibiotics given the risk of infection and her history with recurrent septic arthritis was explained to the patient, she completely understands and continues to refuse IV antibiotics post discharge. 10 point review of system was negative except for above ALLERGIES: Please see below. HOME MEDICATIONS: Please see below. PHYSICAL EXAMINATION: VITAL SIGNS: Please see below. GENERAL APPEARANCE: No distress. HEENT:. Atraumatic, normocephalic, moist mucous membranes. RESPIRATORY:, Clear to auscultation, no wheezing. CARDIOVASCULAR:. S1, S2, no murmurs appreciated. ABDOMEN:, Soft, nontender, nondistended, positive bowel sounds. EXTREMITIES: Right hip with wound VAC in place, draining serosanguineous fluid. NEUROLOGICAL:, Alert and oriented 3, no focal deficits. PSYCHIATRIC: Calm, no suicidal or homicidal ideation at this time. LABORATORY DATA: Please see below. ASSESSMENT/PLAN: 1. R hip infection. Status post right total hip replacement in December 2018 Status post IR drainage and surgical washout with subsequent wound VAC placement. Cultures growing MSSA Continue Vancomycin/Rifampin Patient refusing wound vac/IV antibiotics post discharge, plan for discharge on Sunday w/ Bactrim/Rifampin. 2. Schizophrenia. Stable. Continue home medication. 3. DVT. Status post IVC filter. Holding Eliquis until Sunday as per Ortho 4. Hypertension. Continue home meds with hold parameters. 5. Hyperlipidemia. Continue home lovastatin. VS, I&O, 24H, Fishbone Vital Signs/I&O Vital Signs Date Time Temp Pulse Resp B/P (MAP) Pulse Ox O2 Delivery O2 Flow Rate FiO2 07/04/19 14:00 97.4 72 20 125/65 (85) 99 I&O- Last 24 Hours up to 6 AM 07/04/19 06:00 Intake Total 2610 ml Output Total 1075 ml Balance 1535 ml Laboratory Data 24H LABS Laboratory Tests 2 07/04/19 07:50: Nucleated Red Blood Cells % (auto) 0.0, Erythrocyte Sedimentation Rate 43H 07/04/19 07:51: Glomerular Filtration Rate > 60.0, C-Reactive Protein, Quantitative 0.76H, Vancomycin Level Trough 12.7 CBC/BMP Laboratory Tests 07/04/19 07:50 Red Blood Count 3.38 L, Mean Corpuscular Volume 87.0, Mean Corpuscular Hemoglobin 26.9 L, Mean Corpuscular Hemoglobin Concent 31.0 L, Red Cell Distribution Width 15.0 H 07/04/19 07:51 Microbiology Microbiology 07/02/19 Gram Stain - Final, Complete 07/02/19 Wound Culture - Final, Complete 07/02/19 Anaerobic Culture - Final, Complete 07/01/19 Blood Culture - Preliminary, Resulted No Growth after 48 hours. All Specime... 07/01/19 Anaerobic Culture - Final, Complete 07/01/19 Gram Stain - Final, Complete 07/01/19 Abscess Culture - Final, Complete Staphylococcus Aureus 07/01/19 Blood Culture - Preliminary, Resulted No Growth after 72 hours. All specime... VAISHALI REY MD Jul 04, 2019 16:31
[2019-07-04 22:00] VITALS: BP 123/62
[2019-07-05 06:00] VITALS: BP 130/78
[2019-07-05 08:04] LABS: HEMATOCRIT 33.2 % (36.0-47.0); HEMOGLOBIN 10.3 g/dl (12.0-15.5); MEAN CORPUSCULAR HEMOGLOBIN 26.8 pg (27.0-33.0); MEAN CORPUSCULAR VOLUME 86.2 fl (80.0-96.0); PLATELET COUNT, AUTOMATED 184 10^3/uL (150-450); RED BLOOD COUNT 3.85 10^6/uL (4.00-5.40); WHITE BLOOD COUNT 2.9 10^3/uL (4.0-10.0)
[2019-07-05] MEDS: SENOKOT S TAB PO SCH ×2 (08:20→20:23)
[2019-07-05] MEDS: MULTIVITAMINS/MINERALS THERAP 1 TAB PO SCH (08:20)
[2019-07-05] MEDS: risperiDONE 3 MG TAB PO SCH ×2 (08:20→20:22)
[2019-07-05] MEDS: ASCORBIC ACID 500 MG TAB PO SCH (08:20)
[2019-07-05] MEDS: VITAMIN D 1,000 INTERNATIONAL UNITS TABLET PO SCH (08:20)
[2019-07-05] MEDS: MOM 30ML SUSPENSION UDC PO SCH (08:21)
[2019-07-05] MEDS: FERROUS GLUCONATE 324 MG TAB PO SCH ×2 (08:21→20:23)
[2019-07-05 08:48] LABS: ERYTHROCYTE SEDIMENTATION RATE 52 mm/hr (0-30)
[2019-07-05 10:03] LABS: BLOOD UREA NITROGEN 8 MG/DL (7-18); C REACTIVE PROTEIN QUANTITATIV 0.61 MG/DL (0.00-0.30); CALCIUM LEVEL 8.3 MG/DL (8.8-10.2); CARBON DIOXIDE LEVEL 32 MEQ/L (21-32); CHLORIDE LEVEL 109 MEQ/L (98-107); CREATININE FOR GFR 0.48 MG/DL (0.55-1.30); GLOMERULAR FILTRATION RATE > 60.0 (>39); GLUCOSE, FASTING 139 MG/DL (70-100); SODIUM LEVEL 144 MEQ/L (136-145); VANCOMYCIN LEVEL TROUGH 14.1 UG/ML (10.0-20.0)
[2019-07-05] MEDS: VANCOMYCIN HCL 500 MG in D5W MINI-BAG PLUS 100 ML IV SCH ×2 (10:28→21:20)
--- NOTE | 2019-07-05 10:40 | PHACANCOPD ---
PHARMACY VANCOMYCIN DOSING Pt Demographics Demographics Patient Age:73 , Weight:60.200 , Gender: female Adjusted Body Weight Events Past 24 Hours Events Past 24 Hours: YES: Dialysis, Diuretic Therapy, Change in CrCl, Fever, Elevation in WBC, Pending Diagnostics, Pending Procedures, Other Vancomycin Vancomycin indication: SKIN Vancomycin Target Ranges: 15-20 mcg/ml Vancomycin Load Y/N: Yes Load Dose Date Time Vancomycin Load Dose: 1500 Date: 07/03/19 Time: Vancomycin Dose Date: 07/05/19. STARTED OUT 1G Q12 THEN INCREASED TO 1250MG Q12H Intermittent Dosing?: No Labs Labs Vital Signs Date Time Temp Pulse Resp B/P (MAP) Pulse Ox O2 Delivery O2 Flow Rate FiO2 07/05/19 06:00 98.4 65 18 130/78 (95) 96 07/04/19 22:00 97.6 67 18 123/62 (82) 96 07/04/19 14:00 97.4 72 20 125/65 (85) 99 Intake & Output 07/05/19 06:00 Intake Total 2485 ml Output Total 2350 ml Balance 135 ml Laboratory Tests 07/05/19 07:55: White Blood Count 2.9L, Red Blood Count 3.85L, Hemoglobin 10.3L, Hematocrit 33.2L, Mean Corpuscular Volume 86.2, Mean Corpuscular Hemoglobin 26.8L, Mean Corpuscular Hemoglobin Concent 31.0L, Red Cell Distribution Width 15.2H, Platelet Count 184, Nucleated Red Blood Cells % (auto) 0.0, Erythrocyte Sedimentation Rate 52H, Blood Urea Nitrogen 8, Creatinine 0.48L, Sodium Level 144, Potassium Level 4.0, Chloride Level 109H, Carbon Dioxide Level 32, Calcium Level 8.3L, Anion Gap 3L, Glomerular Filtration Rate > 60.0, Fasting Glucose 139H, C-Reactive Protein, Quantitative 0.61H, Vancomycin Level Trough 14.1 Microbiology 07/02/19 Gram Stain - Final, Complete 07/02/19 Wound Culture - Final, Complete 07/02/19 Anaerobic Culture - Final, Complete 07/01/19 Anaerobic Culture - Final, Complete 07/01/19 Gram Stain - Final, Complete 07/01/19 Abscess Culture - Final, Complete Staphylococcus Aureus Current Medications Medications (Trade) Dose Ordered Sig/Anila Route PRN Reason Start Time Stop Time Status Last Admin Dose Admin Ascorbic Acid (Vitamin C) 500 mg DAILY PO 07/02/19 09:00 07/05/19 08:20 500 MG Ferrous Gluconate (Fergon) 324 mg BID PO 07/02/19 09:00 07/05/19 08:21 324 MG Magnesium Hydroxide (Milk Of Magnesia) 30 ml DAILY PO 07/03/19 09:00 07/05/19 08:21 30 ML Multivitamins (Theragram-M) 1 tab DAILY PO 07/02/19 09:00 07/05/19 08:20 1 TAB Ramelteon (Rozerem) 8 mg QHS PRN PO INSOMNIA 07/03/19 22:45 07/03/19 22:51 8 MG Rifampin (Rifadin) 300 mg BID PO 07/03/19 21:00 07/05/19 08:20 300 MG Risperidone (RisperDAL) 3 mg BID PO 07/02/19 09:00 07/05/19 08:20 3 MG Ropinirole HCl (Requip) 0.5 mg BID@1200,2100 PO 07/02/19 12:00 07/04/19 20:54 0.5 MG Senna/Docusate Sodium (Senokot S) 1 tab BID PO 07/03/19 09:00 07/05/19 08:20 1 TAB Simvastatin (Zocor) 20 mg DAILY@1200 PO 07/02/19 12:00 07/04/19 11:00 20 MG Vancomycin HCl 500 mg/Dextrose 110 ml @ 110 mls/hr Q12H IV 07/04/19 09:00 07/05/19 10:28 110 MLS/HR Vitamin D (Vitamin D) 1,000 units DAILY PO 07/02/19 09:00 07/05/19 08:20 1,000 UNITS Micro Microbiology 07/02/19 Gram Stain - Final, Complete 07/02/19 Wound Culture - Final, Complete 07/02/19 Anaerobic Culture - Final, Complete 07/01/19 Blood Culture - Preliminary, Resulted No Growth after 72 hours. All specime... 07/01/19 Anaerobic Culture - Final, Complete 07/01/19 Gram Stain - Final, Complete 07/01/19 Abscess Culture - Final, Complete Staphylococcus Aureus 07/01/19 Blood Culture - Preliminary, Resulted No Growth after 72 hours. All specime... Creatinine Clearance Date:07/05/19. CALCULATED CRCL = 46 Assessment and Plan Maintaining Current Dose?: No Reason for dose change: Trough too low Pharmacist Note Pharmacist Note Date: 07/05/19. Pharmacist note: Trough this morning resulted @ 14.1. Increased dose to 1500mg q12h @ 0900. trough scheduled for tomorrow @0800. wiill continue to monitor patient and adjust dose as needed. [facility]AN [facility] Jul 05, 2019 10:40
[2019-07-05] MEDS: SIMVASTATIN 20 MG TAB PO SCH (11:25)
[2019-07-05] MEDS: rOPINIRole 0.25 MG TAB(REQUIP) PO SCH ×2 (11:25→20:23)
[2019-07-05] MEDS: VANCOMYCIN HCL 1,000 MG, VIAL MATE ADAPTER 1 EACH in D5W 250 ML IV SCH ×2 (11:26→22:23)
[2019-07-05 14:00] VITALS: BP 113/60
--- NOTE | 2019-07-05 16:32 | IPNPDOC ---
Date Seen The patient was seen on 07/05/19. 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 Medicine team consulted to manage medical comorbidities and possible infection. Patient underwent right total hip replacement back in December 2018. She was doing well up until about 3-4 weeks ago when she started noticing slight swelling and pain in her right hip joint; she started noticing fluid drainage from incision site recently and that's why she went to the orthopedics office. She denies any recent fever. She is weightbearing on the leg, but reports pain with ambulation. She has a history of schizophrenia, does not report any suicidal or homicidal ideation at this time. She has no other complaints at this time. She denies shortness of breath, chest pain, abdominal pain, nausea, vomiting, diarrhea or constipation. 07/02/19 No acute events overnight, status post IR drainage yesterday, currently comfortable, without complaints at this time, denies shortness of breath, chest pain, abdominal pain, nausea, vomiting, diarrhea, constipation. 07/04/2019 No acute events overnight, comfortable in bed at this time, tolerating by mouth, minimal pain/discomfort right hip, wound VAC draining bloody fluid. Patient is adamant that she will not be discharged on wound VAC or IV antibiotics, the importance of IV antibiotics given the risk of infection and her history with recurrent septic arthritis was explained to the patient, she completely understands and continues to refuse IV antibiotics post discharge. 07/05/2019 No acute events, comfortable, without any complaints, no pain around the hip, wound VAC in place, patient remains adamant that she is going home with IV antibiotics and wound VAC. She denies any short of breath, chest pain, abdominal pain, nausea, vomiting, diarrhea. 10 point review of system was negative except for above ALLERGIES: Please see below. HOME MEDICATIONS: Please see below. PHYSICAL EXAMINATION: VITAL SIGNS: Please see below. GENERAL APPEARANCE: No distress. HEENT:. Atraumatic, normocephalic, moist mucous membranes. RESPIRATORY:, Clear to auscultation, no wheezing. CARDIOVASCULAR:. S1, S2, no murmurs appreciated. ABDOMEN:, Soft, nontender, nondistended, positive bowel sounds. EXTREMITIES: Right hip with wound VAC in place, draining serosanguineous fluid. NEUROLOGICAL:, Alert and oriented 3, no focal deficits. PSYCHIATRIC: Calm, no suicidal or homicidal ideation at this time. LABORATORY DATA: Please see below. ASSESSMENT/PLAN: 1. R hip infection. Status post right total hip replacement in December 2018 Status post IR drainage and surgical washout with subsequent wound VAC placement. Cultures growing MSSA Continue Vancomycin/Rifampin Patient refusing wound vac/IV antibiotics post discharge, plan for discharge on Sunday w/ Bactrim/Rifampin. 2. Schizophrenia. Stable. Continue home medication. 3. DVT. Status post IVC filter. Holding Eliquis until Sunday as per Ortho 4. Hypertension. Continue home meds with hold parameters. 5. Hyperlipidemia. Continue home lovastatin. DVT prophylaxis: Eliquis GI prophylaxis: Not needed at this time VS, I&O, 24H, Fishbone Vital Signs/I&O Vital Signs Date Time Temp Pulse Resp B/P (MAP) Pulse Ox O2 Delivery O2 Flow Rate FiO2 07/05/19 14:00 97.6 83 18 113/60 (77) 97 I&O- Last 24 Hours up to 6 AM 07/05/19 05:59 Intake Total 2485 ml Output Total 2250 ml Balance 235 ml Laboratory Data 24H LABS Laboratory Tests 2 07/05/19 07:55: Nucleated Red Blood Cells % (auto) 0.0, Erythrocyte Sedimentation Rate 52H, Anion Gap 3L, Glomerular Filtration Rate > 60.0, Blood Urea Nitrogen 8, Creatinine 0.48L, Sodium Level 144, Potassium Level 4.0, Chloride Level 109H, Carbon Dioxide Level 32, Calcium Level 8.3L, C-Reactive Protein, Quantitative 0.61H, Vancomycin Level Trough 14.1 CBC/BMP Laboratory Tests 07/05/19 07:55 Red Blood Count 3.85 L, Mean Corpuscular Volume 86.2, Mean Corpuscular Hemoglobin 26.8 L, Mean Corpuscular Hemoglobin Concent 31.0 L, Red Cell Distribution Width 15.2 H, Calcium Level 8.3 L Microbiology Microbiology 07/02/19 Gram Stain - Final, Complete 07/02/19 Wound Culture - Final, Complete 07/02/19 Anaerobic Culture - Final, Complete 07/01/19 Blood Culture - Preliminary, Resulted No Growth after 72 hours. All specime... 07/01/19 Anaerobic Culture - Final, Complete 07/01/19 Gram Stain - Final, Complete 07/01/19 Abscess Culture - Final, Complete Staphylococcus Aureus 07/01/19 Blood Culture - Preliminary, Resulted No Growth after 72 hours. All specime... VAISHALI REY MD Jul 05, 2019 16:32
[2019-07-05 22:00] VITALS: BP 112/60
[2019-07-06] MEDS: RAMELTEON 8 MG TAB (ROZEREM) PO PRN (00:04)
[2019-07-06 06:00] VITALS: BP 119/58
[2019-07-06 08:08] LABS: HEMATOCRIT 31.9 % (36.0-47.0); MEAN CORPUSCULAR HEMOGLOBIN 26.7 pg (27.0-33.0); MEAN CORPUSCULAR HGB CONC 31.3 g/dl (32.0-36.5); MEAN CORPUSCULAR VOLUME 85.1 fl (80.0-96.0); PLATELET COUNT, AUTOMATED 216 10^3/uL (150-450); RED BLOOD COUNT 3.75 10^6/uL (4.00-5.40); WHITE BLOOD COUNT 3.5 10^3/uL (4.0-10.0)
[2019-07-06 08:33] LABS: BLOOD UREA NITROGEN 15 MG/DL (7-18); C REACTIVE PROTEIN QUANTITATIV 0.46 MG/DL (0.00-0.30); CALCIUM LEVEL 8.7 MG/DL (8.8-10.2); CARBON DIOXIDE LEVEL 31 MEQ/L (21-32); CHLORIDE LEVEL 106 MEQ/L (98-107); CREATININE FOR GFR 0.48 MG/DL (0.55-1.30); GLOMERULAR FILTRATION RATE > 60.0 (>39); GLUCOSE, FASTING 109 MG/DL (70-100); POTASSIUM SERUM 3.6 MEQ/L (3.5-5.1); SODIUM LEVEL 141 MEQ/L (136-145); VANCOMYCIN LEVEL TROUGH 17.6 UG/ML (10.0-20.0)
[2019-07-06 08:40] LABS: ERYTHROCYTE SEDIMENTATION RATE 49 mm/hr (0-30)
[2019-07-06] MEDS: MOM 30ML SUSPENSION UDC PO SCH (09:00)
[2019-07-06] MEDS: ASCORBIC ACID 500 MG TAB PO SCH (09:32)
[2019-07-06] MEDS: VITAMIN D 1,000 INTERNATIONAL UNITS TABLET PO SCH (09:32)
[2019-07-06] MEDS: SENOKOT S TAB PO SCH ×2 (09:32→21:06)
[2019-07-06] MEDS: MULTIVITAMINS/MINERALS THERAP 1 TAB PO SCH (09:32)
[2019-07-06] MEDS: VANCOMYCIN HCL 500 MG in D5W MINI-BAG PLUS 100 ML IV SCH ×2 (09:33→21:04)
[2019-07-06] MEDS: FERROUS GLUCONATE 324 MG TAB PO SCH ×2 (09:33→21:06)
[2019-07-06] MEDS: risperiDONE 3 MG TAB PO SCH ×2 (09:33→21:06)
[2019-07-06] MEDS: VANCOMYCIN HCL 1,000 MG, VIAL MATE ADAPTER 1 EACH in D5W 250 ML IV SCH ×2 (11:01→22:16)
--- NOTE | 2019-07-06 13:11 | IPNPDOC ---
Date Seen The patient was seen on 07/06/19. 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 Medicine team consulted to manage medical comorbidities and possible infection. Patient underwent right total hip replacement back in December 2018. She was doing well up until about 3-4 weeks ago when she started noticing slight swelling and pain in her right hip joint; she started noticing fluid drainage from incision site recently and that's why she went to the orthopedics office. She denies any recent fever. She is weightbearing on the leg, but reports pain with ambulation. She has a history of schizophrenia, does not report any suicidal or homicidal ideation at this time. She has no other complaints at this time. She denies shortness of breath, chest pain, abdominal pain, nausea, vomiting, diarrhea or constipation. 07/02/19 No acute events overnight, status post IR drainage yesterday, currently comfortable, without complaints at this time, denies shortness of breath, chest pain, abdominal pain, nausea, vomiting, diarrhea, constipation. 07/04/2019 No acute events overnight, comfortable in bed at this time, tolerating by mouth, minimal pain/discomfort right hip, wound VAC draining bloody fluid. Patient is adamant that she will not be discharged on wound VAC or IV antibiotics, the importance of IV antibiotics given the risk of infection and her history with recurrent septic arthritis was explained to the patient, she completely understands and continues to refuse IV antibiotics post discharge. 07/05/2019 No acute events, comfortable, without any complaints, no pain around the hip, wound VAC in place, patient remains adamant that she is going home with IV antibiotics and wound VAC. She denies any short of breath, chest pain, abdominal pain, nausea, vomiting, diarrhea. 07/06/2019 Comfortable, without any complaints, wound vac drainage has decreased. She denies any vomiting, chest pain or abdominal pain. 10 point review of system was negative except for above ALLERGIES: Please see below. HOME MEDICATIONS: Please see below. PHYSICAL EXAMINATION: VITAL SIGNS: Please see below. GENERAL APPEARANCE: No distress. HEENT:. Atraumatic, normocephalic, moist mucous membranes. RESPIRATORY:, Clear to auscultation, no wheezing. CARDIOVASCULAR:. S1, S2, no murmurs appreciated. ABDOMEN:, Soft, nontender, nondistended, positive bowel sounds. EXTREMITIES: Right hip with wound VAC in place, draining serosanguineous fluid. NEUROLOGICAL:, Alert and oriented 3, no focal deficits. PSYCHIATRIC: Calm, no suicidal or homicidal ideation at this time. LABORATORY DATA: Please see below. ASSESSMENT/PLAN: 1. R hip infection. Status post right total hip replacement in December 2018 Status post IR drainage and surgical washout with subsequent wound VAC placement. Cultures growing MSSA Continue Vancomycin/Rifampin Patient refusing wound vac/IV antibiotics post discharge, plan for discharge on Sunday w/ Bactrim/Rifampin. 2. Schizophrenia. Stable. Continue home medication. 3. DVT. Status post IVC filter. Holding Eliquis until Sunday as per Ortho 4. Hypertension. Continue home meds with hold parameters. 5. Hyperlipidemia. Continue home lovastatin. VS, I&O, 24H, [facility] Vital Signs/I&O Vital Signs Date Time Temp Pulse Resp B/P (MAP) Pulse Ox O2 Delivery O2 Flow Rate FiO2 07/06/19 06:00 97.3 66 18 119/58 (78) 97 I&O- Last 24 Hours up to 6 AM 07/06/19 05:59 Intake Total 2370 ml Output Total 1530 ml Balance 840 ml Laboratory Data 24H LABS Laboratory Tests 2 07/06/19 07:52: Nucleated Red Blood Cells % (auto) 0.0, Erythrocyte Sedimentation Rate 49H, Anion Gap 4L, Glomerular Filtration Rate > 60.0, Blood Urea Nitrogen 15#, Creatinine 0.48L, Sodium Level 141, Potassium Level 3.6, Chloride Level 106, Carbon Dioxide Level 31, Calcium Level 8.7L, C-Reactive Protein, Quantitative 0.46H, Vancomycin Level Trough 17.6 CBC/BMP Laboratory Tests 07/06/19 07:52 Red Blood Count 3.75 L, Mean Corpuscular Volume 85.1, Mean Corpuscular Hemoglobin 26.7 L, Mean Corpuscular Hemoglobin Concent 31.3 L, Red Cell Distribution Width 15.5 H, Calcium Level 8.7 L Microbiology Microbiology 07/02/19 Gram Stain - Final, Complete 07/02/19 Wound Culture - Final, Complete 07/02/19 Anaerobic Culture - Final, Complete 07/01/19 Blood Culture - Preliminary, Resulted No Growth after 72 hours. All specime... 07/01/19 Anaerobic Culture - Final, Complete 07/01/19 Gram Stain - Final, Complete 07/01/19 Abscess Culture - Final, Complete Staphylococcus Aureus 07/01/19 Blood Culture - Preliminary, Resulted No Growth after 72 hours. All specime... VAISHALI REY MD Jul 06, 2019 13:11
[2019-07-06] MEDS: rOPINIRole 0.25 MG TAB(REQUIP) PO SCH ×2 (13:27→21:04)
[2019-07-06] MEDS: SIMVASTATIN 20 MG TAB PO SCH (13:27)
[2019-07-06 14:00] VITALS: BP 114/52
[2019-07-06 22:00] VITALS: BP 118/58
[2019-07-07] MEDS: RAMELTEON 8 MG TAB (ROZEREM) PO PRN (00:08)
[2019-07-07 05:40] LABS: HEMOGLOBIN 9.6 g/dl (12.0-15.5); MEAN CORPUSCULAR HEMOGLOBIN 26.3 pg (27.0-33.0); MEAN CORPUSCULAR VOLUME 84.9 fl (80.0-96.0); PLATELET COUNT, AUTOMATED 209 10^3/uL (150-450); RED BLOOD COUNT 3.65 10^6/uL (4.00-5.40); WHITE BLOOD COUNT 3.5 10^3/uL (4.0-10.0)
[2019-07-07] MEDS ORDERED: HYDR-3713 PO ×2 (05:53→06:07)
[2019-07-07 06:00] VITALS: BP 135/69
[2019-07-07 06:09] LABS: BLOOD UREA NITROGEN 12 MG/DL (7-18); CALCIUM LEVEL 8.1 MG/DL (8.8-10.2); CARBON DIOXIDE LEVEL 27 MEQ/L (21-32); CHLORIDE LEVEL 109 MEQ/L (98-107); CREATININE FOR GFR 0.44 MG/DL (0.55-1.30); GLOMERULAR FILTRATION RATE > 60.0 (>39); GLUCOSE, FASTING 97 MG/DL (70-100); POTASSIUM SERUM 3.8 MEQ/L (3.5-5.1); SODIUM LEVEL 141 MEQ/L (136-145)
[2019-07-07 06:32] LABS: ERYTHROCYTE SEDIMENTATION RATE 48 mm/hr (0-30)
[2019-07-07] MEDS: MOM 30ML SUSPENSION UDC PO SCH (08:54)
[2019-07-07] MEDS: risperiDONE 3 MG TAB PO SCH (08:54)
[2019-07-07] MEDS: MULTIVITAMINS/MINERALS THERAP 1 TAB PO SCH (08:54)
[2019-07-07] MEDS: VITAMIN D 1,000 INTERNATIONAL UNITS TABLET PO SCH (08:54)
[2019-07-07] MEDS: SENOKOT S TAB PO SCH (08:54)
[2019-07-07] MEDS: VANCOMYCIN HCL 1,000 MG, VIAL MATE ADAPTER 1 EACH in D5W 250 ML IV SCH (08:55)
[2019-07-07] MEDS: ASCORBIC ACID 500 MG TAB PO SCH (08:55)
[2019-07-07] MEDS: VANCOMYCIN HCL 500 MG in D5W MINI-BAG PLUS 100 ML IV SCH (08:55)
[2019-07-07] MEDS: FERROUS GLUCONATE 324 MG TAB PO SCH (08:55)
[2019-07-07] MEDS ORDERED: BACT800T5 PO (11:14)
[2019-07-07] MEDS ORDERED: RIFA30CA PO (11:14)
[2019-07-07] MEDS: SIMVASTATIN 20 MG TAB PO SCH (11:45)
[2019-07-07] MEDS: rOPINIRole 0.25 MG TAB(REQUIP) PO SCH (11:46)
--- NOTE | 2019-07-07 12:02 | IPNPDOC ---
Date Seen The patient was seen on 07/07/19. 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 Medicine team consulted to manage medical comorbidities and possible infection. Patient underwent right total hip replacement back in December 2018. She was doing well up until about 3-4 weeks ago when she started noticing slight swelling and pain in her right hip joint; she started noticing fluid drainage from incision site recently and that's why she went to the orthopedics office. She denies any recent fever. She is weightbearing on the leg, but reports pain with ambulation. She has a history of schizophrenia, does not report any suicidal or homicidal ideation at this time. She has no other complaints at this time. She denies shortness of breath, chest pain, abdominal pain, nausea, vomiting, diarrhea or constipation. 07/02/19 No acute events overnight, status post IR drainage yesterday, currently comfortable, without complaints at this time, denies shortness of breath, chest pain, abdominal pain, nausea, vomiting, diarrhea, constipation. 07/04/2019 No acute events overnight, comfortable in bed at this time, tolerating by mouth, minimal pain/discomfort right hip, wound VAC draining bloody fluid. Patient is adamant that she will not be discharged on wound VAC or IV antibiotics, the importance of IV antibiotics given the risk of infection and her history with recurrent septic arthritis was explained to the patient, she completely understands and continues to refuse IV antibiotics post discharge. 07/05/2019 No acute events, comfortable, without any complaints, no pain around the hip, wound VAC in place, patient remains adamant that she is going home with IV antibiotics and wound VAC. She denies any short of breath, chest pain, abdominal pain, nausea, vomiting, diarrhea. 07/06/2019 Comfortable, without any complaints, wound vac drainage has decreased. She denies any vomiting, chest pain or abdominal pain. 07/07/19 Comfortable, refused IV antibiotics today, wishing and ready for discharge, wound vac removed w/ new dressings placed by wound care. She is currently without any complaints, denies SOB, chest pain, vomiting or abdominal pain. 10 point review of system was negative except for above ALLERGIES: Please see below. HOME MEDICATIONS: Please see below. PHYSICAL EXAMINATION: VITAL SIGNS: Please see below. GENERAL APPEARANCE: No distress. HEENT:. Atraumatic, normocephalic, moist mucous membranes. RESPIRATORY:, Clear to auscultation, no wheezing. CARDIOVASCULAR:. S1, S2, no murmurs appreciated. ABDOMEN:, Soft, nontender, nondistended, positive bowel sounds. EXTREMITIES: Right hip with dressing in place NEUROLOGICAL:, Alert and oriented 3, no focal deficits. PSYCHIATRIC: Calm, no suicidal or homicidal ideation at this time. LABORATORY DATA: Please see below. ASSESSMENT/PLAN: 1. R hip infection. Status post right total hip replacement in December 2018 Status post IR drainage and surgical washout with subsequent wound VAC placement, removed today prior to discharge. Cultures growing MSSA Patient being discharged on Bactrim & Rifampin as she has refused IV antibiotics in the outpatient setting. - prescriptions sent to pharmacy 2. Schizophrenia. Stable. Continue home medication. 3. DVT. Status post IVC filter. restart Eliquis upon discharge 4. Hypertension. Continue home meds with hold parameters. 5. Hyperlipidemia. Continue home lovastatin. VS, I&O, 24H, [facility] Vital Signs/I&O Vital Signs Date Time Temp Pulse Resp B/P (MAP) Pulse Ox O2 Delivery O2 Flow Rate FiO2 07/07/19 06:00 97.3 77 18 135/69 (91) 96 I&O- Last 24 Hours up to 6 AM 07/07/19 06:00 Intake Total 2490 ml Output Total 2180 ml Balance 310 ml Laboratory Data 24H LABS Laboratory Tests 2 07/07/19 05:27: Nucleated Red Blood Cells % (auto) 0.0, Erythrocyte Sedimentation Rate 48H, Anion Gap 5L, Glomerular Filtration Rate > 60.0, Blood Urea Nitrogen 12, Creatinine 0.44L, Sodium Level 141, Potassium Level 3.8, Chloride Level 109H, Carbon Dioxide Level 27, Calcium Level 8.1L, C-Reactive Protein, Quantitative 0.30 CBC/BMP Laboratory Tests 07/07/19 05:27 Red Blood Count 3.65 L, Mean Corpuscular Volume 84.9, Mean Corpuscular Hemoglobin 26.3 L, Mean Corpuscular Hemoglobin Concent 31.0 L, Red Cell Distribution Width 15.6 H, Calcium Level 8.1 L Microbiology Microbiology 10/9/19 Gram Stain - Final, Complete 07/02/19 Wound Culture - Final, Complete 07/02/19 Anaerobic Culture - Final, Complete 07/01/19 Blood Culture - Final, Complete NO GROWTH AFTER 5 DAYS 07/01/19 Anaerobic Culture - Final, Complete 07/01/19 Gram Stain - Final, Complete 07/01/19 Abscess Culture - Final, Complete Staphylococcus Aureus 07/01/19 Blood Culture - Final, Complete NO GROWTH AFTER 5 DAYS VAISHALI REY MD Jul 07, 2019 11:59
== END 2019-07-07 14:00 | disposition home health service (06) | DRG 464 ==
LOC: M MSPAV 11:05 → M MS5PR 07-02 16:51
PROVIDERS: ADMIT Orthopaedic Surgery; ATTEND Orthopaedic Surgery
PROC: 0S993ZZ Drainage of Right Hip Joint, Percutaneous Approach (ICD-10-PCS; 2019-07-01)
PROC: 3E0U329 Introduction of Other Anti-infective into Joints, Percutaneous Approach (ICD-10-PCS; 2019-07-02)
PROC: 0JBD0ZZ Excision of Right Upper Arm Subcutaneous Tissue and Fascia, Open Approach (ICD-10-PCS; principal; 2019-07-02 17:30)
DX: T84.51XA Infection and inflammatory reaction due to internal right hip prosthesis, initial encounter (principal); I50.32 Chronic diastolic (congestive) heart failure; D68.62 Lupus anticoagulant syndrome; F32.9 Major depressive disorder, single episode, unspecified; M81.0 Age-related osteoporosis without current pathological fracture; I11.0 Hypertensive heart disease with heart failure; E78.5 Hyperlipidemia, unspecified; D64.9 Anemia, unspecified; D72.819 Decreased white blood cell count, unspecified; F25.9 Schizoaffective disorder, unspecified; B95.61 Methicillin susceptible Staphylococcus aureus infection as the cause of diseases classified elsewhere; G47.00 Insomnia, unspecified; K59.00 Constipation, unspecified; Z86.711 Personal history of pulmonary embolism; Z86.718 Personal history of other venous thrombosis and embolism; Z79.01 Long term (current) use of anticoagulants; Z79.891 Long term (current) use of opiate analgesic; Z79.899 Other long term (current) drug therapy; Z87.891 Personal history of nicotine dependence; Y83.1 Surgical operation with implant of artificial internal device as the cause of abnormal reaction of the patient, or of later complication, without mention of misadventure at the time of the procedure

== ENCOUNTER → 2019-07-23 | Outpatient (REF) | payer MEDICARE, BC, MEDICAID ==
[~2019-07-23] MED LIST changes: -ALEN35TA37 PO; +ALEN35TA6 PO; -AZIT500T2; +AZIT500T5; +RIFA30CA PO; +ROPI0.5T PO
[2019-07-23 17:03] LABS: BASO % 0.4 % (0.0-1.0); EOS % 1.1 % (0.0-3.0); HEMATOCRIT 34.4 % (36.0-47.0); HEMOGLOBIN 10.3 g/dl (12.0-15.5); MEAN CORPUSCULAR HGB CONC 29.9 g/dl (32.0-36.5); MEAN CORPUSCULAR VOLUME 90.1 fl (80.0-96.0); MONO # 0.3 10^3/uL (0.0-0.8); MONO % 11.1 % (0.0-5.0); NEUTROPHILS # 1.4 10^3/uL (1.5-8.5); PLATELET COUNT, AUTOMATED 220 10^3/uL (150-450); RED BLOOD COUNT 3.82 10^6/uL (4.00-5.40); WHITE BLOOD COUNT 2.7 10^3/uL (4.0-10.0)
[2019-07-23 17:22] LABS: ALT/SGPT 16 U/L (12-78); BILIRUBIN,TOTAL 0.2 MG/DL (0.2-1.0); BLOOD UREA NITROGEN 19 MG/DL (7-18); C REACTIVE PROTEIN QUANTITATIV 0.49 MG/DL (0.00-0.30); CALCIUM LEVEL 8.6 MG/DL (8.8-10.2); CARBON DIOXIDE LEVEL 28 MEQ/L (21-32); CHLORIDE LEVEL 112 MEQ/L (98-107); CREATININE FOR GFR 0.51 MG/DL (0.55-1.30); GLOMERULAR FILTRATION RATE > 60.0 (>39); GLUCOSE, FASTING 90 MG/DL (70-100); POTASSIUM SERUM 4.1 MEQ/L (3.5-5.1); SODIUM LEVEL 144 MEQ/L (136-145); TOTAL PROTEIN 5.9 GM/DL (6.4-8.2)
[2019-07-23 18:29] LABS: ERYTHROCYTE SEDIMENTATION RATE 36 mm/hr (0-30)
== END ==
LOC: M LAB REF 16:18
PROVIDERS: ATTEND Internal Medicine Infectious Disease
DX: A49.01 Methicillin susceptible Staphylococcus aureus infection, unspecified site (principal)

== ENCOUNTER → 2019-08-04 | Outpatient (REF) | payer MEDICARE, BC, MEDICAID ==
[2019-08-04 17:33] LABS: ALT/SGPT 19 U/L (12-78); BILIRUBIN,TOTAL 0.2 MG/DL (0.2-1.0); BLOOD UREA NITROGEN 20 MG/DL (7-18); C REACTIVE PROTEIN QUANTITATIV < 0.30 MG/DL (0.00-0.30); CALCIUM LEVEL 8.8 MG/DL (8.8-10.2); CARBON DIOXIDE LEVEL 31 MEQ/L (21-32); CHLORIDE LEVEL 109 MEQ/L (98-107); CREATININE FOR GFR 0.55 MG/DL (0.55-1.30); GLOMERULAR FILTRATION RATE > 60.0 (>39); GLUCOSE, FASTING 86 MG/DL (70-100); POTASSIUM SERUM 4.6 MEQ/L (3.5-5.1); SODIUM LEVEL 143 MEQ/L (136-145); TOTAL PROTEIN 6.4 GM/DL (6.4-8.2)
[2019-08-04 18:29] LABS: ERYTHROCYTE SEDIMENTATION RATE 54 mm/hr (0-30)
[2019-08-04 18:33] LABS: BASO % 0.3 % (0.0-1.0); EOS % 0.9 % (0.0-3.0); HEMATOCRIT 35.5 % (36.0-47.0); HEMOGLOBIN 10.7 g/dl (12.0-15.5); LYMPH # 1.1 10^3/uL (1.5-5.0); LYMPH % 31.8 % (24.0-44.0); MEAN CORPUSCULAR HEMOGLOBIN 26.7 pg (27.0-33.0); MEAN CORPUSCULAR HGB CONC 30.1 g/dl (32.0-36.5); MEAN CORPUSCULAR VOLUME 88.5 fl (80.0-96.0); MONO # 0.3 10^3/uL (0.0-0.8); MONO % 9.2 % (0.0-5.0); NEUTROPHILS % 57.5 % (36.0-66.0); PLATELET COUNT, AUTOMATED 251 10^3/uL (150-450); RED BLOOD COUNT 4.01 10^6/uL (4.00-5.40); WHITE BLOOD COUNT 3.5 10^3/uL (4.0-10.0)
== END ==
LOC: M LAB REF 15:44
PROVIDERS: ATTEND Internal Medicine Infectious Disease
DX: A49.01 Methicillin susceptible Staphylococcus aureus infection, unspecified site (principal)

== ENCOUNTER → 2019-08-19 | Outpatient (REF) | payer MEDICARE, BC ==
[2019-08-19 15:07] LABS: BASO % 0.3 % (0.0-1.0); EOS % 0.3 % (0.0-3.0); HEMATOCRIT 39.2 % (36.0-47.0); HEMOGLOBIN 11.9 g/dl (12.0-15.5); LYMPH % 31.5 % (24.0-44.0); MEAN CORPUSCULAR HEMOGLOBIN 26.9 pg (27.0-33.0); MEAN CORPUSCULAR HGB CONC 30.4 g/dl (32.0-36.5); MEAN CORPUSCULAR VOLUME 88.7 fl (80.0-96.0); MONO # 0.3 10^3/uL (0.0-0.8); NEUTROPHILS % 59.6 % (36.0-66.0); PLATELET COUNT, AUTOMATED 224 10^3/uL (150-450); RED BLOOD COUNT 4.42 10^6/uL (4.00-5.40); WHITE BLOOD COUNT 3.3 10^3/uL (4.0-10.0)
[2019-08-19 15:18] LABS: ALBUMIN 3.6 GM/DL (3.2-5.2); ALT/SGPT 23 U/L (12-78); BILIRUBIN,TOTAL 0.2 MG/DL (0.2-1.0); BLOOD UREA NITROGEN 20 MG/DL (7-18); C REACTIVE PROTEIN QUANTITATIV 0.35 MG/DL (0.00-0.30); CARBON DIOXIDE LEVEL 27 MEQ/L (21-32); CHLORIDE LEVEL 107 MEQ/L (98-107); GLOMERULAR FILTRATION RATE > 60.0 (>39); GLUCOSE, FASTING 107 MG/DL (70-100); POTASSIUM SERUM 4.4 MEQ/L (3.5-5.1); SODIUM LEVEL 140 MEQ/L (136-145); TOTAL PROTEIN 6.6 GM/DL (6.4-8.2)
[2019-08-19 15:45] LABS: ERYTHROCYTE SEDIMENTATION RATE 38 mm/hr (0-30)
== END ==
LOC: M LABDRAW1 13:15
PROVIDERS: ATTEND Internal Medicine Infectious Disease
DX: T84.59XD Infection and inflammatory reaction due to other internal joint prosthesis, subsequent encounter (principal)
CPT/HCPCS: 80053; 85025; 85652; 86140; G0463

== ENCOUNTER → 2019-10-08 | Outpatient (REF) | payer MEDICARE, BC | LOC: M SFHCPLAZ 13:06 | PROVIDERS: ATTEND Surgery | DX: T81.31XD Disruption of external operation (surgical) wound, not elsewhere classified, subsequent encounter (principal) ==

== ENCOUNTER → 2019-11-03 | Outpatient (REF) | payer MEDICARE, BC ==
[~2019-11-03] MED LIST changes: -ROPI0.5T PO; +ROPI0.5T3 PO
[2019-11-03 11:58] LABS: BASO % 0.7 % (0.0-1.0); EOS % 0.4 % (0.0-3.0); HEMOGLOBIN 11.2 g/dl (12.0-15.5); LYMPH # 0.9 10^3/uL (1.5-5.0); LYMPH % 32.4 % (24.0-44.0); MEAN CORPUSCULAR HEMOGLOBIN 26.9 pg (27.0-33.0); MEAN CORPUSCULAR HGB CONC 31.1 g/dl (32.0-36.5); MEAN CORPUSCULAR VOLUME 86.5 fl (80.0-96.0); MONO # 0.3 10^3/uL (0.0-0.8); MONO % 9.6 % (0.0-5.0); NEUTROPHILS # 1.6 10^3/uL (1.5-8.5); NEUTROPHILS % 56.9 % (36.0-66.0); PLATELET COUNT, AUTOMATED 241 10^3/uL (150-450); RED BLOOD COUNT 4.16 10^6/uL (4.00-5.40); WHITE BLOOD COUNT 2.8 10^3/uL (4.0-10.0)
[2019-11-03 12:04] LABS: BLOOD UREA NITROGEN 14 MG/DL (7-18); C REACTIVE PROTEIN QUANTITATIV < 0.30 MG/DL (0.00-0.30); CALCIUM LEVEL 9.3 MG/DL (8.8-10.2); CARBON DIOXIDE LEVEL 29 MEQ/L (21-32); CHLORIDE LEVEL 107 MEQ/L (98-107); CREATININE FOR GFR 0.57 MG/DL (0.55-1.30); GLOMERULAR FILTRATION RATE > 60.0 (>39); GLUCOSE, FASTING 88 MG/DL (70-100); POTASSIUM SERUM 4.1 MEQ/L (3.5-5.1); SODIUM LEVEL 140 MEQ/L (136-145)
[2019-11-03 12:26] LABS: ERYTHROCYTE SEDIMENTATION RATE 19 mm/hr (0-30)
== END ==
LOC: M SFHCPLAZ 09:27
PROVIDERS: ATTEND Internal Medicine Infectious Disease
DX: A49.01 Methicillin susceptible Staphylococcus aureus infection, unspecified site (principal)
CPT/HCPCS: 36415; 80048; 85025; 85652; 86140; G0463

== ENCOUNTER → 2020-03-02 | Outpatient (REF) | payer MEDICARE, BC ==
[~2020-03-02] MED LIST changes: +VITA-243 PO; -VITA500T PO
[2020-03-02 13:48] LABS: BASO % 0.3 % (0.0-1.0); EOS % 0.3 % (0.0-3.0); HEMATOCRIT 36.7 % (36.0-47.0); HEMOGLOBIN 11.2 g/dl (12.0-15.5); LYMPH # 1.2 10^3/uL (1.5-5.0); LYMPH % 36.1 % (24.0-44.0); MEAN CORPUSCULAR HEMOGLOBIN 27.9 pg (27.0-33.0); MEAN CORPUSCULAR HGB CONC 30.5 g/dl (32.0-36.5); MEAN CORPUSCULAR VOLUME 91.3 fl (80.0-96.0); MONO # 0.2 10^3/uL (0.0-0.8); MONO % 7.2 % (0.0-5.0); NEUTROPHILS # 1.8 10^3/uL (1.5-8.5); NEUTROPHILS % 56.1 % (36.0-66.0); PLATELET COUNT, AUTOMATED 230 10^3/uL (150-450); RED BLOOD COUNT 4.02 10^6/uL (4.00-5.40); WHITE BLOOD COUNT 3.2 10^3/uL (4.0-10.0)
[2020-03-02 13:53] LABS: ALBUMIN 3.2 GM/DL (3.2-5.2); ALT/SGPT 28 U/L (12-78); BILIRUBIN,TOTAL 0.2 MG/DL (0.2-1.0); BLOOD UREA NITROGEN 16 MG/DL (7-18); C REACTIVE PROTEIN QUANTITATIV < 0.30 MG/DL (0.00-0.30); CALCIUM LEVEL 8.3 MG/DL (8.8-10.2); CARBON DIOXIDE LEVEL 28 MEQ/L (21-32); CHLORIDE LEVEL 109 MEQ/L (98-107); GLOMERULAR FILTRATION RATE > 60.0 (>39); GLUCOSE, FASTING 92 MG/DL (70-100); POTASSIUM SERUM 3.9 MEQ/L (3.5-5.1); SODIUM LEVEL 141 MEQ/L (136-145); TOTAL PROTEIN 6.2 GM/DL (6.4-8.2)
[2020-03-02 14:13] LABS: ERYTHROCYTE SEDIMENTATION RATE 26 mm/hr (0-30)
== END ==
LOC: M SFHCPLAZ 09:30
PROVIDERS: ATTEND Internal Medicine Infectious Disease
DX: A49.01 Methicillin susceptible Staphylococcus aureus infection, unspecified site (principal)
CPT/HCPCS: 36415; 80053; 85025; 85652; 86140; G0463

== ENCOUNTER → 2020-12-30 | Outpatient (CLI) | payer MEDICARE, BC ==
[~2020-12-30] MED LIST changes: +ACET650T61 PO; +ALEN35TA54 PO; -ALEN35TA6 PO; +CALC-211 PO; -CALCTAB7 PO; +LISI10TA22 PO; -LISI10TA4 PO; -MELA5TAB31 PO; +MELA5TAB36 PO; +RISP-10 PO; +RISP-11; +RISP-8 PO; +RISP-9 PO; -RISP1TAB3 PO; -RISP2TAB3 PO; -RISP3TAB3 PO; -RISP4TAB2; -TYLE650T35 PO
--- NOTE | 2020-12-30 09:35 | REPMRS ---
Patient History The patient states she had a clinical breast exam in May 2020. Patient is postmenopausal, has history of cancer in the left breast at age 64, and is nulliparous. Family history of breast cancer at age 62 in mother, breast cancer at age 60 in maternal aunt, breast cancer at age 40 in maternal cousin, prostate cancer at age 50 or over in brother. Radiation therapy of the left breast. Took hormonal contraceptives for 2 years. Took tamoxifen for 5 years 6 months. 3D TOMOSYNTHESIS WAS PERFORMED. Volpara breast density c. Digital Woman Screen Mammo: December 30, 2020 - Exam #: [id number] Bilateral CC and MLO view(s) were taken. Technologist: Marnie Vaughan, Technologist Prior study comparison: April 16, 2017, digital woman screen mammo performed at [facility]. April 12, 2016, digital woman screen mammo performed at [facility]. FINDINGS: The breast tissue is heterogeneously dense. This may lower the sensitivity of mammography. There has been no change in the appearance of the mammogram from the prior studies. There is a moderate amount of residual fibroglandular tissue which is fairly symmetric. There is no interval development of dominant mass, areas of architectural distortion, or clustered microcalcification typical of malignancy. Large coarse benign appearing calcifications are present. No significant changes when compared with prior studies. Assessment: BI-RADS/ACR category 1 mammogram. Negative Mammogram. Recommendation Routine screening mammogram in 1 year (for women over age 40). This mammogram was interpreted with the aid of an FDA-approved computer-aided dectection system. Electronically Signed By: Shaheen Keith MD 12/30/20 0934
--- NOTE | 2020-12-30 10:51 | DEXAMM ---
INDICATION: M85.80 [facility] DISRD OF BONE DENSITY AND STRUCTURE. COMPARISON: 04/12/2016 as well as other prior exams. TECHNIQUE: Bone density was measured using dual-energy x-ray absorptiometry (DEXA). FINDINGS: AP SPINE L1-L4 BMD 0.841 g/cm2 Young Adult T-Score -2.9 Age Matched Z-Score -1.1. LT FEMUR, TOTAL BMD 0.567 g/cm2 Young Adult T-Score -3.5 Age Matched Z-Score -1.7. LT NECK BMD 0.707 g/cm2 Young Adult T-Score -2.4 Age Matched Z-Score -0.4. IMPRESSION: There is osteoporosis of the spine. There is low bone density of the left hip. The density of the spine has increased 3.2% since the initial exam on 04/26/2001. The density of the spine decreased 12.3% since most recent exam on 04/12/2016. The density of the left hip has decreased 29.2% since initial exam on 04/26/2001. The density of the left hip has decreased 13.6% since most recent exam on 04/12/2016. FOLLOW-UP: Recommendation for the next bone density exam: 2 years. <Electronically signed by Shaheen Keith > 12/30/20 [id number]
== END ==
LOC: M WHC 08:05
PROVIDERS: ATTEND Family Medicine
DX: Z12.31 Encounter for screening mammogram for malignant neoplasm of breast (principal); Z85.3 Personal history of malignant neoplasm of breast; Z80.3 Family history of malignant neoplasm of breast; M85.851 Other specified disorders of bone density and structure, right thigh; M85.852 Other specified disorders of bone density and structure, left thigh; M85.88 Other specified disorders of bone density and structure, other site

== ENCOUNTER 2022-09-12 07:54 | Inpatient (IN) | payer MEDICARE, BC ==
[~2022-09-12] VITALS: Ht 180.3 cm; Wt 54.5 kg
[~2022-09-12 07:54] MED LIST changes: -ALEN35TA54 PO; +ALEN35TA56 PO; +ALEN70TA87 PO; +FERR324T21 PO; -FERR325T16 PO; -FOSA70TA PO; +POTA-151 PO; -POTA20TA6 PO
[2022-09-12] MEDS ORDERED: ACETAMINOPHEN 325 MG TAB PO ONE (10:50)
[2022-09-12] MEDS ORDERED: LIDOCAINE 5% (LIDODERM) PATCH TD ONE (10:50)
[2022-09-12] MEDS ORDERED: LIDO5DIS41 TD (15:23)
[2022-09-12] MEDS ORDERED: TRAM50TA2 PO (15:23)
[2022-09-12] MEDS ORDERED: NS 500 ML IV ONE (16:05)
[2022-09-12 16:49] LABS: BASO % 0.3 % (0.0-1.0); HEMATOCRIT 37.9 % (36.0-47.0); HEMOGLOBIN 11.3 g/dl (12.0-15.5); LYMPH # 0.5 10^3/uL (1.5-5.0); LYMPH % 7.5 % (24.0-44.0); MEAN CORPUSCULAR HEMOGLOBIN 27.8 pg (27.0-33.0); MEAN CORPUSCULAR HGB CONC 29.8 g/dl (32.0-36.5); MEAN CORPUSCULAR VOLUME 93.1 fl (80.0-96.0); MONO # 0.5 10^3/uL (0.0-0.8); MONO % 7.4 % (2.0-8.0); NEUTROPHILS # 5.7 10^3/uL (1.5-8.5); NEUTROPHILS % 83.6 % (36.0-66.0); PLATELET COUNT, AUTOMATED 164 10^3/uL (150-450); RED BLOOD COUNT 4.07 10^6/uL (4.00-5.40); WHITE BLOOD COUNT 6.8 10^3/uL (4.0-10.0)
[2022-09-12 17:15] LABS: ALBUMIN 3.6 G/DL (3.2-5.2); ALKALINE PHOSPHATASE 85 U/L (46-116); ALT/SGPT 43 U/L (7.0-40); AST/SGOT 37 U/L (<34); BILIRUBIN,TOTAL 0.7 MG/DL (0.3-1.2); BLOOD UREA NITROGEN 15 MG/DL (9-23); CARBON DIOXIDE LEVEL 25 MMOL/L (20-31); CHLORIDE LEVEL 105 MMOL/L (98-107); CREATININE FOR GFR 0.33 MG/DL (0.55-1.30); GLOMERULAR FILTRATION RATE > 60.0 (>39); GLUCOSE, FASTING 128 MG/DL (74-106); POTASSIUM SERUM 3.5 MMOL/L (3.5-5.1); SODIUM LEVEL 141 MMOL/L (136-145); TOTAL PROTEIN 6.3 G/DL (5.7-8.2)
[2022-09-12 17:20] LABS: CPK CREATINE PHOSPHOKINASE 82 U/L (34-145)
[2022-09-12 17:34] LABS: RSV AMPLIFICATION NEGATIVE (NEGATIVE)
[2022-09-12] MEDS: ACETAMINOPHEN 500 MG TAB PO SCH (18:00)
[2022-09-12 18:09] LABS: APPEARANCE, URINE MANUAL CLEAR (CLEAR); COLOR, URINE MANUAL LT YELLOW (YELLOW)
[2022-09-12 18:10] LABS: BILIRUBIN, URINE MANUAL NEGATIVE (NEGATIVE); BLOOD URINE MANUAL POSITIVE (NEGATIVE); GLUCOSE, URINE (UA) MANUAL NEGATIVE (NEGATIVE); KETONE, URINE MANUAL NEGATIVE (NEGATIVE); LEUKOCYTE ESTERASE, URINE MAN NEGATIVE (NEGATIVE); NITRITE, URINE MANUAL NEGATIVE (NEGATIVE); PROTEIN, URINE MANUAL NEGATIVE (NEGATIVE); UROBILINOGEN, URINE MANUAL NORMAL (NORMAL)
[2022-09-12 18:37] LABS: CALCIUM OXALATE CRYSTALS,URINE SMALL AMOUNT /hpf; RBC, URINE 15-20 /hpf (0-3); SQUAMOUS EPITHELIAL CELL URINE SMALL AMOUNT /hpf (SMALL AMT); WBC, URINE NONE SEEN /hpf (0-3)
[2022-09-12 18:38] LABS: BACTERIA, URINE NONE SEEN; HYALINE CAST, URINE NONE SEEN /lpf (0-1)
[2022-09-12] MEDS ORDERED: oxyCODONE 5MG TAB PO PRN ×2 (19:00)
[2022-09-12 19:23] LABS: INR 1.18; PROTHROMBIN TIME 15.2 SECONDS (12.5-14.5)
[2022-09-12] MEDS ORDERED: D31000TA PO (20:00)
[2022-09-12] MEDS ORDERED: VITA500T40 PO (20:05)
[2022-09-12] MEDS ORDERED: BACT800T5 PO (20:06)
[2022-09-12] MEDS ORDERED: HYDR2.5C TOP (20:08)
[2022-09-12] MEDS ORDERED: POTA99TA10 PO (20:10)
[2022-09-12] MEDS ORDERED: HOME MED LIST COMPLETE! XX SCH (20:10)
[2022-09-12 23:00] VITALS: BP 133/77
[2022-09-13] MEDS: ACETAMINOPHEN 500 MG TAB PO SCH ×5 (00:06→23:31)
[2022-09-13 05:50] VITALS: BP 122/69
[2022-09-13 06:22] LABS: HEMATOCRIT 35.9 % (36.0-47.0); HEMOGLOBIN 11.1 g/dl (12.0-15.5); MEAN CORPUSCULAR HGB CONC 30.9 g/dl (32.0-36.5); MEAN CORPUSCULAR VOLUME 90.4 fl (80.0-96.0); PLATELET COUNT, AUTOMATED 159 10^3/uL (150-450); RED BLOOD COUNT 3.97 10^6/uL (4.00-5.40); WHITE BLOOD COUNT 5.7 10^3/uL (4.0-10.0)
[2022-09-13 06:44] LABS: BLOOD UREA NITROGEN 16 MG/DL (9-23); CARBON DIOXIDE LEVEL 26 MMOL/L (20-31); CHLORIDE LEVEL 103 MMOL/L (98-107); CREATININE FOR GFR 0.39 MG/DL (0.55-1.30); GLOMERULAR FILTRATION RATE > 60.0 (>39); GLUCOSE, FASTING 93 MG/DL (74-106); POTASSIUM SERUM 3.2 MMOL/L (3.5-5.1); SODIUM LEVEL 139 MMOL/L (136-145)
[2022-09-13] MEDS: FERROUS GLUCONATE 324 MG TAB PO SCH ×2 (09:39→21:56)
[2022-09-13] MEDS: BACTRIM 160MG/800MG DS TAB PO SCH (09:39)
[2022-09-13] MEDS: VITAMIN D 1,000 INTERNATIONAL UNITS TABLET PO SCH (09:39)
[2022-09-13] MEDS: risperiDONE 3 MG TAB PO SCH ×2 (09:39→21:56)
[2022-09-13] MEDS: LIDOCAINE 5% (LIDODERM) PATCH TD SCH (09:39)
[2022-09-13] MEDS: ASCORBIC ACID 500 MG TAB PO SCH (09:39)
[2022-09-13] MEDS: POTASSIUM CHLORIDE 10MEQ SR TABLET PO SCH ×2 (09:40→21:56)
[2022-09-13] MEDS: SIMVASTATIN 20 MG TAB PO SCH (11:22)
[2022-09-13 14:00] VITALS: BP 124/88
[2022-09-13 14:26] LABS: TOTAL 25(OH) VITAMIN D 56.7 NG/ML (20.0-100.0)
[2022-09-13] MEDS: RIVAROXABAN 10MG TAB (XARELTO) PO SCH (17:38)
[2022-09-13] MEDS: CYANOCOBALAMIN 500 MCG TAB PO SCH (21:56)
[2022-09-13 22:00] VITALS: BP 129/60
[2022-09-14] MEDS: ACETAMINOPHEN 500 MG TAB PO SCH ×3 (05:42→17:45)
[2022-09-14 06:00] VITALS: BP 127/77
[2022-09-14 07:37] LABS: HEMOGLOBIN 11.3 g/dl (12.0-15.5); MEAN CORPUSCULAR HGB CONC 30.5 g/dl (32.0-36.5); MEAN CORPUSCULAR VOLUME 91.8 fl (80.0-96.0); PLATELET COUNT, AUTOMATED 124 10^3/uL (150-450); RED BLOOD COUNT 4.03 10^6/uL (4.00-5.40); WHITE BLOOD COUNT 7.3 10^3/uL (4.0-10.0)
[2022-09-14] MEDS: FERROUS GLUCONATE 324 MG TAB PO SCH ×2 (08:20→21:47)
[2022-09-14] MEDS: risperiDONE 3 MG TAB PO SCH ×2 (08:20→21:47)
[2022-09-14] MEDS: VITAMIN D 1,000 INTERNATIONAL UNITS TABLET PO SCH (08:20)
[2022-09-14] MEDS: ASCORBIC ACID 500 MG TAB PO SCH (08:20)
[2022-09-14] MEDS: LIDOCAINE 5% (LIDODERM) PATCH TD SCH (08:20)
[2022-09-14] MEDS: BACTRIM 160MG/800MG DS TAB PO SCH (08:20)
[2022-09-14 08:43] LABS: BLOOD UREA NITROGEN 23 MG/DL (9-23); CALCIUM LEVEL 8.3 MG/DL (8.3-10.6); CARBON DIOXIDE LEVEL 27 MMOL/L (20-31); CHLORIDE LEVEL 105 MMOL/L (98-107); CREATININE FOR GFR 0.48 MG/DL (0.55-1.30); GLOMERULAR FILTRATION RATE > 60.0 (>39); GLUCOSE, FASTING 129 MG/DL (74-106); POTASSIUM SERUM 4.4 MMOL/L (3.5-5.1); SODIUM LEVEL 139 MMOL/L (136-145)
[2022-09-14] MEDS: SIMVASTATIN 20 MG TAB PO SCH (12:50)
[2022-09-14 14:36] VITALS: BP 126/70
[2022-09-14] MEDS: RIVAROXABAN 10MG TAB (XARELTO) PO SCH (17:45)
[2022-09-14] MEDS: CYANOCOBALAMIN 500 MCG TAB PO SCH (21:46)
[2022-09-14] MEDS: SANTYL OINT 30GM TOP SCH (21:47)
[2022-09-14 22:00] VITALS: BP 145/78
[2022-09-15] MEDS ORDERED: CEPACOL LOZENGE PO PRN (02:15)
[2022-09-15 06:00] VITALS: BP 146/80
[2022-09-15] MEDS: ACETAMINOPHEN 500 MG TAB PO SCH ×4 (06:24→18:06)
[2022-09-15 06:59] LABS: HEMATOCRIT 37.1 % (36.0-47.0); HEMOGLOBIN 11.5 g/dl (12.0-15.5); MEAN CORPUSCULAR HEMOGLOBIN 27.9 pg (27.0-33.0); PLATELET COUNT, AUTOMATED 131 10^3/uL (150-450); RED BLOOD COUNT 4.12 10^6/uL (4.00-5.40); WHITE BLOOD COUNT 5.5 10^3/uL (4.0-10.0)
[2022-09-15 07:27] LABS: BLOOD UREA NITROGEN 23 MG/DL (9-23); CALCIUM LEVEL 8.7 MG/DL (8.3-10.6); CARBON DIOXIDE LEVEL 25 MMOL/L (20-31); CHLORIDE LEVEL 103 MMOL/L (98-107); GLOMERULAR FILTRATION RATE > 60.0 (>39); GLUCOSE, FASTING 123 MG/DL (74-106); POTASSIUM SERUM 4.5 MMOL/L (3.5-5.1); SODIUM LEVEL 139 MMOL/L (136-145)
[2022-09-15] MEDS: LIDOCAINE 5% (LIDODERM) PATCH TD SCH (09:00)
[2022-09-15] MEDS: risperiDONE 3 MG TAB PO SCH ×2 (09:12→20:56)
[2022-09-15] MEDS: BACTRIM 160MG/800MG DS TAB PO SCH (09:12)
[2022-09-15] MEDS: FERROUS GLUCONATE 324 MG TAB PO SCH ×2 (09:12→20:56)
[2022-09-15] MEDS: VITAMIN D 1,000 INTERNATIONAL UNITS TABLET PO SCH (09:13)
[2022-09-15] MEDS: ASCORBIC ACID 500 MG TAB PO SCH (09:13)
[2022-09-15] MEDS: SANTYL OINT 30GM TOP SCH ×2 (11:37→20:58)
[2022-09-15] MEDS: SIMVASTATIN 20 MG TAB PO SCH (12:16)
[2022-09-15] MEDS: RIVAROXABAN 10MG TAB (XARELTO) PO SCH (18:06)
[2022-09-15] MEDS: CYANOCOBALAMIN 500 MCG TAB PO SCH (20:56)
[2022-09-15 22:00] VITALS: BP 145/78
[2022-09-16] MEDS: ACETAMINOPHEN 500 MG TAB PO SCH ×4 (00:17→17:56)
[2022-09-16 06:00] VITALS: BP 154/82
[2022-09-16 06:50] LABS: HEMATOCRIT 37.8 % (36.0-47.0); HEMOGLOBIN 11.7 g/dl (12.0-15.5); MEAN CORPUSCULAR HEMOGLOBIN 28.3 pg (27.0-33.0); MEAN CORPUSCULAR VOLUME 91.3 fl (80.0-96.0); PLATELET COUNT, AUTOMATED 154 10^3/uL (150-450); RED BLOOD COUNT 4.14 10^6/uL (4.00-5.40); WHITE BLOOD COUNT 4.5 10^3/uL (4.0-10.0)
[2022-09-16] MEDS ORDERED: ALENDRONATE 35MG TABLET PO SCH (07:00)
[2022-09-16 07:16] LABS: BLOOD UREA NITROGEN 22 MG/DL (9-23); CALCIUM LEVEL 8.4 MG/DL (8.3-10.6); CARBON DIOXIDE LEVEL 27 MMOL/L (20-31); CHLORIDE LEVEL 104 MMOL/L (98-107); CREATININE FOR GFR 0.39 MG/DL (0.55-1.30); GLOMERULAR FILTRATION RATE > 60.0 (>39); GLUCOSE, FASTING 118 MG/DL (74-106); SODIUM LEVEL 140 MMOL/L (136-145)
[2022-09-16] MEDS: VITAMIN D 1,000 INTERNATIONAL UNITS TABLET PO SCH (07:27)
[2022-09-16] MEDS: BACTRIM 160MG/800MG DS TAB PO SCH (07:27)
[2022-09-16] MEDS: ASCORBIC ACID 500 MG TAB PO SCH (07:28)
[2022-09-16] MEDS: risperiDONE 3 MG TAB PO SCH ×2 (07:28→22:43)
[2022-09-16] MEDS: FERROUS GLUCONATE 324 MG TAB PO SCH ×2 (07:28→22:43)
[2022-09-16] MEDS: LIDOCAINE 5% (LIDODERM) PATCH TD SCH ×2 (07:29→07:34)
[2022-09-16] MEDS: SANTYL OINT 30GM TOP SCH ×2 (07:30→22:44)
[2022-09-16] MEDS: SIMVASTATIN 20 MG TAB PO SCH (14:42)
[2022-09-16] MEDS: RIVAROXABAN 10MG TAB (XARELTO) PO SCH (17:55)
[2022-09-16 21:30] VITALS: BP 109/63
[2022-09-16] MEDS: CYANOCOBALAMIN 500 MCG TAB PO SCH (22:43)
[2022-09-17] MEDS: ACETAMINOPHEN 500 MG TAB PO SCH ×5 (00:38→23:02)
[2022-09-17 05:30] VITALS: BP 142/72
[2022-09-17] MEDS: LIDOCAINE 5% (LIDODERM) PATCH TD SCH ×2 (08:40→08:47)
[2022-09-17] MEDS: VITAMIN D 1,000 INTERNATIONAL UNITS TABLET PO SCH (08:40)
[2022-09-17] MEDS: ASCORBIC ACID 500 MG TAB PO SCH (08:40)
[2022-09-17] MEDS: BACTRIM 160MG/800MG DS TAB PO SCH (08:40)
[2022-09-17] MEDS: FERROUS GLUCONATE 324 MG TAB PO SCH ×2 (08:40→19:56)
[2022-09-17] MEDS: risperiDONE 3 MG TAB PO SCH ×2 (08:40→19:56)
[2022-09-17] MEDS: SANTYL OINT 30GM TOP SCH ×2 (08:46→21:08)
[2022-09-17] MEDS: SIMVASTATIN 20 MG TAB PO SCH (11:50)
[2022-09-17] MEDS: RIVAROXABAN 10MG TAB (XARELTO) PO SCH (16:30)
[2022-09-17] MEDS: CYANOCOBALAMIN 500 MCG TAB PO SCH (19:56)
[2022-09-17 20:00] VITALS: BP 108/56
[2022-09-18] MEDS: ACETAMINOPHEN 500 MG TAB PO SCH ×3 (05:05→17:54)
[2022-09-18 06:00] VITALS: BP 131/69
[2022-09-18] MEDS: risperiDONE 3 MG TAB PO SCH ×2 (08:35→21:49)
[2022-09-18] MEDS: LIDOCAINE 5% (LIDODERM) PATCH TD SCH (08:35)
[2022-09-18] MEDS: VITAMIN D 1,000 INTERNATIONAL UNITS TABLET PO SCH (08:35)
[2022-09-18] MEDS: BACTRIM 160MG/800MG DS TAB PO SCH (08:35)
[2022-09-18] MEDS: FERROUS GLUCONATE 324 MG TAB PO SCH ×2 (08:35→21:49)
[2022-09-18] MEDS: ASCORBIC ACID 500 MG TAB PO SCH (08:35)
[2022-09-18] MEDS: SANTYL OINT 30GM TOP SCH ×2 (08:36→21:49)
[2022-09-18] MEDS: SIMVASTATIN 20 MG TAB PO SCH (12:07)
[2022-09-18] MEDS: RIVAROXABAN 10MG TAB (XARELTO) PO SCH (17:50)
[2022-09-18] MEDS: CYANOCOBALAMIN 500 MCG TAB PO SCH (21:49)
[2022-09-19] MEDS: ACETAMINOPHEN 500 MG TAB PO SCH ×5 (01:08→23:51)
[2022-09-19 06:00] VITALS: BP 138/67
[2022-09-19] MEDS: LIDOCAINE 5% (LIDODERM) PATCH TD SCH (09:00)
[2022-09-19] MEDS: VITAMIN D 1,000 INTERNATIONAL UNITS TABLET PO SCH (10:10)
[2022-09-19] MEDS: risperiDONE 3 MG TAB PO SCH ×2 (10:10→19:46)
[2022-09-19] MEDS: SANTYL OINT 30GM TOP SCH ×2 (10:10→19:46)
[2022-09-19] MEDS: BACTRIM 160MG/800MG DS TAB PO SCH (10:10)
[2022-09-19] MEDS: SIMVASTATIN 20 MG TAB PO SCH (10:11)
[2022-09-19] MEDS: FERROUS GLUCONATE 324 MG TAB PO SCH ×2 (10:11→19:46)
[2022-09-19] MEDS: ASCORBIC ACID 500 MG TAB PO SCH (10:11)
[2022-09-19] MEDS: RIVAROXABAN 10MG TAB (XARELTO) PO SCH (17:08)
[2022-09-19] MEDS: CYANOCOBALAMIN 500 MCG TAB PO SCH (19:46)
[2022-09-20] MEDS: ACETAMINOPHEN 500 MG TAB PO SCH ×4 (05:35→23:52)
[2022-09-20 05:46] VITALS: BP 136/66
[2022-09-20] MEDS: LIDOCAINE 5% (LIDODERM) PATCH TD SCH (09:00)
[2022-09-20] MEDS: VITAMIN D 1,000 INTERNATIONAL UNITS TABLET PO SCH (10:22)
[2022-09-20] MEDS: risperiDONE 3 MG TAB PO SCH ×2 (10:22→20:07)
[2022-09-20] MEDS: FERROUS GLUCONATE 324 MG TAB PO SCH ×2 (10:22→20:07)
[2022-09-20] MEDS: SIMVASTATIN 20 MG TAB PO SCH (10:22)
[2022-09-20] MEDS: ASCORBIC ACID 500 MG TAB PO SCH (10:22)
[2022-09-20] MEDS: BACTRIM 160MG/800MG DS TAB PO SCH (10:22)
[2022-09-20] MEDS: SANTYL OINT 30GM TOP SCH ×2 (10:23→20:08)
[2022-09-20] MEDS: RIVAROXABAN 10MG TAB (XARELTO) PO SCH (17:58)
[2022-09-20] MEDS: CYANOCOBALAMIN 500 MCG TAB PO SCH (20:07)
[2022-09-21 05:37] VITALS: BP 129/65
[2022-09-21] MEDS: ACETAMINOPHEN 500 MG TAB PO SCH ×4 (05:44→23:56)
[2022-09-21] MEDS: VITAMIN D 1,000 INTERNATIONAL UNITS TABLET PO SCH (09:25)
[2022-09-21] MEDS: BACTRIM 160MG/800MG DS TAB PO SCH (09:25)
[2022-09-21] MEDS: ASCORBIC ACID 500 MG TAB PO SCH (09:25)
[2022-09-21] MEDS: LIDOCAINE 5% (LIDODERM) PATCH TD SCH (09:25)
[2022-09-21] MEDS: FERROUS GLUCONATE 324 MG TAB PO SCH ×2 (09:25→21:13)
[2022-09-21] MEDS: risperiDONE 3 MG TAB PO SCH ×2 (09:25→21:12)
[2022-09-21] MEDS: SANTYL OINT 30GM TOP SCH ×2 (09:26→21:13)
[2022-09-21] MEDS: SIMVASTATIN 20 MG TAB PO SCH (12:08)
[2022-09-21] MEDS: RIVAROXABAN 10MG TAB (XARELTO) PO SCH (18:28)
[2022-09-21] MEDS: CYANOCOBALAMIN 500 MCG TAB PO SCH (21:13)
[2022-09-22 05:30] VITALS: BP 129/65
[2022-09-22] MEDS: ACETAMINOPHEN 500 MG TAB PO SCH ×2 (06:27→12:25)
[2022-09-22] MEDS: LIDOCAINE 5% (LIDODERM) PATCH TD SCH (09:00)
[2022-09-22] MEDS: ASCORBIC ACID 500 MG TAB PO SCH (09:05)
[2022-09-22] MEDS: risperiDONE 3 MG TAB PO SCH (09:05)
[2022-09-22] MEDS: VITAMIN D 1,000 INTERNATIONAL UNITS TABLET PO SCH (09:05)
[2022-09-22] MEDS: BACTRIM 160MG/800MG DS TAB PO SCH (09:05)
[2022-09-22] MEDS: FERROUS GLUCONATE 324 MG TAB PO SCH (09:05)
[2022-09-22] MEDS: SANTYL OINT 30GM TOP SCH (09:06)
[2022-09-22] MEDS: SIMVASTATIN 20 MG TAB PO SCH (12:26)
[2022-09-23] MEDS ORDERED: ALENDRONATE 35MG TABLET PO SCH (07:00)
== END 2022-09-22 13:20 | disposition home or self-care (01) | DRG 543 ==
LOC: EDBD 07:54 → M ED 07:54 → M ED INP 18:28 → M MS5PR 22:50
PROVIDERS: ADMIT Student in an Organized Health Care Education/Training Program; ATTEND Internal Medicine
DX: M80.08XA Age-related osteoporosis with current pathological fracture, vertebra(e), initial encounter for fracture (principal); Z68.1 Body mass index [BMI] 19.9 or less, adult; E46 Unspecified protein-calorie malnutrition; E78.5 Hyperlipidemia, unspecified; I10 Essential (primary) hypertension; F20.9 Schizophrenia, unspecified; Z85.3 Personal history of malignant neoplasm of breast; D50.9 Iron deficiency anemia, unspecified; S71.101D Unspecified open wound, right thigh, subsequent encounter; G25.81 Restless legs syndrome; K59.00 Constipation, unspecified; G47.00 Insomnia, unspecified; Z95.828 Presence of other vascular implants and grafts; Z87.891 Personal history of nicotine dependence; Z96.641 Presence of right artificial hip joint; Z79.01 Long term (current) use of anticoagulants; Z79.899 Other long term (current) drug therapy; Z88.8 Allergy status to other drugs, medicaments and biological substances; Z79.2 Long term (current) use of antibiotics; Z86.718 Personal history of other venous thrombosis and embolism; Z20.822 Contact with and (suspected) exposure to COVID-19

== ENCOUNTER 2022-09-22 14:32 | Inpatient (IN) | payer MEDICARE, BC ==
[~2022-09-22] VITALS: Ht 180.3 cm; Wt 54.5 kg
[~2022-09-22 14:32] MED LIST changes: +D31000TA PO; +HYDR2.5C TOP; +LIDO5DIS41 TD; +POTA99TA10 PO; +VITA500T40 PO
[2022-09-22 17:04] LABS: HEMATOCRIT 35.4 % (36.0-47.0); HEMOGLOBIN 10.9 g/dl (12.0-15.5); MEAN CORPUSCULAR HEMOGLOBIN 27.7 pg (27.0-33.0); MEAN CORPUSCULAR HGB CONC 30.8 g/dl (32.0-36.5); MEAN CORPUSCULAR VOLUME 90.1 fl (80.0-96.0); PLATELET COUNT, AUTOMATED 240 10^3/uL (150-450); RED BLOOD COUNT 3.93 10^6/uL (4.00-5.40); WHITE BLOOD COUNT 6.8 10^3/uL (4.0-10.0)
[2022-09-22 17:29] LABS: BLOOD UREA NITROGEN 18 MG/DL (9-23); CALCIUM LEVEL 8.3 MG/DL (8.3-10.6); CARBON DIOXIDE LEVEL 23 MMOL/L (20-31); CHLORIDE LEVEL 106 MMOL/L (98-107); CREATININE FOR GFR 0.34 MG/DL (0.55-1.30); GLOMERULAR FILTRATION RATE > 60.0 (>39); GLUCOSE, FASTING 105 MG/DL (74-106); SODIUM LEVEL 141 MMOL/L (136-145)
[2022-09-22] MEDS: RIVAROXABAN 10MG TAB (XARELTO) PO SCH (18:00)
[2022-09-22] MEDS ORDERED: HOME MED LIST COMPLETE! XX SCH (18:25)
[2022-09-22] MEDS: PRAVASTATIN 20 MG TAB PO SCH (21:28)
[2022-09-22] MEDS: FERROUS GLUCONATE 324 MG TAB PO SCH (21:28)
[2022-09-22] MEDS: CYANOCOBALAMIN 500 MCG TAB PO SCH (21:29)
[2022-09-22] MEDS: risperiDONE 3 MG TAB PO SCH (22:55)
[2022-09-23] MEDS: ACETAMINOPHEN TAB 650MG DOSE (2X325MG) PO PRN ×2 (04:36→19:58)
[2022-09-23] MEDS ORDERED: ALENDRONATE 35MG TABLET PO SCH ×2 (04:40→07:00)
[2022-09-23] MEDS: ALENDRONATE 35MG TABLET PO SCH (05:02)
[2022-09-23 05:56] VITALS: BP 105/54
[2022-09-23] MEDS: VITAMIN D 1,000 INTERNATIONAL UNITS TABLET PO SCH (08:27)
[2022-09-23] MEDS: ASCORBIC ACID 500 MG TAB PO SCH (08:27)
[2022-09-23] MEDS: BACTRIM 160MG/800MG DS TAB PO SCH (08:27)
[2022-09-23] MEDS: FERROUS GLUCONATE 324 MG TAB PO SCH ×2 (08:27→19:59)
[2022-09-23] MEDS: risperiDONE 3 MG TAB PO SCH ×2 (08:27→19:59)
[2022-09-23] MEDS: OYSTER SHELL CALCIUM 500 MG TAB PO SCH (12:10)
[2022-09-23] MEDS: RIVAROXABAN 10MG TAB (XARELTO) PO SCH (17:45)
[2022-09-23] MEDS: PRAVASTATIN 20 MG TAB PO SCH (19:59)
[2022-09-23] MEDS: CYANOCOBALAMIN 500 MCG TAB PO SCH (19:59)
[2022-09-24 06:00] VITALS: BP 133/60
[2022-09-24] MEDS: BACTRIM 160MG/800MG DS TAB PO SCH (09:17)
[2022-09-24] MEDS: ASCORBIC ACID 500 MG TAB PO SCH (09:17)
[2022-09-24] MEDS: risperiDONE 3 MG TAB PO SCH ×2 (09:17→20:11)
[2022-09-24] MEDS: FERROUS GLUCONATE 324 MG TAB PO SCH ×2 (09:18→20:11)
[2022-09-24] MEDS: VITAMIN D 1,000 INTERNATIONAL UNITS TABLET PO SCH (09:18)
[2022-09-24] MEDS: OYSTER SHELL CALCIUM 500 MG TAB PO SCH (09:18)
[2022-09-24] MEDS: RIVAROXABAN 10MG TAB (XARELTO) PO SCH (17:40)
[2022-09-24] MEDS: CYANOCOBALAMIN 500 MCG TAB PO SCH (20:11)
[2022-09-24] MEDS: PRAVASTATIN 20 MG TAB PO SCH (20:11)
[2022-09-24] MEDS: ACETAMINOPHEN TAB 650MG DOSE (2X325MG) PO PRN (20:14)
[2022-09-25 05:53] VITALS: BP 105/51
[2022-09-25] MEDS: OYSTER SHELL CALCIUM 500 MG TAB PO SCH (10:11)
[2022-09-25] MEDS: VITAMIN D 1,000 INTERNATIONAL UNITS TABLET PO SCH (10:12)
[2022-09-25] MEDS: BACTRIM 160MG/800MG DS TAB PO SCH (10:12)
[2022-09-25] MEDS: FERROUS GLUCONATE 324 MG TAB PO SCH ×2 (10:12→20:52)
[2022-09-25] MEDS: risperiDONE 3 MG TAB PO SCH ×2 (10:12→20:52)
[2022-09-25] MEDS: ASCORBIC ACID 500 MG TAB PO SCH (10:12)
[2022-09-25] MEDS: RIVAROXABAN 10MG TAB (XARELTO) PO SCH (17:24)
[2022-09-25] MEDS: ACETAMINOPHEN TAB 650MG DOSE (2X325MG) PO PRN (20:52)
[2022-09-25] MEDS: PRAVASTATIN 20 MG TAB PO SCH (20:52)
[2022-09-25] MEDS: CYANOCOBALAMIN 500 MCG TAB PO SCH (20:52)
[2022-09-26 06:18] VITALS: BP 141/81
[2022-09-26] MEDS: BACTRIM 160MG/800MG DS TAB PO SCH (08:47)
[2022-09-26] MEDS: OYSTER SHELL CALCIUM 500 MG TAB PO SCH (08:48)
[2022-09-26] MEDS: risperiDONE 3 MG TAB PO SCH ×2 (08:48→21:21)
[2022-09-26] MEDS: VITAMIN D 1,000 INTERNATIONAL UNITS TABLET PO SCH (08:48)
[2022-09-26] MEDS: FERROUS GLUCONATE 324 MG TAB PO SCH ×2 (08:48→21:21)
[2022-09-26] MEDS: ASCORBIC ACID 500 MG TAB PO SCH (08:48)
[2022-09-26] MEDS ORDERED: PENCICLOVIR 1% CREAM 5GM TOP SCH (15:00)
[2022-09-26] MEDS: RIVAROXABAN 10MG TAB (XARELTO) PO SCH (18:00)
[2022-09-26] MEDS: ACETAMINOPHEN TAB 650MG DOSE (2X325MG) PO PRN (21:20)
[2022-09-26] MEDS: CYANOCOBALAMIN 500 MCG TAB PO SCH (21:21)
[2022-09-26] MEDS: PRAVASTATIN 20 MG TAB PO SCH (21:21)
[2022-09-27 05:48] VITALS: BP 141/81
[2022-09-27] MEDS: OYSTER SHELL CALCIUM 500 MG TAB PO SCH (09:00)
[2022-09-27] MEDS: BACTRIM 160MG/800MG DS TAB PO SCH (09:04)
[2022-09-27] MEDS: ASCORBIC ACID 500 MG TAB PO SCH (09:04)
[2022-09-27] MEDS: risperiDONE 3 MG TAB PO SCH ×2 (09:04→20:41)
[2022-09-27] MEDS: VITAMIN D 1,000 INTERNATIONAL UNITS TABLET PO SCH (09:04)
[2022-09-27] MEDS: FERROUS GLUCONATE 324 MG TAB PO SCH ×2 (09:04→20:40)
[2022-09-27] MEDS: RIVAROXABAN 10MG TAB (XARELTO) PO SCH (17:44)
[2022-09-27] MEDS: ACETAMINOPHEN TAB 650MG DOSE (2X325MG) PO PRN (20:40)
[2022-09-27] MEDS: CYANOCOBALAMIN 500 MCG TAB PO SCH (20:40)
[2022-09-27] MEDS: PRAVASTATIN 20 MG TAB PO SCH (20:41)
[2022-09-28 05:47] VITALS: BP 134/65
[2022-09-28] MEDS: VITAMIN D 1,000 INTERNATIONAL UNITS TABLET PO SCH (08:41)
[2022-09-28] MEDS: ASCORBIC ACID 500 MG TAB PO SCH (08:41)
[2022-09-28] MEDS: risperiDONE 3 MG TAB PO SCH ×2 (08:41→20:22)
[2022-09-28] MEDS: BACTRIM 160MG/800MG DS TAB PO SCH (08:41)
[2022-09-28] MEDS: OYSTER SHELL CALCIUM 500 MG TAB PO SCH (08:41)
[2022-09-28] MEDS: FERROUS GLUCONATE 324 MG TAB PO SCH ×2 (08:41→20:22)
[2022-09-28] MEDS: ACETAMINOPHEN TAB 650MG DOSE (2X325MG) PO PRN ×2 (08:42→20:22)
[2022-09-28] MEDS: RIVAROXABAN 10MG TAB (XARELTO) PO SCH (18:00)
[2022-09-28] MEDS: CYANOCOBALAMIN 500 MCG TAB PO SCH (20:21)
[2022-09-28] MEDS: PRAVASTATIN 20 MG TAB PO SCH (20:22)
[2022-09-29 05:29] VITALS: BP 127/65
[2022-09-29] MEDS: VITAMIN D 1,000 INTERNATIONAL UNITS TABLET PO SCH (09:22)
[2022-09-29] MEDS: ACETAMINOPHEN TAB 650MG DOSE (2X325MG) PO PRN ×2 (09:22→20:27)
[2022-09-29] MEDS: FERROUS GLUCONATE 324 MG TAB PO SCH ×2 (09:22→20:28)
[2022-09-29] MEDS: ASCORBIC ACID 500 MG TAB PO SCH (09:23)
[2022-09-29] MEDS: BACTRIM 160MG/800MG DS TAB PO SCH (09:23)
[2022-09-29] MEDS: OYSTER SHELL CALCIUM 500 MG TAB PO SCH (09:23)
[2022-09-29] MEDS: risperiDONE 3 MG TAB PO SCH ×2 (09:23→20:28)
[2022-09-29] MEDS: RIVAROXABAN 10MG TAB (XARELTO) PO SCH (09:24)
[2022-09-29] MEDS: PRAVASTATIN 20 MG TAB PO SCH (20:27)
[2022-09-29] MEDS: CYANOCOBALAMIN 500 MCG TAB PO SCH (20:28)
[2022-09-30] MEDS: ALENDRONATE 35MG TABLET PO SCH (05:14)
[2022-09-30 05:42] VITALS: BP 123/65
[2022-09-30] MEDS: BACTRIM 160MG/800MG DS TAB PO SCH (08:02)
[2022-09-30] MEDS: VITAMIN D 1,000 INTERNATIONAL UNITS TABLET PO SCH (08:03)
[2022-09-30] MEDS: risperiDONE 3 MG TAB PO SCH ×2 (08:03→20:32)
[2022-09-30] MEDS: ASCORBIC ACID 500 MG TAB PO SCH (08:03)
[2022-09-30] MEDS: ACETAMINOPHEN TAB 650MG DOSE (2X325MG) PO PRN (08:03)
[2022-09-30] MEDS: OYSTER SHELL CALCIUM 500 MG TAB PO SCH (08:03)
[2022-09-30] MEDS: FERROUS GLUCONATE 324 MG TAB PO SCH ×2 (08:04→20:31)
[2022-09-30] MEDS: RIVAROXABAN 10MG TAB (XARELTO) PO SCH (18:00)
[2022-09-30] MEDS: ACETAMINOPHEN 325 MG TAB PO PRN (20:31)
[2022-09-30] MEDS: PRAVASTATIN 20 MG TAB PO SCH (20:32)
[2022-09-30] MEDS: CYANOCOBALAMIN 500 MCG TAB PO SCH (20:32)
[2022-10-01 06:00] VITALS: BP 124/68
[2022-10-01] MEDS: FERROUS GLUCONATE 324 MG TAB PO SCH ×2 (08:29→20:29)
[2022-10-01] MEDS: risperiDONE 3 MG TAB PO SCH ×2 (08:29→20:28)
[2022-10-01] MEDS: OYSTER SHELL CALCIUM 500 MG TAB PO SCH (08:29)
[2022-10-01] MEDS: ASCORBIC ACID 500 MG TAB PO SCH (08:29)
[2022-10-01] MEDS: ACETAMINOPHEN TAB 650MG DOSE (2X325MG) PO PRN (08:29)
[2022-10-01] MEDS: BACTRIM 160MG/800MG DS TAB PO SCH (08:29)
[2022-10-01] MEDS: VITAMIN D 1,000 INTERNATIONAL UNITS TABLET PO SCH (08:29)
[2022-10-01] MEDS: RIVAROXABAN 10MG TAB (XARELTO) PO SCH (18:00)
[2022-10-01] MEDS: CYANOCOBALAMIN 500 MCG TAB PO SCH (20:25)
[2022-10-01] MEDS: PRAVASTATIN 20 MG TAB PO SCH (20:29)
[2022-10-01] MEDS: ACETAMINOPHEN 325 MG TAB PO PRN (20:30)
[2022-10-02 06:00] VITALS: BP 152/85
[2022-10-02] MEDS: BACTRIM 160MG/800MG DS TAB PO SCH (08:19)
[2022-10-02] MEDS: ASCORBIC ACID 500 MG TAB PO SCH (08:19)
[2022-10-02] MEDS: VITAMIN D 1,000 INTERNATIONAL UNITS TABLET PO SCH (08:19)
[2022-10-02] MEDS: OYSTER SHELL CALCIUM 500 MG TAB PO SCH (08:20)
[2022-10-02] MEDS: ACETAMINOPHEN TAB 650MG DOSE (2X325MG) PO PRN ×2 (08:20→20:52)
[2022-10-02] MEDS: FERROUS GLUCONATE 324 MG TAB PO SCH ×2 (08:20→20:52)
[2022-10-02] MEDS: risperiDONE 3 MG TAB PO SCH ×2 (08:20→20:52)
[2022-10-02] MEDS: RIVAROXABAN 10MG TAB (XARELTO) PO SCH (17:19)
[2022-10-02] MEDS: PRAVASTATIN 20 MG TAB PO SCH (20:52)
[2022-10-02] MEDS: CYANOCOBALAMIN 500 MCG TAB PO SCH (20:52)
[2022-10-03 05:25] VITALS: BP 104/73
[2022-10-03] MEDS: risperiDONE 3 MG TAB PO SCH ×2 (09:07→20:00)
[2022-10-03] MEDS: ASCORBIC ACID 500 MG TAB PO SCH (09:07)
[2022-10-03] MEDS: FERROUS GLUCONATE 324 MG TAB PO SCH ×2 (09:07→20:00)
[2022-10-03] MEDS: OYSTER SHELL CALCIUM 500 MG TAB PO SCH (09:07)
[2022-10-03] MEDS: VITAMIN D 1,000 INTERNATIONAL UNITS TABLET PO SCH (09:07)
[2022-10-03] MEDS: BACTRIM 160MG/800MG DS TAB PO SCH (09:08)
[2022-10-03] MEDS: ACETAMINOPHEN TAB 650MG DOSE (2X325MG) PO PRN ×2 (09:08→19:59)
[2022-10-03] MEDS: SENOKOT S TAB PO SCH ×2 (11:05→20:00)
[2022-10-03] MEDS ORDERED: MOM 30ML SUSPENSION UDC PO ONE (12:00)
[2022-10-03] MEDS: RIVAROXABAN 10MG TAB (XARELTO) PO SCH (17:54)
[2022-10-03] MEDS: PRAVASTATIN 20 MG TAB PO SCH (20:00)
[2022-10-03] MEDS: CYANOCOBALAMIN 500 MCG TAB PO SCH (20:00)
[2022-10-03] MEDS ORDERED: BISACODYL 10MG SUPP PR PRN (22:20)
[2022-10-04 05:35] VITALS: BP 110/73
[2022-10-04] MEDS: risperiDONE 3 MG TAB PO SCH ×2 (08:50→20:28)
[2022-10-04] MEDS: ACETAMINOPHEN 325 MG TAB PO PRN (08:50)
[2022-10-04] MEDS: VITAMIN D 1,000 INTERNATIONAL UNITS TABLET PO SCH (08:51)
[2022-10-04] MEDS: SENOKOT S TAB PO SCH ×2 (08:51→20:29)
[2022-10-04] MEDS: ASCORBIC ACID 500 MG TAB PO SCH (08:51)
[2022-10-04] MEDS: BACTRIM 160MG/800MG DS TAB PO SCH (08:51)
[2022-10-04] MEDS: OYSTER SHELL CALCIUM 500 MG TAB PO SCH (08:51)
[2022-10-04] MEDS: FERROUS GLUCONATE 324 MG TAB PO SCH ×2 (08:51→20:29)
[2022-10-04] MEDS: ACETAMINOPHEN TAB 650MG DOSE (2X325MG) PO PRN ×2 (08:58→20:30)
[2022-10-04] MEDS: RIVAROXABAN 10MG TAB (XARELTO) PO SCH (18:00)
[2022-10-04] MEDS: CYANOCOBALAMIN 500 MCG TAB PO SCH (20:29)
[2022-10-04] MEDS: PRAVASTATIN 20 MG TAB PO SCH (20:29)
[2022-10-05 05:44] VITALS: BP 112/72
[2022-10-05] MEDS ORDERED: SENN-52 PO (09:01)
[2022-10-05] MEDS ORDERED: XARE10TA PO (09:01)
[2022-10-05] MEDS: ACETAMINOPHEN TAB 650MG DOSE (2X325MG) PO PRN (09:52)
[2022-10-05] MEDS: SENOKOT S TAB PO SCH (09:52)
[2022-10-05] MEDS: FERROUS GLUCONATE 324 MG TAB PO SCH (09:52)
[2022-10-05] MEDS: ASCORBIC ACID 500 MG TAB PO SCH (09:52)
[2022-10-05] MEDS: VITAMIN D 1,000 INTERNATIONAL UNITS TABLET PO SCH (09:53)
[2022-10-05] MEDS: OYSTER SHELL CALCIUM 500 MG TAB PO SCH (09:53)
[2022-10-05] MEDS: BACTRIM 160MG/800MG DS TAB PO SCH (09:53)
[2022-10-05] MEDS: risperiDONE 3 MG TAB PO SCH (10:00)
== END 2022-10-05 11:10 | DRG 560 ==
LOC: EDBD 14:32 → M ED 15:56 → M ED INP 16:02 → M MS5PR 16:50
PROVIDERS: ADMIT Family Medicine; ATTEND Family Medicine
DX: M80.052D Age-related osteoporosis with current pathological fracture, left femur, subsequent encounter for fracture with routine healing (principal); E46 Unspecified protein-calorie malnutrition; Z68.1 Body mass index [BMI] 19.9 or less, adult; M00.851 Arthritis due to other bacteria, right hip; F32.9 Major depressive disorder, single episode, unspecified; F20.9 Schizophrenia, unspecified; E78.5 Hyperlipidemia, unspecified; I10 Essential (primary) hypertension; D50.9 Iron deficiency anemia, unspecified; G25.81 Restless legs syndrome; K59.00 Constipation, unspecified; M47.9 Spondylosis, unspecified; Z74.2 Need for assistance at home and no other household member able to render care; Z85.3 Personal history of malignant neoplasm of breast; Z96.641 Presence of right artificial hip joint; Z95.828 Presence of other vascular implants and grafts; Z79.01 Long term (current) use of anticoagulants; Z86.718 Personal history of other venous thrombosis and embolism

== ENCOUNTER 2022-11-30 11:53 | Observation (INO) | payer MEDICARE, BC ==
[~2022-11-30] VITALS: Ht 180.3 cm; Wt 60.3 kg
[~2022-11-30 11:53] MED LIST changes: +SENN-52 PO; +UNRESOLVED CLARIFICATION ENTRY XX SCH; +XARE10TA PO
[2022-11-30 13:48] LABS: BASO % 0.1 % (0.0-1.0); EOS % 0.1 % (0.0-3.0); HEMATOCRIT 40.2 % (36.0-47.0); HEMOGLOBIN 12.4 g/dl (12.0-15.5); LYMPH # 0.8 10^3/uL (1.5-5.0); LYMPH % 11.2 % (24.0-44.0); MEAN CORPUSCULAR HEMOGLOBIN 26.8 pg (27.0-33.0); MEAN CORPUSCULAR HGB CONC 30.8 g/dl (32.0-36.5); MEAN CORPUSCULAR VOLUME 86.8 fl (80.0-96.0); MONO # 0.5 10^3/uL (0.0-0.8); MONO % 7.3 % (2.0-8.0); NEUTROPHILS # 5.9 10^3/uL (1.5-8.5); NEUTROPHILS % 80.9 % (36.0-66.0); PLATELET COUNT, AUTOMATED 230 10^3/uL (150-450); RED BLOOD COUNT 4.63 10^6/uL (4.00-5.40); WHITE BLOOD COUNT 7.4 10^3/uL (4.0-10.0)
[2022-11-30 14:11] LABS: LIPASE 128 U/L (12-53)
[2022-11-30 14:13] LABS: ALBUMIN 3.6 G/DL (3.2-5.2); ALKALINE PHOSPHATASE 74 U/L (46-116); ALT/SGPT 12 U/L (7.0-40); AST/SGOT 16 U/L (<34); BILIRUBIN,DIRECT < 0.1 MG/DL (<0.4); BILIRUBIN,TOTAL 0.3 MG/DL (0.3-1.2); BLOOD UREA NITROGEN 26 MG/DL (9-23); CALCIUM LEVEL 9.4 MG/DL (8.3-10.6); CARBON DIOXIDE LEVEL 31 MMOL/L (20-31); CHLORIDE LEVEL 104 MMOL/L (98-107); CREATININE FOR GFR 0.47 MG/DL (0.55-1.30); GLOMERULAR FILTRATION RATE > 60.0 (>39); GLUCOSE, FASTING 97 MG/DL (74-106); SODIUM LEVEL 139 MMOL/L (136-145); TOTAL PROTEIN 6.4 G/DL (5.7-8.2)
[2022-11-30 14:20] LABS: RSV AMPLIFICATION NEGATIVE (NEGATIVE)
[2022-11-30] MEDS ORDERED: med rec comment (16:32)
[2022-11-30] MEDS ORDERED: SENN1TAB94 PO (16:44)
[2022-11-30] MEDS ORDERED: XARE10TA PO (16:44)
[2022-11-30] MEDS ORDERED: PROC1AER16 PR (16:44)
[2022-11-30] MEDS ORDERED: ACET-907 PO (16:44)
[2022-11-30] MEDS ORDERED: BACT800T5 PO (16:44)
[2022-11-30] MEDS ORDERED: HOME MED LIST COMPLETE! XX SCH (16:50)
[2022-11-30 17:57] LABS: INR 1.09; PROTHROMBIN TIME 14.3 SECONDS (12.5-14.5)
[2022-11-30 17:58] LABS: PARTIAL THROMBOPLASTIN TIME 32.1 SECONDS (24.8-34.2)
[2022-11-30] MEDS ORDERED: ANUSOL HC CREAM 30GM TOP PRN (18:45)
[2022-11-30 20:05] VITALS: BP 106/59
[2022-11-30] MEDS ORDERED: CEPACOL LOZENGE PO PRN (22:05)
[2022-11-30] MEDS: SENOKOT S TAB PO SCH (22:23)
[2022-11-30] MEDS: RIVAROXABAN 10MG TAB (XARELTO) PO SCH (22:24)
[2022-11-30] MEDS: ACETAMINOPHEN TAB 650MG DOSE (2X325MG) PO PRN (22:24)
[2022-11-30] MEDS: PROCTOFOAM-HC 1% FOAM 10GM CAN PR SCH (23:47)
[2022-11-30] MEDS: risperiDONE 3 MG TAB PO SCH (23:47)
[2022-12-01 06:00] VITALS: BP 120/64
[2022-12-01 06:12] LABS: HEMATOCRIT 37.8 % (36.0-47.0); HEMOGLOBIN 11.6 g/dl (12.0-15.5); MEAN CORPUSCULAR HEMOGLOBIN 26.8 pg (27.0-33.0); MEAN CORPUSCULAR HGB CONC 30.7 g/dl (32.0-36.5); MEAN CORPUSCULAR VOLUME 87.3 fl (80.0-96.0); PLATELET COUNT, AUTOMATED 221 10^3/uL (150-450); RED BLOOD COUNT 4.33 10^6/uL (4.00-5.40)
[2022-12-01 06:34] LABS: ALBUMIN 3.1 G/DL (3.2-5.2); ALKALINE PHOSPHATASE 68 U/L (46-116); ALT/SGPT 11 U/L (7.0-40); AST/SGOT 12 U/L (<34); BILIRUBIN,TOTAL 0.4 MG/DL (0.3-1.2); BLOOD UREA NITROGEN 17 MG/DL (9-23); CALCIUM LEVEL 8.7 MG/DL (8.3-10.6); CARBON DIOXIDE LEVEL 28 MMOL/L (20-31); CHLORIDE LEVEL 106 MMOL/L (98-107); CREATININE FOR GFR 0.37 MG/DL (0.55-1.30); GLOMERULAR FILTRATION RATE > 60.0 (>39); GLUCOSE, FASTING 89 MG/DL (74-106); POTASSIUM SERUM 4.2 MMOL/L (3.5-5.1); SODIUM LEVEL 141 MMOL/L (136-145); TOTAL PROTEIN 5.7 G/DL (5.7-8.2)
[2022-12-01] MEDS: risperiDONE 3 MG TAB PO SCH ×2 (08:15→21:49)
[2022-12-01] MEDS: BACTRIM 160MG/800MG DS TAB PO SCH (08:16)
[2022-12-01] MEDS: ASCORBIC ACID 500 MG TAB PO SCH (08:16)
[2022-12-01] MEDS: PROCTOFOAM-HC 1% FOAM 10GM CAN PR SCH ×2 (08:16→21:00)
[2022-12-01] MEDS: ACETAMINOPHEN TAB 650MG DOSE (2X325MG) PO PRN (08:21)
[2022-12-01 20:00] VITALS: BP 106/63
[2022-12-01] MEDS: RIVAROXABAN 10MG TAB (XARELTO) PO SCH (21:00)
[2022-12-01] MEDS: SENOKOT S TAB PO SCH (21:49)
[2022-12-02 06:00] VITALS: BP 113/66
[2022-12-02] MEDS: PROCTOFOAM-HC 1% FOAM 10GM CAN PR SCH ×2 (09:00→20:51)
[2022-12-02] MEDS: BACTRIM 160MG/800MG DS TAB PO SCH (09:40)
[2022-12-02] MEDS: ASCORBIC ACID 500 MG TAB PO SCH (09:40)
[2022-12-02] MEDS: risperiDONE 3 MG TAB PO SCH ×2 (09:40→20:51)
[2022-12-02] MEDS: RIVAROXABAN 10MG TAB (XARELTO) PO SCH (20:51)
[2022-12-02] MEDS: SENOKOT S TAB PO SCH (20:51)
[2022-12-02] MEDS: ACETAMINOPHEN TAB 650MG DOSE (2X325MG) PO PRN (20:52)
[2022-12-03 06:00] VITALS: BP 125/72
[2022-12-03] MEDS: risperiDONE 3 MG TAB PO SCH ×2 (08:17→20:54)
[2022-12-03] MEDS: ASCORBIC ACID 500 MG TAB PO SCH (08:17)
[2022-12-03] MEDS: BACTRIM 160MG/800MG DS TAB PO SCH (08:17)
[2022-12-03] MEDS: PROCTOFOAM-HC 1% FOAM 10GM CAN PR SCH ×2 (08:18→20:55)
[2022-12-03] MEDS: POLYVINYL ALCOHOL OPHTH SOLN 15ML (LIQUITEARS) OU SCH ×3 (10:22→20:56)
[2022-12-03] MEDS: SENOKOT S TAB PO SCH (20:55)
[2022-12-03] MEDS: RIVAROXABAN 10MG TAB (XARELTO) PO SCH (20:55)
[2022-12-03] MEDS: ACETAMINOPHEN TAB 650MG DOSE (2X325MG) PO PRN (20:56)
[2022-12-04 06:00] VITALS: BP 128/69
[2022-12-04] MEDS: PROCTOFOAM-HC 1% FOAM 10GM CAN PR SCH ×2 (08:14→20:22)
[2022-12-04] MEDS: risperiDONE 3 MG TAB PO SCH ×2 (08:15→20:21)
[2022-12-04] MEDS: POLYVINYL ALCOHOL OPHTH SOLN 15ML (LIQUITEARS) OU SCH ×3 (08:15→20:21)
[2022-12-04] MEDS: BACTRIM 160MG/800MG DS TAB PO SCH (08:15)
[2022-12-04] MEDS: ASCORBIC ACID 500 MG TAB PO SCH (08:15)
[2022-12-04] MEDS: ACETAMINOPHEN TAB 650MG DOSE (2X325MG) PO PRN ×2 (08:20→20:21)
[2022-12-04] MEDS: RIVAROXABAN 10MG TAB (XARELTO) PO SCH (20:14)
[2022-12-04] MEDS: SENOKOT S TAB PO SCH (20:14)
[2022-12-05 06:00] VITALS: BP 128/68
[2022-12-05 06:03] LABS: HEMATOCRIT 36.8 % (36.0-47.0); HEMOGLOBIN 11.3 g/dl (12.0-15.5); MEAN CORPUSCULAR HEMOGLOBIN 26.6 pg (27.0-33.0); MEAN CORPUSCULAR HGB CONC 30.7 g/dl (32.0-36.5); MEAN CORPUSCULAR VOLUME 86.6 fl (80.0-96.0); PLATELET COUNT, AUTOMATED 213 10^3/uL (150-450); RED BLOOD COUNT 4.25 10^6/uL (4.00-5.40); WHITE BLOOD COUNT 2.7 10^3/uL (4.0-10.0)
[2022-12-05 07:06] LABS: BLOOD UREA NITROGEN 17 MG/DL (9-23); CALCIUM LEVEL 8.2 MG/DL (8.3-10.6); CARBON DIOXIDE LEVEL 29 MMOL/L (20-31); CHLORIDE LEVEL 107 MMOL/L (98-107); CREATININE FOR GFR 0.34 MG/DL (0.55-1.30); GLOMERULAR FILTRATION RATE > 60.0 (>39); GLUCOSE, FASTING 86 MG/DL (74-106); POTASSIUM SERUM 4.1 MMOL/L (3.5-5.1); SODIUM LEVEL 140 MMOL/L (136-145)
[2022-12-05] MEDS: PROCTOFOAM-HC 1% FOAM 10GM CAN PR SCH (09:00)
[2022-12-05] MEDS: ACETAMINOPHEN TAB 650MG DOSE (2X325MG) PO PRN (09:57)
[2022-12-05] MEDS: BACTRIM 160MG/800MG DS TAB PO SCH (09:57)
[2022-12-05] MEDS: risperiDONE 3 MG TAB PO SCH (09:57)
[2022-12-05] MEDS: ASCORBIC ACID 500 MG TAB PO SCH (09:57)
[2022-12-05] MEDS: POLYVINYL ALCOHOL OPHTH SOLN 15ML (LIQUITEARS) OU SCH (09:57)
== END 2022-12-05 14:32 ==
LOC: M ED 11:53 → INTOOBSV 16:47 → M ED INP 16:47 → M MSPAV 20:01
PROVIDERS: ADMIT Internal Medicine; ATTEND General Practice
DX: R54 Age-related physical debility (principal); F32.9 Major depressive disorder, single episode, unspecified; F20.9 Schizophrenia, unspecified; E78.5 Hyperlipidemia, unspecified; I10 Essential (primary) hypertension; M81.0 Age-related osteoporosis without current pathological fracture; Z85.3 Personal history of malignant neoplasm of breast; D68.62 Lupus anticoagulant syndrome; D50.9 Iron deficiency anemia, unspecified; E53.8 Deficiency of other specified B group vitamins; M00.851 Arthritis due to other bacteria, right hip; M00.862 Arthritis due to other bacteria, left knee; L89.153 Pressure ulcer of sacral region, stage 3; S71.101D Unspecified open wound, right thigh, subsequent encounter; X58.XXXD Exposure to other specified factors, subsequent encounter; Z86.718 Personal history of other venous thrombosis and embolism; R26.2 Difficulty in walking, not elsewhere classified; K59.00 Constipation, unspecified; Z87.891 Personal history of nicotine dependence; Z88.1 Allergy status to other antibiotic agents; Z79.899 Other long term (current) drug therapy; Z79.01 Long term (current) use of anticoagulants; Z79.2 Long term (current) use of antibiotics
CPT/HCPCS: 36415; 71045; 80048; 80053; 80076; 83690; 85025; 85027; 85610; 85730; 87070; 87631; 93005; 93041; 97110; 97116; 97162; 97165; 97530; 97535; 99285; G0378

== ENCOUNTER → 2022-12-06 | Outpatient (REF) ==
[~2022-12-06] MED LIST changes: +ACET-907 PO; +PROC1AER16 PR; +SENN1TAB94 PO; -UNRESOLVED CLARIFICATION ENTRY XX SCH; +med rec comment
[2022-12-06 11:46] LABS: HEMATOCRIT 37.6 % (36.0-47.0); HEMOGLOBIN 11.5 g/dl (12.0-15.5); MEAN CORPUSCULAR HEMOGLOBIN 26.7 pg (27.0-33.0); MEAN CORPUSCULAR HGB CONC 30.6 g/dl (32.0-36.5); MEAN CORPUSCULAR VOLUME 87.4 fl (80.0-96.0); PLATELET COUNT, AUTOMATED 224 10^3/uL (150-450); WHITE BLOOD COUNT 3.4 10^3/uL (4.0-10.0)
[2022-12-06 12:07] LABS: ERYTHROCYTE SEDIMENTATION RATE 35 mm/hr (0-30)
[2022-12-06 12:31] LABS: C REACTIVE PROTEIN QUANTITATIV < 0.40 MG/DL (<1.0)
[2022-12-06 12:34] LABS: BLOOD UREA NITROGEN 21 MG/DL (9-23); CALCIUM LEVEL 8.9 MG/DL (8.3-10.6); CARBON DIOXIDE LEVEL 29 MMOL/L (20-31); CHLORIDE LEVEL 103 MMOL/L (98-107); CREATININE FOR GFR 0.37 MG/DL (0.55-1.30); GLOMERULAR FILTRATION RATE > 60.0 (>39); GLUCOSE, FASTING 85 MG/DL (74-106); POTASSIUM SERUM 3.8 MMOL/L (3.5-5.1); SODIUM LEVEL 139 MMOL/L (136-145)
== END ==
PROVIDERS: ATTEND Physician Assistant
DX: M00.89 Polyarthritis due to other bacteria (principal); B95.62 Methicillin resistant Staphylococcus aureus infection as the cause of diseases classified elsewhere

== ENCOUNTER → 2022-12-13 | Outpatient (REF) ==
[2022-12-13 11:12] LABS: HEMATOCRIT 42.2 % (36.0-47.0); HEMOGLOBIN 12.7 g/dl (12.0-15.5); MEAN CORPUSCULAR HEMOGLOBIN 26.6 pg (27.0-33.0); MEAN CORPUSCULAR HGB CONC 30.1 g/dl (32.0-36.5); MEAN CORPUSCULAR VOLUME 88.5 fl (80.0-96.0); PLATELET COUNT, AUTOMATED 256 10^3/uL (150-450); RED BLOOD COUNT 4.77 10^6/uL (4.00-5.40); WHITE BLOOD COUNT 3.3 10^3/uL (4.0-10.0)
[2022-12-13 11:36] LABS: ERYTHROCYTE SEDIMENTATION RATE 60 mm/hr (0-30)
[2022-12-13 11:39] LABS: BLOOD UREA NITROGEN 24 MG/DL (9-23); CALCIUM LEVEL 8.8 MG/DL (8.3-10.6); CARBON DIOXIDE LEVEL 30 MMOL/L (20-31); CHLORIDE LEVEL 104 MMOL/L (98-107); CREATININE FOR GFR 0.42 MG/DL (0.55-1.30); GLOMERULAR FILTRATION RATE > 60.0 (>39); GLUCOSE, FASTING 128 MG/DL (74-106); SODIUM LEVEL 141 MMOL/L (136-145)
[2022-12-13 11:41] LABS: C REACTIVE PROTEIN QUANTITATIV < 0.40 MG/DL (<1.0)
== END ==
PROVIDERS: ATTEND Physician Assistant
DX: Z79.899 Other long term (current) drug therapy (principal); B95.62 Methicillin resistant Staphylococcus aureus infection as the cause of diseases classified elsewhere

== ENCOUNTER 2022-12-27 14:45 | Emergency (ER) | payer MEDICARE, BC, MEDICAID ==
[~2022-12-27] VITALS: Ht 180.3 cm; Wt 62.1 kg
[~2022-12-27 14:45] MED LIST changes: -COLA100C5 PO; -MIRA3350 PO
[2022-12-27] MEDS ORDERED: ONDANSETRON 4MG 2ML VIAL IV ONE (15:30)
[2022-12-27] MEDS ORDERED: MORPHINE 2 MG/ML 1ML VIAL IV ONE (15:35)
[2022-12-27 15:53] LABS: BASO % 0.2 % (0.0-1.0); EOS % 0.4 % (0.0-3.0); HEMATOCRIT 36.9 % (36.0-47.0); HEMOGLOBIN 11.5 g/dl (12.0-15.5); INR 1.18; LYMPH # 0.9 10^3/uL (1.5-5.0); MEAN CORPUSCULAR HEMOGLOBIN 27.1 pg (27.0-33.0); MEAN CORPUSCULAR HGB CONC 31.2 g/dl (32.0-36.5); MEAN CORPUSCULAR VOLUME 86.8 fl (80.0-96.0); MONO # 0.4 10^3/uL (0.0-0.8); MONO % 9.5 % (2.0-8.0); NEUTROPHILS # 3.3 10^3/uL (1.5-8.5); NEUTROPHILS % 70.5 % (36.0-66.0); PLATELET COUNT, AUTOMATED 170 10^3/uL (150-450); PROTHROMBIN TIME 15.3 SECONDS (12.5-14.5); RED BLOOD COUNT 4.25 10^6/uL (4.00-5.40); WHITE BLOOD COUNT 4.6 10^3/uL (4.0-10.0)
[2022-12-27 15:54] LABS: PARTIAL THROMBOPLASTIN TIME 37.1 SECONDS (24.8-34.2)
[2022-12-27 16:00] LABS: BLOOD UREA NITROGEN 29 MG/DL (9-23); CALCIUM LEVEL 8.5 MG/DL (8.3-10.6); CARBON DIOXIDE LEVEL 28 MMOL/L (20-31); CHLORIDE LEVEL 104 MMOL/L (98-107); CREATININE FOR GFR 0.52 MG/DL (0.55-1.30); GLOMERULAR FILTRATION RATE > 60.0 (>39); GLUCOSE, FASTING 109 MG/DL (74-106); POTASSIUM SERUM 4.3 MMOL/L (3.5-5.1); SODIUM LEVEL 139 MMOL/L (136-145)
[2022-12-27] MEDS ORDERED: COLA100C5 PO (16:11)
[2022-12-27] MEDS ORDERED: MIRA3350 PO (16:11)
[2022-12-27 16:45] VITALS: BP 117/63
== END 2022-12-27 17:34 | disposition home or self-care (01) ==
LOC: EDBD 14:45 → M ED 14:45
DX: K62.3 Rectal prolapse (principal); I11.0 Hypertensive heart disease with heart failure; I50.9 Heart failure, unspecified; Z85.3 Personal history of malignant neoplasm of breast; Z79.01 Long term (current) use of anticoagulants; Z79.899 Other long term (current) drug therapy; F20.9 Schizophrenia, unspecified
CPT/HCPCS: 80048; 85025; 85610; 85730; 96374; 96375; 99284; J2405

== ENCOUNTER → 2022-12-27 | Outpatient (REF) ==
[~2022-12-27] MED LIST changes: +COLA100C5 PO; +MIRA3350 PO
[2022-12-27 11:04] LABS: HEMOGLOBIN 12.7 g/dl (12.0-15.5); MEAN CORPUSCULAR HEMOGLOBIN 26.3 pg (27.0-33.0); MEAN CORPUSCULAR HGB CONC 30.2 g/dl (32.0-36.5); PLATELET COUNT, AUTOMATED 236 10^3/uL (150-450); RED BLOOD COUNT 4.83 10^6/uL (4.00-5.40); WHITE BLOOD COUNT 4.4 10^3/uL (4.0-10.0)
[2022-12-27 11:22] LABS: ERYTHROCYTE SEDIMENTATION RATE 63 mm/hr (0-30)
[2022-12-27 11:29] LABS: BLOOD UREA NITROGEN 20 MG/DL (9-23); CARBON DIOXIDE LEVEL 30 MMOL/L (20-31); CHLORIDE LEVEL 104 MMOL/L (98-107); CREATININE FOR GFR 0.39 MG/DL (0.55-1.30); GLOMERULAR FILTRATION RATE > 60.0 (>39); GLUCOSE, FASTING 98 MG/DL (74-106); POTASSIUM SERUM 4.2 MMOL/L (3.5-5.1); SODIUM LEVEL 141 MMOL/L (136-145)
[2022-12-27 18:13] LABS: C REACTIVE PROTEIN QUANTITATIV < 0.40 MG/DL (<1.0)
== END ==
PROVIDERS: ATTEND Physician Assistant
DX: D64.9 Anemia, unspecified (principal)

== ENCOUNTER → 2023-03-30 | Outpatient (CLI) | payer MEDICARE, BC, MEDICAID ==
[~2023-03-30] MED LIST changes: +COLA100C5 PO; +MIRA3350 PO
== END ==
LOC: M WHC 08:50
PROVIDERS: ATTEND Family Medicine
DX: Z12.31 Encounter for screening mammogram for malignant neoplasm of breast (principal); Z98.890 Other specified postprocedural states

== ENCOUNTER → 2023-05-18 | Outpatient (CLI) | payer MEDICARE, BC, MEDICAID ==
[~2023-05-18] MED LIST changes: -ROPI0.5T3 PO; +ROPI0.5T33 PO
[2023-05-18 10:27] LABS: HEMATOCRIT 37.8 % (36.0-47.0); HEMOGLOBIN 11.9 g/dl (12.0-15.5); MEAN CORPUSCULAR HEMOGLOBIN 28.7 pg (27.0-33.0); MEAN CORPUSCULAR HGB CONC 31.5 g/dl (32.0-36.5); MEAN CORPUSCULAR VOLUME 91.3 fl (80.0-96.0); PLATELET COUNT, AUTOMATED 242 10^3/uL (150-450); RED BLOOD COUNT 4.14 10^6/uL (4.00-5.40)
[2023-05-18 10:43] LABS: ERYTHROCYTE SEDIMENTATION RATE 11 mm/hr (0-30)
[2023-05-18 10:59] LABS: ALBUMIN 2.9 G/DL (3.2-5.2); ALKALINE PHOSPHATASE 86 U/L (46-116); ALT/SGPT 24 U/L (7.0-40); AST/SGOT 30 U/L (<34); BILIRUBIN,TOTAL 0.4 MG/DL (0.3-1.2); BLOOD UREA NITROGEN 9 MG/DL (9-23); CALCIUM LEVEL 9.4 MG/DL (8.3-10.6); CARBON DIOXIDE LEVEL 29 MMOL/L (20-31); CHLORIDE LEVEL 109 MMOL/L (98-107); CHOLESTEROL LEVEL 122 MG/DL (<200); CREATININE FOR GFR 0.47 MG/DL (0.55-1.30); GLOMERULAR FILTRATION RATE > 60.0 (>39); GLUCOSE, FASTING 91 MG/DL (74-106); HDL CHOLESTEROL 86.9 MG/DL (>40); LDL CHOLESTEROL 22.9 MG/DL (<100); NON-HDL-C 35.1 MG/DL; POTASSIUM SERUM 4.1 MMOL/L (3.5-5.1); SODIUM LEVEL 145 MMOL/L (136-145); TOTAL PROTEIN 5.5 G/DL (5.7-8.2); TRIGLYCERIDES LEVEL 61 MG/DL (<150)
== END ==
LOC: M WUC 09:14
PROVIDERS: ATTEND Physician Assistant
DX: I10 Essential (primary) hypertension (principal); E78.5 Hyperlipidemia, unspecified; R70.0 Elevated erythrocyte sedimentation rate

== ENCOUNTER 2023-11-28 18:06 | Inpatient (IN) | payer MEDICARE, BC, MEDICAID ==
[~2023-11-28] VITALS: Ht 177.8 cm; Wt 57.3 kg
[~2023-11-28 18:06] MED LIST changes: -RISP-10 PO; +RISP-105 PO; +RISP-106 PO; -RISP-11; -RISP-8 PO; -RISP-9 PO; +RISP3TAB77 PO; +RISP4TAB95; +SENN-130 PO; -SENN1TAB94 PO
[2023-11-28 19:10] LABS: BASO % 0.2 % (0.0-1.0); EOS % 0.2 % (0.0-3.0); HEMATOCRIT 34.7 % (36.0-47.0); HEMOGLOBIN 11.2 g/dl (12.0-15.5); LYMPH # 0.9 10^3/uL (1.5-5.0); LYMPH % 18.3 % (24.0-44.0); MEAN CORPUSCULAR HEMOGLOBIN 28.9 pg (27.0-33.0); MEAN CORPUSCULAR HGB CONC 32.3 g/dl (32.0-36.5); MEAN CORPUSCULAR VOLUME 89.4 fl (80.0-96.0); MONO # 0.6 10^3/uL (0.0-0.8); MONO % 11.2 % (2.0-8.0); NEUTROPHILS # 3.4 10^3/uL (1.5-8.5); NEUTROPHILS % 69.9 % (36.0-66.0); PLATELET COUNT, AUTOMATED 194 10^3/uL (150-450); RED BLOOD COUNT 3.88 10^6/uL (4.00-5.40); WHITE BLOOD COUNT 4.9 10^3/uL (4.0-10.0)
[2023-11-28 19:22] LABS: INR 1.17; PARTIAL THROMBOPLASTIN TIME 36.6 SECONDS (24.8-34.2); PROTHROMBIN TIME 14.5 SECONDS (12.5-14.5)
[2023-11-28 19:37] LABS: CK-MB VALUE MASS < 1.0 NG/ML (<3.6)
[2023-11-28 19:41] LABS: FREE T4 0.94 NG/DL (0.89-1.76)
[2023-11-28 19:47] LABS: ALBUMIN 2.5 G/DL (3.2-5.2); ALKALINE PHOSPHATASE 94 U/L (46-116); ALT/SGPT 24 U/L (7.0-40); AST/SGOT 36 U/L (<34); BILIRUBIN,DIRECT 0.1 MG/DL (<0.4); BILIRUBIN,TOTAL 0.3 MG/DL (0.3-1.2); BLOOD UREA NITROGEN 15 MG/DL (9-23); CALCIUM LEVEL 7.5 MG/DL (8.3-10.6); CARBON DIOXIDE LEVEL 36 MMOL/L (20-31); CHLORIDE LEVEL 109 MMOL/L (98-107); CPK CREATINE PHOSPHOKINASE 49 U/L (34-145); CREATININE FOR GFR 0.35 MG/DL (0.55-1.30); GLOMERULAR FILTRATION RATE > 60.0 (>39); GLUCOSE, FASTING 98 MG/DL (74-106); MB/CK RELATIVE INDEX 2.04 (< OR =4); POTASSIUM SERUM 2.4 MMOL/L (3.5-5.1); SODIUM LEVEL 148 MMOL/L (136-145)
[2023-11-28] MEDS: POTASSIUM CHLORIDE 10% LIQ 20MEQ/15ML UDC PO ONE (21:22)
[2023-11-28] MEDS: KCL 10MEQ/100ML SWI (KRUN) 10 MEQ in IV 1 EA IV ONE (21:23)
[2023-11-28] MEDS: ONDANSETRON 4MG 2ML VIAL IV ONE (21:24)
[2023-11-28] MEDS: ARTIFICIAL TEARS DROPS 15ML BTL (VISINE DRY RELIEF) OD SCH (21:37)
[2023-11-28 22:33] LABS: MAGNESIUM LEVEL 1.4 MG/DL (1.8-2.4)
[2023-11-28 22:34] LABS: CK-MB VALUE MASS < 1.0 NG/ML (<3.6)
[2023-11-28 22:35] LABS: CPK CREATINE PHOSPHOKINASE 55 U/L (34-145); MB/CK RELATIVE INDEX 1.81 (< OR =4)
[2023-11-28] MEDS: POTASSIUM CHLORIDE 10MEQ SR TABLET PO ONE (22:50)
[2023-11-28] MEDS ORDERED: MIRALAX *UNIT DOSE* 17GM PACKET PO PRN (23:05)
[2023-11-28] MEDS: risperiDONE 3 MG TAB PO SCH (23:27)
[2023-11-28] MEDS: MAGNESIUM OXIDE 400MG TAB (MAG-OX) PO ONE (23:28)
[2023-11-28] MEDS ORDERED: ACET-897 PO (23:42)
[2023-11-28] MEDS ORDERED: FERR32TA PO (23:42)
[2023-11-28] MEDS ORDERED: MULT-40 PO (23:42)
[2023-11-28] MEDS ORDERED: HOME MED LIST COMPLETE! XX SCH (23:45)
[2023-11-29] MEDS: MAG SULF 1GM/100ML (MAG RUN) 1 GM in IV 1 EA IV SCH (08:12)
[2023-11-29 09:00] LABS: BLOOD UREA NITROGEN 11 MG/DL (9-23); CALCIUM LEVEL 6.7 MG/DL (8.3-10.6); CARBON DIOXIDE LEVEL 35 MMOL/L (20-31); CHLORIDE LEVEL 109 MMOL/L (98-107); CREATININE FOR GFR 0.26 MG/DL (0.55-1.30); GLOMERULAR FILTRATION RATE > 60.0 (>39); GLUCOSE, FASTING 97 MG/DL (74-106); POTASSIUM SERUM 2.9 MMOL/L (3.5-5.1); SODIUM LEVEL 146 MMOL/L (136-145)
[2023-11-29] MEDS: MAGNESIUM OXIDE 400MG TAB (MAG-OX) PO SCH (10:08)
[2023-11-29] MEDS: POTASSIUM CHLORIDE 10MEQ SR TABLET PO SCH (10:09)
[2023-11-29] MEDS: KCL 10MEQ/100ML SWI (KRUN) 10 MEQ in IV 1 EA IV ONE (10:14)
[2023-11-29] MEDS: MULTIVITAMINS/MINERALS THERAP 1 TAB PO SCH (10:23)
[2023-11-29] MEDS: CALCIUM CARBONATE 500 MG CHEW U/D PO SCH (10:24)
[2023-11-29] MEDS: SIMVASTATIN 20 MG TAB PO SCH (10:24)
[2023-11-29 10:25] LABS: SOURCE, BODY FLUID LFT KNEE
[2023-11-29 10:26] LABS: SYNOVIAL FLUID COLOR PALE YELLOW (COLORLESS)
[2023-11-29 10:37] LABS: CRYSTALS, BODY FLUID NONE SEEN (NONE SEEN); SOURCE, BODY FLUID CRYSTALS LFT KNEE
[2023-11-29] MEDS: risperiDONE 3 MG TAB PO SCH (13:08)
[2023-11-29] MEDS: FERROUS GLUCONATE 324 MG TAB PO SCH (13:08)
[2023-11-29 16:16] LABS: BLOOD UREA NITROGEN 14 MG/DL (9-23); CALCIUM LEVEL 7.5 MG/DL (8.3-10.6); CARBON DIOXIDE LEVEL 34 MMOL/L (20-31); CHLORIDE LEVEL 107 MMOL/L (98-107); CREATININE FOR GFR 0.28 MG/DL (0.55-1.30); GLOMERULAR FILTRATION RATE > 60.0 (>39); GLUCOSE, FASTING 110 MG/DL (74-106); POTASSIUM SERUM 4.1 MMOL/L (3.5-5.1); SODIUM LEVEL 142 MMOL/L (136-145)
[2023-11-29] MEDS ORDERED: RIVAROXABAN 10MG TAB (XARELTO) PO ONE (18:00)
[2023-11-29] MEDS: RIVAROXABAN 10MG TAB (XARELTO) PO SCH (18:45)
[2023-11-29] MEDS: ACETAMINOPHEN 500 MG TAB PO PRN (18:49)
[2023-11-30] MEDS: PINK BISMUTH SUSP 524MG/30ML ORAL SYRINGE PO PRN (01:13)
[2023-11-30] MEDS: POTASSIUM CHLORIDE 10MEQ SR TABLET PO SCH (12:32)
[2023-11-30] MEDS ORDERED: oxyCODONE 5MG TAB PO PRN ×2 (15:25)
[2023-11-30] MEDS: ACETAMINOPHEN 500 MG TAB PO SCH (18:27)
[2023-11-30] MEDS: GABAPENTIN 100 MG CAP PO SCH (18:27)
[2023-11-30] MEDS: DULoxetine 30MG CAPSULE (CYMBALTA) PO SCH (21:38)
[2023-11-30] MEDS: DICLOFENAC EPOLAMINE 1.3% PATCH TOP SCH (21:40)
[2023-11-30] MEDS: CYCLOBENZAPRINE 5MG TABLET PO SCH (21:49)
[2023-12-01] MEDS: LIDOCAINE 5% (LIDODERM) PATCH TD SCH (09:44)
[2023-12-01] MEDS: ACETAMINOPHEN TAB 650MG DOSE (2X325MG) PO PRN (21:05)
[2023-12-01] MEDS ORDERED: fentaNYL 100 MCG/2 ML INJECTION As Ordered ONE (21:32)
[2023-12-03] VITALS (17 sets, daily range): BP systolic 112–159; BP diastolic 58–77; TEMP 97.3–98; O2SAT 83–100
[2023-12-03 08:38] LABS: HEMATOCRIT 34.3 % (36.0-47.0); HEMOGLOBIN 10.8 g/dl (12.0-15.5); MEAN CORPUSCULAR HGB CONC 31.5 g/dl (32.0-36.5); PLATELET COUNT, AUTOMATED 263 10^3/uL (150-450); RED BLOOD COUNT 3.73 10^6/uL (4.00-5.40); WHITE BLOOD COUNT 4.8 10^3/uL (4.0-10.0)
[2023-12-03 09:06] LABS: BLOOD UREA NITROGEN 18 MG/DL (9-23); CALCIUM LEVEL 8.1 MG/DL (8.3-10.6); CARBON DIOXIDE LEVEL 32 MMOL/L (20-31); CHLORIDE LEVEL 102 MMOL/L (98-107); CREATININE FOR GFR 0.35 MG/DL (0.55-1.30); GLOMERULAR FILTRATION RATE > 60.0 (>39); GLUCOSE, FASTING 142 MG/DL (74-106); POTASSIUM SERUM 4.9 MMOL/L (3.5-5.1); SODIUM LEVEL 136 MMOL/L (136-145)
[2023-12-03 09:31] LABS: ABG BASE EXCESS 3.3 (-2.0-2.0); ABG HCO3 28.7 MMOL/L (22.0-26.0); ABG O2 SATURATION 97.4 % (95.0-99.0); ABG PARTIAL PRESSURE CO2 47.1 mmHg (35.0-45.0); ABG PARTIAL PRESSURE O2 98.7 mmHg (75.0-100.0); ABG STANDARD HCO3 27.4 MMOL/L. (22.0-26.0); ABG TOTAL CO2 30.1 MMOL/L (23.0-31.0); ABG pH (ARTERIAL) 7.402 UNITS (7.350-7.450)
[2023-12-03 11:29] LABS: PROCALCITONIN 0.07 ng/ml
[2023-12-03] MEDS ORDERED: IPRATROPIUM 0.5MG/ALBUTEROL 2.5MG INH SOL UD 3ML (DUONEB) NEB SCH (12:00)
[2023-12-03] MEDS: ALBUTEROL SULFATE 2.5MG/0.5ML INH NEB SOLN NEB SCH (12:26)
[2023-12-03] MEDS: SODIUM CHLORIDE HYPERTONIC 3% 4ML NEB SOL INH SCH (15:28)
[2023-12-03] MEDS: ARTIFICIAL TEARS DROPS 15ML BTL (VISINE DRY RELIEF) OD SCH (18:30)
[2023-12-04] VITALS (13 sets, daily range): BP systolic 98–139; BP diastolic 50–70; TEMP 97.4–98.1; O2SAT 92–99
[2023-12-04 05:40] LABS: BASO % 0.7 % (0.0-1.0); HEMATOCRIT 33.8 % (36.0-47.0); HEMOGLOBIN 10.6 g/dl (12.0-15.5); LYMPH # 1.2 10^3/uL (1.5-5.0); LYMPH % 28.4 % (24.0-44.0); MEAN CORPUSCULAR HEMOGLOBIN 28.8 pg (27.0-33.0); MEAN CORPUSCULAR HGB CONC 31.4 g/dl (32.0-36.5); MEAN CORPUSCULAR VOLUME 91.8 fl (80.0-96.0); MONO # 0.4 10^3/uL (0.0-0.8); MONO % 9.6 % (2.0-8.0); NEUTROPHILS # 2.4 10^3/uL (1.5-8.5); NEUTROPHILS % 60.1 % (36.0-66.0); PLATELET COUNT, AUTOMATED 244 10^3/uL (150-450); RED BLOOD COUNT 3.68 10^6/uL (4.00-5.40); WHITE BLOOD COUNT 4.1 10^3/uL (4.0-10.0)
[2023-12-04 05:57] LABS: BLOOD UREA NITROGEN 14 MG/DL (9-23); CALCIUM LEVEL 7.6 MG/DL (8.3-10.6); CARBON DIOXIDE LEVEL 30 MMOL/L (20-31); CHLORIDE LEVEL 106 MMOL/L (98-107); CREATININE FOR GFR 0.36 MG/DL (0.55-1.30); GLOMERULAR FILTRATION RATE > 60.0 (>39); GLUCOSE, FASTING 105 MG/DL (74-106); MAGNESIUM LEVEL 1.9 MG/DL (1.8-2.4); PHOSPHORUS LEVEL 4.9 MG/DL (2.4-5.1); POTASSIUM SERUM 4.8 MMOL/L (3.5-5.1); SODIUM LEVEL 139 MMOL/L (136-145)
[2023-12-04] MEDS ORDERED: E-Z-PAQUE 96% w/w SUSP 176GM BTL As Ordered ONE (15:18)
[2023-12-04] MEDS ORDERED: BARIUM SULFATE 700 MG TABLET (E-Z-DISK) As Ordered ONE (15:18)
[2023-12-04] MEDS ORDERED: VARIBAR PUDDING 40% w/v 230ML TUBE As Ordered ONE (15:18)
[2023-12-04] MEDS ORDERED: VARIBAR NECTAR 40% w/v 240ML SUSP BTL As Ordered ONE (15:18)
[2023-12-04] MEDS: ENOXAPARIN 40MG/0.4ML SYRINGE (J1650 PER 10MG) SC SCH (20:09)
[2023-12-05] VITALS (12 sets, daily range): BP systolic 132–152; BP diastolic 67–92; TEMP 97.1–98.4; O2SAT 90–99
[2023-12-05 06:25] LABS: HEMATOCRIT 31.8 % (36.0-47.0); HEMOGLOBIN 10.1 g/dl (12.0-15.5); MEAN CORPUSCULAR HEMOGLOBIN 28.4 pg (27.0-33.0); MEAN CORPUSCULAR HGB CONC 31.8 g/dl (32.0-36.5); MEAN CORPUSCULAR VOLUME 89.3 fl (80.0-96.0); PLATELET COUNT, AUTOMATED 269 10^3/uL (150-450); RED BLOOD COUNT 3.56 10^6/uL (4.00-5.40); WHITE BLOOD COUNT 3.5 10^3/uL (4.0-10.0)
[2023-12-05 06:46] LABS: BLOOD UREA NITROGEN 14 MG/DL (9-23); CALCIUM LEVEL 7.7 MG/DL (8.3-10.6); CARBON DIOXIDE LEVEL 29 MMOL/L (20-31); CHLORIDE LEVEL 102 MMOL/L (98-107); CREATININE FOR GFR 0.32 MG/DL (0.55-1.30); GLOMERULAR FILTRATION RATE > 60.0 (>39); GLUCOSE, FASTING 113 MG/DL (74-106); POTASSIUM SERUM 4.6 MMOL/L (3.5-5.1); SODIUM LEVEL 135 MMOL/L (136-145)
[2023-12-05 17:48] LABS: ABG BASE EXCESS 1.4 (-2.0-2.0); ABG O2 SATURATION 91.3 % (95.0-99.0); ABG PARTIAL PRESSURE O2 67.9 mmHg (75.0-100.0); ABG STANDARD HCO3 25.6 MMOL/L. (22.0-26.0); ABG TOTAL CO2 30.9 MMOL/L (23.0-31.0); ABG pH (ARTERIAL) 7.299 UNITS (7.350-7.450)
[2023-12-05 17:55] LABS: ABG PARTIAL PRESSURE CO2 60.5 mmHg (35.0-45.0)
[2023-12-05] MEDS: NS 1,000 ML IV SCH (19:00)
[2023-12-05 20:51] LABS: ABG BASE EXCESS 4.7 (-2.0-2.0); ABG HCO3 30.4 MMOL/L (22.0-26.0); ABG O2 SATURATION 97.2 % (95.0-99.0); ABG PARTIAL PRESSURE CO2 49.7 mmHg (35.0-45.0); ABG PARTIAL PRESSURE O2 95.5 mmHg (75.0-100.0); ABG STANDARD HCO3 28.7 MMOL/L. (22.0-26.0); ABG TOTAL CO2 31.9 MMOL/L (23.0-31.0); ABG pH (ARTERIAL) 7.404 UNITS (7.350-7.450)
[2023-12-06] VITALS (19 sets, daily range): BP systolic 88–139; BP diastolic 40–65; TEMP 97.3–97.6; O2SAT 90–98
[2023-12-06 07:01] LABS: BASO % 0.2 % (0.0-1.0); HEMATOCRIT 30.3 % (36.0-47.0); HEMOGLOBIN 9.6 g/dl (12.0-15.5); LYMPH # 0.6 10^3/uL (1.5-5.0); LYMPH % 6.3 % (24.0-44.0); MEAN CORPUSCULAR HEMOGLOBIN 28.5 pg (27.0-33.0); MEAN CORPUSCULAR HGB CONC 31.7 g/dl (32.0-36.5); MEAN CORPUSCULAR VOLUME 89.9 fl (80.0-96.0); MONO # 0.9 10^3/uL (0.0-0.8); MONO % 9.7 % (2.0-8.0); NEUTROPHILS # 7.7 10^3/uL (1.5-8.5); NEUTROPHILS % 83.6 % (36.0-66.0); PLATELET COUNT, AUTOMATED 281 10^3/uL (150-450); RED BLOOD COUNT 3.37 10^6/uL (4.00-5.40); WHITE BLOOD COUNT 9.2 10^3/uL (4.0-10.0)
[2023-12-06 07:21] LABS: BLOOD UREA NITROGEN 12 MG/DL (9-23); CALCIUM LEVEL 7.6 MG/DL (8.3-10.6); CARBON DIOXIDE LEVEL 30 MMOL/L (20-31); CHLORIDE LEVEL 104 MMOL/L (98-107); CREATININE FOR GFR 0.28 MG/DL (0.55-1.30); GLOMERULAR FILTRATION RATE > 60.0 (>39); GLUCOSE, FASTING 105 MG/DL (74-106); MAGNESIUM LEVEL 1.9 MG/DL (1.8-2.4); POTASSIUM SERUM 4.7 MMOL/L (3.5-5.1); SODIUM LEVEL 135 MMOL/L (136-145)
[2023-12-07] VITALS (19 sets, daily range): BP systolic 111–139; BP diastolic 57–78; TEMP 97.3–98.2; O2SAT 90–98
[2023-12-07 05:51] LABS: BASO % 0.2 % (0.0-1.0); EOS # 0.1 10^3/uL (0.0-0.5); EOS % 1.6 % (0.0-3.0); HEMATOCRIT 30.5 % (36.0-47.0); HEMOGLOBIN 9.4 g/dl (12.0-15.5); LYMPH # 0.8 10^3/uL (1.5-5.0); LYMPH % 18.7 % (24.0-44.0); MEAN CORPUSCULAR HEMOGLOBIN 28.1 pg (27.0-33.0); MEAN CORPUSCULAR HGB CONC 30.8 g/dl (32.0-36.5); MEAN CORPUSCULAR VOLUME 91.3 fl (80.0-96.0); MONO # 0.4 10^3/uL (0.0-0.8); MONO % 8.2 % (2.0-8.0); NEUTROPHILS # 3.2 10^3/uL (1.5-8.5); NEUTROPHILS % 71.1 % (36.0-66.0); PLATELET COUNT, AUTOMATED 241 10^3/uL (150-450); RED BLOOD COUNT 3.34 10^6/uL (4.00-5.40); WHITE BLOOD COUNT 4.5 10^3/uL (4.0-10.0)
[2023-12-07 06:15] LABS: BLOOD UREA NITROGEN 13 MG/DL (9-23); CALCIUM LEVEL 7.8 MG/DL (8.3-10.6); CARBON DIOXIDE LEVEL 28 MMOL/L (20-31); CHLORIDE LEVEL 108 MMOL/L (98-107); CREATININE FOR GFR 0.31 MG/DL (0.55-1.30); GLOMERULAR FILTRATION RATE > 60.0 (>39); GLUCOSE, FASTING 103 MG/DL (74-106); POTASSIUM SERUM 4.4 MMOL/L (3.5-5.1); SODIUM LEVEL 138 MMOL/L (136-145)
[2023-12-08 01:13] VITALS: O2SAT 94
[2023-12-08 06:00] VITALS: BP 125/73; TEMP 97.9; O2SAT 94
[2023-12-08 06:51] LABS: BASO % 0.3 % (0.0-1.0); EOS % 0.8 % (0.0-3.0); HEMATOCRIT 30.6 % (36.0-47.0); HEMOGLOBIN 9.7 g/dl (12.0-15.5); LYMPH # 0.9 10^3/uL (1.5-5.0); LYMPH % 24.3 % (24.0-44.0); MEAN CORPUSCULAR HEMOGLOBIN 28.8 pg (27.0-33.0); MEAN CORPUSCULAR HGB CONC 31.7 g/dl (32.0-36.5); MEAN CORPUSCULAR VOLUME 90.8 fl (80.0-96.0); MONO # 0.4 10^3/uL (0.0-0.8); NEUTROPHILS # 2.5 10^3/uL (1.5-8.5); NEUTROPHILS % 65.3 % (36.0-66.0); PLATELET COUNT, AUTOMATED 262 10^3/uL (150-450); RED BLOOD COUNT 3.37 10^6/uL (4.00-5.40); WHITE BLOOD COUNT 3.9 10^3/uL (4.0-10.0)
[2023-12-08 07:07] LABS: BLOOD UREA NITROGEN 8 MG/DL (9-23); CALCIUM LEVEL 7.8 MG/DL (8.3-10.6); CARBON DIOXIDE LEVEL 30 MMOL/L (20-31); CHLORIDE LEVEL 108 MMOL/L (98-107); CREATININE FOR GFR 0.26 MG/DL (0.55-1.30); GLOMERULAR FILTRATION RATE > 60.0 (>39); GLUCOSE, FASTING 93 MG/DL (74-106); POTASSIUM SERUM 4.4 MMOL/L (3.5-5.1); SODIUM LEVEL 140 MMOL/L (136-145)
[2023-12-08 14:00] VITALS: BP 128/68; TEMP 98.2; O2SAT 94
[2023-12-08 14:43] VITALS: O2SAT 96
[2023-12-08 20:00] VITALS: BP 127/66; TEMP 98.1; O2SAT 95
[2023-12-09 06:00] VITALS: TEMP 98.4; O2SAT 84
[2023-12-09 07:21] LABS: BLOOD UREA NITROGEN 8 MG/DL (9-23); CALCIUM LEVEL 7.6 MG/DL (8.3-10.6); CARBON DIOXIDE LEVEL 30 MMOL/L (20-31); CHLORIDE LEVEL 106 MMOL/L (98-107); CREATININE FOR GFR 0.24 MG/DL (0.55-1.30); GLOMERULAR FILTRATION RATE > 60.0 (>39); GLUCOSE, FASTING 96 MG/DL (74-106); MAGNESIUM LEVEL 1.9 MG/DL (1.8-2.4); POTASSIUM SERUM 4.5 MMOL/L (3.5-5.1); SODIUM LEVEL 139 MMOL/L (136-145)
[2023-12-09 11:09] VITALS: O2SAT 91
[2023-12-09 14:00] VITALS: BP 136/73; TEMP 98.2; O2SAT 93
[2023-12-09] MEDS: ACETAMINOPHEN 500 MG TAB PO PRN (21:00)
[2023-12-10 00:56] VITALS: BP 150/81; TEMP 98.2; O2SAT 92
[2023-12-10] MEDS ORDERED: PERCOCET 5MG/325MG TAB PO PRN (04:35)
[2023-12-10] MEDS: ACETAMINOPHEN 500 MG TAB PO PRN (05:21)
[2023-12-10 06:00] VITALS: BP 187/94; TEMP 98.1; O2SAT 91
[2023-12-10 06:12] LABS: BASO % 0.3 % (0.0-1.0); EOS % 1.3 % (0.0-3.0); HEMATOCRIT 34.7 % (36.0-47.0); LYMPH % 31.9 % (24.0-44.0); MEAN CORPUSCULAR HEMOGLOBIN 28.6 pg (27.0-33.0); MEAN CORPUSCULAR HGB CONC 31.7 g/dl (32.0-36.5); MEAN CORPUSCULAR VOLUME 90.4 fl (80.0-96.0); MONO # 0.2 10^3/uL (0.0-0.8); MONO % 8.1 % (2.0-8.0); NEUTROPHILS # 1.7 10^3/uL (1.5-8.5); NEUTROPHILS % 57.7 % (36.0-66.0); PLATELET COUNT, AUTOMATED 301 10^3/uL (150-450); RED BLOOD COUNT 3.84 10^6/uL (4.00-5.40)
[2023-12-10 06:43] LABS: BLOOD UREA NITROGEN 7 MG/DL (9-23); CALCIUM LEVEL 8.2 MG/DL (8.3-10.6); CARBON DIOXIDE LEVEL 28 MMOL/L (20-31); CHLORIDE LEVEL 107 MMOL/L (98-107); CREATININE FOR GFR 0.28 MG/DL (0.55-1.30); GLOMERULAR FILTRATION RATE > 60.0 (>39); GLUCOSE, FASTING 82 MG/DL (74-106); MAGNESIUM LEVEL 1.8 MG/DL (1.8-2.4); POTASSIUM SERUM 4.6 MMOL/L (3.5-5.1); SODIUM LEVEL 139 MMOL/L (136-145)
[2023-12-10 12:25] VITALS: O2SAT 92
[2023-12-10 12:41] VITALS: BP 146/88
[2023-12-10 14:00] VITALS: BP 160/92; TEMP 98.8; O2SAT 96
[2023-12-10] MEDS: amLODIPine 5 MG TAB PO SCH (15:37)
[2023-12-10] MEDS ORDERED: ALBUTEROL SULFATE 2.5MG/0.5ML INH NEB SOLN NEB PRN (15:55)
[2023-12-10 20:00] VITALS: BP 138/87; TEMP 98.4; O2SAT 91
[2023-12-10] MEDS: ACETAMINOPHEN TAB 650MG DOSE (2X325MG) PO PRN (21:49)
[2023-12-11 03:35] VITALS: O2SAT 86
[2023-12-11 03:36] VITALS: O2SAT 89
[2023-12-11 03:38] VITALS: O2SAT 92
[2023-12-11 06:00] VITALS: BP 133/88; TEMP 98.4; O2SAT 92
[2023-12-11 06:46] LABS: BASO % 0.4 % (0.0-1.0); EOS % 0.8 % (0.0-3.0); HEMATOCRIT 35.8 % (36.0-47.0); HEMOGLOBIN 11.3 g/dl (12.0-15.5); LYMPH # 0.9 10^3/uL (1.5-5.0); LYMPH % 18.1 % (24.0-44.0); MEAN CORPUSCULAR HEMOGLOBIN 28.2 pg (27.0-33.0); MEAN CORPUSCULAR HGB CONC 31.6 g/dl (32.0-36.5); MEAN CORPUSCULAR VOLUME 89.3 fl (80.0-96.0); MONO # 0.4 10^3/uL (0.0-0.8); MONO % 8.5 % (2.0-8.0); NEUTROPHILS # 3.5 10^3/uL (1.5-8.5); PLATELET COUNT, AUTOMATED 349 10^3/uL (150-450); RED BLOOD COUNT 4.01 10^6/uL (4.00-5.40); WHITE BLOOD COUNT 4.9 10^3/uL (4.0-10.0)
[2023-12-11 07:29] LABS: BLOOD UREA NITROGEN 9 MG/DL (9-23); CALCIUM LEVEL 8.4 MG/DL (8.3-10.6); CARBON DIOXIDE LEVEL 29 MMOL/L (20-31); CHLORIDE LEVEL 103 MMOL/L (98-107); CREATININE FOR GFR 0.33 MG/DL (0.55-1.30); GLOMERULAR FILTRATION RATE > 60.0 (>39); GLUCOSE, FASTING 101 MG/DL (74-106); MAGNESIUM LEVEL 1.8 MG/DL (1.8-2.4); POTASSIUM SERUM 4.7 MMOL/L (3.5-5.1); SODIUM LEVEL 135 MMOL/L (136-145)
[2023-12-11 14:00] VITALS: BP 120/65; TEMP 98.1; O2SAT 98
[2023-12-11 21:00] VITALS: BP 126/82; TEMP 97.7; O2SAT 93
[2023-12-12 04:55] VITALS: BP 137/79; TEMP 97.7; O2SAT 96
[2023-12-12 06:28] LABS: BASO % 0.7 % (0.0-1.0); EOS # 0.1 10^3/uL (0.0-0.5); EOS % 4.5 % (0.0-3.0); HEMATOCRIT 33.8 % (36.0-47.0); HEMOGLOBIN 10.5 g/dl (12.0-15.5); LYMPH # 0.8 10^3/uL (1.5-5.0); MEAN CORPUSCULAR HEMOGLOBIN 28.3 pg (27.0-33.0); MEAN CORPUSCULAR HGB CONC 31.1 g/dl (32.0-36.5); MEAN CORPUSCULAR VOLUME 91.1 fl (80.0-96.0); MONO # 0.3 10^3/uL (0.0-0.8); NEUTROPHILS # 1.7 10^3/uL (1.5-8.5); NEUTROPHILS % 57.5 % (36.0-66.0); PLATELET COUNT, AUTOMATED 294 10^3/uL (150-450); RED BLOOD COUNT 3.71 10^6/uL (4.00-5.40); WHITE BLOOD COUNT 2.9 10^3/uL (4.0-10.0)
[2023-12-12 06:51] LABS: BLOOD UREA NITROGEN 6 MG/DL (9-23); CALCIUM LEVEL 8.3 MG/DL (8.3-10.6); CARBON DIOXIDE LEVEL 30 MMOL/L (20-31); CHLORIDE LEVEL 107 MMOL/L (98-107); CREATININE FOR GFR 0.28 MG/DL (0.55-1.30); GLOMERULAR FILTRATION RATE > 60.0 (>39); GLUCOSE, FASTING 88 MG/DL (74-106); MAGNESIUM LEVEL 1.8 MG/DL (1.8-2.4); POTASSIUM SERUM 4.6 MMOL/L (3.5-5.1); SODIUM LEVEL 140 MMOL/L (136-145)
[2023-12-12 09:00] VITALS: BP 109/59
[2023-12-12 14:00] VITALS: BP 107/55; TEMP 97.7; O2SAT 97
[2023-12-12 20:47] VITALS: BP 118/70; TEMP 98.6; O2SAT 99
[2023-12-13 00:16] VITALS: O2SAT 91
[2023-12-13 02:37] VITALS: O2SAT 94
[2023-12-13 04:54] VITALS: BP 109/59; TEMP 97.9; O2SAT 93
[2023-12-13 06:24] LABS: BASO % 0.7 % (0.0-1.0); EOS # 0.1 10^3/uL (0.0-0.5); EOS % 4.2 % (0.0-3.0); HEMATOCRIT 33.3 % (36.0-47.0); HEMOGLOBIN 10.5 g/dl (12.0-15.5); LYMPH # 0.9 10^3/uL (1.5-5.0); LYMPH % 29.9 % (24.0-44.0); MEAN CORPUSCULAR HEMOGLOBIN 28.4 pg (27.0-33.0); MEAN CORPUSCULAR HGB CONC 31.5 g/dl (32.0-36.5); MONO # 0.2 10^3/uL (0.0-0.8); NEUTROPHILS # 1.6 10^3/uL (1.5-8.5); NEUTROPHILS % 56.9 % (36.0-66.0); PLATELET COUNT, AUTOMATED 282 10^3/uL (150-450); WHITE BLOOD COUNT 2.9 10^3/uL (4.0-10.0)
[2023-12-13 06:45] LABS: BLOOD UREA NITROGEN 6 MG/DL (9-23); CALCIUM LEVEL 8.4 MG/DL (8.3-10.6); CARBON DIOXIDE LEVEL 30 MMOL/L (20-31); CHLORIDE LEVEL 106 MMOL/L (98-107); CREATININE FOR GFR 0.28 MG/DL (0.55-1.30); GLOMERULAR FILTRATION RATE > 60.0 (>39); GLUCOSE, FASTING 81 MG/DL (74-106); MAGNESIUM LEVEL 1.6 MG/DL (1.8-2.4); POTASSIUM SERUM 4.4 MMOL/L (3.5-5.1); SODIUM LEVEL 141 MMOL/L (136-145)
[2023-12-13] MEDS ORDERED: HYDR-643 PO (09:22)
[2023-12-13] MEDS ORDERED: POTA-136 PO (09:22)
[2023-12-13] MEDS ORDERED: LIDO5TD TD (09:22)
[2023-12-13] MEDS ORDERED: FERR32TA PO (09:22)
[2023-12-13] MEDS ORDERED: MAGN400T2 PO (09:22)
[2023-12-13] MEDS ORDERED: CYMB1CAP5 PO (09:22)
[2023-12-13] MEDS: MAGNESIUM OXIDE 400MG TAB (MAG-OX) PO SCH (09:36)
== END 2023-12-13 14:48 | DRG 189 ==
LOC: M ED 18:06 → M ED INP 12-03 09:07 → ENRESERV 12-03 10:44 → M PCU 12-03 11:15 → M MSPAV 12-04 12:01 → M PCU 12-05 17:54 → M MSPAV 12-07 18:16
PROVIDERS: ADMIT Student in an Organized Health Care Education/Training Program; ATTEND Student in an Organized Health Care Education/Training Program
PROC: 0S9C3ZZ Drainage of Right Knee Joint, Percutaneous Approach (ICD-10-PCS; principal; 2023-11-29)
DX: J96.01 Acute respiratory failure with hypoxia (principal); R45.851 Suicidal ideations; L97.919 Non-pressure chronic ulcer of unspecified part of right lower leg with unspecified severity; R53.1 Weakness; M25.462 Effusion, left knee; E87.6 Hypokalemia; E83.42 Hypomagnesemia; K59.00 Constipation, unspecified; F43.21 Adjustment disorder with depressed mood; F20.9 Schizophrenia, unspecified; L89.152 Pressure ulcer of sacral region, stage 2; D50.9 Iron deficiency anemia, unspecified; G47.33 Obstructive sleep apnea (adult) (pediatric); R33.9 Retention of urine, unspecified; T17.928A Food in respiratory tract, part unspecified causing other injury, initial encounter; M17.12 Unilateral primary osteoarthritis, left knee; R53.81 Other malaise; E78.5 Hyperlipidemia, unspecified; I10 Essential (primary) hypertension; F32.9 Major depressive disorder, single episode, unspecified; Z85.3 Personal history of malignant neoplasm of breast; M81.0 Age-related osteoporosis without current pathological fracture; Z96.641 Presence of right artificial hip joint; Z86.718 Personal history of other venous thrombosis and embolism; Z95.828 Presence of other vascular implants and grafts; Z79.899 Other long term (current) drug therapy; Z87.891 Personal history of nicotine dependence; Y92.230 Patient room in hospital as the place of occurrence of the external cause